=== PATIENT | male | born 1980 | race Caucasian/White ===

== ENCOUNTER 2018-01-11 07:58 | Outpatient (REF) | payer OTHER, SELFPAY ==
[2018-01-11 13:27] LABS: ALT 43 U/L (12-78); AST 23 U/L (15-37); Albumin 3.8 g/dL (3.4-5.0); Alkaline Phosphatase 94 U/L (46-116); Anion Gap 8.5 mmol/L (3-11); BUN 17 mg/dL (7-18); Bilirubin, Total 0.4 mg/dL (0.2-1.0); CO2 27.5 mmol/L (21.0-32.0); CREATININE 1.32 mg/dL (0.70-1.30); Calcium 8.8 mg/dL (8.5-10.1); Chloride 106 mmol/L (98-107); Cholesterol 217 mg/dL (50-200); Glucose 90 mg/dL (70-100); HDL Cholesterol 41 mg/dL (40-60); LDL CHOLESTEROL 165 mg/dL (<100); Potassium 4.3 mmol/L (3.5-5.1); Sodium 142 mmol/L (136-145); Total Protein 6.8 g/dL (6.4-8.2); Triglyceride 59 mg/dL (30-150)
== END 2018-01-11 08:18 ==
LOC: NCHCN 07:58
PROVIDERS: PCP Nurse Practitioner Family; Visit Provider Nurse Practitioner Family
DX: Z13.220 Encounter for screening for lipoid disorders (principal); Z13.6 Encounter for screening for cardiovascular disorders
CPT/HCPCS: 80053; 80061; 83721

== ENCOUNTER 2018-01-21 10:44 | Outpatient (REF) | payer OTHER, SELFPAY ==
[2018-01-24 14:16] LABS: 6-monoacetylmorphine Not Detected ng/mL (Cutoff: 25); Amphetamines Negative ng/mL (Cutoff: 500); Barbiturates Negative ng/mL (Cutoff: 200); Benzodiazepines Negative ng/mL (Cutoff: 100); Buprenorphine Not Detected ng/mL (Cutoff: 5); Cocaine Negative ng/mL (Cutoff: 150); Codeine Not Detected ng/mL (Cutoff: 25); Comment Normal; Dihydrocodeine Not Detected ng/mL (Cutoff: 25); EDDP Not Detected ng/mL (Cutoff: 25); Fentanyl Not Detected ng/mL (Cutoff: 2); Hydrocodone Not Detected ng/mL (Cutoff: 25); Hydromorphone Not Detected ng/mL (Cutoff: 25); Hydromorphone-3-beta-glucuroni Not Detected ng/mL (Cutoff: 100); Meperidine Not Detected ng/mL (Cutoff: 25); Methadone Not Detected ng/mL (Cutoff: 25); Morphine Not Detected ng/mL (Cutoff: 25); N-desmethyltapentadol Not Detected ng/mL (Cutoff: 50); Naloxone Not Detected ng/mL (Cutoff: 25); Norbuprenorphine Not Detected ng/mL (Cutoff: 5); Norfentanyl Not Detected ng/mL (Cutoff: 2); Norhydrocodone Not Detected ng/mL (Cutoff: 25); Normeperidine Not Detected ng/mL (Cutoff: 25); Noroxycodone Not Detected ng/mL (Cutoff: 25); Noroxymorphone Not Detected ng/mL (Cutoff: 25); O-desmethyltramadol Not Detected ng/mL (Cutoff: 25); Phencyclidine Negative ng/mL (Cutoff: 25); Propoxyphene Not Detected ng/mL (Cutoff: 25); Specific Gravity 1.017; Tapentadol Not Detected ng/mL (Cutoff: 25); Tetrahydrocannabinol Presumptive Positive ng/mL (Cutoff: 50); Tramadol Not Detected ng/mL (Cutoff: 25); pH 6.3
[2018-04-04 18:47] LABS: Carboxy-THC Interpretation Positive.; Delta-9 CarboxyThc by LC-MS/MS 376 ng/mL (Cutoff:<3)
== END 2018-01-21 11:04 ==
LOC: LBN 10:44
PROVIDERS: PCP Nurse Practitioner Family; Visit Provider Nurse Practitioner Family
DX: Z79.899 Other long term (current) drug therapy (principal)
CPT/HCPCS: 80307; 80349; 80364

== ENCOUNTER 2018-04-15 17:28 | Outpatient (REF) | payer OTHER, SELFPAY ==
[2018-04-15 19:06] LABS: CREATININE 1.32 mg/dL (0.70-1.30)
== END 2018-04-15 17:48 ==
LOC: NCHCN 17:28
PROVIDERS: PCP Nurse Practitioner Family; Visit Provider Nurse Practitioner Family
DX: F41.9 Anxiety disorder, unspecified (principal); R07.89 Other chest pain; R94.4 Abnormal results of kidney function studies
CPT/HCPCS: 82565

== ENCOUNTER 2018-07-18 11:57 | Inpatient (IN) | payer OTHER, SELFPAY ==
[2018-07-18 12:03] VITALS: PULSE 88; RESP 16; TEMP 36.6; O2SAT 98
--- NOTE | 2018-07-18 12:27 | DI.CT_ITS ---
SYMPTOMS/DIAGNOSIS: LOWER ABDOMINAL PAIN, RADIATION OF PAIN TO PENIS ABDOMINAL AND PELVIC CT: CT examination of the abdomen and pelvis was performed with a bolus infusion of 100 cc of Omnipaque 350. Images obtained through the lung bases are unremarkable. Liver, spleen and pancreas appear normal. Gallbladder and bile ducts are CT normal. Abdominal aorta is of normal diameter and no major vascular abnormality is seen. No significant abdominal wall hernia seen. No abdominal or pelvic adenopathy seen. The appendix is normal. No evidence of bowel obstruction. Note is made of wall thickening of sigmoid colon with marked associated fat edema. There appears to be a microperforation with a small quantity of gas in the pericolonic fat adjacent to the sigmoid. No generalized free air is seen. No abscess seen. Trace free fluid in the peritoneal cavity in the pelvis. CONCLUSION: Findings consistent with acute sigmoid diverticulitis with microperforation. No abscess seen.
--- NOTE | 2018-07-18 12:30 | W.ED.GENAD ---
Discharge Plan Disposition Patient Disposition: [facility] INPATIENT Condition: Stable Discharge Details Chief Complaint: Abd Prob Clinical Impression: Diverticulitis, Perforation bowel Primary Care Provider: Haley óLpez ED Provider: Tess Bob Home Meds and New Rx's Prescriptions: No Action bupropion HCl 150 mg tablet extended release 12 hr 150 mg PO BID RF: 0 propranolol 20 mg tablet 20 mg PO BID RF: 0 Medical Decision Making 37-year-old male with a history of anxiety and depression who presents with lower abdominal pain and vomiting x1 since last night. Vitals within normal limits. Patient appears nontoxic and comfortable. He has tenderness to palpation in his right lower quadrant, suprapubic region and left lower quadrant. exam normal. No CVA tenderness. Differential diagnosis includes appendicitis, diverticulitis, pyelonephritis, UTI, gastroenteritis. Will place an IV, bolus IV fluids, labs, urinalysis and CT abdomen and pelvis. He is declining any pain medication at this time peer 1330 -- labs and imaging reviewed. White blood cell count 12, remainder of labs unremarkable. Urinalysis negative. CT notes acute diverticulitis with edema around sigmoid colon. There is gas in the soft tissues adjacent to the colon consistent with microperforation. No free air, abscess or perforation. 1345 -- discussed with general surgery -accepts patient for admission. Requests Rocephin 2 g IV and Flagyl 500 mg IV. Patient informed of plan and agreeable with admission. He appears comfortable and again is declining any pain medication at this time. Patient is hemodynamically stable. Medical Records Medical records reviewed: Yes I reviewed the patient's medical records. Imaging Data Radiologic Study: Radiologist's impression: ABDOMINAL AND PELVIC CT: CT examination of the abdomen and pelvis was performed with a bolus infusion of 100 cc of Omnipaque 350. Images obtained through the lung bases are unremarkable. Liver, spleen and pancreas appear normal. Gallbladder and bile ducts are CT normal. Abdominal aorta is of normal diameter and no major vascular abnormality is seen. No significant abdominal wall hernia seen. No abdominal or pelvic adenopathy seen. The appendix is normal. No evidence of bowel obstruction. Note is made of wall thickening of sigmoid colon with marked associated fat edema. There appears to be a microperforation with a small quantity of gas in the pericolonic fat adjacent to the sigmoid. No generalized free air is seen. No abscess seen. Trace free fluid in the peritoneal cavity in the pelvis. CONCLUSION: Findings consistent with acute sigmoid diverticulitis with microperforation. No abscess seen. Lab Data Lab results reviewed: Yes I reviewed the patient's lab results. Laboratory Tests Range/Units 07/18/18 07/18/18 07/18/18 12:49 12:49 12:50 WBC (4.4-10.8) k/cumm 12.22 H RBC (4.50-6.00) m/cumm 4.88 Hgb (13.5-17.5) g/dL 14.8 Hct (40.0-50.0) % 43.2 MCV (80-95) fL 88.5 MCH (27.0-33.0) pg 30.3 MCHC (32.0-36.0) g/dL 34.3 RDW (11.8-14.1) % 12.7 Plt Count (130-400) x1000/uL 167 MPV (8.0-11.0) fL 11.8 H Immature Gran % 0.2 Neutrophils % 73.6 Lymphocytes % 10.7 Monocytes % 15.2 Eosinophils % 0.1 Basophils % 0.2 Absolute Neutrophils (1.2-6.7) k/cumm 8.99 H Absolute Lymphocytes (1.2-3.4) k/cumm 1.31 Absolute Monocytes (0.11-0.7) k/cumm 1.86 H Absolute Eosinophils (0.0-0.7) k/cumm 0.01 Absolute Basophils (0.0-0.2) k/cumm 0.02 Sodium (136-145) mmol/L 138 Potassium (3.5-5.1) mmol/L 3.8 Chloride (98-107) mmol/L 101 Carbon Dioxide (21.0-32.0) mmol/L 28.1 Anion Gap (3-11) mmol/L 8.9 BUN (7-18) mg/dL 14 Creatinine (0.70-1.30) mg/dL 1.25 Estimated GFR/1.73 m2 (mL/min/1.73m2) >= 60.00 Glucose (70-100) mg/dL 98 Calcium (8.5-10.1) mg/dL 8.9 Total Bilirubin (0.2-1.0) mg/dL 0.9 AST (15-37) U/L 21 ALT (12-78) U/L 40 Alkaline Phosphatase (46-116) U/L 104 Total Protein (6.4-8.2) g/dL 7.3 Albumin (3.4-5.0) g/dL 3.7 Lipase (73-393) U/L 155 Urine Color (Yellow) Yellow Urine Clarity Clear Urine pH (5-8) 7.0 Ur Specific [place] (1.005-1.025) 1.015 Urine Protein (Negative) mg/dL Negative Urine Ketones (Negative) mg/dL Negative Urine Blood (Negative) Negative Urine Nitrite (Negative) Negative Urine Bilirubin (Negative) Negative Urine Urobilinogen (Up TO 0.2) EU/dL 0.2 Ur Leukocyte Esterase (Negative) Negative Urine Glucose (Negative) mg/dL Negative HPI General Mode of arrival: ambulatory. Date/Time Provider Initiated Documentation: 07/18/18 11:59. Limitations to Documentation: no limitations. Information obtained by: patient. HPI Narrative: Patient is a 37-year-old male with a history of anxiety and depression who presents with lower abdominal pain since last night. Patient states the pain is intermittent, sharp and feels like gas pains. States the pain is currently 2/10. States it is worse with movement and better with nothing. He has not taken any medication for the pain. He states the pain is in his lower abdomen below his umbilicus and this morning now radiates into his penis. He states last night he had lower back pain but this resolved last night. He states at 3 AM this morning he attempted to urinate and have a bowel movement and felt cold sweats, nausea and dizzy and felt like he was almost going to pass out but did not. He states he then vomited one time and felt slightly better. He states the vomitus was thick and white but denies any bleeding. He states his last bowel movement was yesterday and within normal limits. He states he has been having alternating constipation and diarrhea. His temp this morning was 99. He denies recent travel, recent surgeries, dysuria, hematuria, urgency. He states he has a history of chronic urinary frequency due to what he thinks is a large prostate but states this is no worse than usual. He states he mainly came in today because his girlfriend encouraged him to get an evaluation otherwise he states he would not have come here. Related Data Home Medications Medication Instructions Recorded Confirmed bupropion HCl SR 150 mg tablet,12 150 mg PO BID 01/16/18 07/18/18 hr sustained-release propranolol 20 mg tablet 20 mg PO BID 01/16/18 07/18/18 Allergies Allergy/AdvReac Type Severity Reaction Status Date / Time No Known Allergies Allergy Unverified 07/18/18 12:06 General Stated Complaint: Abd Prob ELVA: 3 Review of Systems Review of Systems All systems reviewed & are unremarkable except as noted in HPI and below Constitutional Reports as per HPI, Denies chills and Denies fever(s) Eyes Denies blurry vision ENT Denies dizziness, Denies sore throat and Denies throat swelling Cardiovascular Denies chest pain and Denies dyspnea Respiratory Denies cough and Denies dyspnea Gastrointestinal Reports abdominal pain, Denies diarrhea and Reports vomiting Genitourinary Denies hematuria and Denies dysuria Musculoskeletal Denies back pain and Denies numbness Integumentary/Breasts Denies lesions and Denies rash Neurologic Denies dizziness, Denies focal weakness and Denies numbness Allergic/Immunologic Denies throat swelling PFSH Medical History MIGUEL (generalized anxiety disorder) (Acute) Elevated cholesterol with elevated triglycerides (Acute) Diverticulitis of both large and small intestine with perforation without abscess or bleeding (Acute) Atypical chest pain (Acute) Chronic fatigue (Acute) Colon polyp (Acute) Dizziness (Acute) MIGUEL (generalized anxiety disorder) (Acute) Hyperlipidemia (Acute) Mood disorder (Acute) Right knee pain (Acute) Sleep disturbances (Acute) Visual disturbance (Acute) Anxiety (Chronic) Depression (Chronic) Surgical History Tongue abnormality (Acute) Social History Smoking/Tobacco Use Status: Former Tobacco Use Alcohol Intake: current Alcohol Intake frequency: holidays/special occasions only Drug use: Daily Substance use type: marijuana Household members: children Housing: house Number of Children: 1 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 [employer] What type of physical activity do you participate in: none Do you feel safe at home: Yes Do you feel safe in your relationship?: Yes Exam Const General: cooperative, healthy appearing and no acute distress HENMT Head: normal to inspection Face and sinus: normal facial exam Eyes General: appearance normal, both eyes and all related structures EOM: EOM intact bilaterally Neck Neck: normal visual inspection and No submandibular swelling Lymphatic: no lymphadenopathy noted Chest Chest: normal inspection of the chest and no tenderness Resp Effort & Inspection: normal respiratory effort and able to speak in complete sentences Auscultation: clear to auscultation bilaterally Cardio Rate: regular rate Rhythm: regular rhythm GI Inspection: normal to inspection Palpation: soft, not firm, not rigid and nontender Auscultation: normal bowel sounds Male General Exam: Yes normal external exam Penis: normal penis, no ecchymosis, not edematous and not erythematous Scrotum: scrotum normal, not edematous and not erythematous Testes: normal, no testicular swelling and no testicular tenderness Back/Spine/Pelvis Back: no CVA tenderness Skin General skin exam: no rashes or lesions noted Neuro General: alert, awake and oriented x3 Cognition: normal cognition Speech: speech normal Motor: muscle tone normal throughout Sensory Exam: no sensory deficits noted Extrem General: normal to inspection, full ROM and no edema Psych Appearance: grossly normal Mental Status: mental status grossly normal Speech and Movement: speech and movement normal Affect: normal affect Course Vital Signs Temperature 97.9 F 07/18/18 12:03 Pulse 88 07/18/18 12:03 Respiratory Rate 16 07/18/18 12:03 Pulse Oximetry 98 07/18/18 12:03 Temperature 97.9 F 07/18/18 12:03 Temperature Source Temporal Artery Scan 07/18/18 12:03 Pulse 88 07/18/18 12:03 Respiratory Rate 16 07/18/18 12:03 Respiratory Effort Non-Labored 07/18/18 12:05 Blood Pressure Position Sitting 07/18/18 12:03 Pulse Oximetry 98 07/18/18 12:03 Oxygen Delivery Method Room Air 07/18/18 12:03 Oxygen Flow Rate 0 07/18/18 12:03 Pain Level 2 07/18/18 12:03
[2018-07-18] MEDS: Normal Saline 1,000 ML 1000 ML IV (12:49)
[2018-07-18 12:53] LABS: Abs Immature Grans 0.03 k/cumm (0.0-0.09); Absolute Eosinophil Count 0.01 k/cumm (0.0-0.7); Absolute Lymphocyte Count 1.31 k/cumm (1.2-3.4); Absolute Monocyte Count 1.86 k/cumm (0.11-0.7); Basophils % 0.2; Eosinophils % 0.1; HCT 43.2 % (40.0-50.0); HGB 14.8 g/dL (13.5-17.5); Immature Grans % 0.2; Lymphocytes % 10.7; Mean Corp. HGB Concentration 34.3 g/dL (32.0-36.0); Mean Corpuscular Hemoglobin 30.3 pg (27.0-33.0); Mean Corpuscular Volume 88.5 fL (80-95); Mean Platelet Volume 11.8 fL (8.0-11.0); Monocytes % 15.2; Neutrophils % 73.6; Platelet Count 167 x1000/uL (130-400); RBC 4.88 m/cumm (4.50-6.00); RBC Distribution Width 12.7 % (11.8-14.1); White Blood Cell Count 12.22 k/cumm (4.4-10.8)
[2018-07-18 12:54] LABS: Absolute Basophil Count 0.02 k/cumm (0.0-0.2); Absolute Neutrophil Count 8.99 k/cumm (1.2-6.7)
[2018-07-18 12:58] LABS: Bilirubin Negative (Negative); Blood Negative (Negative); Clarity Clear; Glucose Negative (Negative); Ketones Negative (Negative); Leukocyte Esterase Negative (Negative); Nitrite Negative (Negative); Specific Gravity 1.015 (1.005-1.025); Urobilinogen 0.2 EU/dL (Up TO 0.2)
[2018-07-18 13:11] LABS: ALT 40 U/L (12-78); AST 21 U/L (15-37); Albumin 3.7 g/dL (3.4-5.0); Alkaline Phosphatase 104 U/L (46-116); Anion Gap 8.9 mmol/L (3-11); BUN 14 mg/dL (7-18); Bilirubin, Total 0.9 mg/dL (0.2-1.0); CO2 28.1 mmol/L (21.0-32.0); CREATININE 1.25 mg/dL (0.70-1.30); Calcium 8.9 mg/dL (8.5-10.1); Chloride 101 mmol/L (98-107); Glucose 98 mg/dL (70-100); Lipase 155 U/L (73-393); Potassium 3.8 mmol/L (3.5-5.1); Sodium 138 mmol/L (136-145); Total Protein 7.3 g/dL (6.4-8.2)
[2018-07-18] MEDS: Omnipaque 350 MG/ML 100 ML BTL IJ (13:43)
[2018-07-18 14:00] VITALS: BP 116/77; PULSE 85; RESP 18; TEMP 37.5; O2SAT 97
[2018-07-18] MEDS: metroNIDAZOLE 500 MG/100 ML BAG 100 MG IVPB ×2 (14:10→19:58)
--- NOTE | 2018-07-18 14:25 | HPE_ITS ---
Date of service: 07/18/18 Time of Service: 14:22 Assessment and Plan (1) Diverticulitis of both large and small intestine with perforation without abscess or bleeding: Current visit: Yes Status: Acute admission IV abx bowel rest supportive care- DVT proph/pulm toilet/pain control CE in 4-6 wks No signs of diffuse peritonitis. No abscess on CT. WIll monitor for signs of abscess or worsening perforation (2) Elevated cholesterol with elevated triglycerides: Current visit: Yes Status: Acute tx as outpt (3) MIGUEL (generalized anxiety disorder): Current visit: Yes Status: Acute cont po meds History of Present Illness Chief Complaint: abdom pain Consults Consult date: 07/18/18 Requesting physician: Tess Bob Narrative: pt has a hx of constipation adn colon issues. He has had a CE in his 20's for RB- it did show a non cancerous polyp (hyperplactic?) his mom has olon issues Pt started having abdom pain left sided and suprapubic last pm. THought he as d ehydrated and was pushing fluids . + n/v and increasing pain throughout day and came to ED. He does have a hx of hemorrhoids and constipation. pt has had episode of LLQ abdom pain in the past- but none this severe. pt was not aware that he had divertic. CT was done- see repeat. I did personally view the images. On exam, pt abdom is pretty distended and there is diffuse tenderness, but co ncentrated in LLQ/suprapubic area. d/w pt findings on CT and significance and plan hydration/pain control/close obs/abx/supportive care will require CE in future to eval divertic. remain on high fiber diet lifelong consider elective sigmoid resection b/c of age. Review of Systems Review of Systems All systems reviewed & are unremarkable except as noted in HPI and below Constitutional Reports as per HPI, Reports system reviewed and no additional complaints, except as docu, Denies anorexia, Denies chills, Denies difficulty sleeping, Denies fatigue, Denies headache(s), Denies lethargy, Denies malaise, Denies poor appetite, Denies weakness, Denies weight gain and Denies weight loss Eyes Reports as per HPI, Reports system reviewed and no additional complaints, except as docu and Denies change in vision ENT Reports system reviewed and no additional complaints, except as docu, Reports as per HPI, Denies change in voice, Denies dental pain, Denies dysphagia, Denies dizziness, Denies facial pain, Denies headache(s) and Denies odynophagia Cardiovascular Reports as per HPI, Reports system reviewed and no additional complaints, except as docu, Denies chest pain, Denies chest pain with activity, Denies syncope, Denies leg edema and Denies dyspnea Respiratory Reports as per HPI, Reports system reviewed and no additional complaints, except as docu, Denies chest congestion, Denies cough, Denies pain with cough and Denies dyspnea Gastrointestinal Reports as per HPI, Reports system reviewed and no additional complaints, except as docu, Reports abdominal pain, Reports bloating, Reports change in bowel habits, Reports tenesmus, Denies change in stool character, Reports constipation, Denies cramping, Denies dysphagia, Denies early satiety, Denies heartburn, Denies diarrhea, Reports nausea, Denies odynophagia and Reports vomiting Comments: see HPI Genitourinary Reports system reviewed and no additional complaints, except as docu Musculoskeletal Reports system reviewed and no additional complaints, except as docu, Reports as per HPI, Denies abnormal gait, Denies arthralgias and Denies muscle weakness Integumentary/Breasts Reports system reviewed and no additional complaints, except as docu, Reports as per HPI, Denies changing lesions, Denies new lesions and Denies jaundice Neurologic Reports system reviewed and no additional complaints, except as docu, Reports as per HPI, Denies abnormal speech, Denies abnormal gait, Denies dizziness, Denies syncope, Denies headache(s), Denies memory loss and Denies weakness Psychiatric Reports system reviewed and no additional complaints, except as docu, Reports as per HPI, Denies change in appetite and Denies memory loss Endocrine Denies fatigue, Denies polydipsia and Denies polyuria Hematologic/Lymphatic Reports system reviewed and no additional complaints, except as docu, Denies easy bleeding and Denies easy bruising Allergic/Immunologic Denies system reviewed and no additional complaints, except as docu, Reports as per HPI and Denies urticaria PFSH Medical History MIGUEL (generalized anxiety disorder) (Acute) Elevated cholesterol with elevated triglycerides (Acute) Diverticulitis of both large and small intestine with perforation without abscess or bleeding (Acute) Atypical chest pain (Acute) Chronic fatigue (Acute) Colon polyp (Acute) Dizziness (Acute) MIGUEL (generalized anxiety disorder) (Acute) Hyperlipidemia (Acute) Mood disorder (Acute) Right knee pain (Acute) Sleep disturbances (Acute) Visual disturbance (Acute) Anxiety (Chronic) Depression (Chronic) Surgical History Tongue abnormality (Acute) Social History Smoking/Tobacco Use Status: Former Tobacco Use Alcohol Intake: current Alcohol Intake frequency: holidays/special occasions only Drug use: Daily Substance use type: marijuana Household members: children Housing: house Number of Children: 1 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 [employer] What type of physical activity do you participate in: none Do you feel safe at home: Yes Do you feel safe in your relationship?: Yes Meds Home Medications Medication Instructions Recorded Confirmed Type bupropion HCl SR 150 mg tablet,12 150 mg PO BID 01/16/18 07/18/18 History hr sustained-release propranolol 20 mg tablet 20 mg PO BID 01/16/18 07/18/18 History Allergies Allergy/AdvReac Type Severity Reaction Status Date / Time No Known Allergies Allergy Unverified 07/18/18 12:06 Exam Const General: cooperative, healthy appearing, comfortable, no acute distress, well developed and well groomed Nutritional Appearance: average body habitus and well nourished Orientation: alert, awake and oriented x3 HENMT Head: normal to inspection, normocephalic and atraumatic Ears: hearing grossly normal bilaterally and external ears normal General nose exam: external nose normal Face and sinus: normal facial exam and sinuses nontender Mouth: oral mucosae normal, lip normal, tongue normal and moist mucous membranes Teeth and gingiva: dentition normal Eyes General: appearance normal, both eyes and all related structures Conjunctivae: conjunctivae normal Sclera: sclerae normal Pupils: PERRL Neck Neck: normal visual inspection and full ROM Chest Chest: normal inspection of the chest Resp Effort & Inspection: normal respiratory effort, able to speak in complete sentences, no cough, no nasal flaring, not tachypneic and no use of accessory muscles Auscultation: clear to auscultation bilaterally, no rales, no rhonchi and no wheezes Cardio Jugular venous pressure: no JVD Rate: regular rate Rhythm: regular rhythm GI Inspection: normal to inspection, no edema and distended Palpation: no masses, nontender and No ascites Auscultation: absent bowel sounds Other: +mild distention. diffusley tender- but concentrated in LLQ/suprpubic area. rebound and guarding in LLQ. Skin General skin exam: no rashes or lesions noted Trauma: no lacerations or abrasions Neuro General: alert, oriented x3, oriented, gait normal, moves all extremities, no focal motor deficits and CN's II-XI intact bilaterally Cognition: normal cognition Speech: speech normal Gait: normal gait Motor: muscle tone normal throughout Extrem General: normal to inspection, full ROM and no clubbing, cyanosis or edema Psych Appearance: grossly normal and well kempt Mental Status: mental status grossly normal Speech and Movement: speech and movement normal Affect: normal affect Results Labs : 07/18/18 12:49 07/18/18 12:49 Laboratory Results - last 24 hr 07/18/18 07/18/18 07/18/18 12:49 12:49 12:50 WBC 12.22 H RBC 4.88 Hgb 14.8 Hct 43.2 MCV 88.5 MCH 30.3 MCHC 34.3 RDW 12.7 Plt Count 167 MPV 11.8 H Immature Gran % 0.2 Neutrophils % 73.6 Lymphocytes % 10.7 Monocytes % 15.2 Eosinophils % 0.1 Basophils % 0.2 Absolute Neutrophils 8.99 H Absolute Lymphocytes 1.31 Absolute Monocytes 1.86 H Absolute Eosinophils 0.01 Absolute Basophils 0.02 Sodium 138 Potassium 3.8 Chloride 101 Carbon Dioxide 28.1 Anion Gap 8.9 BUN 14 Creatinine 1.25 Estimated GFR/1.73 m2 >= 60.00 Glucose 98 Calcium 8.9 Total Bilirubin 0.9 AST 21 ALT 40 Alkaline Phosphatase 104 Total Protein 7.3 Albumin 3.7 Lipase 155 Urine Color Yellow Urine Clarity Clear Urine pH 7.0 Ur Specific [place] 1.015 Urine Protein Negative Urine Ketones Negative Urine Blood Negative Urine Nitrite Negative Urine Bilirubin Negative Urine Urobilinogen 0.2 Ur Leukocyte Esterase Negative Urine Glucose Negative Last Vital Signs Temp 36.6 C 07/18/18 12:03 Pulse 88 07/18/18 12:03 Resp 16 07/18/18 12:03 Pulse Ox 98 07/18/18 12:03
[2018-07-18] MEDS: cefTRIAXone 2 GM/50 ML BAG IVPB (15:30)
[2018-07-18 16:11] VITALS: BP 118/75; PULSE 86; RESP 16; TEMP 39.2; O2SAT 98
[2018-07-18] MEDS: Normal Saline Flush 10 ML SYR IVP ×2 (16:36→21:10)
[2018-07-18] MEDS: Lactated Ringers 1,000 ML 125 ML IV (16:38)
[2018-07-18] MEDS: ACETAMINOPHEN 1,000 MG/100 ML BTL 400 MG IVPB (16:38)
[2018-07-18] MEDS: Enoxaparin 40 MG/0.4 ML SYR SC (16:43)
[2018-07-18 19:56] VITALS: BP 116/77; PULSE 85; RESP 18; TEMP 37.5; O2SAT 97
[2018-07-18] MEDS: buPROPion-CR 150 MG TABCR PO (20:00)
[2018-07-18] MEDS: Propranolol 20 MG TAB PO (20:01)
[2018-07-18] MEDS: Ketorolac 30 MG/ML VIAL IV (21:10)
[2018-07-19] MEDS: ACETAMINOPHEN 1,000 MG/100 ML BTL 400 MG IVPB ×4 (00:25→23:55)
[2018-07-19 01:10] VITALS: BP 95/60; PULSE 80; RESP 16; TEMP 37.4; O2SAT 95
[2018-07-19] MEDS: Normal Saline Flush 10 ML SYR IVP ×7 (01:41→23:56)
[2018-07-19] MEDS: Lactated Ringers 1,000 ML 125 ML IV ×2 (01:41→09:35)
[2018-07-19] MEDS: metroNIDAZOLE 500 MG/100 ML BAG 100 MG IVPB ×4 (01:42→19:43)
[2018-07-19 03:10] VITALS: BP 105/68; PULSE 74; RESP 16; TEMP 36.8; O2SAT 97
[2018-07-19] MEDS: Ketorolac 30 MG/ML VIAL IV ×4 (03:41→22:00)
[2018-07-19 07:25] VITALS: BP 95/61; PULSE 80; RESP 19; TEMP 36.5; O2SAT 97
[2018-07-19 07:35] LABS: Abs Immature Grans 0.03 k/cumm (0.0-0.09); Absolute Basophil Count 0.02 k/cumm (0.0-0.2); Absolute Eosinophil Count 0.03 k/cumm (0.0-0.7); Absolute Lymphocyte Count 1.52 k/cumm (1.2-3.4); Absolute Monocyte Count 1.54 k/cumm (0.11-0.7); Absolute Neutrophil Count 6.98 k/cumm (1.2-6.7); Basophils % 0.2; Eosinophils % 0.3; HCT 39.6 % (40.0-50.0); HGB 13.2 g/dL (13.5-17.5); Immature Grans % 0.3; Mean Corp. HGB Concentration 33.3 g/dL (32.0-36.0); Mean Corpuscular Hemoglobin 29.9 pg (27.0-33.0); Mean Corpuscular Volume 89.8 fL (80-95); Mean Platelet Volume 12.3 fL (8.0-11.0); Monocytes % 15.2; Platelet Count 146 x1000/uL (130-400); RBC 4.41 m/cumm (4.50-6.00); RBC Distribution Width 12.8 % (11.8-14.1); White Blood Cell Count 10.12 k/cumm (4.4-10.8)
[2018-07-19 08:01] LABS: Diff Comment Manual Differential
[2018-07-19 08:02] LABS: RBC Morphology Normal
--- NOTE | 2018-07-19 08:11 | PDOC.CMIN ---
- If Service Date Differs Date of service: 07/19/18 Time of Service: 08:11 Care Management Initial Assess REASON FOR HOSPITALIZATION:: Diverticulitis (large and small intestine) with perforation PAST MEDICAL HISTORY/PAST SURGICAL HISTORY:: Medical History: MIGUEL (generalized anxiety disorder), Elevated cholesterol with elevated triglycerides, Diverticulitis of both large and small intestine with perforation without abscess or bleeding, Atypical chest pain, Chronic fatigue, Colon polyp, Dizziness, Hyperlipidemia, Mood disorder, Right knee pain, Sleep disturbances,Visual disturbance,Anxiety, Depression. 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 He lives in a single family home with Elsa, his terminal block assembler girlfriend, and 10 year old daughter. CURRENT FUNCTIONAL STATUS:: Santana was ambulating in his room during CM visit. He states he is feeling much better and that his abdominal pain is gone. His was visiting with his girlfriend Elsa. Has patient been provided with information about the portal?: Yes CODE STATUS:: Full Code INSURANCE COVERAGE / FINANCIAL ISSUES:: [facility] CURRENT HOME/COMMUNITY SERVICES/EQUIPMENT:: Santana is currently not receiving any services. PRIMARY CARE PHYSICIAN:: Haley López POTENTIAL DISCHARGE NEEDS:: Follow up appointments with PCP and surgeon. PATIENT/FAMILY EDUCATION NEEDS:: Discharge education, limitations, follow up plan of care and Ask Me Three. ANTICIPATED BARRIERS TO DISCHARGE:: None identified TRANSPORTATION:: Via private automobile with family at time of discharge. PLAN:: Santana is currently receiving IV antibiotics and is NPO. Anticipate Santana will be discharged home with no services when ready. CM to continue to provide support to patient, family, care team and ongoing discharge planning.
[2018-07-19 08:31] LABS: ALT 25 U/L (12-78); AST 14 U/L (15-37); Alkaline Phosphatase 84 U/L (46-116); Anion Gap 9.1 mmol/L (3-11); BUN 12 mg/dL (7-18); Bilirubin, Total 0.9 mg/dL (0.2-1.0); CO2 25.9 mmol/L (21.0-32.0); CREATININE 1.32 mg/dL (0.70-1.30); Calcium 8.7 mg/dL (8.5-10.1); Chloride 105 mmol/L (98-107); Glucose 102 mg/dL (70-100); Potassium 3.5 mmol/L (3.5-5.1); Sodium 140 mmol/L (136-145); Total Protein 6.4 g/dL (6.4-8.2)
[2018-07-19] MEDS: Propranolol 20 MG TAB PO ×2 (08:45→19:43)
[2018-07-19] MEDS: buPROPion-CR 150 MG TABCR PO ×2 (08:45→19:43)
--- NOTE | 2018-07-19 09:50 | INITIAL_ITS ---
- If Service Date Differs Date of service: 07/19/18 Time of Service: 08:11 Care Management Initial Assess REASON FOR HOSPITALIZATION:: Diverticulitis (large and small intestine) with perforation PAST MEDICAL HISTORY/PAST SURGICAL HISTORY:: Medical History: MIGUEL (generalized anxiety disorder), Elevated cholesterol with elevated triglycerides, Diverticulitis of both large and small intestine with perforation without abscess or bleeding, Atypical chest pain, Chronic fatigue, Colon polyp, Dizziness, Hyperlipidemia, Mood disorder, Right knee pain, Sleep disturbances,Visual disturbance,Anxiety, Depression. 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 He lives in a single family home with Elsa, his rn long term care girlfriend, and 10 year old daughter. CURRENT FUNCTIONAL STATUS:: Santana was ambulating in his room during CM visit. He states he is feeling much better and that his abdominal pain is gone. His was visiting with his girlfriend Elsa. Has patient been provided with information about the portal?: Yes CODE STATUS:: Full Code INSURANCE COVERAGE / FINANCIAL ISSUES:: [facility] CURRENT HOME/COMMUNITY SERVICES/EQUIPMENT:: Santana is currently not receiving any services. PRIMARY CARE PHYSICIAN:: Haley López POTENTIAL DISCHARGE NEEDS:: Follow up appointments with PCP and surgeon. PATIENT/FAMILY EDUCATION NEEDS:: Discharge education, limitations, follow up plan of care and Ask Me Three. ANTICIPATED BARRIERS TO DISCHARGE:: None identified TRANSPORTATION:: Via private automobile with family at time of discharge. PLAN:: Santana is currently receiving IV antibiotics and is NPO. Anticipate Santana will be discharged home with no services when ready. CM to continue to provide support to patient, family, care team and ongoing discharge planning.
--- NOTE | 2018-07-19 09:59 | W.PM.PROGNOT ---
Date of Service Date of service: 07/19/18 Time of Service: 09:59 Assessment and Plan (1) Diverticulitis of both large and small intestine with perforation without abscess or bleeding: Current visit: Yes Status: Acute doing better today cont IV abx and bowel rest up walking pulm toilet/dvt proph sips/chips/po meds supportive care not ordering labs for am Subjective Interval history since last seen: Pt is doing well. no headaches. No CP or SOB. no productive cough. no dysuria. no leg pain or swelling. pt has less pain. Still had temp overnight but none today. + flatus. no BM. no dysuria Exam Const General: cooperative, healthy appearing, comfortable, no acute distress, well developed and well groomed Nutritional Appearance: average body habitus and well nourished Orientation: alert, awake and oriented x3 HENMT Head: normal to inspection, normocephalic and atraumatic Ears: hearing grossly normal bilaterally and external ears normal General nose exam: external nose normal Face and sinus: normal facial exam and sinuses nontender Mouth: oral mucosae normal, lip normal, tongue normal and moist mucous membranes Teeth and gingiva: dentition normal Eyes General: appearance normal, both eyes and all related structures Conjunctivae: conjunctivae normal Sclera: sclerae normal Pupils: PERRL Neck Neck: normal visual inspection and full ROM Chest Chest: normal inspection of the chest Resp Effort & Inspection: normal respiratory effort, able to speak in complete sentences, no cough, no nasal flaring, not tachypneic and no use of accessory muscles Auscultation: clear to auscultation bilaterally, no rales, no rhonchi and no wheezes Cardio Jugular venous pressure: no JVD Rate: regular rate Rhythm: regular rhythm GI Inspection: normal to inspection, no edema and distended Palpation: soft, no masses, nontender and No ascites Auscultation: normal bowel sounds Other: pain only in LLQ/suprapubic. localized tenderness and guarding. not as severe as last pm. min BS Skin General skin exam: no rashes or lesions noted Trauma: no lacerations or abrasions Neuro General: alert, oriented x3, oriented, gait normal, moves all extremities, no focal motor deficits and CN's II-XI intact bilaterally Cognition: normal cognition Speech: speech normal Gait: normal gait Motor: muscle tone normal throughout Extrem General: normal to inspection, full ROM and no clubbing, cyanosis or edema Psych Appearance: grossly normal and well kempt Mental Status: mental status grossly normal Speech and Movement: speech and movement normal Affect: normal affect Objective Objective Clinical Data: Abnormal lab results 07/18/18 07/19/18 07/19/18 Range/Units 12:49 06:45 06:45 WBC 12.22 H (4.4-10.8) k/cumm RBC 4.41 L (4.50-6.00) m/cumm Hgb 13.2 L (13.5-17.5) g/dL Hct 39.6 L (40.0-50.0) % MPV 11.8 H 12.3 H (8.0-11.0) fL Absolute Neutrophils 8.99 H 6.98 H (1.2-6.7) k/cumm Absolute Monocytes 1.86 H 1.54 H (0.11-0.7) k/cumm Creatinine 1.32 H (0.70-1.30) mg/dL Glucose 102 H (70-100) mg/dL AST 14 L (15-37) U/L Albumin 3.0 L (3.4-5.0) g/dL Vital Signs Temperature 36.5 C 07/19/18 07:25 Temperature Source Tympanic 07/19/18 07:25 Pulse 80 07/19/18 07:25 Pulse Rhythm Regular 07/19/18 00:41 Respiratory Rate 19 07/19/18 07:25 Respiratory Effort Non-Labored 07/19/18 00:41 Respiratory Depth Normal 07/19/18 00:41 Respiratory Pattern Normal 07/19/18 00:41 Blood Pressure 95/61 L 07/19/18 07:25 Blood Pressure Position Sitting 07/18/18 12:03 Pulse Oximetry 97 07/19/18 07:25 Oxygen Delivery Method Room Air 07/19/18 07:25 Oxygen Flow Rate 0 07/19/18 07:25 Pain Level 0 07/19/18 03:10 Comment 07/19/18 03:10 Intake & Output 07/18/18 07/18/18 07/19/18 11:59 23:59 11:59 Intake Total 210 / 210 2197.5 / 2197.5 Balance 210 / 210 2197.5 / 2197.5 Weight 92.8 kg Intake: IV 210 / 210 2197.5 / 2197.5 Other: Urine Color Pale Yellow Urine Appearance Clear Urine Odor None Comment pt voided in the toilet and flushed Voiding Methods Toilet Laboratory Results WBC 10.12 k/cumm (4.4-10.8) 07/19/18 06:45 RBC 4.41 m/cumm (4.50-6.00) L 07/19/18 06:45 Hgb 13.2 g/dL (13.5-17.5) L 07/19/18 06:45 Hct 39.6 % (40.0-50.0) L 07/19/18 06:45 MCV 89.8 fL (80-95) 07/19/18 06:45 MCH 29.9 pg (27.0-33.0) 07/19/18 06:45 MCHC 33.3 g/dL (32.0-36.0) 07/19/18 06:45 RDW 12.8 % (11.8-14.1) 07/19/18 06:45 Plt Count 146 x1000/uL (130-400) 07/19/18 06:45 MPV 12.3 fL (8.0-11.0) H 07/19/18 06:45 Immature Gran % 0.3 07/19/18 06:45 Neutrophils % 69.0 07/19/18 06:45 Lymphocytes % 15.0 07/19/18 06:45 Monocytes % 15.2 07/19/18 06:45 Eosinophils % 0.3 07/19/18 06:45 Basophils % 0.2 07/19/18 06:45 Absolute Neutrophils 6.98 k/cumm (1.2-6.7) H 07/19/18 06:45 Absolute Lymphocytes 1.52 k/cumm (1.2-3.4) 07/19/18 06:45 Absolute Monocytes 1.54 k/cumm (0.11-0.7) H 07/19/18 06:45 Absolute Eosinophils 0.03 k/cumm (0.0-0.7) 07/19/18 06:45 Absolute Basophils 0.02 k/cumm (0.0-0.2) 07/19/18 06:45 Differential Comment Manual differential 07/19/18 06:45 RBC Morphology Normal 07/19/18 06:45 Sodium 140 mmol/L (136-145) 07/19/18 06:45 Potassium 3.5 mmol/L (3.5-5.1) 07/19/18 06:45 Chloride 105 mmol/L (98-107) 07/19/18 06:45 Carbon Dioxide 25.9 mmol/L (21.0-32.0) 07/19/18 06:45 Anion Gap 9.1 mmol/L (3-11) 07/19/18 06:45 BUN 12 mg/dL (7-18) 07/19/18 06:45 Creatinine 1.32 mg/dL (0.70-1.30) H 07/19/18 06:45 Estimated GFR/1.73 m2 >= 60.00 (mL/min/1.73m2) 07/19/18 06:45 Glucose 102 mg/dL (70-100) H 07/19/18 06:45 Calcium 8.7 mg/dL (8.5-10.1) 07/19/18 06:45 Total Bilirubin 0.9 mg/dL (0.2-1.0) 07/19/18 06:45 AST 14 U/L (15-37) L 07/19/18 06:45 ALT 25 U/L (12-78) 07/19/18 06:45 Alkaline Phosphatase 84 U/L (46-116) 07/19/18 06:45 Total Protein 6.4 g/dL (6.4-8.2) 07/19/18 06:45 Albumin 3.0 g/dL (3.4-5.0) L 07/19/18 06:45 Lipase 155 U/L (73-393) 07/18/18 12:49 Urine Color Yellow (Yellow) 07/18/18 12:50 Urine Clarity Clear 07/18/18 12:50 Urine pH 7.0 (5-8) 07/18/18 12:50 Ur Specific [place] 1.015 (1.005-1.025) 07/18/18 12:50 Urine Protein Negative mg/dL (Negative) 07/18/18 12:50 Urine Ketones Negative mg/dL (Negative) 07/18/18 12:50 Urine Blood Negative (Negative) 07/18/18 12:50 Urine Nitrite Negative (Negative) 07/18/18 12:50 Urine Bilirubin Negative (Negative) 07/18/18 12:50 Urine Urobilinogen 0.2 EU/dL (Up TO 0.2) 07/18/18 12:50 Ur Leukocyte Esterase Negative (Negative) 07/18/18 12:50 Urine Glucose Negative mg/dL (Negative) 07/18/18 12:50
--- NOTE | 2018-07-19 12:03 | PHARADMIT ---
Admission Pharmacy Clinical Review DIVERTICULITIS W/ MICRO PERF Code Status Full Code Current Weight Wgt- 92.8 kg Renally Cleared and Narrow Therapeutic Index Meds CrCl~ 85 mL/min Meds-OK QTc Value / Action Taken none BP Control, Fever BP- 95/61 Tmax- 37.5C Electrolytes reviewed Na- 140 K+3.5 DVT Prophylaxis Lovenox 40mg Opiate Usage / Scheduled Bowel Regimen Ordered No Yes Plt/SCr for Heparin / Enoxaparin Plts- 146 SCr-1.32 INR for Warfarin na H/H stable, WBC/Bands H&H- 13.2/39.6 WBC- 10.12 Antibiotic appropriateness Rocephin, Flagyl Cultures and Sensitivities none Surgical ABX d/c within 24 hr na DM control / Insulin Dosing BG- 102 Heart Failure (Check EF%) (NINI's, B-Block, Diuretics) Propranolol IV to PO Switch No Home Meds Reviewed Wellbutrin-SR, Propranolol Home Meds Not Ordered Ordered Comments
[2018-07-19] MEDS: cefTRIAXone 2 GM/50 ML BAG IVPB (14:19)
[2018-07-19] MEDS: Enoxaparin 40 MG/0.4 ML SYR SC (15:16)
[2018-07-19 15:55] VITALS: BP 107/76; PULSE 81; RESP 17; TEMP 37.1; O2SAT 95
[2018-07-19] MEDS: Ondansetron 4 MG/2 ML VIAL IVP ×2 (16:57→22:01)
[2018-07-19] MEDS: Normal Saline 1,000 ML 1000 ML IV (18:30)
--- NOTE | 2018-07-19 22:24 | NUR.NOTE ---
Pt complaining of headache state he usually drinks alot of fluid so he thinks he is dehydrated hence the headache. Passed urine in the cap same very dark in color. State the headache makes him get nauseated. Charge nurse was informed.
[2018-07-19 23:59] VITALS: BP 120/65; PULSE 98; RESP 17; TEMP 37.7; O2SAT 97
[2018-07-20] VITALS (7 sets, daily range): BP systolic 108–119; BP diastolic 65–73; PULSE 67–94; RESP 16–20; TEMP 36.6–38.2; O2SAT 97–99
[2018-07-20] MEDS: metroNIDAZOLE 500 MG/100 ML BAG 100 MG IVPB ×4 (01:38→19:24)
[2018-07-20] MEDS: Normal Saline Flush 10 ML SYR IVP ×5 (01:39→19:25)
[2018-07-20] MEDS: Ketorolac 30 MG/ML VIAL IV (03:53)
[2018-07-20] MEDS: ACETAMINOPHEN 1,000 MG/100 ML BTL 400 MG IVPB (07:41)
[2018-07-20] MEDS: Propranolol 20 MG TAB PO ×2 (07:46→19:24)
[2018-07-20] MEDS: buPROPion-CR 150 MG TABCR PO ×2 (07:46→19:24)
[2018-07-20] MEDS: Ondansetron 4 MG/2 ML VIAL IVP (08:52)
[2018-07-20 09:39] LABS: Anion Gap 14.7 mmol/L (3-11); BUN 13 mg/dL (7-18); CO2 20.3 mmol/L (21.0-32.0); CREATININE 1.17 mg/dL (0.70-1.30); Calcium 8.4 mg/dL (8.5-10.1); Chloride 103 mmol/L (98-107); Glucose 89 mg/dL (70-100); Potassium 3.8 mmol/L (3.5-5.1); Sodium 138 mmol/L (136-145)
--- NOTE | 2018-07-20 10:24 | PGE_ITS ---
Date of Service Date of service: 07/20/18 Time of Service: 10:08 Assessment and Plan (1) MIGUEL (generalized anxiety disorder): Current visit: Yes Status: Acute A\\ Doing well on his home medications P\\ Continue home medications (2) Diverticulitis of both large and small intestine with perforation without abscess or bleeding: Current visit: Yes Status: Acute A\\ Diverticulitis with microperforation Clinically improving. Leukocytosis resolved Abdominal pain resolved and having BM's P\\ Continue IV antibiotics until discharge and then discharge on po antibiotics. 14 day course of antibiotics Diet: Start clear liquids and advance as tolerated to soft, low fat and low fiber IV fluids: decrease to 100 cc/hr and SL once taking enough po Disposition: Hopefully Home tomorrow if he continues to improve clinically and is able to tolerate a diet and keep himself hydrated (3) Heart burn: Current visit: Yes Status: Acute A\\ Epigastric pain and heart burn this am resolved with GI cocktail has history of PPI use in the past P\\ Start PPI and order TUMS as needed for Heart Burn Will discuss with Dr. Baldwin regarding doing an EGD at time of his outpatient Colonoscopy (4) Acute kidney insufficiency: Current visit: Yes Status: Acute A\\ Elevated Cr and low urine output when admitted Given 1 L bolus last night and his UOP improved, CR this am normal P\\ Continue with IV hydration and watch UOP Subjective Interval history since last seen: Patient complained of heart burn and epigastric pain overnight and this am. I ordered a GI cocktail to be given. Once he took the GI Cocktail the pain subsided and he felt great. He denies chest pain or shoulder pain. He has no N/V. He has been up and walking. He has had 5 small liquid BM's over night. He is passing flatus. He is hungry and is asking for some coffee as well. He does tell me also that he had GERD in his 20's that was treated with prilosec. he eventually stopped it and has been taking TUMS prn. His significant other in the room states that he complains a lot of heart burn. He has never had an EGD. Also of note he had a colonoscopy >10 years ago for some rectal bleeding. At that time he was found to have a polyp which he states he was told was benign. He has no family history of colon cancer that he is aware of. Exam Const General: cooperative, healthy appearing, comfortable and no acute distress Orientation: alert and oriented x3 Resp Effort & Inspection: normal respiratory effort Auscultation: clear to auscultation bilaterally Cardio Rate: regular rate Rhythm: regular rhythm Heart Sounds: no gallops, no murmurs and no rubs GI Inspection: normal to inspection Palpation: soft and nontender Auscultation: normal bowel sounds Objective Objective Clinical Data: Abnormal lab results 07/20/18 Range/Units 09:16 Carbon Dioxide 20.3 L (21.0-32.0) mmol/L Anion Gap 14.7 H (3-11) mmol/L Calcium 8.4 L (8.5-10.1) mg/dL Vital Signs Temperature 98.8 F 07/20/18 07:15 Temperature Source Tympanic 07/20/18 07:15 Pulse 67 07/20/18 07:15 Pulse Rhythm Regular 07/20/18 08:12 Respiratory Rate 20 07/20/18 07:15 Respiratory Effort Non-Labored 07/20/18 08:12 Respiratory Depth Normal 07/20/18 08:12 Respiratory Pattern Normal 07/20/18 08:12 Blood Pressure 119/71 07/20/18 07:15 Blood Pressure Position Sitting 07/18/18 12:03 Pulse Oximetry 99 07/20/18 07:15 Oxygen Delivery Method Room Air 07/20/18 07:15 Oxygen Flow Rate 0 07/20/18 07:15 Pain Level 0 07/20/18 08:51 Comment 07/20/18 03:52 Intake & Output 07/19/18 07/19/18 07/20/18 11:59 23:59 11:59 Intake Total 2397.5 / 4722.5 2325 / 4722.5 250 / 250 Output Total 600 / 600 350 / 350 Balance 2397.5 / 4122.5 1725 / 4122.5 -100 / -100 Intake: IV 2397.5 / 4722.5 2325 / 4722.5 220 / 220 Oral 30 / 30 Output: Urine 600 / 600 350 / 350 Other: Urine Color Pale Dark Hilaria Dark Hilaria Yellow Urine Appearance Clear Clear Urine Odor None None Voiding Methods Toilet Laboratory Results WBC 10.12 k/cumm (4.4-10.8) 07/19/18 06:45 RBC 4.41 m/cumm (4.50-6.00) L 07/19/18 06:45 Hgb 13.2 g/dL (13.5-17.5) L 07/19/18 06:45 Hct 39.6 % (40.0-50.0) L 07/19/18 06:45 MCV 89.8 fL (80-95) 07/19/18 06:45 MCH 29.9 pg (27.0-33.0) 07/19/18 06:45 MCHC 33.3 g/dL (32.0-36.0) 07/19/18 06:45 RDW 12.8 % (11.8-14.1) 07/19/18 06:45 Plt Count 146 x1000/uL (130-400) 07/19/18 06:45 MPV 12.3 fL (8.0-11.0) H 07/19/18 06:45 Immature Gran % 0.3 07/19/18 06:45 Neutrophils % 69.0 07/19/18 06:45 Lymphocytes % 15.0 07/19/18 06:45 Monocytes % 15.2 07/19/18 06:45 Eosinophils % 0.3 07/19/18 06:45 Basophils % 0.2 07/19/18 06:45 Absolute Neutrophils 6.98 k/cumm (1.2-6.7) H 07/19/18 06:45 Absolute Lymphocytes 1.52 k/cumm (1.2-3.4) 07/19/18 06:45 Absolute Monocytes 1.54 k/cumm (0.11-0.7) H 07/19/18 06:45 Absolute Eosinophils 0.03 k/cumm (0.0-0.7) 07/19/18 06:45 Absolute Basophils 0.02 k/cumm (0.0-0.2) 07/19/18 06:45 Differential Comment Manual differential 07/19/18 06:45 RBC Morphology Normal 07/19/18 06:45 Sodium 138 mmol/L (136-145) 07/20/18 09:16 Potassium 3.8 mmol/L (3.5-5.1) 07/20/18 09:16 Chloride 103 mmol/L (98-107) 07/20/18 09:16 Carbon Dioxide 20.3 mmol/L (21.0-32.0) L 07/20/18 09:16 Anion Gap 14.7 mmol/L (3-11) H 07/20/18 09:16 BUN 13 mg/dL (7-18) 07/20/18 09:16 Creatinine 1.17 mg/dL (0.70-1.30) 07/20/18 09:16 Estimated GFR/1.73 m2 >= 60.00 (mL/min/1.73m2) 07/20/18 09:16 Glucose 89 mg/dL (70-100) 07/20/18 09:16 Calcium 8.4 mg/dL (8.5-10.1) L 07/20/18 09:16 Total Bilirubin 0.9 mg/dL (0.2-1.0) 07/19/18 06:45 AST 14 U/L (15-37) L 07/19/18 06:45 ALT 25 U/L (12-78) 07/19/18 06:45 Alkaline Phosphatase 84 U/L (46-116) 07/19/18 06:45 Total Protein 6.4 g/dL (6.4-8.2) 07/19/18 06:45 Albumin 3.0 g/dL (3.4-5.0) L 07/19/18 06:45 Lipase 155 U/L (73-393) 07/18/18 12:49 Urine Color Yellow (Yellow) 07/18/18 12:50 Urine Clarity Clear 07/18/18 12:50 Urine pH 7.0 (5-8) 07/18/18 12:50 Ur Specific [place] 1.015 (1.005-1.025) 07/18/18 12:50 Urine Protein Negative mg/dL (Negative) 07/18/18 12:50 Urine Ketones Negative mg/dL (Negative) 07/18/18 12:50 Urine Blood Negative (Negative) 07/18/18 12:50 Urine Nitrite Negative (Negative) 07/18/18 12:50 Urine Bilirubin Negative (Negative) 07/18/18 12:50 Urine Urobilinogen 0.2 EU/dL (Up TO 0.2) 07/18/18 12:50 Ur Leukocyte Esterase Negative (Negative) 07/18/18 12:50 Urine Glucose Negative mg/dL (Negative) 07/18/18 12:50
[2018-07-20] MEDS: Lactated Ringers 1,000 ML 100 ML IV ×2 (10:30→14:37)
[2018-07-20] MEDS: cefTRIAXone 2 GM/50 ML BAG IVPB (13:22)
[2018-07-20] MEDS: Normal Saline 500 ML IV (14:38)
--- NOTE | 2018-07-20 16:00 | W.PM.DSUDISC ---
Discharge Plan Disposition Patient Disposition: HOME Condition: Stable Discharge Details Chief Complaint: Abd Prob Clinical Impression: Diverticulitis, Perforation bowel Reason For Visit: DIVERTICULITIS WITH MICRO PERF Admit Date/Time: 07/18/18 14:09 Admit Provider: Mariley Baldwin Attending Provider: Mariely Baldwin Primary Care Provider: Haley López ED Provider: Tess Bob Hospital Course Hospital Course: Mr. Fajardo is a pleasant 37 year old male admitted with Diverticulitis with microperforation on CT scan. No abscess noted on CT scan. Patient was admitted for IV antibiotics and bowel rest. He did well over the next 2 days. He started passing flatus late on PAD #1. he was started on a clear liquid diet on PAD #2 and advanced to a low fiber diet by dinner. He did well with eating. He had no increase pain or N/V. He had several BM's on PAD #2/3. He did complain of burning chest pain on PAD #2. He was given a GI cocktail which alleviated the symptoms. He was started on a PPI and given some TUMS prn. ON 07/21 he was doing well. His only complaint was heart burn and some gas. He was still passing flatus. He was tolerating a diet and wanted to go home. Home Meds and New Rx's Prescriptions: New acetaminophen [Tylenol] 325 mg Tablet 650 mg PO Q6H PRN PRNQty: 30 RF: 0 pantoprazole 40 mg Tablet,Delayed Release (Dr/Ec) 40 mg PO DAILY@0730 Qty: 30 RF: 0 calcium carbonate 200 mg calcium (500 mg) Tablet,Chewable 500 mg PO QID PRN PRNQty: 30 RF: 0 ibuprofen [IBU] 600 mg Tablet 600 mg PO QID PRN PRNQty: 30 RF: 0 metronidazole [Flagyl] 500 mg tablet 500 mg PO TID Qty: 36 RF: 0 ciprofloxacin HCl 500 mg tablet 500 mg PO BID Qty: 24 RF: 0 polyethylene glycol 3350 [Miralax] 17 gram/dose powder 17 gm PO DAILY Qty: 255 RF: 0 Continued bupropion HCl 150 mg tablet extended release 12 hr 150 mg PO BID RF: 0 propranolol 20 mg tablet 20 mg PO BID RF: 0 Discharge Instructions Instructions: Low Fiber Diet (DC), Diverticulitis (DC), Gastroesophageal Reflux Disease (GEN) Additional Instructions: Activity at Home after surgery: 1. Make sure you walk outside at least 4 times per day 2. You should be able to climb a flight of stairs Diet, Nutrition, & wound healing: Follow a low fiber diet until you see Dr. Baldwin in the office Pain Medications: Take Tylenol 650 mg every 6 hours as needed for pain or fevers For Constipation: MiraLax daily. Other: 1. You may shower daily. Please call our office if you develop: 1. Fevers >101.5 2. Nausea or Vomiting 3. Worsening pain If after hours please call the Hospital at and ask to speak to the on-call surgeon Referrals: Mariely Baldwin DO [OSTEOPATHIC DOCTOR] - 07/31/18 1:00 pm Activity:: Activity as Tolerated Activity:: Activity as Tolerated Equipment/Supplies:: No Equipment Needed Diet:: low fiber diet Discharge Orders Discharge Orders: Discharge Order (Routine); Ordered 07/21/18 Ordered By: Roula Kaur DS: Diagnosis Discharge Diagnosis (1) MIGUEL (generalized anxiety disorder): Status: Acute (2) Diverticulitis of both large and small intestine with perforation without abscess or bleeding: Status: Acute (3) Heart burn: Status: Acute
--- NOTE | 2018-07-20 16:05 | PDOC.DSDIS_ITS ---
Discharge Plan Disposition Patient Disposition: HOME Condition: Stable Discharge Details Chief Complaint: Abd Prob Clinical Impression: Diverticulitis, Perforation bowel Reason For Visit: DIVERTICULITIS WITH MICRO PERF Admit Date/Time: 07/18/18 14:09 Admit Provider: Mariely Baldwin Attending Provider: Mariely Baldwin Primary Care Provider: Haley López ED Provider: Tess Bob Hospital Course Hospital Course: Mr. Fajardo is a pleasant 37 year old male admitted with Diverticulitis with microperforation on CT scan. No abscess noted on CT scan. Patient was admitted for IV antibiotics and bowel rest. He did well over the next 2 days. He sta rted passing flatus late on PAD #1. he was started on a clear liquid diet on PAD #2 and advanced to a low fiber diet by dinner. He did well with eating. He had no increase pain or N/V. He had several BM's on PAD #2/3. He did complain of burning chest pain on PAD #2. He was given a GI cocktail which alleviated the symptoms. He was started on a PPI and given some TUMS prn. ON 07/21 he was doing well. His only complaint was heart burn and some gas. He was still passing flatus. He was tolerating a diet and wanted to go home. Home Meds and New Rx's Prescriptions: New acetaminophen [Tylenol] 325 mg Tablet 650 mg PO Q6H PRN PRNQty: 30 RF: 0 pantoprazole 40 mg Tablet,Delayed Release (Dr/Ec) 40 mg PO DAILY@0730 Qty: 30 RF: 0 calcium carbonate 200 mg calcium (500 mg) Tablet,Chewable 500 mg PO QID PRN PRNQty: 30 RF: 0 ibuprofen [IBU] 600 mg Tablet 600 mg PO QID PRN PRNQty: 30 RF: 0 metronidazole [Flagyl] 500 mg tablet 500 mg PO TID Qty: 36 RF: 0 ciprofloxacin HCl 500 mg tablet 500 mg PO BID Qty: 24 RF: 0 polyethylene glycol 3350 [Miralax] 17 gram/dose powder 17 gm PO DAILY Qty: 255 RF: 0 Continued bupropion HCl 150 mg tablet extended release 12 hr 150 mg PO BID RF: 0 propranolol 20 mg tablet 20 mg PO BID RF: 0 Discharge Instructions Instructions: Low Fiber Diet (DC), Diverticulitis (DC), Gastroesophageal Reflux Disease (GEN) Additional Instructions: Activity at Home after surgery: 1. Make sure you walk outside at least 4 times per day 2. You should be able to climb a flight of stairs Diet, Nutrition, & wound healing: Follow a low fiber diet until you see Dr. Baldwin in the office Pain Medications: Take Tylenol 650 mg every 6 hours as needed for pain or fevers For Constipation: MiraLax daily. Other: 1. You may shower daily. Please call our office if you develop: 1. Fevers >101.5 2. Nausea or Vomiting 3. Worsening pain If after hours please call the Hospital at and ask to speak to the on-call surgeon Referrals: Mariely Baldwin DO [OSTEOPATHIC DOCTOR] - 07/31/18 1:00 pm Activity:: Activity as Tolerated Activity:: Activity as Tolerated Equipment/Supplies:: No Equipment Needed Diet:: low fiber diet Discharge Orders Discharge Orders: Discharge Order (Routine); Ordered 07/21/18 Ordered By: Roula Kaur DS: Diagnosis Discharge Diagnosis (1) MIGUEL (generalized anxiety disorder): Status: Acute (2) Diverticulitis of both large and small intestine with perforation without abscess or bleeding: Status: Acute (3) Heart burn: Status: Acute
--- NOTE | 2018-07-20 16:11 | W.PM.PROGNOT ---
Date of Service Date of service: 07/20/18 Time of Service: 16:11 Assessment and Plan (1) Diverticulitis of both large and small intestine with perforation without abscess or bleeding: Current visit: Yes Status: Acute A\\ Tolerating his diet P\\ D/C fluids Hopefully D/C home tomorrow Subjective Interval history since last seen: Mr. Fajardo is doing well. he ate a soft, low fiber diet and did well. He is not febrile and has minimal abdominal pain. Exam GI Inspection: normal to inspection Palpation: soft and nontender Objective Objective Clinical Data: Abnormal lab results 07/20/18 Range/Units 09:16 Carbon Dioxide 20.3 L (21.0-32.0) mmol/L Anion Gap 14.7 H (3-11) mmol/L Calcium 8.4 L (8.5-10.1) mg/dL Vital Signs Temperature 98.2 F 07/20/18 15:33 Temperature Source Tympanic 07/20/18 15:33 Pulse 82 07/20/18 15:33 Pulse Rhythm Regular 07/20/18 08:12 Respiratory Rate 17 07/20/18 15:33 Respiratory Effort Non-Labored 07/20/18 08:12 Respiratory Depth Normal 07/20/18 08:12 Respiratory Pattern Normal 07/20/18 08:12 Blood Pressure 109/65 07/20/18 15:33 Blood Pressure Position Sitting 07/18/18 12:03 Pulse Oximetry 99 07/20/18 15:33 Oxygen Delivery Method Room Air 07/20/18 15:33 Oxygen Flow Rate 0 07/20/18 15:33 Pain Level 0 07/20/18 08:51 Comment 07/20/18 03:52 Intake & Output 07/19/18 07/20/18 07/20/18 23:59 11:59 23:59 Intake Total 2325 / 4722.5 450 / 1950 1500 / 1950 Output Total 600 / 600 350 / 350 Balance 1725 / 4122.5 100 / 1600 1500 / 1600 Intake: IV 2325 / 4722.5 420 / 1320 900 / 1320 Oral 30 / 630 600 / 630 Output: Urine 600 / 600 350 / 350 Other: Urine Color Dark Hilaria Dark Hilaria Urine Appearance Clear Urine Odor None Comment pt voiding independently in the toilet Stool Size Small Voiding Methods Toilet Toilet Laboratory Results WBC 10.12 k/cumm (4.4-10.8) 07/19/18 06:45 RBC 4.41 m/cumm (4.50-6.00) L 07/19/18 06:45 Hgb 13.2 g/dL (13.5-17.5) L 07/19/18 06:45 Hct 39.6 % (40.0-50.0) L 07/19/18 06:45 MCV 89.8 fL (80-95) 07/19/18 06:45 MCH 29.9 pg (27.0-33.0) 07/19/18 06:45 MCHC 33.3 g/dL (32.0-36.0) 07/19/18 06:45 RDW 12.8 % (11.8-14.1) 07/19/18 06:45 Plt Count 146 x1000/uL (130-400) 07/19/18 06:45 MPV 12.3 fL (8.0-11.0) H 07/19/18 06:45 Immature Gran % 0.3 07/19/18 06:45 Neutrophils % 69.0 07/19/18 06:45 Lymphocytes % 15.0 07/19/18 06:45 Monocytes % 15.2 07/19/18 06:45 Eosinophils % 0.3 07/19/18 06:45 Basophils % 0.2 07/19/18 06:45 Absolute Neutrophils 6.98 k/cumm (1.2-6.7) H 07/19/18 06:45 Absolute Lymphocytes 1.52 k/cumm (1.2-3.4) 07/19/18 06:45 Absolute Monocytes 1.54 k/cumm (0.11-0.7) H 07/19/18 06:45 Absolute Eosinophils 0.03 k/cumm (0.0-0.7) 07/19/18 06:45 Absolute Basophils 0.02 k/cumm (0.0-0.2) 07/19/18 06:45 Differential Comment Manual differential 07/19/18 06:45 RBC Morphology Normal 07/19/18 06:45 Sodium 138 mmol/L (136-145) 07/20/18 09:16 Potassium 3.8 mmol/L (3.5-5.1) 07/20/18 09:16 Chloride 103 mmol/L (98-107) 07/20/18 09:16 Carbon Dioxide 20.3 mmol/L (21.0-32.0) L 07/20/18 09:16 Anion Gap 14.7 mmol/L (3-11) H 07/20/18 09:16 BUN 13 mg/dL (7-18) 07/20/18 09:16 Creatinine 1.17 mg/dL (0.70-1.30) 07/20/18 09:16 Estimated GFR/1.73 m2 >= 60.00 (mL/min/1.73m2) 07/20/18 09:16 Glucose 89 mg/dL (70-100) 07/20/18 09:16 Calcium 8.4 mg/dL (8.5-10.1) L 07/20/18 09:16 Total Bilirubin 0.9 mg/dL (0.2-1.0) 07/19/18 06:45 AST 14 U/L (15-37) L 07/19/18 06:45 ALT 25 U/L (12-78) 07/19/18 06:45 Alkaline Phosphatase 84 U/L (46-116) 07/19/18 06:45 Total Protein 6.4 g/dL (6.4-8.2) 07/19/18 06:45 Albumin 3.0 g/dL (3.4-5.0) L 07/19/18 06:45 Lipase 155 U/L (73-393) 07/18/18 12:49 Urine Color Yellow (Yellow) 07/18/18 12:50 Urine Clarity Clear 07/18/18 12:50 Urine pH 7.0 (5-8) 07/18/18 12:50 Ur Specific [place] 1.015 (1.005-1.025) 07/18/18 12:50 Urine Protein Negative mg/dL (Negative) 07/18/18 12:50 Urine Ketones Negative mg/dL (Negative) 07/18/18 12:50 Urine Blood Negative (Negative) 07/18/18 12:50 Urine Nitrite Negative (Negative) 07/18/18 12:50 Urine Bilirubin Negative (Negative) 07/18/18 12:50 Urine Urobilinogen 0.2 EU/dL (Up TO 0.2) 07/18/18 12:50 Ur Leukocyte Esterase Negative (Negative) 07/18/18 12:50 Urine Glucose Negative mg/dL (Negative) 07/18/18 12:50
[2018-07-20] MEDS: Enoxaparin 40 MG/0.4 ML SYR SC (16:28)
--- NOTE | 2018-07-20 18:36 | PDOC.CMPRO ---
Care Management Progress Note S/O: Sitting up visiting withElsa and he had just finished eating supper. States he is feeling good and hopes to go home tomorrow. A: 37 yo male admitted for diverticulitis and receiving IV antibiotics. P: Santana will return home with his family when medically cleared for discharge. Family will transport.
[2018-07-20] MEDS: Acetaminophen 325 MG TAB 650 MG PO (19:38)
[2018-07-21] MEDS: metroNIDAZOLE 500 MG/100 ML BAG 100 MG IVPB ×2 (01:27→07:46)
[2018-07-21] MEDS: Normal Saline Flush 10 ML SYR IVP ×2 (01:27→07:46)
[2018-07-21] MEDS: Calcium Carbonate *TUMS* 500 MG CHEW PO ×2 (01:34→09:47)
[2018-07-21 07:20] VITALS: BP 122/77; PULSE 87; RESP 20; TEMP 37.6; O2SAT 97
[2018-07-21] MEDS: Pantoprazole 40 MG TABCR PO (07:46)
[2018-07-21] MEDS: buPROPion-CR 150 MG TABCR PO (07:47)
[2018-07-21] MEDS: Propranolol 20 MG TAB PO (07:47)
[2018-07-21 09:47] VITALS: BP 142/93; PULSE 78; RESP 18; TEMP 36.1; O2SAT 99
--- NOTE | 2018-07-21 09:53 | W.PM.PROGNOT ---
Date of Service Date of service: 07/21/18 Time of Service: 09:53 Assessment and Plan (1) Diverticulitis of both large and small intestine with perforation without abscess or bleeding: Current visit: Yes Status: Acute A\\ Doing well P\\ D/C home on Cipro and Flagyl for a total of 14 days Take daily Miralax for constipation Tylenol for pain Appointment with Dr. Baldwin on at 13:00 (2) Heart burn: Current visit: Yes Status: Acute A\\ Hx of GERD in the past. No antacid therapy at home Started on protonix yesterday and TUMS P\\ D/C on prilosec daily and may take TUMS as needed Subjective Interval history since last seen: Doing well except for some heart burn again. Took some TUMS and that helped. No abdominal pain. Had small BM's yesterday. No BM yet today. No increased pain with eating. Low grade fever of 99.7 this morning now normal. No tylenol given. Exam Resp Effort & Inspection: normal respiratory effort Auscultation: clear to auscultation bilaterally Cardio Rate: regular rate Rhythm: regular rhythm Heart Sounds: no gallops, no murmurs and no rubs GI Inspection: normal to inspection Palpation: soft, no hepatosplenomegaly and nontender Auscultation: normal bowel sounds Objective Objective Clinical Data: Vital Signs Temperature 97.0 F L 07/21/18 09:47 Temperature Source Tympanic 07/21/18 09:47 Pulse 78 07/21/18 09:47 Pulse Rhythm Regular 07/20/18 23:20 Respiratory Rate 18 07/21/18 09:47 Respiratory Effort Non-Labored 07/20/18 23:20 Respiratory Depth Normal 07/20/18 23:20 Respiratory Pattern Normal 07/20/18 23:20 Blood Pressure 142/93 H 07/21/18 09:47 Blood Pressure Position Sitting 07/18/18 12:03 Pulse Oximetry 99 07/21/18 09:47 Oxygen Delivery Method Room Air 07/21/18 09:47 Oxygen Flow Rate 0 07/21/18 09:47 Pain Level 0 07/21/18 09:47 Comment 07/21/18 09:47 Intake & Output 07/20/18 07/20/18 07/21/18 11:59 23:59 11:59 Intake Total 450 / 2183.343 1733.343 / 2183.343 550 / 550 Output Total 350 / 350 Balance 100 / 1438.915 1938.343 / 1833.343 550 / 550 Intake: IV 420 / 2868.089 9089.343 / 1553.343 100 / 100 Oral 30 / 630 600 / 630 450 / 450 Output: Urine 350 / 350 Other: Urine Color Dark Hilaria Urine Appearance Clear Urine Odor None Normal Comment Patient independently voids in the toilet. Urine not seen at this time Stool Size Small Voiding Methods Toilet Toilet Laboratory Results WBC 10.12 k/cumm (4.4-10.8) 07/19/18 06:45 RBC 4.41 m/cumm (4.50-6.00) L 07/19/18 06:45 Hgb 13.2 g/dL (13.5-17.5) L 07/19/18 06:45 Hct 39.6 % (40.0-50.0) L 07/19/18 06:45 MCV 89.8 fL (80-95) 07/19/18 06:45 MCH 29.9 pg (27.0-33.0) 07/19/18 06:45 MCHC 33.3 g/dL (32.0-36.0) 07/19/18 06:45 RDW 12.8 % (11.8-14.1) 07/19/18 06:45 Plt Count 146 x1000/uL (130-400) 07/19/18 06:45 MPV 12.3 fL (8.0-11.0) H 07/19/18 06:45 Immature Gran % 0.3 07/19/18 06:45 Neutrophils % 69.0 07/19/18 06:45 Lymphocytes % 15.0 07/19/18 06:45 Monocytes % 15.2 07/19/18 06:45 Eosinophils % 0.3 07/19/18 06:45 Basophils % 0.2 07/19/18 06:45 Absolute Neutrophils 6.98 k/cumm (1.2-6.7) H 07/19/18 06:45 Absolute Lymphocytes 1.52 k/cumm (1.2-3.4) 07/19/18 06:45 Absolute Monocytes 1.54 k/cumm (0.11-0.7) H 07/19/18 06:45 Absolute Eosinophils 0.03 k/cumm (0.0-0.7) 07/19/18 06:45 Absolute Basophils 0.02 k/cumm (0.0-0.2) 07/19/18 06:45 Differential Comment Manual differential 07/19/18 06:45 RBC Morphology Normal 07/19/18 06:45 Sodium 138 mmol/L (136-145) 07/20/18 09:16 Potassium 3.8 mmol/L (3.5-5.1) 07/20/18 09:16 Chloride 103 mmol/L (98-107) 07/20/18 09:16 Carbon Dioxide 20.3 mmol/L (21.0-32.0) L 07/20/18 09:16 Anion Gap 14.7 mmol/L (3-11) H 07/20/18 09:16 BUN 13 mg/dL (7-18) 07/20/18 09:16 Creatinine 1.17 mg/dL (0.70-1.30) 07/20/18 09:16 Estimated GFR/1.73 m2 >= 60.00 (mL/min/1.73m2) 07/20/18 09:16 Glucose 89 mg/dL (70-100) 07/20/18 09:16 Calcium 8.4 mg/dL (8.5-10.1) L 07/20/18 09:16 Total Bilirubin 0.9 mg/dL (0.2-1.0) 07/19/18 06:45 AST 14 U/L (15-37) L 07/19/18 06:45 ALT 25 U/L (12-78) 07/19/18 06:45 Alkaline Phosphatase 84 U/L (46-116) 07/19/18 06:45 Total Protein 6.4 g/dL (6.4-8.2) 07/19/18 06:45 Albumin 3.0 g/dL (3.4-5.0) L 07/19/18 06:45 Lipase 155 U/L (73-393) 07/18/18 12:49 Urine Color Yellow (Yellow) 07/18/18 12:50 Urine Clarity Clear 07/18/18 12:50 Urine pH 7.0 (5-8) 07/18/18 12:50 Ur Specific [place] 1.015 (1.005-1.025) 07/18/18 12:50 Urine Protein Negative mg/dL (Negative) 07/18/18 12:50 Urine Ketones Negative mg/dL (Negative) 07/18/18 12:50 Urine Blood Negative (Negative) 07/18/18 12:50 Urine Nitrite Negative (Negative) 07/18/18 12:50 Urine Bilirubin Negative (Negative) 07/18/18 12:50 Urine Urobilinogen 0.2 EU/dL (Up TO 0.2) 07/18/18 12:50 Ur Leukocyte Esterase Negative (Negative) 07/18/18 12:50 Urine Glucose Negative mg/dL (Negative) 07/18/18 12:50
--- NOTE | 2018-07-21 15:37 | PDOC.CMDIS ---
LACE Index Scoring Tool - Questions: Length of Stay (in days): 3 Acuity (Admit via E.D.?): Yes E.D. Visits: 1 - Answers: Total Score: 7 Risk of Readmission: Low Risk Care Management Discharge Reason for Hospitalization: Diverticulitis (large and small intestine) with perforation Discharge Plan: Home and no servces will be needed. Family will transport by privae car.
== END 2018-07-21 11:54 | disposition home or self-care (01) | DRG 392 ==
LOC: ER 14:59 → MS 16:08
PROVIDERS: Surgery; Admitting Provider Surgery; Emergency Provider Physician Assistant; PCP Nurse Practitioner Family; Visit Provider Surgery
DX: K57.40 Diverticulitis of both small and large intestine with perforation and abscess without bleeding (principal); R12 Heartburn; E78.2 Mixed hyperlipidemia; F41.1 Generalized anxiety disorder
CPT/HCPCS: 36415; 80048; 80053; 83690; 96374; 99222; 99232; 99233; 99285; J1650; NC; 74177; 81003; 85025; 99284; J0131; J1885; J2405; J3490

== ENCOUNTER 2018-08-14 11:03 | Inpatient (IN) | payer OTHER, SELFPAY ==
[2018-08-14] VITALS (11 sets, daily range): BP systolic 106–117; BP diastolic 64–93; PULSE 79–95; RESP 14–19; TEMP 37.1–38; O2SAT 96–99
--- NOTE | 2018-08-14 11:20 | DI.CT_ITS ---
SYMPTOMS/DIAGNOSIS: BILATERAL LOWER ABDOMINAL PAIN, RECENT DIVERTICULITIS WITH PERFORATION, LEFT LOWER QUADRANT PAIN/DIARRHEA X [address] SCAN OF THE ABDOMEN AND PELVIS: CT scan of the abdomen and pelvis was performed following the uneventful administration of intravenous contrast material. Comparison is 07/18/18. There is bowel wall thickening seen in the proximal sigmoid colon with pericolonic inflammatory change. Diverticular disease is present in the colon. The findings are consistent with acute diverticulitis. There is some free air seen in the soft tissues adjacent to the inflamed bowel consistent with perforation. In the splenic flexure of the colon, there also appears to be mild pericolonic inflammatory change and bowel wall thickening. The extent of the diverticular disease appears to have increased compared to 07/18/18 with current involvement seen in the splenic flexure. The remainder of the bowel is unremarkable. No findings to suggest an acute appendicitis are present. No acute abnormality is seen of the liver, spleen, pancreas, gallbladder, bile ducts, kidneys, ureters or urinary bladder. No free pelvic fluid or abscess is appreciated. No significant abdominal or pelvic adenopathy is present. The lung bases show mild atelectatic change. IMPRESSION: 1. Findings of acute diverticulitis involving the sigmoid colon and the region of the splenic flexure. The degree of involvement appears to have increased compared to 07/18/18. 2. Pneumoperitoneum. No abscess. The findings were discussed with Dr. Antoine of the Emergency Department on the date of the examination.
--- NOTE | 2018-08-14 11:22 | W.ED.GENAD ---
Discharge Plan Disposition Patient Disposition: [facility] INPATIENT Condition: Stable Discharge Details Chief Complaint: Abd Prob Clinical Impression: Diverticulitis of intestine with perforation Primary Care Provider: Joni Colin ED Provider: Butch Antoine Home Meds and New Rx's Prescriptions: No Action bupropion HCl 150 mg tablet extended release 12 hr 150 mg PO BID RF: 0 propranolol 20 mg tablet 20 mg PO BID RF: 0 pantoprazole 40 mg Tablet,Delayed Release (Dr/Ec) 40 mg PO DAILY@0730 Qty: 30 RF: 0 polyethylene glycol 3350 [Miralax] 17 gram/dose powder 17 gm PO DAILY Qty: 255 RF: 0 Medical Decision Making This is a very pleasant 37-year-old male with a past medical history of a recent episode of diverticulitis a month ago with microperforation treated medically here in the hospital under Dr. Thompson. He presents today for evaluation of pain that he describes as near identical to when he had his last episode of diverticulitis and microperforation. He has no vomiting or diarrhea, pain is in the left and right lower abdominal quadrants with associated mild flank pain bilaterally and mild dysuria which he states is the same as his symptoms last time. Exam demonstrates no evidence of clinical testicular torsion, no significant testicle pain. No vomiting, no diarrhea, no blood in his urine or stool. We will treat the patient's pain, rehydrate, evaluate with CT scan for repeat diverticulitis or perforation, and reassess. 1:50 PM The patient's labs have returned white count is elevated at 13.6, he does have a mild left shift, urinalysis, electrolytes and lactate are all benign and within normal limits. There is evidence of some mild dehydration on urinalysis. CT scan results have returned and demonstrate evidence of again diverticulitis with microperforations and a small amount of free air. There was difficulty paging the on-call surgeon secondary to this being her first day, and the paging system has not been appropriately set up yet for her. We were able to get in contact with Dr. Peñaloza, I discussed the case with her. She agrees with the assessment and plan. Cipro and Flagyl have been started. She will accept the patient for admission, I will place bridging orders at her request. I have extensively reviewed the treatment plan with the patient. I have addressed all patient concerns at this time. I have also discussed the plan with the admitting physician and they agree with the current assessment and plan and have agreed to assume responsibility for the patient. All parties demonstrate verbal understanding and agreement with our assessment and plan at this time. Exam(s) a CT:CT abdomen & pelvis w SYMPTOMS/DIAGNOSIS: BILATERAL LOWER ABDOMINAL PAIN, RECENT DIVERTICULITIS WITH PERFORATION, LEFT LOWER QUADRANT PAIN/DIARRHEA X [address] SCAN OF THE ABDOMEN AND PELVIS: CT scan of the abdomen and pelvis was performed following the uneventful administration of intravenous contrast material. Comparison is 07/18/18. There is bowel wall thickening seen in the proximal sigmoid colon with pericolonic inflammatory change. Diverticular disease is present in the colon. The findings are consistent with acute diverticulitis. There is some free air seen in the soft tissues adjacent to the inflamed bowel consistent with perforation. In the splenic flexure of the colon, there also appears to be mild pericolonic inflammatory change and bowel wall thickening. The extent of the diverticular disease appears to have increased compared to 07/18/18 with current involvement seen in the splenic flexure. The remainder of the bowel is unremarkable. No findings to suggest an acute appendicitis are present. No acute abnormality is seen of the liver, spleen, pancreas, gallbladder, bile ducts, kidneys, ureters or urinary bladder. No free pelvic fluid or abscess is appreciated. No significant abdominal or pelvic adenopathy is present. The lung bases show mild atelectatic change. IMPRESSION: 1. Findings of acute diverticulitis involving the sigmoid colon and the region of the splenic flexure. The degree of involvement appears to have increased compared to 07/18/18. 2. Pneumoperitoneum. No abscess. The findings were discussed with Dr. Antoine of the Emergency Department on the date of the examination. [id number]: Total DLP = 0.00 mGy-cm Ordered By: Butch Antoine DO CC: HPI General Date/Time Provider Initiated Documentation: 08/14/18 11:10. HPI Narrative: This is a 37-year-old male with no past medical history except for recent diverticulitis with microperforation that occurred on 07/18. He follows up with Dr. Thompson. He is scheduled for a colonoscopy in a week. Patient presents today for evaluation of abdominal pain. The patient states that he has had chronic abdominal pain since his initial diagnosis in July, however over the last 2 to 3 days he has had notable worsening with conjunction of flank pain that radiates to his groin bilaterally, left and right lower abdominal pain, minimal dysuria, and minimal chills. He states that the symptoms are identical to when he had his last microperforated he denies any history of kidney stones or urinary symptoms otherwise. He denies any vomiting but does admit to nausea. His symptoms are slightly may better with a bowel movement, but then returned moments later. He describes the pain as achy in nature. He did take some NSAIDs last night which slightly improved his symptoms but did not resolve them. He denies any significant change in his diet but is taking a high-fiber diet. He denies any other modifying factors. He denies any other complaints at this time. He denies hematuria, hematochezia, melena, acholic stool. Related Data Home Medications Medication Instructions Recorded Confirmed bupropion HCl SR 150 mg tablet,12 150 mg PO BID 01/16/18 08/14/18 hr sustained-release propranolol 20 mg tablet 20 mg PO BID 01/16/18 08/14/18 pantoprazole 40 mg PO DAILY@0730 #30 tab 07/20/18 08/14/18 polyethylene glycol 3350 [Miralax] 17 gm PO DAILY #255 gm 07/21/18 08/14/18 Previous Rx's Medication Instructions Recorded pantoprazole 40 mg PO DAILY@0730 #30 tab 07/20/18 polyethylene glycol 3350 [Miralax] 17 gm PO DAILY #255 gm 07/21/18 Allergies Allergy/AdvReac Type Severity Reaction Status Date / Time No Known Allergies Allergy Verified 07/31/18 13:50 General Stated Complaint: Abd Prob ELVA: 3 Review of Systems Review of Systems All systems reviewed & are unremarkable except as noted in HPI and below PFSH Surgical History Tongue abnormality (Acute) Social History Smoking/Tobacco Use Status: Former Tobacco Use Alcohol Intake: current Alcohol Intake frequency: holidays/special occasions only Drug use: Daily Substance use type: marijuana Household members: children Housing: house Number of Children: 1 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 3.ENT: Atraumatic external nose and ears. Moist MM. Neck: Symmetric, trachea midline, No thyromegaly. 4.CVS: +S1/S2, No murmurs or gallops. Peripheral pulses 2+ and equal in all extremities. Brisk capillary refill in all extremities. 5.RESP: Unlabored respiratory effort. Clear to auscultation bilaterally. No wheezes rales or rhonchi 6.GI: Soft, nondistended, no hepatosplenomegaly, no guarding or rebound. Mild tenderness in his left and right lower abdominal quadrants bilaterally. No significant flank or CVA tenderness. No midline back pain. Genital exam demonstrates normal male genitalia, bilaterally descended testicles, normal cremasteric reflex. No significant or severe testicular tenderness on palpation. No evidence of inguinal hernia. 7.MSK: Normocephalic/Atraumatic, Extremities w/o deformity or ttp No cyanosis or clubbing, Normal movement of all extremities 8.Skin: Warm, Dry. No rashes or lesions. 9.Neuro: expanded function dental assistant II-XII grossly intact. Sensation grossly intact, no focal neurologic deficits. 10.Psych: (AAO) x3. Appropriate mood and affect Course Vital Signs Temperature 37.7 C H 08/14/18 11:06 Pulse 88 08/14/18 11:06 Respiratory Rate 16 08/14/18 11:06 Blood Pressure 106/93 H 08/14/18 11:06 Pulse Oximetry 96 08/14/18 11:06 Temperature 37.7 C H 08/14/18 11:06 Temperature Source Skin 08/14/18 11:06 Pulse 88 08/14/18 11:06 Respiratory Rate 16 08/14/18 11:06 Respiratory Effort 08/14/18 11:14 Blood Pressure 106/93 H 08/14/18 11:06 Blood Pressure Position Sitting 08/14/18 11:06 Pulse Oximetry 96 08/14/18 11:06 Oxygen Delivery Method Room Air 08/14/18 11:06 Oxygen Flow Rate 0 08/14/18 11:06 Pain Level 3 08/14/18 11:06 Comment 08/14/18 11:06
--- NOTE | 2018-08-14 11:27 | ED.GENADUL_ITS ---
Discharge Plan Disposition Patient Disposition: [facility] INPATIENT Condition: Stable Discharge Details Chief Complaint: Abd Prob Clinical Impression: Diverticulitis of intestine with perforation Primary Care Provider: Joni Colin ED Provider: Butch Antoine Home Meds and New Rx's Prescriptions: No Action bupropion HCl 150 mg tablet extended release 12 hr 150 mg PO BID RF: 0 propranolol 20 mg tablet 20 mg PO BID RF: 0 pantoprazole 40 mg Tablet,Delayed Release (Dr/Ec) 40 mg PO DAILY@0730 Qty: 30 RF: 0 polyethylene glycol 3350 [Miralax] 17 gram/dose powder 17 gm PO DAILY Qty: 255 RF: 0 Medical Decision Making This is a very pleasant 37-year-old male with a past medical history of a recent episode of diverticulitis a month ago with microperforation treated medically here in the hospital under Dr. Thompson. He presents today for ev aluation of pain that he describes as near identical to when he had his last episode of diverticulitis and microperforation. He has no vomiting or diarrhea, pain is in the left and right lower abdominal quadrants with associated mild flank pain bilaterally and mild dysuria which he states is the same as his symptoms last time. Exam demonstrates no evidence of clinical testicular torsion, no significant testicle pain. No vomiting, no diarrhea, no blood in his urine or stool. We will treat the patient's pain, rehydrate, evaluate with CT scan for repeat diverticulitis or perforation, and reassess. 1:50 PM The patient's labs have returned white count is elevated at 13.6, he does have a mild left shift, urinalysis, electrolytes and lactate are all benign and within normal limits. There is evidence of some mild dehydration on urinalysis. CT scan results have returned and demonstrate evidence of again diverticulitis with microperforations and a small amount of free air. There was difficulty paging the on-call surgeon secondary to this being her first day, and the paging system has not been appropriately set up yet for her. We were able to get in contact with Dr. Peñaloza, I discussed the case with her. She agrees with the assessment and plan. Cipro and Flagyl have been started. She will accept the patient for admission, I will place bridging orders at her request. I have extensively reviewed the treatment plan with the patient. I have addressed all patient concerns at this time. I have also discussed the plan with the admitting physician and they agree with the current assessment and plan and have agreed to assume responsibility for the patient. All parties demonstrate verbal understanding and agreement with our assessment and plan at this time. Exam(s) a CT:CT abdomen & pelvis w SYMPTOMS/DIAGNOSIS: BILATERAL LOWER ABDOMINAL PAIN, RECENT DIVERTICULITIS WITH PERFORATION, LEFT LOWER QUADRANT PAIN/DIARRHEA X [address] SCAN OF THE ABDOMEN AND PELVIS: CT scan of the abdomen and pelvis was performed following the uneventful administration of intravenous contrast material. Comparison is 07/18/18. There is bowel wall thickening seen in the proximal sigmoid colon with pericolonic inflammatory change. Diverticular disease is present in the colon. The findings are consistent with acute diverticulitis. There is some free air seen in the soft tissues adjacent to the inflamed bowel consistent with perforation. In the splenic flexure of the colon, there also appears to be mild pericolonic inflammatory change and bowel wall thickening. The extent of the diverticular disease appears to have increased compared to 07/18/18 with current involvement seen in the splenic flexure. The remainder of the bowel is unremarkable. No findings to suggest an acute appendicitis are present. No acute abnormality is seen of the liver, spleen, pancreas, gallbladder, bile ducts, kidneys, ureters or urinary bladder. No free pelvic fluid or abscess is appreciated. No significant abdominal or pelvic adenopathy is present. The lung bases show mild atelectatic change. IMPRESSION: 1. Findings of acute diverticulitis involving the sigmoid colon and the region of the splenic flexure. The degree of involvement appears to have increased compared to 07/18/18. 2. Pneumoperitoneum. No abscess. The findings were discussed with Dr. Antoine of the Emergency Department on the date of the examination. [id number]: Total DLP = 0.00 mGy-cm Ordered By: Butch Antoine DO CC: HPI General Date/Time Provider Initiated Documentation: 08/14/18 11:10 . HPI Narrative: This is a 37-year-old male with no past medical history except for recent diverticulitis with microperforation that occurred on 07/18. He follows up with Dr. Thompson. He is scheduled for a colonoscopy in a week. Patient presents today for evaluation of abdominal pain. The patient states that he has had chronic abdominal pain since his initial diagnosis in July, however over the last 2 to 3 days he has had notable worsening with conjunction of flank pain that radiates to his groin bilaterally, left and right lower abdominal pain, minimal dysuria, and minimal chills. He states that the symptoms are identical to when he had his last microperforated he denies any history of kidney stones or urinary symptoms otherwise. He denies any vomiting but does admit to nausea. His symptoms are slightly may better with a bowel movement, but then returned moments later. He describes the pain as achy in nature. He did take some NSAIDs last night which slightly improved his symptoms but did not resolve them. He denies any significant change in his diet but is taking a high-fiber diet. He denies any other modifying factors. He denies any other complaints at this time. He denies hematuria, hematochezia, melena, acholic stool. Related Data Home Medications Medication Instructions Recorded Confirmed bupropion HCl SR 150 mg tablet,12 150 mg PO BID 01/16/18 08/14/18 hr sustained-release propranolol 20 mg tablet 20 mg PO BID 01/16/18 08/14/18 pantoprazole 40 mg PO DAILY@0730 #30 tab 07/20/18 08/14/18 polyethylene glycol 3350 [Miralax] 17 gm PO DAILY #255 gm 07/21/18 08/14/18 Previous Rx's Medication Instructions Recorded pantoprazole 40 mg PO DAILY@0730 #30 tab 07/20/18 polyethylene glycol 3350 [Miralax] 17 gm PO DAILY #255 gm 07/21/18 Allergies Allergy/AdvReac Type Severity Reaction Status Date / Time No Known Allergies Allergy Verified 07/31/18 13:50 General Stated Complaint: Abd Prob LEVA: 3 Review of Systems Review of Systems All systems reviewed & are unremarkable except as noted in HPI and below PFSH Surgical History Tongue abnormality (Acute) Social History Smoking/Tobacco Use Status: Former Tobacco Use Alcohol Intake: current Alcohol Intake frequency: holidays/special occasions only Drug use: Daily Substance use type: marijuana Household members: children Housing: house Number of Children: 1 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 3.ENT: Atraumatic external nose and ears. Moist MM. Neck: Symmetric, trachea midline, No thyromegaly. 4.CVS: +S1/S2, No murmurs or gallops. Peripheral pulses 2+ and equal in all extremities. Brisk capillary refill in all extremities. 5.RESP: Unlabored respiratory effort. Clear to auscultation bilaterally. No wheezes rales or rhonchi 6.GI: Soft, nondistended, no hepatosplenomegaly, no guarding or rebound. Mild tenderness in his left and right lower abdominal quadrants bilaterally. No significant flank or CVA tenderness. No midline back pain. Genital exam demonstrates normal male genitalia, bilaterally descended testicles, normal cremasteric reflex. No significant or severe testicular tenderness on palpation. No evidence of inguinal hernia. 7.MSK: Normocephalic/Atraumatic, Extremities w/o deformity or ttp No cyanosis or clubbing, Normal movement of all extremities 8.Skin: Warm, Dry. No rashes or lesions. 9.Neuro: java designer II-XII grossly intact. Sensation grossly intact, no focal neurologic deficits. 10.Psych: (AAO) x3. Appropriate mood and affect Course Vital Signs Temperature 37.7 C H 08/14/18 11:06 Pulse 88 08/14/18 11:06 Respiratory Rate 16 08/14/18 11:06 Blood Pressure 106/93 H 08/14/18 11:06 Pulse Oximetry 96 08/14/18 11:06 Temperature 37.7 C H 08/14/18 11:06 Temperature Source Skin 08/14/18 11:06 Pulse 88 08/14/18 11:06 Respiratory Rate 16 08/14/18 11:06 Respiratory Effort 08/14/18 11:14 Blood Pressure 106/93 H 08/14/18 11:06 Blood Pressure Position Sitting 08/14/18 11:06 Pulse Oximetry 96 08/14/18 11:06 Oxygen Delivery Method Room Air 08/14/18 11:06 Oxygen Flow Rate 0 08/14/18 11:06 Pain Level 3 08/14/18 11:06 Comment 08/14/18 11:06
[2018-08-14] MEDS: Normal Saline 1,000 ML 1000 ML IV (11:32)
[2018-08-14] MEDS: Ketorolac 30 MG/ML VIAL IVP (11:34)
[2018-08-14] MEDS: ACETAMINOPHEN 1,000 MG/100 ML BTL 400 MG IVPB ×2 (11:35→20:42)
[2018-08-14 11:48] LABS: Lactate-non-spesis 0.9 mmol/l (0.6-1.4)
[2018-08-14 11:52] LABS: Bilirubin Small (Negative); Blood Trace-intact (Negative); Clarity Clear; Glucose Negative (Negative); Ketones 15 mg/dL (Negative); Leukocyte Esterase Negative (Negative); Nitrite Negative (Negative); Specific Gravity 1.025 (1.005-1.025); Urobilinogen 0.2 EU/dL (Up TO 0.2)
[2018-08-14 11:52] LABS: Abs Immature Grans 0.03 k/cumm (0.0-0.09); Basophils % 0.1; Eosinophils % 0.4; HCT 45.5 % (40.0-50.0); HGB 15.3 g/dL (13.5-17.5); Immature Grans % 0.2; Lymphocytes % 8.8; Mean Corp. HGB Concentration 33.6 g/dL (32.0-36.0); Mean Corpuscular Hemoglobin 30.2 pg (27.0-33.0); Mean Corpuscular Volume 89.7 fL (80-95); Mean Platelet Volume 12.3 fL (8.0-11.0); Monocytes % 12.5; Platelet Count 226 x1000/uL (130-400); RBC 5.07 m/cumm (4.50-6.00); RBC Distribution Width 13.2 % (11.8-14.1); White Blood Cell Count 13.62 k/cumm (4.4-10.8)
[2018-08-14 11:55] LABS: Absolute Basophil Count 0.01 k/cumm (0.0-0.2); Absolute Eosinophil Count 0.05 k/cumm (0.0-0.7); Absolute Neutrophil Count 10.62 k/cumm (1.2-6.7)
[2018-08-14 12:03] LABS: Bacteria Moderate HPF (Negative); C & S Indicated? No; Casts Negative LPF (Negative); Crystals Negative HPF (Negative); Epithelial Cells Rare HPF (Negative); Mucus Moderate (Negative); Other Cells Rare Renal (Negative); RBC 0-2 (0-2); WBC 0-2 HPF (0-5)
[2018-08-14 12:06] LABS: ALT 105 U/L (12-78); AST 43 U/L (15-37); Albumin 3.4 g/dL (3.4-5.0); Alkaline Phosphatase 99 U/L (46-116); Anion Gap 10.7 mmol/L (3-11); BUN 8 mg/dL (7-18); Bilirubin, Total 0.9 mg/dL (0.2-1.0); CO2 27.3 mmol/L (21.0-32.0); CREATININE 1.23 mg/dL (0.70-1.30); Chloride 99 mmol/L (98-107); Glucose 94 mg/dL (70-100); Lipase 132 U/L (73-393); Potassium 3.6 mmol/L (3.5-5.1); Sodium 137 mmol/L (136-145); Total Protein 7.7 g/dL (6.4-8.2)
[2018-08-14 12:09] LABS: RBC Morphology Normal
[2018-08-14 12:15] LABS: Calcium 9.1 mg/dL (8.5-10.1)
[2018-08-14] MEDS: Omnipaque 350 MG/ML 100 ML BTL IJ (12:57)
[2018-08-14] MEDS: CIPROFLOXACIN 400 MG/200 ML BAG 200 MG IVPB (14:00)
[2018-08-14] MEDS: Normal Saline Flush 10 ML SYR IVP ×2 (14:03→18:10)
--- NOTE | 2018-08-14 14:12 | W.PM.HP.N ---
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[employer] What type of physical activity do you participate in: none Do you feel safe at home: Yes Do you feel safe in your relationship?: Yes Meds Home Medications Medication Instructions Recorded Confirmed Type bupropion HCl SR 150 mg tablet,12 150 mg PO BID 01/16/18 08/14/18 History hr sustained-release propranolol 20 mg tablet 20 mg PO BID 01/16/18 08/14/18 History pantoprazole 40 mg PO DAILY@0730 #30 tab 07/20/18 08/14/18 Rx polyethylene glycol 3350 [Miralax] 17 gm PO DAILY #255 gm 07/21/18 08/14/18 Rx Allergies Allergy/AdvReac Type Severity Reaction Status Date / Time No Known Allergies Allergy Verified 07/31/18 13:50 Results Labs : 08/14/18 11:30 08/14/18 11:30 Laboratory Results - last 24 hr 08/14/18 08/14/18 08/14/18 11:25 11:30 11:30 WBC RBC Hgb Hct MCV MCH MCHC RDW Plt Count MPV Immature Gran % Neutrophils % Lymphocytes % Monocytes % Eosinophils % Basophils % Absolute Neutrophils Absolute Lymphocytes Absolute Monocytes Absolute Eosinophils Absolute Basophils Differential Comment RBC Morphology Sodium 137 Potassium 3.6 Chloride 99 Carbon Dioxide 27.3 Anion Gap 10.7 BUN 8 Creatinine 1.23 Estimated GFR/1.73 m2 >= 60.00 Glucose 94 Lactate 0.9 Calcium 9.1 Total Bilirubin 0.9 AST 43 H ALT 105 H Alkaline Phosphatase 99 Total Protein 7.7 Albumin 3.4 Lipase 132 Urine Color Hilaria Urine Clarity Clear Urine pH 6.0 Ur Specific [place] 1.025 Urine Protein 30 H Urine Ketones 15 H Urine Blood Trace-intact H Urine Nitrite Negative Urine Bilirubin Small H Urine Urobilinogen 0.2 Ur Leukocyte Esterase Negative Urine RBC 0-2 Urine WBC 0-2 Ur Epithelial Cells Rare Urine Crystals Negative Urine Bacteria Moderate Urine Casts Negative Urine Mucus Moderate Urine Other Rare renal Ur Culture Indicated? No Urine Glucose Negative 08/14/18 11:30 WBC 13.62 H RBC 5.07 Hgb 15.3 Hct 45.5 MCV 89.7 MCH 30.2 MCHC 33.6 RDW 13.2 Plt Count 226 MPV 12.3 H Immature Gran % 0.2 Neutrophils % 78.0 Lymphocytes % 8.8 Monocytes % 12.5 Eosinophils % 0.4 Basophils % 0.1 Absolute Neutrophils 10.62 H Absolute Lymphocytes 1.20 Absolute Monocytes 1.70 H Absolute Eosinophils 0.05 Absolute Basophils 0.01 Differential Comment Comment RBC Morphology Normal Sodium Potassium Chloride Carbon Dioxide Anion Gap BUN Creatinine Estimated GFR/1.73 m2 Glucose Lactate Calcium Total Bilirubin AST ALT Alkaline Phosphatase Total Protein Albumin Lipase Urine Color Urine Clarity Urine pH Ur Specific [place] Urine Protein Urine Ketones Urine Blood Urine Nitrite Urine Bilirubin Urine Urobilinogen Ur Leukocyte Esterase Urine RBC Urine WBC Ur Epithelial Cells Urine Crystals Urine Bacteria Urine Casts Urine Mucus Urine Other Ur Culture Indicated? Urine Glucose Last Vital Signs Temp 99.0 F 08/14/18 14:03 Pulse 87 08/14/18 14:03 Resp 14 08/14/18 14:03 BP 114/68 08/14/18 14:03 Pulse Ox 99 08/14/18 14:03
[2018-08-14] MEDS: metroNIDAZOLE 500 MG/100 ML BAG 100 MG IVPB ×2 (15:19→22:04)
[2018-08-14] MEDS: Lactated Ringers 1,000 ML 125 ML IV ×2 (16:44→20:35)
--- NOTE | 2018-08-14 17:26 | W.PM.HP.N ---
History of Present Illness 37yo male presents with 2-3 days of worsening/persistent lower abdominal and back pain. He was recently admitted from 07/18-07/21 for acute diverticulitis with microperforation and no abscess. He states that he completed his two full weeks of cipro/flagyl, and he had a period when he felt completely well. However he was aggressive in ramping up the fiber in his diet to 30gm a day, and has developed increasing gas, and discomfort over the last week. Today he presents with low-grade fevers/chills, over 20 episodes of non-bloody diarrhea, abdominal pain, and min nausea, no vomitting. He states that his symptoms feel similar to his last hospitalization. He was scheduled to see Dr. Baldwin next week for EGD and colonoscopy. Review of Systems Constitutional Reports chills, Reports fever(s) and Denies poor appetite Eyes Denies blurry vision and Denies eye discharge ENT Denies dysphagia, Reports dizziness, Denies post nasal drip and Denies sore throat Cardiovascular Reports chest pain and Denies edema Comments: atypical chest pain with stress Respiratory Denies cough, Denies hemoptysis and Denies pain on inspiration Gastrointestinal Reports abdominal pain, Reports change in stool character, Denies dysphagia, Reports excessive flatus, Reports heartburn, Denies fecal incontinence, Reports nausea, Denies vomiting and Denies hematemesis Genitourinary Reports difficulty urinating, Reports dysuria, Reports flank pain and Reports testicular pain Musculoskeletal Reports arthralgias Comments: torn right meniscus Neurologic Reports dizziness Psychiatric Reports anxiety and Reports panic attacks PFSH Medical History Heart burn (Acute) MIGUEL (generalized anxiety disorder) (Acute) Elevated cholesterol with elevated triglycerides (Acute) Diverticulitis of both large and small intestine with perforation without abscess or bleeding (Acute) Atypical chest pain (Acute) Chronic fatigue (Acute) Colon polyp (Acute) Dizziness (Acute) MIGUEL (generalized anxiety disorder) (Acute) Hyperlipidemia (Acute) Mood disorder (Acute) Right knee pain (Acute) Sleep disturbances (Acute) Visual disturbance (Acute) Anxiety (Chronic) Depression (Chronic) Surgical History Tongue abnormality (Acute) Social History Smoking/Tobacco Use Status: Former Tobacco Use Alcohol Intake: current Alcohol Intake frequency: holidays/special occasions only Drug use: Daily Substance use type: marijuana Household members: children Housing: house Number of Children: 1 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 [employer] What type of physical activity do you participate in: none Do you feel safe at home: Yes Do you feel safe in your relationship?: Yes Meds Home Medications Medication Instructions Recorded Confirmed Type bupropion HCl SR 150 mg tablet,12 150 mg PO BID 01/16/18 08/14/18 History hr sustained-release propranolol 20 mg tablet 20 mg PO BID 01/16/18 08/14/18 History pantoprazole 40 mg PO DAILY@0730 #30 tab 07/20/18 08/14/18 Rx polyethylene glycol 3350 [Miralax] 17 gm PO DAILY #255 gm 07/21/18 08/14/18 Rx Allergies Allergy/AdvReac Type Severity Reaction Status Date / Time No Known Allergies Allergy Verified 07/31/18 13:50 Exam Narrative Exam Narrative: well-appearing male in NAD Const General: cooperative, healthy appearing, comfortable, no acute distress, well developed and not ill appearing Nutritional Appearance: well nourished Orientation: alert, awake and oriented x3 HENMT Head: normocephalic and atraumatic Eyes Alignment and Position: alignment normal Neck Neck: normal visual inspection and supple Chest Chest: no crepitus and no tenderness Resp Effort & Inspection: normal respiratory effort and able to speak in complete sentences Auscultation: clear to auscultation bilaterally Cardio Rhythm: regular rhythm Heart Sounds: S1 normal and S2 normal GI Palpation: soft, no guarding and tender in the LLQ, in the LUQ and suprapubicly; with no rebound tenderness Percussion: normal to percussion Auscultation: hypoactive bowel sounds Back/Spine/Pelvis Back: no CVA tenderness Neuro General: alert, awake, oriented x3 and no focal motor deficits Speech: speech normal Extrem Right lower extremity: no edema Left lower extremity: no edema Psych Appearance: well kempt Affect: normal affect Attitude: cooperative Thought Process: normal Insight: insight good Judgment: judgment good Other: expressed h/o ana maría/cyclothymic mood Results Imaging Abdomen CT scan report/results: image reviewed Labs : 08/14/18 11:30 08/14/18 11:30 Laboratory Results - last 24 hr 08/14/18 08/14/1808/14/19 11:25 11:30 11:30 WBC RBC Hgb Hct MCV MCH MCHC RDW Plt Count MPV Immature Gran % Neutrophils % Lymphocytes % Monocytes % Eosinophils % Basophils % Absolute Neutrophils Absolute Lymphocytes Absolute Monocytes Absolute Eosinophils Absolute Basophils Differential Comment RBC Morphology Sodium 137 Potassium 3.6 Chloride 99 Carbon Dioxide 27.3 Anion Gap 10.7 BUN 8 Creatinine 1.23 Estimated GFR/1.73 m2 >= 60.00 Glucose 94 Lactate 0.9 Calcium 9.1 Total Bilirubin 0.9 AST 43 H ALT 105 H Alkaline Phosphatase 99 Total Protein 7.7 Albumin 3.4 Lipase 132 Urine Color Hilaria Urine Clarity Clear Urine pH 6.0 Ur Specific [place] 1.025 Urine Protein 30 H Urine Ketones 15 H Urine Blood Trace-intact H Urine Nitrite Negative Urine Bilirubin Small H Urine Urobilinogen 0.2 Ur Leukocyte Esterase Negative Urine RBC 0-2 Urine WBC 0-2 Ur Epithelial Cells Rare Urine Crystals Negative Urine Bacteria Moderate Urine Casts Negative Urine Mucus Moderate Urine Other Rare renal Ur Culture Indicated? No Urine Glucose Negative 08/14/18 11:30 WBC 13.62 H RBC 5.07 Hgb 15.3 Hct 45.5 MCV 89.7 MCH 30.2 MCHC 33.6 RDW 13.2 Plt Count 226 MPV 12.3 H Immature Gran % 0.2 Neutrophils % 78.0 Lymphocytes % 8.8 Monocytes % 12.5 Eosinophils % 0.4 Basophils % 0.1 Absolute Neutrophils 10.62 H Absolute Lymphocytes 1.20 Absolute Monocytes 1.70 H Absolute Eosinophils 0.05 Absolute Basophils 0.01 Differential Comment Comment RBC Morphology Normal Sodium Potassium Chloride Carbon Dioxide Anion Gap BUN Creatinine Estimated GFR/1.73 m2 Glucose Lactate Calcium Total Bilirubin AST ALT Alkaline Phosphatase Total Protein Albumin Lipase Urine Color Urine Clarity Urine pH Ur Specific [place] Urine Protein Urine Ketones Urine Blood Urine Nitrite Urine Bilirubin Urine Urobilinogen Ur Leukocyte Esterase Urine RBC Urine WBC Ur Epithelial Cells Urine Crystals Urine Bacteria Urine Casts Urine Mucus Urine Other Ur Culture Indicated? Urine Glucose Last Vital Signs Temp 100.4 F H 08/14/18 15:53 Pulse 95 H 08/14/18 15:53 Resp 18 08/14/18 15:53 BP 117/75 08/14/18 15:53 Pulse Ox 98 08/14/18 15:53
[2018-08-14] MEDS: Ketorolac 15 MG/ML VIAL IVP (18:09)
[2018-08-14] MEDS: Pantoprazole 40 MG VIAL IVP (18:10)
[2018-08-14] MEDS: Lactated Ringers 1,000 ML 1000 ML IV (18:13)
[2018-08-14] MEDS: buPROPion-CR 150 MG TABCR PO (20:34)
[2018-08-14] MEDS: Propranolol 20 MG TAB PO (20:34)
[2018-08-15 00:17] VITALS: BP 125/77; PULSE 82; RESP 19; TEMP 36.3; O2SAT 97
[2018-08-15] MEDS: CIPROFLOXACIN 400 MG/200 ML BAG 200 MG IVPB ×2 (01:53→14:54)
[2018-08-15 03:36] VITALS: TEMP 36.8
[2018-08-15] MEDS: Lactated Ringers 1,000 ML 125 ML IV (04:27)
[2018-08-15] MEDS: Normal Saline Flush 10 ML SYR IVP ×2 (06:00→18:34)
[2018-08-15] MEDS: metroNIDAZOLE 500 MG/100 ML BAG 100 MG IVPB ×3 (06:20→22:45)
[2018-08-15] MEDS: Ketorolac 15 MG/ML VIAL IVP (06:47)
[2018-08-15 07:01] LABS: Abs Immature Grans 0.01 k/cumm (0.0-0.09); Absolute Basophil Count 0.02 k/cumm (0.0-0.2); Absolute Eosinophil Count 0.06 k/cumm (0.0-0.7); Absolute Lymphocyte Count 1.05 k/cumm (1.2-3.4); Absolute Monocyte Count 1.18 k/cumm (0.11-0.7); Absolute Neutrophil Count 6.04 k/cumm (1.2-6.7); Basophils % 0.2; Eosinophils % 0.7; HCT 39.7 % (40.0-50.0); HGB 13.2 g/dL (13.5-17.5); Immature Grans % 0.1; Lymphocytes % 12.6; Mean Corp. HGB Concentration 33.2 g/dL (32.0-36.0); Mean Corpuscular Hemoglobin 29.8 pg (27.0-33.0); Mean Corpuscular Volume 89.6 fL (80-95); Mean Platelet Volume 12.1 fL (8.0-11.0); Monocytes % 14.1; Neutrophils % 72.3; Platelet Count 150 x1000/uL (130-400); RBC 4.43 m/cumm (4.50-6.00); RBC Distribution Width 12.9 % (11.8-14.1); White Blood Cell Count 8.36 k/cumm (4.4-10.8)
[2018-08-15 07:10] VITALS: BP 113/73; PULSE 90; RESP 18; TEMP 37.8; O2SAT 97
[2018-08-15 07:18] LABS: ALT 77 U/L (12-78); AST 28 U/L (15-37); Albumin 2.8 g/dL (3.4-5.0); Alkaline Phosphatase 78 U/L (46-116); Anion Gap 9.4 mmol/L (3-11); BUN 6 mg/dL (7-18); Bilirubin, Total 0.7 mg/dL (0.2-1.0); CO2 25.6 mmol/L (21.0-32.0); Calcium 8.3 mg/dL (8.5-10.1); Chloride 103 mmol/L (98-107); Glucose 96 mg/dL (70-100); Potassium 3.1 mmol/L (3.5-5.1); Sodium 138 mmol/L (136-145); Total Protein 6.1 g/dL (6.4-8.2)
[2018-08-15 07:19] LABS: CREATININE 1.36 mg/dL (0.70-1.30); Estimated GFR 58.65 (mL/min/1.73m2)
[2018-08-15] MEDS: Propranolol 20 MG TAB PO ×2 (07:38→20:10)
[2018-08-15] MEDS: buPROPion-CR 150 MG TABCR PO ×2 (07:38→20:10)
--- NOTE | 2018-08-15 12:26 | PDOC.CMIN ---
- If Service Date Differs Date of service: 08/15/18 Time of Service: 12:26 Care Management Initial Assess REASON FOR HOSPITALIZATION:: Diverticulitis with perf PAST MEDICAL HISTORY/PAST SURGICAL HISTORY:: Medical History: MIGUEL (generalized anxiety disorder), Elevated cholesterol with elevated triglycerides, Diverticulitis of both large and small intestine with perforation without abscess or bleeding, Atypical chest pain, Chronic fatigue, Colon polyp, Dizziness, Hyperlipidemia, Mood disorder, Right knee pain, Sleep disturbances,Visual disturbance,Anxiety, Depression. 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 He lives in a single family home with Elsa, his long chain beamer girlfriend, and 10 year old daughter. CURRENT FUNCTIONAL STATUS:: Santana makes good eye contact and he engages in assessment. He states when he went home last admission he was able obtain his antibiotics and he was ready for discharge. He states he had follow up scheduled with . He states he did increase his fiber intake at home. He felt the increase in fiber would help with the diverticulitis. He states he then developed increase pain and gas he then presented to the ED. ADVANCE DIRECTIVES:: None on file, does not want to complete today. Has patient been provided with information about the portal?: Yes Did the patient sign up for the portal?: No CODE STATUS:: Full Code INSURANCE COVERAGE / FINANCIAL ISSUES:: [employer] CURRENT HOME/COMMUNITY SERVICES/EQUIPMENT:: No current services. PRIMARY CARE PHYSICIAN:: Joni Colin NP POTENTIAL DISCHARGE NEEDS:: Follow up with surgical services and primary care scheduled prior to discharge. PATIENT/FAMILY EDUCATION NEEDS:: Discharge education, limitations and follow up plan of care including ask me three and self management. He will need clear instructions for diet modification and any other restrictions he may have r/t diverticulitis. ANTICIPATED BARRIERS TO DISCHARGE:: None identified. TRANSPORTATION:: Via private car with family at time of discharge. PLAN:: Santana is receving IV antibiotics, pain control and IV fluids. His diet will be increased today per provider and anticipate if he does well maybe home in in the next 48 hours. Santana was readmitted for diverticulitis he states he felt ready for discharge last admission and did not perceive any barriers in the community the led to readmission. CM will continue to provide support to the patient ongoing discharge planning.
--- NOTE | 2018-08-15 12:33 | PHARADMIT ---
Addendum entered by Jose Barnard III 08/16/18 16:01: Pharmacy Note Subjective Patient has Diverticulitis of both large & smalll intestine without bleeding or abscess. Patient is improving, diet advanced Objective VS-OK K+3.6 SCr-0.99 WBC-5.06 H&H,Plts-OK Assessment IV Cipro & Flagyl continue Plan MD anticipates discharge tomorrow. Original Note: Admission Pharmacy Clinical Review DIVERTICULITIS W/Perforation Code Status Full Code Current Weight Wgt-89.7 kg Renally Cleared and Narrow Therapeutic Index Meds CrCl~ 83 mL/min Meds-OK QTc Value / Action Taken QTc-409 na BP Control, Fever BP- 113/73 Tmax- 3.8c Electrolytes reviewed Na- 138 K+3.1 DVT Prophylaxis No (sURGERY) Opiate Usage / Scheduled Bowel Regimen Ordered No No Plt/SCr for Heparin / Enoxaparin Plts-150 SCr-1.36 INR for Warfarin na H/H stable, WBC/Bands H&H- 13.2/39.7 WBC- 8.36 Antibiotic appropriateness Cipro, Flgayl IV Cultures and Sensitivities none Surgical ABX d/c within 24 hr na DM control / Insulin Dosing BG- 96 Heart Failure (Check EF%) (NINI's, B-Block, Diuretics) Propranolol IV to PO Switch No Home Meds Reviewed yES Home Meds Not Ordered MiralAX Comments
[2018-08-15] MEDS: POTASSIUM CHLORIDE/D5-0.45NACL 1,000 ML 125 MEQ IV ×2 (12:50→23:13)
--- NOTE | 2018-08-15 12:52 | INITIAL_ITS ---
- If Service Date Differs Date of service: 08/15/18 Time of Service: 12:26 Care Management Initial Assess REASON FOR HOSPITALIZATION:: Diverticulitis with perf PAST MEDICAL HISTORY/PAST SURGICAL HISTORY:: Medical History: MIGUEL (generalized anxiety disorder), Elevated cholesterol with elevated triglycerides, Diverticulitis of both large and small intestine with perforation without abscess or bleeding, Atypical chest pain, Chronic fatigue, Colon polyp, Diz ziness, Hyperlipidemia, Mood disorder, Right knee pain, Sleep disturbances,Visual disturbance,Anxiety, Depression. 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 He lives in a single family home with Elsa, his terminal block assembler girlfriend, and 10 year old daughter. CURRENT FUNCTIONAL STATUS:: Santana makes good eye contact and he engages in assessment. He states when he went home last admission he was able obtain his antibiotics and he was ready for discharge. He states he had follow up scheduled with . He states he did increase his fiber intake at home. He felt the increase in fiber would help with the diverticulitis. He states he then developed increase pain and gas he then presented to the ED. ADVANCE DIRECTIVES:: None on file, does not want to complete today. Has patient been provided with information about the portal?: Yes Did the patient sign up for the portal?: No CODE STATUS:: Full Code INSURANCE COVERAGE / FINANCIAL ISSUES:: [employer] CURRENT HOME/COMMUNITY SERVICES/EQUIPMENT:: No current services. PRIMARY CARE PHYSICIAN:: Joni Colin NP POTENTIAL DISCHARGE NEEDS:: Follow up with surgical services and primary care scheduled prior to discharge. PATIENT/FAMILY EDUCATION NEEDS:: Discharge education, limitations and follow up plan of care including ask me three and self management. He will need clear instructions for diet modification and any other restrictions he may have r/t diverticulitis. ANTICIPATED BARRIERS TO DISCHARGE:: None identified. TRANSPORTATION:: Via private car with family at time of discharge. PLAN:: Santana is receving IV antibiotics, pain control and IV fluids. His diet will be increased today per provider and anticipate if he does well maybe home in in the next 48 hours. Santana was readmitted for diverticulitis he states he felt ready for discharge last admission and did not perceive any barriers in the community the led to readmission. CM will continue to provide support to the patient ongoing discharge planning.
[2018-08-15] MEDS: Potassium Chloride Liquid 20 MEQ PKT PO (13:16)
--- NOTE | 2018-08-15 14:37 | W.PM.PROGNOT ---
Date of Service Date of service: 08/15/18 Time of Service: 11:38 Assessment and Plan (1) Diverticulitis of both large and small intestine with perforation without abscess or bleeding: Current visit: Yes Status: Acute Decreased tenderness today, and leukocystosis resolved will advance to clear liquids continue IV antibiotics IV fluids serial exams (2) Acute kidney insufficiency: Current visit: No Status: Chronic Pt states that creatinine was elevated on routine blood work in 2018, does ot seem to reflect current clinical condition. will d/c toradol change IV fluids continue to monitor (3) Heart burn: Current visit: Yes Status: Acute continue pantoprazole Subjective Patient reports: feels better, pain is less, voiding w/o difficulty, flatus and diarrhea; denies nausea and vomiting Exam Narrative Exam Narrative: well-appearing male in NAD Const General: cooperative, healthy appearing, comfortable, no acute distress, well developed and not ill appearing Nutritional Appearance: well nourished Orientation: alert, awake and oriented x3 HENMT Head: normocephalic and atraumatic Eyes Alignment and Position: alignment normal Neck Neck: normal visual inspection and supple Chest Chest: no crepitus and no tenderness Resp Effort & Inspection: normal respiratory effort and able to speak in complete sentences Auscultation: clear to auscultation bilaterally Cardio Rhythm: regular rhythm Heart Sounds: S1 normal and S2 normal GI Palpation: soft, no guarding and tender (decreased in LUQ, LLQ, and suprapubic region, no rebound) Percussion: normal to percussion Auscultation: hyperactive bowel sounds Back/Spine/Pelvis Back: no CVA tenderness Neuro General: alert, awake, oriented x3 and no focal motor deficits Speech: speech normal Extrem Right lower extremity: no edema Left lower extremity: no edema Psych Appearance: well kempt Affect: normal affect Attitude: cooperative Thought Process: normal Insight: insight good Judgment: judgment good Objective Objective Clinical Data: Abnormal lab results 08/15/18 08/15/18 Range/Units 06:40 06:40 RBC 4.43 L (4.50-6.00) m/cumm Hgb 13.2 L D (13.5-17.5) g/dL Hct 39.7 L (40.0-50.0) % MPV 12.1 H (8.0-11.0) fL Absolute Lymphocytes 1.05 L (1.2-3.4) k/cumm Absolute Monocytes 1.18 H (0.11-0.7) k/cumm Potassium 3.1 L (3.5-5.1) mmol/L BUN 6 L (7-18) mg/dL Creatinine 1.36 H (0.70-1.30) mg/dL Calcium 8.3 L (8.5-10.1) mg/dL Total Protein 6.1 L (6.4-8.2) g/dL Albumin 2.8 L (3.4-5.0) g/dL Vital Signs Temperature 100.0 F H 08/15/18 07:10 Temperature Source Tympanic 08/15/18 07:10 Pulse 90 08/15/18 07:10 Pulse Rhythm Regular 08/15/18 07:30 Respiratory Rate 18 08/15/18 07:10 Respiratory Effort 08/15/18 07:30 Respiratory Depth Normal 08/15/18 07:30 Respiratory Pattern Normal 08/14/18 14:51 Blood Pressure 113/73 08/15/18 07:10 Blood Pressure Mean 75 08/14/18 13:06 Blood Pressure Position Sitting 08/14/18 11:06 Pulse Oximetry 97 08/15/18 07:10 Oxygen Delivery Method Room Air 08/15/18 07:10 Oxygen Flow Rate 0 08/15/18 07:10 Pain Level 7 08/15/18 06:47 Comment 08/15/18 03:36 Intake & Output 08/14/18 08/15/18 08/15/18 23:59 11:59 23:59 Intake Total 2981. / 308.250 / 2397.500 381.25 / 2397.500 Balance 2981. / 3080.250 / 2397.500 381.25 / 2397.500 Weight 196 lb 10.437 oz 197 lb 12.074 oz Intake: IV 2981. / 3080. 195.250 / 2337.500 381.25 / 2337.500 Oral 60 / 60 Other: Urine Appearance Clear Clear Voiding Methods Toilet Laboratory Results WBC 8.36 k/cumm (4.4-10.8) D 08/15/18 06:40 RBC 4.43 m/cumm (4.50-6.00) L 08/15/18 06:40 Hgb 13.2 g/dL (13.5-17.5) L D 08/15/18 06:40 Hct 39.7 % (40.0-50.0) L 08/15/18 06:40 MCV 89.6 fL (80-95) 08/15/18 06:40 MCH 29.8 pg (27.0-33.0) 08/15/18 06:40 MCHC 33.2 g/dL (32.0-36.0) 08/15/18 06:40 RDW 12.9 % (11.8-14.1) 08/15/18 06:40 Plt Count 150 x1000/uL (130-400) 08/15/18 06:40 MPV 12.1 fL (8.0-11.0) H 08/15/18 06:40 Immature Gran % 0.1 08/15/18 06:40 Neutrophils % 72.3 08/15/18 06:40 Lymphocytes % 12.6 08/15/18 06:40 Monocytes % 14.1 08/15/18 06:40 Eosinophils % 0.7 08/15/18 06:40 Basophils % 0.2 08/15/18 06:40 Absolute Neutrophils 6.04 k/cumm (1.2-6.7) 08/15/18 06:40 Absolute Lymphocytes 1.05 k/cumm (1.2-3.4) L 08/15/18 06:40 Absolute Monocytes 1.18 k/cumm (0.11-0.7) H 08/15/18 06:40 Absolute Eosinophils 0.06 k/cumm (0.0-0.7) 08/15/18 06:40 Absolute Basophils 0.02 k/cumm (0.0-0.2) 08/15/18 06:40 Differential Comment Comment 08/14/18 11:30 RBC Morphology Normal 08/14/18 11:30 Sodium 138 mmol/L (136-145) 08/15/18 06:40 Potassium 3.1 mmol/L (3.5-5.1) L 08/15/18 06:40 Chloride 103 mmol/L (98-107) 08/15/18 06:40 Carbon Dioxide 25.6 mmol/L (21.0-32.0) 08/15/18 06:40 Anion Gap 9.4 mmol/L (3-11) 08/15/18 06:40 BUN 6 mg/dL (7-18) L 08/15/18 06:40 Creatinine 1.36 mg/dL (0.70-1.30) H 08/15/18 06:40 Estimated GFR/1.73 m2 58.65 (mL/min/1.73m2) 08/15/18 06:40 Glucose 96 mg/dL (70-100) 08/15/18 06:40 Lactate 0.9 mmol/l (0.6-1.4) 08/14/18 11:30 Calcium 8.3 mg/dL (8.5-10.1) L 08/15/18 06:40 Total Bilirubin 0.7 mg/dL (0.2-1.0) 08/15/18 06:40 AST 28 U/L (15-37) 08/15/18 06:40 ALT 77 U/L (12-78) 08/15/18 06:40 Alkaline Phosphatase 78 U/L (46-116) 08/15/18 06:40 Total Protein 6.1 g/dL (6.4-8.2) L 08/15/18 06:40 Albumin 2.8 g/dL (3.4-5.0) L 08/15/18 06:40 Lipase 132 U/L (73-393) 08/14/18 11:30 Urine Color Hilaria (Yellow) 08/14/18 11:25 Urine Clarity Clear 08/14/18 11:25 Urine pH 6.0 (5-8) 08/14/18 11:25 Ur Specific [place] 1.025 (1.005-1.025) 08/14/18 11:25 Urine Protein 30 mg/dL (Negative) H 08/14/18 11:25 Urine Ketones 15 mg/dL (Negative) H 08/14/18 11:25 Urine Blood Trace-intact (Negative) H 08/14/18 11:25 Urine Nitrite Negative (Negative) 08/14/18 11:25 Urine Bilirubin Small (Negative) H 08/14/18 11:25 Urine Urobilinogen 0.2 EU/dL (Up TO 0.2) 08/14/18 11:25 Ur Leukocyte Esterase Negative (Negative) 08/14/18 11:25 Urine RBC 0-2 (0-2) 08/14/18 11:25 Urine WBC 0-2 HPF (0-5) 08/14/18 11:25 Ur Epithelial Cells Rare HPF (Negative) 08/14/18 11:25 Urine Crystals Negative HPF (Negative) 08/14/18 11:25 Urine Bacteria Moderate HPF (Negative) 08/14/18 11:25 Urine Casts Negative LPF (Negative) 08/14/18 11:25 Urine Mucus Moderate (Negative) 08/14/18 11:25 Urine Other Rare renal (Negative) 08/14/18 11:25 Ur Culture Indicated? No 08/14/18 11:25 Urine Glucose Negative mg/dL (Negative) 08/14/18 11:25
[2018-08-15 15:05] VITALS: BP 116/69; PULSE 85; RESP 18; TEMP 37.7; O2SAT 96
[2018-08-15 15:47] VITALS: BP 133/81; PULSE 84; RESP 17; TEMP 37.5; O2SAT 98
--- NOTE | 2018-08-15 16:31 | CHAPLAIN ---
Santana was in bed when I visited. He was pleasant and engaged in a brief conversation, but not interested in longer conversation.
[2018-08-15] MEDS: Pantoprazole 40 MG VIAL IVP (18:34)
[2018-08-15 23:32] VITALS: BP 121/76; PULSE 84; RESP 18; TEMP 36.5; O2SAT 96
[2018-08-16] MEDS: CIPROFLOXACIN 400 MG/200 ML BAG 200 MG IVPB ×2 (01:54→14:58)
[2018-08-16] MEDS: metroNIDAZOLE 500 MG/100 ML BAG 100 MG IVPB ×3 (05:55→22:06)
[2018-08-16 07:28] LABS: Abs Immature Grans 0.01 k/cumm (0.0-0.09); Absolute Basophil Count 0.03 k/cumm (0.0-0.2); Absolute Eosinophil Count 0.16 k/cumm (0.0-0.7); Absolute Lymphocyte Count 1.18 k/cumm (1.2-3.4); Absolute Neutrophil Count 2.68 k/cumm (1.2-6.7); Basophils % 0.6; Eosinophils % 3.2; HGB 12.8 g/dL (13.5-17.5); Immature Grans % 0.2; Lymphocytes % 23.3; Mean Corp. HGB Concentration 32.8 g/dL (32.0-36.0); Mean Corpuscular Volume 88.2 fL (80-95); Mean Platelet Volume 12.2 fL (8.0-11.0); Monocytes % 19.8; Neutrophils % 52.9; Platelet Count 147 x1000/uL (130-400); RBC 4.42 m/cumm (4.50-6.00); RBC Distribution Width 12.6 % (11.8-14.1); White Blood Cell Count 5.06 k/cumm (4.4-10.8)
[2018-08-16 07:45] VITALS: BP 120/71; PULSE 65; RESP 16; TEMP 36.1; O2SAT 98
[2018-08-16 07:47] LABS: ALT 67 U/L (12-78); AST 24 U/L (15-37); Albumin 2.5 g/dL (3.4-5.0); Alkaline Phosphatase 66 U/L (46-116); Anion Gap 8.9 mmol/L (3-11); BUN 3 mg/dL (7-18); Bilirubin, Total 0.4 mg/dL (0.2-1.0); CO2 25.1 mmol/L (21.0-32.0); CREATININE 0.99 mg/dL (0.70-1.30); Calcium 8.3 mg/dL (8.5-10.1); Chloride 108 mmol/L (98-107); Glucose 107 mg/dL (70-100); Potassium 3.6 mmol/L (3.5-5.1); Sodium 142 mmol/L (136-145); Total Protein 5.8 g/dL (6.4-8.2)
[2018-08-16] MEDS: buPROPion-CR 150 MG TABCR PO ×2 (07:54→19:59)
[2018-08-16] MEDS: Propranolol 20 MG TAB PO ×2 (07:54→19:59)
[2018-08-16] MEDS: POTASSIUM CHLORIDE/D5-0.45NACL 1,000 ML 125 MEQ IV (09:23)
--- NOTE | 2018-08-16 13:35 | PDOC.CMPRO ---
- If Service Date Differs Date of service: 08/16/18 Time of Service: 13:36 Care Management Progress Note S/O: Santana remains inpatient anticipate he may be discharged today. He continues to receive IV antibiotics. He will not need additional supports at time of discharge and his family will transport him home. A:Santana is a 37 year old male admitted with diverticulitis with perforation. P:Santana is receiving IV antibiotics, pain control and IV fluids. His diet will be increased today per provider and anticipate he will be discharged today or over the weekend. Santana was readmitted for diverticulitis he states he felt ready for discharge last admission and did not perceive any barriers in the community the led to readmission. CM will continue to provide support to the patient ongoing discharge planning.
--- NOTE | 2018-08-16 13:37 | W.PM.PROGNOT ---
Date of Service Date of service: 08/16/18 Time of Service: 12:38 Assessment and Plan (1) Diverticulitis of both large and small intestine with perforation without abscess or bleeding: Current visit: Yes Status: Acute Pt with decreasing pain and tenderness. Still with some loose stools. Tolerating clear liquids. Will IV lock fluids Advance diet to low-fiber/low-residue Nutrition consult for home low-fiber and higher fiber recommendations Serial exams Anticipate d/c home tomorrow if tolerating diet without increased symptoms (2) Acute kidney insufficiency: Current visit: No Status: Chronic Resolved with IV hydration Cr 0.99 today Hypokalemia resolved (3) Heart burn: Current visit: Yes Status: Acute No complaints today Subjective Patient reports: no new complaints, feels better, tolerating liquids well, voiding w/o difficulty and bowel movement; denies nausea and vomiting Interval history since last seen: Still with minimal LLQ pain Exam Narrative Exam Narrative: well-appearing male in NAD Const General: cooperative, healthy appearing, comfortable, no acute distress, well developed and not ill appearing Nutritional Appearance: well nourished Orientation: alert, awake and oriented x3 HENMT Head: normocephalic and atraumatic Eyes Alignment and Position: alignment normal Neck Neck: normal visual inspection and supple Resp Effort & Inspection: normal respiratory effort and able to speak in complete sentences Auscultation: clear to auscultation bilaterally Cardio Rhythm: regular rhythm Heart Sounds: S1 normal and S2 normal GI Inspection: normal to inspection Palpation: soft, not firm, no guarding, not rigid and tender (tender to deep palpation in the LLQ, improved) General: bladder normal to palpation Skin General skin exam: no rashes or lesions noted Neuro General: alert, awake, oriented x3 and no focal motor deficits Speech: speech normal Extrem Right lower extremity: no edema Left lower extremity: no edema Psych Appearance: grossly normal Mental Status: mental status grossly normal Speech and Movement: speech and movement normal Mood: congruent mood Affect: normal affect Attitude: cooperative Thought Process: normal Objective Objective Clinical Data: Abnormal lab results 08/16/18 08/16/18 Range/Units 06:55 06:55 RBC 4.42 L (4.50-6.00) m/cumm Hgb 12.8 L (13.5-17.5) g/dL Hct 39.0 L (40.0-50.0) % MPV 12.2 H (8.0-11.0) fL Absolute Lymphocytes 1.18 L (1.2-3.4) k/cumm Absolute Monocytes 1.00 H (0.11-0.7) k/cumm Chloride 108 H (98-107) mmol/L BUN 3 L (7-18) mg/dL Glucose 107 H (70-100) mg/dL Calcium 8.3 L (8.5-10.1) mg/dL Total Protein 5.8 L (6.4-8.2) g/dL Albumin 2.5 L (3.4-5.0) g/dL Vital Signs Temperature 97.0 F L 08/16/18 07:45 Temperature Source Tympanic 08/16/18 07:45 Pulse 65 08/16/18 07:45 Pulse Rhythm Regular 08/16/18 07:45 Respiratory Rate 16 08/16/18 07:45 Respiratory Effort 08/16/18 07:45 Respiratory Depth Normal 08/16/18 07:45 Respiratory Pattern Normal 08/16/18 07:45 Blood Pressure 120/71 08/16/18 07:45 Blood Pressure Mean 75 08/14/18 13:06 Blood Pressure Position Sitting 08/14/18 11:06 Pulse Oximetry 98 08/16/18 07:45 Oxygen Delivery Method Room Air 08/16/18 07:45 Oxygen Flow Rate 0 08/16/18 07:45 Pain Level 0 08/16/18 07:45 Comment 08/15/18 15:05 Intake & Output 08/15/18 08/16/18 08/16/18 23:59 11:59 23:59 Intake Total 1815.000 / 3831.250 1390.000 / 2333.750 943.75 / 2333.750 Balance 1815.000 / 3831.250 1390.000 / 2333.750 943.75 / 2333.750 Weight 197 lb 1.492 oz Intake: IV 1575.000 / 3531.250 1300.000 / 1793.750 493.75 / 1793.750 Oral 240 / 300 90 / 540 450 / 540 Other: Urine Appearance Clear Comment states has been voiding directly into toilet. voiding in toilet and flushing. Denies issues Stool Size Small Stool Characteristics Soft Green Voiding Methods Toilet Toilet Laboratory Results WBC 5.06 k/cumm (4.4-10.8) D 08/16/18 06:55 RBC 4.42 m/cumm (4.50-6.00) L 08/16/18 06:55 Hgb 12.8 g/dL (13.5-17.5) L 08/16/18 06:55 Hct 39.0 % (40.0-50.0) L 08/16/18 06:55 MCV 88.2 fL (80-95) 08/16/18 06:55 MCH 29.0 pg (27.0-33.0) 08/16/18 06:55 MCHC 32.8 g/dL (32.0-36.0) 08/16/18 06:55 RDW 12.6 % (11.8-14.1) 08/16/18 06:55 Plt Count 147 x1000/uL (130-400) 08/16/18 06:55 MPV 12.2 fL (8.0-11.0) H 08/16/18 06:55 Immature Gran % 0.2 08/16/18 06:55 Neutrophils % 52.9 08/16/18 06:55 Lymphocytes % 23.3 08/16/18 06:55 Monocytes % 19.8 08/16/18 06:55 Eosinophils % 3.2 08/16/18 06:55 Basophils % 0.6 08/16/18 06:55 Absolute Neutrophils 2.68 k/cumm (1.2-6.7) 08/16/18 06:55 Absolute Lymphocytes 1.18 k/cumm (1.2-3.4) L 08/16/18 06:55 Absolute Monocytes 1.00 k/cumm (0.11-0.7) H 08/16/18 06:55 Absolute Eosinophils 0.16 k/cumm (0.0-0.7) 08/16/18 06:55 Absolute Basophils 0.03 k/cumm (0.0-0.2) 08/16/18 06:55 Differential Comment Comment 08/14/18 11:30 RBC Morphology Normal 08/14/18 11:30 Sodium 142 mmol/L (136-145) 08/16/18 06:55 Potassium 3.6 mmol/L (3.5-5.1) 08/16/18 06:55 Chloride 108 mmol/L (98-107) H 08/16/18 06:55 Carbon Dioxide 25.1 mmol/L (21.0-32.0) 08/16/18 06:55 Anion Gap 8.9 mmol/L (3-11) 08/16/18 06:55 BUN 3 mg/dL (7-18) L 08/16/18 06:55 Creatinine 0.99 mg/dL (0.70-1.30) 08/16/18 06:55 Estimated GFR/1.73 m2 >= 60.00 (mL/min/1.73m2) 08/16/18 06:55 Glucose 107 mg/dL (70-100) H 08/16/18 06:55 Lactate 0.9 mmol/l (0.6-1.4) 08/14/18 11:30 Calcium 8.3 mg/dL (8.5-10.1) L 08/16/18 06:55 Total Bilirubin 0.4 mg/dL (0.2-1.0) 08/16/18 06:55 AST 24 U/L (15-37) 08/16/18 06:55 ALT 67 U/L (12-78) 08/16/18 06:55 Alkaline Phosphatase 66 U/L (46-116) 08/16/18 06:55 Total Protein 5.8 g/dL (6.4-8.2) L 08/16/18 06:55 Albumin 2.5 g/dL (3.4-5.0) L 08/16/18 06:55 Lipase 132 U/L (73-393) 08/14/18 11:30 Urine Color [place]ilar[place] (Yellow) 08/14/18 11:25 Urine Clarity Clear 08/14/18 11:25 Urine pH 6.0 (5-8) 08/14/18 11:25 Ur Specific [place] 1.025 (1.005-1.025) 08/14/18 11:25 Urine Protein 30 mg/dL (Negative) H 08/14/18 11:25 Urine Ketones 15 mg/dL (Negative) H 08/14/18 11:25 Urine Blood Trace-intact (Negative) H 08/14/18 11:25 Urine Nitrite Negative (Negative) 08/14/18 11:25 Urine Bilirubin Small (Negative) H 08/14/18 11:25 Urine Urobilinogen 0.2 EU/dL (Up TO 0.2) 08/14/18 11:25 Ur Leukocyte Esterase Negative (Negative) 08/14/18 11:25 Urine RBC 0-2 (0-2) 08/14/18 11:25 Urine WBC 0-2 HPF (0-5) 08/14/18 11:25 Ur Epithelial Cells Rare HPF (Negative) 08/14/18 11:25 Urine Crystals Negative HPF (Negative) 08/14/18 11:25 Urine Bacteria Moderate HPF (Negative) 08/14/18 11:25 Urine Casts Negative LPF (Negative) 08/14/18 11:25 Urine Mucus Moderate (Negative) 08/14/18 11:25 Urine Other Rare renal (Negative) 08/14/18 11:25 Ur Culture Indicated? No 08/14/18 11:25 Urine Glucose Negative mg/dL (Negative) 08/14/18 11:25 Progress Note: Quality VTE Deep Vein Thrombosis/Pulmonary Embolism Present on Admission: No
[2018-08-16 15:58] VITALS: BP 122/81; PULSE 64; RESP 17; TEMP 36.2; O2SAT 98
[2018-08-16] MEDS: Pantoprazole 40 MG VIAL IVP (18:16)
[2018-08-16] MEDS: Normal Saline Flush 10 ML SYR IVP ×2 (20:03→22:05)
[2018-08-16 20:17] VITALS: BP 129/84; PULSE 68; RESP 17; TEMP 36.4; O2SAT 96
[2018-08-16 23:00] VITALS: BP 116/75; PULSE 87; RESP 16; TEMP 36.4; O2SAT 95
[2018-08-17] MEDS: Normal Saline Flush 10 ML SYR IVP ×3 (02:30→08:08)
[2018-08-17] MEDS: CIPROFLOXACIN 400 MG/200 ML BAG 200 MG IVPB (02:30)
[2018-08-17] MEDS: metroNIDAZOLE 500 MG/100 ML BAG 100 MG IVPB (06:58)
[2018-08-17 07:10] VITALS: BP 126/81; PULSE 56; RESP 18; TEMP 36.1; O2SAT 100
[2018-08-17 07:26] LABS: Abs Immature Grans 0.01 k/cumm (0.0-0.09); HCT 40.3 % (40.0-50.0); HGB 13.5 g/dL (13.5-17.5); Mean Corp. HGB Concentration 33.5 g/dL (32.0-36.0); Mean Corpuscular Hemoglobin 29.6 pg (27.0-33.0); Mean Corpuscular Volume 88.4 fL (80-95); Mean Platelet Volume 12.7 fL (8.0-11.0); Platelet Count 155 x1000/uL (130-400); RBC 4.56 m/cumm (4.50-6.00); RBC Distribution Width 12.7 % (11.8-14.1); White Blood Cell Count 4.73 k/cumm (4.4-10.8)
[2018-08-17 07:36] LABS: ALT 60 U/L (12-78); AST 22 U/L (15-37); Albumin 2.7 g/dL (3.4-5.0); Alkaline Phosphatase 66 U/L (46-116); BUN 3 mg/dL (7-18); Bilirubin, Total 0.5 mg/dL (0.2-1.0); CREATININE 1.09 mg/dL (0.70-1.30); Calcium 8.2 mg/dL (8.5-10.1); Chloride 107 mmol/L (98-107); Glucose 92 mg/dL (70-100); Potassium 3.3 mmol/L (3.5-5.1); Sodium 143 mmol/L (136-145); Total Protein 6.1 g/dL (6.4-8.2)
[2018-08-17 08:00] LABS: Absolute Eosinophil Count 0.28 k/cumm (0.0-0.7); Absolute Lymphocyte Count 1.37 k/cumm (1.2-3.4); Absolute Monocyte Count 0.71 k/cumm (0.11-0.7); Absolute Neutrophil Count 2.37 k/cumm (1.2-6.7); Atypical Lymphocytes % 4
[2018-08-17 08:01] LABS: Diff Comment Manual Differential; RBC Morphology Normal
[2018-08-17] MEDS: buPROPion-CR 150 MG TABCR PO (08:09)
[2018-08-17] MEDS: Propranolol 20 MG TAB PO (08:09)
--- NOTE | 2018-08-17 12:18 | W.PM.DS.N ---
Date of service: 08/17/18 Time of Service: 12:19 DS: Diagnosis Discharge Diagnosis (1) Diverticulitis of both large and small intestine with perforation without abscess or bleeding: Status: Acute Asessment and Plan: Pt admitted with leukocystosis and significant pain. Clinically is feeling much better, and WBC is normal. (2) Acute kidney insufficiency: Status: Chronic Asessment and Plan: Admitted with slightly elevated creatinine that resolved with IV hydration. (3) Heart burn: Status: Acute Asessment and Plan: Treated with daily pantoprazole Discharge Plan Disposition Patient Disposition: HOME Condition: Good Discharge Details Chief Complaint: Abd Prob Reason For Visit: DIVERTICULITIS WITH PERF Admit Date/Time: 08/14/18 13:48 Admit Provider: Chris Peñaloza Attending Provider: Chris Peñaloza Primary Care Provider: Joni Colin ED Provider: Butch Antoine Hospital Course Hospital Course: Pt was admitted on 08/15/18 for recurrent/persistent diverticulitis with microperforation and no abscess. He was treated with IV fluid resucitation, IV ciprofloxacin and metronidazole antibiotics, and bowel rest. On hospital day #2, he was started on clear liquids after a decrease in abdominal pain and tenderness, and his leukocystosis resolved. On 08/16/18, HD #3, he was advanced to low-fiber diet, and he underwent a nutritional consult to help guide his post-hospitalization diet. IV fluids were also stopped. On HD#4, he is pain free, is voiding without difficulty, and having loose bowel movements. Home Meds and New Rx's Prescriptions: New ciprofloxacin HCl 500 mg tablet 500 mg PO Q12H Qty: 28 RF: 1 metronidazole 500 mg tablet 500 mg PO TID Qty: 42 RF: 1 Continued bupropion HCl 150 mg tablet extended release 12 hr 150 mg PO BID RF: 0 propranolol 20 mg tablet 20 mg PO BID RF: 0 pantoprazole 40 mg Tablet,Delayed Release (Dr/Ec) 40 mg PO DAILY@0730 Qty: 30 RF: 0 Changed polyethylene glycol 3350 [Miralax] 17 gram/dose powder 17 gm PO PRN PRNQty: 255 RF: 0 Discharge Instructions Instructions: Diverticulitis (DC), Diverticulitis Diet (DC) Stand Alone Forms: Nursing Discharge Form Referrals: Mariely Baldwin DO [OSTEOPATHIC DOCTOR] - 08/26/18 11:00 am (F/u for diverticulitis. Reschedule EGD/colonoscopy) Activity:: Activity as Tolerated Equipment/Supplies:: No Equipment Needed Diet:: Low fiber/soft diet Discharge Orders Discharge Orders: Discharge Order (Routine); Ordered 08/17/18 Ordered By: Chris Peñaloza Discharge Data Discharge Date/Time-TO BE ENTERED AT DEPARTURE: 08/17/18 Discharge Comment: Call the hospital or office with any questions, or concerns. Return to ED if you start having vomiting, excessive pain, or high fevers. DS: Summary Quality: VTE Deep Vein Thrombosis/Pulmonary Embolism Present on Admission: No Exam Narrative Exam Narrative: well-appearing male in NAD Const General: cooperative, healthy appearing, comfortable, no acute distress, well developed and not ill appearing Nutritional Appearance: well nourished Orientation: alert, awake and oriented x3 HENMT Head: normocephalic and atraumatic Eyes Alignment and Position: alignment normal Neck Neck: normal visual inspection and supple Chest Chest: no crepitus and no tenderness Resp Effort & Inspection: normal respiratory effort and able to speak in complete sentences Auscultation: clear to auscultation bilaterally Cardio Rhythm: regular rhythm Heart Sounds: S1 normal and S2 normal GI Palpation: soft, no guarding and tender (no tenderness to deep palpation) with no rebound tenderness Percussion: normal to percussion Auscultation: hypoactive bowel sounds Back/Spine/Pelvis Back: no CVA tenderness Neuro General: alert, awake, oriented x3 and no focal motor deficits Speech: speech normal Extrem Right lower extremity: no edema Left lower extremity: no edema Psych Appearance: well kempt Affect: normal affect Attitude: cooperative Thought Process: normal Insight: insight good Judgment: judgment good DS: Data Vitals/I&O Vitals and I&O: Vital Signs Temperature 97.0 F L 08/17/18 07:10 Temperature Source Tympanic 08/17/18 07:10 Pulse 56 L 08/17/18 07:10 Pulse Rhythm Regular 08/17/18 07:25 Respiratory Rate 18 08/17/18 07:10 Respiratory Effort Non-Labored 08/17/18 07:25 Respiratory Depth Normal 08/17/18 07:25 Respiratory Pattern Normal 08/17/18 07:25 Blood Pressure 126/81 08/17/18 07:10 Blood Pressure Mean 75 08/14/18 13:06 Blood Pressure Position Sitting 08/14/18 11:06 Pulse Oximetry 100 08/17/18 07:10 Oxygen Delivery Method Room Air 08/17/18 07:10 Oxygen Flow Rate 0 08/17/18 07:10 Pain Level 0 08/17/18 07:10 Comment 08/15/18 15:05 Intake & Output 08/16/18 08/17/18 08/17/18 23:59 11:59 23:59 Intake Total 1623.75 / 3013.750 530 / 530 Balance 1623.75 / 3013.750 530 / 530 Intake: IV 893.75 / 2193.750 290 / 290 Oral 730 / 820 240 / 240 Other: Comment VOIDING INDEPENDENTLY. DENIES ANY ISSUES. no measuring hat Stool Size Moderate Moderate Stool Characteristics Soft Brown Liquid Green Voiding Methods Toilet Toilet Labs on day of discharge: Labs from last 24 hours 08/17/18 08/17/18 06:15 06:15 WBC 4.73 RBC 4.56 Hgb 13.5 Hct 40.3 MCV 88.4 MCH 29.6 MCHC 33.5 RDW 12.7 Plt Count 155 MPV 12.7 H Immature Gran % See Differential Neutrophils % 50.0 Lymphocytes % 25.0 Atypical Lymphs % 4 Monocytes % 15.0 Eosinophils % 6.0 Basophils % 0.0 Absolute Neutrophils 2.37 Absolute Lymphocytes 1.37 Absolute Monocytes 0.71 H Absolute Eosinophils 0.28 Absolute Basophils 0.00 Differential Comment Manual differential RBC Morphology Normal Sodium 143 Potassium 3.3 L Chloride 107 Carbon Dioxide 27.0 Anion Gap 9.0 BUN 3 L Creatinine 1.09 Estimated GFR/1.73 m2 >= 60.00 Glucose 92 Calcium 8.2 L Total Bilirubin 0.5 AST 22 ALT 60 Alkaline Phosphatase 66 Total Protein 6.1 L Albumin 2.7 L PFSH Medical History Heart burn (Acute) MIGUEL (generalized anxiety disorder) (Acute) Elevated cholesterol with elevated triglycerides (Acute) Diverticulitis of both large and small intestine with perforation without abscess or bleeding (Acute) Atypical chest pain (Acute) Chronic fatigue (Acute) Colon polyp (Acute) Dizziness (Acute) MIGUEL (generalized anxiety disorder) (Acute) Hyperlipidemia (Acute) Mood disorder (Acute) Right knee pain (Acute) Sleep disturbances (Acute) Visual disturbance (Acute) Anxiety (Chronic) Depression (Chronic) Surgical History Tongue abnormality (Acute) Social History Smoking/Tobacco Use Status: Former Tobacco Use Alcohol Intake: current Alcohol Intake frequency: holidays/special occasions only Drug use: Daily Substance use type: marijuana Household members: children Housing: house Number of Children: 1 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
--- NOTE | 2018-08-17 17:46 | PDOC.CMDIS ---
LACE Index Scoring Tool - Questions: Length of Stay (in days): 3 Acuity (Admit via E.D.?): Yes E.D. Visits: 1 - Answers: Total Score: 7 Risk of Readmission: Low Risk Care Management Discharge Reason for Hospitalization: Diverticulitis with perf Discharge Plan: Santana will return home and no services are needed. Family will transport him home.
== END 2018-08-17 14:02 | disposition home or self-care (01) | DRG 392 ==
LOC: ER 14:01 → MS 14:42
PROVIDERS: Admitting Provider Surgery; Emergency Provider Student in an Organized Health Care Education/Training Program; PCP Nurse Practitioner Family; Visit Provider Surgery
DX: K57.32 Diverticulitis of large intestine without perforation or abscess without bleeding (principal); R12 Heartburn; E87.6 Hypokalemia
CPT/HCPCS: 36415; 80053; 83690; 96361; 96365; 96367; 96375; 99222; 99231; 99232; 99239; 99285; 74177; 81003; 81015; 83605; 85025; 93005; 93010; 99284; J0131; J0744; J1885; J3490

== ENCOUNTER 2018-08-26 11:50 | Outpatient (CLI) | payer OTHER, SELFPAY ==
[2018-08-26 12:36] LABS: Abs Immature Grans 0.04 k/cumm (0.0-0.09); Absolute Basophil Count 0.04 k/cumm (0.0-0.2); Absolute Eosinophil Count 0.13 k/cumm (0.0-0.7); Absolute Lymphocyte Count 1.84 k/cumm (1.2-3.4); Absolute Monocyte Count 0.53 k/cumm (0.11-0.7); Absolute Neutrophil Count 4.58 k/cumm (1.2-6.7); Basophils % 0.6; Eosinophils % 1.8; HGB 14.1 g/dL (13.5-17.5); Immature Grans % 0.6; Lymphocytes % 25.7; Mean Corp. HGB Concentration 32.8 g/dL (32.0-36.0); Mean Corpuscular Hemoglobin 29.4 pg (27.0-33.0); Mean Corpuscular Volume 89.8 fL (80-95); Mean Platelet Volume 11.9 fL (8.0-11.0); Monocytes % 7.4; Neutrophils % 63.9; Platelet Count 193 x1000/uL (130-400); RBC 4.79 m/cumm (4.50-6.00); RBC Distribution Width 13.9 % (11.8-14.1); White Blood Cell Count 7.16 k/cumm (4.4-10.8)
[2018-08-26 13:55] LABS: C-Reactive Protein 0.43 mg/dL (0.0-0.3)
[2018-08-26 13:59] LABS: ESR 19 MM/HR (0-15)
== END 2018-08-26 12:10 ==
PROVIDERS: PCP Nurse Practitioner Family; Visit Provider Surgery
DX: K57.32 Diverticulitis of large intestine without perforation or abscess without bleeding (principal); K57.40 Diverticulitis of both small and large intestine with perforation and abscess without bleeding
CPT/HCPCS: 36415; 85652; 85025; 86140

== ENCOUNTER 2018-09-13 15:23 | Outpatient (CLI) | payer OTHER, SELFPAY ==
[2018-09-13 15:34] LABS: HCT 43.3 % (40.0-50.0); HGB 14.5 g/dL (13.5-17.5); Mean Corp. HGB Concentration 33.5 g/dL (32.0-36.0); Mean Corpuscular Hemoglobin 29.5 pg (27.0-33.0); Mean Corpuscular Volume 88.2 fL (80-95); Mean Platelet Volume 11.5 fL (8.0-11.0); Platelet Count 229 x1000/uL (130-400); RBC 4.91 m/cumm (4.50-6.00); RBC Distribution Width 12.8 % (11.8-14.1); White Blood Cell Count 8.05 k/cumm (4.4-10.8)
[2018-09-13 15:56] LABS: Absolute Eosinophil Count 0.08 k/cumm (0.0-0.7); Absolute Lymphocyte Count 1.85 k/cumm (1.2-3.4); Absolute Monocyte Count 0.89 k/cumm (0.11-0.7); Absolute Neutrophil Count 5.23 k/cumm (1.2-6.7); Atypical Lymphocytes % 5; Diff Comment Manual Differential; RBC Morphology Normal
[2018-09-13 16:35] LABS: C-Reactive Protein 3.77 mg/dL (0.0-0.3)
--- NOTE | 2018-09-14 12:22 | W.PM.PROGNOT ---
Date of Service Date of service: 09/14/18 Time of Service: 12:22 Subjective Interval history since last seen: Phone contact note: Returned patient's call to [facility] re: labwork from 09/13/18 Patient notes a h/o recurrent diverticulitis with microperforation in July and August 2018. He started to feel unwell a couple days ago with back and lower abdominal pain below the umbilicus. He denies any definite fever. He is voiding and having bowel movements without problems. He is tolerating a po diet. He notes that he contacted Dr. Baldwin yesterday and was sent for bloodwork. He has a follow-up appointment scheduled for 09/16/18. Reviewed labs with patient. WBC WNL at 8 but CRP elevated at 3.77. He notes that he does have refills ordered for Cipro and Flagyl from his last admission. Advised him to go ahead and get the refills for Cipro and Flagyl filled and start taking them today. Advised him to follow-up with Dr. Baldwin on 09/16/18. Advised him to come to the ED if he started to feel worse over the weekend. All questions answered. Patient agreeable with discussion as outlined above. Objective Objective Clinical Data: Abnormal lab results 09/13/18 09/13/18 Range/Units 15:27 15:27 MPV 11.5 H (8.0-11.0) fL Absolute Monocytes 0.89 H (0.11-0.7) k/cumm C-Reactive Protein 3.77 H (0.0-0.3) mg/dL Laboratory Results WBC 8.05 k/cumm (4.4-10.8) 09/13/18 15:27 RBC 4.91 m/cumm (4.50-6.00) 09/13/18 15:27 Hgb 14.5 g/dL (13.5-17.5) 09/13/18 15:27 Hct 43.3 % (40.0-50.0) 09/13/18 15:27 MCV 88.2 fL (80-95) 09/13/18 15:27 MCH 29.5 pg (27.0-33.0) 09/13/18 15:27 MCHC 33.5 g/dL (32.0-36.0) 09/13/18 15:27 RDW 12.8 % (11.8-14.1) 09/13/18 15:27 Plt Count 229 x1000/uL (130-400) 09/13/18 15:27 MPV 11.5 fL (8.0-11.0) H 09/13/18 15:27 Immature Gran % 0.0 09/13/18 15:27 Neutrophils % 65.0 09/13/18 15:27 Lymphocytes % 18.0 09/13/18 15:27 Atypical Lymphs % 5 09/13/18 15:27 Monocytes % 11.0 09/13/18 15:27 Eosinophils % 1.0 09/13/18 15:27 Basophils % 0.0 09/13/18 15:27 Absolute Neutrophils 5.23 k/cumm (1.2-6.7) 09/13/18 15:27 Absolute Lymphocytes 1.85 k/cumm (1.2-3.4) 09/13/18 15:27 Absolute Monocytes 0.89 k/cumm (0.11-0.7) H 09/13/18 15:27 Absolute Eosinophils 0.08 k/cumm (0.0-0.7) 09/13/18 15:27 Absolute Basophils 0.00 k/cumm (0.0-0.2) 09/13/18 15:27 Differential Comment Manual differential 09/13/18 15:27 RBC Morphology Normal 09/13/18 15:27 C-Reactive Protein 3.77 mg/dL (0.0-0.3) H 09/13/18 15:27
== END 2018-09-13 15:43 ==
PROVIDERS: PCP Nurse Practitioner Family; Visit Provider Surgery
DX: K57.40 Diverticulitis of both small and large intestine with perforation and abscess without bleeding (principal)
CPT/HCPCS: 36415; NC; 85025; 86140

== ENCOUNTER 2018-09-14 18:56 | Inpatient (IN) | payer OTHER, SELFPAY ==
[2018-09-14 19:00] VITALS: BP 120/65; PULSE 94; RESP 18; TEMP 37.2; O2SAT 97
[2018-09-14] MEDS: Normal Saline 500 ML IV (19:46)
[2018-09-14 19:47] LABS: Abs Immature Grans 0.07 k/cumm (0.0-0.09); HGB 14.8 g/dL (13.5-17.5); Mean Corp. HGB Concentration 33.6 g/dL (32.0-36.0); Mean Corpuscular Hemoglobin 29.6 pg (27.0-33.0); Mean Platelet Volume 11.7 fL (8.0-11.0); Platelet Count 244 x1000/uL (130-400); RBC Distribution Width 12.7 % (11.8-14.1); White Blood Cell Count 11.83 k/cumm (4.4-10.8)
[2018-09-14 20:00] LABS: ALT 112 U/L (12-78); AST 41 U/L (15-37); Albumin 3.3 g/dL (3.4-5.0); Alkaline Phosphatase 121 U/L (46-116); Anion Gap 6.8 mmol/L (3-11); BUN 12 mg/dL (7-18); Bilirubin, Total 0.4 mg/dL (0.2-1.0); CO2 28.2 mmol/L (21.0-32.0); Calcium 9.2 mg/dL (8.5-10.1); Chloride 99 mmol/L (98-107); Glucose 93 mg/dL (70-100); Potassium 3.9 mmol/L (3.5-5.1); Sodium 134 mmol/L (136-145); Total Protein 7.8 g/dL (6.4-8.2)
--- NOTE | 2018-09-14 20:03 | DI.COMBO_ITS ---
SYMPTOM/DIAGNOSIS: HX DIVERTIC PERF, MIDLINE T6 PAIN, SUPRAPUBIC PAIN. LOWER MIDLINE PAIN CT SCAN ABDOMEN AND PELVIS, AND CT RECONSTRUCTIONS OF THE LUMBAR SPINE: Comparison is 08/14/18 The liver is normal in size. No suspicious hepatic mass seen. The portal, superior mesenteric and splenic veins are patent. The gallbladder is negative. No biliary ductal dilatation is present. The pancreas, spleen, adrenal glands, kidneys, ureters and bladder are unremarkable. Reproductive organs are unremarkable as visualized. The abdominal aorta is of normal caliber. No evidence of aneurysm or dissection. No significant abdominal or pelvic adenopathy is present. There is again seen bowel wall thickening in the mid sigmoid colon with pericolonic inflammatory change. There are diverticula present. The findings are consistent with acute diverticulitis. There is a small amount of free intraperitoneal air superior to the affected sigmoid colon. There does appear to be mild improvement in the extent of the bowel wall thickening but mild progression of the pericolonic inflammatory change since 08/15/17. No focal fluid collection is seen to suggest an abscess. There is a trace amount of free fluid in the pelvis. The remainder of the bowel is unremarkable and normal appendix is present. Evaluation of the lumbar spine shows no acute fractures or subluxations. IMPRESSION: Findings consistent with acute sigmoid diverticulitis with a small amount of free intraperitoneal air. No focal fluid collection is seen to suggest an abscess. 2. No acute fracture or subluxation in the lumbar spine. CT SCAN CHEST AND CT RECONSTRUCTIONS OF THE THORACIC SPINE: The thoracic aorta is intact and of normal caliber. Heart size is within normal limits. No significant pericardial effusion is seen. No significant thoracic adenopathy, pleural effusion or pneumothorax is identified. The lungs are clear. The tracheobronchial tree is unremarkable. CT reconstructions of the thoracic spine show no acute fracture or subluxation. IMPRESSION: No acute pulmonary process.
[2018-09-14 20:12] LABS: Absolute Lymphocyte Count 2.48 k/cumm (1.2-3.4); Absolute Monocyte Count 1.89 k/cumm (0.11-0.7); Absolute Neutrophil Count 7.45 k/cumm (1.2-6.7); Atypical Lymphocytes % 6; Diff Comment Manual Differential
[2018-09-14 20:20] LABS: Lipase 209 U/L (73-393)
[2018-09-14] MEDS: Ketorolac 15 MG/ML VIAL IM (20:21)
[2018-09-14 20:28] LABS: Bilirubin Negative (Negative); Blood Negative (Negative); Clarity Clear; Glucose Negative (Negative); Ketones Trace mg/dL (Negative); Leukocyte Esterase Negative (Negative); Nitrite Negative (Negative); Specific Gravity >= 1.030 (1.005-1.025); Urobilinogen 0.2 EU/dL (Up TO 0.2)
[2018-09-14] MEDS: Normal Saline Flush 10 ML SYR IVP (20:29)
[2018-09-14] MEDS: Breeza Beverage 473 ML BTL PO ×2 (20:32→20:34)
[2018-09-14 20:33] LABS: Bacteria Rare HPF (Negative); C & S Indicated? No; Casts Negative LPF (Negative); Crystals Negative HPF (Negative); Epithelial Cells Negative HPF (Negative); Mucus Negative (Negative); Other Cells Negative (Negative); RBC Negative (0-2); WBC 0-2 HPF (0-5)
[2018-09-14] MEDS: Omnipaque 350 MG/ML 50 ML BTL PO (20:34)
[2018-09-14] MEDS: Omnipaque 350 MG/ML 100 ML BTL IJ (21:30)
--- NOTE | 2018-09-14 22:26 | W.ED.GENAD ---
Discharge Plan Disposition Patient Disposition: [facility] INPATIENT Condition: Improving Discharge Details Chief Complaint: Abd Prob Clinical Impression: Diverticulitis of both large and small intestine with perforation without abscess or bleeding Primary Care Provider: Joni Colin ED Provider: Butch Keys Home Meds and New Rx's Prescriptions: No Action bupropion HCl 150 mg tablet extended release 12 hr 150 mg PO BID RF: 0 propranolol 20 mg tablet 20 mg PO BID RF: 0 L.acidoph,saliva-B.bif-S.therm [Acidophilus Probiotic Blend] 175 mg capsule 1 cap PO DAILY RF: 0 multivitamin tablet 1 tab PO DAILY RF: 0 pantoprazole [Protonix] 40 mg tablet,delayed release (DR/EC) 40 mg PO DAILY Qty: 30 RF: 12 pantoprazole 40 mg Tablet,Delayed Release (Dr/Ec) 40 mg PO DAILY@0730 Qty: 30 RF: 0 ciprofloxacin HCl 500 mg tablet 500 mg PO Q12H Qty: 28 RF: 1 metronidazole 500 mg tablet 500 mg PO TID Qty: 42 RF: 1 polyethylene glycol 3350 [Miralax] 17 gram/dose powder 17 gm PO PRN PRNQty: 255 RF: 0 Medical Decision Making This is a pleasant 37-year-old male who presents with a constellation of atypical symptoms. He has a history of operation with diverticulitis, the most recent episode being 30 days ago. He has had 1 to 2 weeks of back pain which she describes as generalized achiness with reproducible midline tenderness over T6. In addition to that over the last 24 hours he has had mild abdominal pain in the lower abdominal regions, in conjunction with a suprapubic pain that he feels radiates towards his umbilicus that occurred after ejaculation with his significant other. Physical exam demonstrates mild generalized lower abdominal tenderness. Normal genital exam with no significant testicular tenderness, and no cremasteric reflex abnormalities. Signs and symptoms are concerning for potential intra-abdominal pathology especially in conjunction with his concerning history. We will get a CT scan for further evaluation, urinalysis, give Toradol for pain, and reassess. 10:[address] scan shows evidence interval improvement in the more diffuse colitis however there is notable focal inflammation of the mid sigmoid colon with extraluminal gas contained within the sigmoid mesocolon fairly similar to previous studies with slight progression of inflammatory changes. There is concerned that that a potential fistula tract may be developing. There is also a few foci of intraperitoneal air that is present. No pathology is noted per the virtual radiologist and the thoracic spine even upon my personal discussion with him about this, no urinary tract abnormalities either. I suspect the T6 pain is most likely referred secondary to the mild intra-abdominal/intraperitoneal air. Urinalysis is benign, laboratory work-up demonstrates mildly increased white count, no other significant abnormalities. Renal function stable. Of note the patient's transaminases are also slightly elevated. I did send a hepatitis send out panel. This will be followed up on the inpatient basis. I discussed the case with Dr. Sanabria, she agrees with the need for admission. We will give a dose of IV antibiotics of Cipro and Flagyl here. I have extensively reviewed the treatment plan with the patient. I have addressed all patient concerns at this time. I have also discussed the plan with the admitting physician and they agree with the current assessment and plan and have agreed to assume responsibility for the patient. All parties demonstrate verbal understanding and agreement with our assessment and plan at this time. Addendum created by Vipin Dominguez MD on 09/14/2018 10:36:59 PM EDT THIS REPORT CONTAINS FINDINGS THAT MAY BE CRITICAL TO PATIENT CARE. The findings were verbally communicated via telephone conference with BUTCH KEYS at 10:36 PM EDT on 09/14/2018. The findings were acknowledged and understood. Initial report created on 09/14/2018 10:32:21 PM EDT EXAM: CT Chest With Contrast EXAM DATE/TIME: 09/14/2018 8:07 PM CLINICAL HISTORY: 37 years old, male; Abdominal pain; Patient HX: HX divertic perf, midline t6 pain, suprapubic pain TECHNIQUE: Imaging protocol: Axial computed tomography images of the chest with intravenous contrast. Coronal and sagittal reformatted images were created and reviewed. COMPARISON: CT ABDOMEN PELVIS W 08/14/2018 12:49 PM FINDINGS: Lungs: Unremarkable. No consolidation. No masses. Pleural space: Unremarkable. No pneumothorax. No pleural effusion. Heart: unremarkable. No pericardial effusion. Aorta: unremarkablel. No significant aortic dilitation. Lymph nodes: Unremarkable. No enlarged lymph nodes. Bones/joints: Unremarkable. No acute fracture. Soft tissues: Unremarkable. IMPRESSION: No acute findings. EXAM: CT Abdomen and Pelvis With Contrast EXAM DATE/TIME: 09/14/2018 8:07 PM CLINICAL HISTORY: 37 years old, male; Abdominal pain; Patient HX: HX divertic perf, midline t6 pain, suprapubic pain TECHNIQUE: Imaging protocol: Axial computed tomography images of the abdomen and pelvis with intravenous contrast. Coronal and sagittal reformatted images were created and reviewed. COMPARISON: CT ABDOMEN PELVIS W 08/14/2018 12:49 PM FINDINGS: ABDOMEN: Liver: No suspicious lesions. Gallbladder and bile ducts: No acute or concerning findings. Pancreas: Unremarkable. No ductal dilation. Spleen: No suspicious lesions. Adrenals: Unremarkalbe. No suspicious mass. Kidneys and ureters: Unremarkable. No hydro. No suspicious lesions. Stomach and bowel: Scattered few colonic diverticuli. Mild wall thickening throughout the left hemicolon. More focal inflammatory change mid sigmoid colon is similar to comparison study with some foci of extraluminal gas contained within the sigmoid mesocolon. Appendix: No evidence of appendicitis. PELVIS: Bladder: Unremarkable as visualized. Reproductive: Unremarkable as visualized. ABDOMEN and PELVIS: Intraperitoneal space: There are a few foci of free intraperitoneal air. Bones/joints: No acute fracture. No dislocation. Soft tissues: Unremarkable. Vasculature: Unremarkable. No acute findings Lymph nodes: Unremarkable. IMPRESSION: There are a few foci of free intraperitoneal air. There has been a interval improvement in the more diffuse colitis, now mild. The focal inflammation mid sigmoid colon with extraluminal gas contained within the sigmoid mesocolon is fairly similar to the comparison study but has progressed slightly with more inflammatory change around the extraluminal gas in the sigmoid mesocolon. This could be a fistulous tract developing. Does the patient have a history of Crohn's disease? Dictated and Authenticated by: Vipin Dominguez MD. Ordering:CARLOS EDUARDO Rae MD HPI General Date/Time Provider Initiated Documentation: 09/14/18 19:36. HPI Narrative: This is a 37-year-old male with a past medical history of multiple episodes of diverticulitis without perforation, who presents today for evaluation of a constellation of symptoms. Patient states that his last episode of perforation was 30 days ago. For last 1 to 2 weeks he has had mild midline back pain, she describes as an achy-like sensation, made worse with movement. No saddle anesthesia, or bowel or bladder incontinence, yesterday he developed a mild amount of generalized abdominal tenderness, as well as a tight-like sensation in his suprapubic region that occurred immediately after ejaculation during sexual intercourse. He denies any hematospermia, hematuria, dysuria, or history of STDs. He denies any other complaints at this time. No other modifying factors. He does state that his back and abdominal pain do feel similar to his previous episodes of diverticulitis. Of note he did contact the surgeon manager business information yesterday, after describing the symptoms he was recommended that he start his home Cipro Flagyl regiment. He has taken 1 dose. He denies any fever, chills, vomiting, diarrhea, chest pain, shortness of breath, numbness tingling or weakness peer Related Data Home Medications Medication Instructions Recorded Confirmed bupropion HCl SR 150 mg tablet,12 150 mg PO BID 01/16/18 09/14/18 hr sustained-release propranolol 20 mg tablet 20 mg PO BID 01/16/18 09/14/18 pantoprazole 40 mg PO DAILY@0730 #30 tab 07/20/18 09/14/18 ciprofloxacin HCl 500 mg PO Q12H #28 tab 08/17/18 09/14/18 metronidazole 500 mg PO TID #42 tab 08/17/18 09/14/18 polyethylene glycol 3350 [Miralax] 17 gm PO PRN PRN #255 gm 08/17/18 09/14/18 L.acidophil,salivari-Bifido 1 cap PO DAILY 08/26/18 09/14/18 bifidum-Strep thermoph 175 mg capsule multivitamin tablet 1 tab PO DAILY 08/26/18 09/14/18 pantoprazole 40 mg tablet,delayed 40 mg PO DAILY #30 tab 08/26/18 09/14/18 release Previous Rx's Medication Instructions Recorded pantoprazole 40 mg PO DAILY@0730 #30 tab 07/20/18 ciprofloxacin HCl 500 mg PO Q12H #28 tab 08/17/18 metronidazole 500 mg PO TID #42 tab 08/17/18 polyethylene glycol 3350 [Miralax] 17 gm PO PRN PRN #255 gm 08/17/18 pantoprazole 40 mg tablet,delayed 40 mg PO DAILY #30 tab 08/26/18 release Allergies Allergy/AdvReac Type Severity Reaction Status Date / Time No Known Allergies Allergy Verified 09/14/18 19:00 General Stated Complaint: Abd Prob ELVA: 3 Review of Systems Review of Systems All systems reviewed & are unremarkable except as noted in HPI and below PFSH Medical History Heart burn (Acute) MIGUEL (generalized anxiety disorder) (Acute) Elevated cholesterol with elevated triglycerides (Acute) Diverticulitis of both large and small intestine with perforation without abscess or bleeding (Acute) Atypical chest pain (Acute) Chronic fatigue (Acute) Colon polyp (Acute) Dizziness (Acute) MIGUEL (generalized anxiety disorder) (Acute) Hyperlipidemia (Acute) Mood disorder (Acute) Right knee pain (Acute) Sleep disturbances (Acute) Visual disturbance (Acute) Anxiety (Chronic) Depression (Chronic) Surgical History Tongue abnormality (Acute) Social History Smoking/Tobacco Use Status: Former Tobacco Use Alcohol Intake: current Alcohol Intake frequency: holidays/special occasions only Drug use: Daily Substance use type: marijuana Household members: children Housing: house Number of Children: 1 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 3.ENT: Atraumatic external nose and ears. Moist MM. Neck: Symmetric, trachea midline, No thyromegaly. 4.CVS: +S1/S2, No murmurs or gallops. Peripheral pulses 2+ and equal in all extremities. Brisk capillary refill in all extremities. 5.RESP: Unlabored respiratory effort. Clear to auscultation bilaterally. No wheezes rales or rhonchi 6.GI: Soft, nondistended, No hepatosplenomegaly. No guarding or rebound. Generalized pain in the lower and periumbilical regions. Negative May sign. No CVA tenderness. Genital exam was performed and demonstrated bilaterally descended testicles, normal cremasteric reflex. No significant testicular or penile shaft tenderness. No urethral discharge. No hernia. 7.MSK: Normocephalic/Atraumatic, Extremities w/o deformity or ttp No cyanosis or clubbing, Normal movement of all extremities. No midline tenderness to palpation over the CLS spine. Mild midline tenderness over T6. Normal ROM in flexion, extension, side bend, and rotation. Patient has +5 out of 5 strength in the lower extremities in dorsiflexion and plantarflexion, knee flexion and extension, hip flexion and extension. There is +2 over 2 dorsalis pedis pulses bilaterally. There is normal sensation to the skin with light touch at the foot, knee, and hip. Normal saddle sensation. Good sensation over the deep sural nerve area bilaterally. Rectal exam demonstrates good perirectal sensation, and normal rectal tone peer. Reflexes are +2 over 4 in the patellar reflex bilaterally. +5 out of 5 strength in the medial, ulnar, radial nerve distribution bilaterally in the hands as well as intact light touch sensation to these dermatomes on the hands 8.Skin: Warm, Dry. No rashes or lesions. 9.Neuro: associate justice II-XII grossly intact. Sensation grossly intact, no focal neurologic deficits. 10.Psych: (AAO) x3. Appropriate mood and affect Course Vital Signs Temperature 37.2 C 09/14/18 19:00 Pulse 94 H 09/14/18 19:00 Respiratory Rate 18 09/14/18 19:00 Blood Pressure 120/65 09/14/18 19:00 Pulse Oximetry 97 09/14/18 19:00 Temperature 37.2 C 09/14/18 19:00 Temperature Source Temporal Artery Scan 09/14/18 19:00 Pulse 94 H 09/14/18 19:00 Respiratory Rate 18 09/14/18 19:00 Respiratory Effort 09/14/18 19:00 Blood Pressure 120/65 09/14/18 19:00 Blood Pressure Position Sitting 09/14/18 19:00 Pulse Oximetry 97 09/14/18 19:00 Oxygen Delivery Method Room Air 09/14/18 19:00 Oxygen Flow Rate 0 09/14/18 19:00 Pain Level 8 09/14/18 19:00 Lab/Test Results Lab/Test Results: Laboratory Tests Range/Units 09/14/18 09/14/18 09/14/18 19:35 19:35 19:35 WBC (4.4-10.8) k/cumm 11.83 H RBC (4.50-6.00) m/cumm 5.00 Hgb (13.5-17.5) g/dL 14.8 Hct (40.0-50.0) % 44.0 MCV (80-95) fL 88.0 MCH (27.0-33.0) pg 29.6 MCHC (32.0-36.0) g/dL 33.6 RDW (11.8-14.1) % 12.7 Plt Count (130-400) x1000/uL 244 MPV (8.0-11.0) fL 11.7 H Immature Gran % 0.0 Neutrophils % 63.0 Band Neutrophils % % 0.0 Lymphocytes % 15.0 Atypical Lymphs % 6 Monocytes % 16.0 Eosinophils % 0.0 Basophils % 0.0 Absolute Neutrophils (1.2-6.7) k/cumm 7.45 H Absolute Lymphocytes (1.2-3.4) k/cumm 2.48 Absolute Monocytes (0.11-0.7) k/cumm 1.89 H Absolute Eosinophils (0.0-0.7) k/cumm 0.00 Absolute Basophils (0.0-0.2) k/cumm 0.00 Differential Comment Manual differential Sodium (136-145) mmol/L 134 L Potassium (3.5-5.1) mmol/L 3.9 Chloride (98-107) mmol/L 99 Carbon Dioxide (21.0-32.0) mmol/L 28.2 Anion Gap (3-11) mmol/L 6.8 BUN (7-18) mg/dL 12 Creatinine (0.70-1.30) mg/dL 1.30 Estimated GFR/1.73 m2 (mL/min/1.73m2) >= 60.00 Glucose (70-100) mg/dL 93 Calcium (8.5-10.1) mg/dL 9.2 Total Bilirubin (0.2-1.0) mg/dL 0.4 AST (15-37) U/L 41 H ALT (12-78) U/L 112 H Alkaline Phosphatase (46-116) U/L 121 H Total Protein (6.4-8.2) g/dL 7.8 Albumin (3.4-5.0) g/dL 3.3 L Lipase (73-393) U/L 209 Urine Color (Yellow) Urine Clarity Urine pH (5-8) Ur Specific [place] (1.005-1.025) Urine Protein (Negative) mg/dL Urine Ketones (Negative) mg/dL Urine Blood (Negative) Urine Nitrite (Negative) Urine Bilirubin (Negative) Urine Urobilinogen (Up TO 0.2) EU/dL Ur Leukocyte Esterase (Negative) Urine RBC (0-2) Urine WBC (0-5) HPF Ur Epithelial Cells (Negative) HPF Urine Crystals (Negative) HPF Urine Bacteria (Negative) HPF Urine Casts (Negative) LPF Urine Mucus (Negative) Urine Other (Negative) Ur Culture Indicated? Urine Glucose (Negative) mg/dL Range/Units 09/14/18 20:15 WBC (4.4-10.8) k/cumm RBC (4.50-6.00) m/cumm Hgb (13.5-17.5) g/dL Hct (40.0-50.0) % MCV (80-95) fL MCH (27.0-33.0) pg MCHC (32.0-36.0) g/dL RDW (11.8-14.1) % Plt Count (130-400) x1000/uL MPV (8.0-11.0) fL Immature Gran % Neutrophils % Band Neutrophils % % Lymphocytes % Atypical Lymphs % Monocytes % Eosinophils % Basophils % Absolute Neutrophils (1.2-6.7) k/cumm Absolute Lymphocytes (1.2-3.4) k/cumm Absolute Monocytes (0.11-0.7) k/cumm Absolute Eosinophils (0.0-0.7) k/cumm Absolute Basophils (0.0-0.2) k/cumm Differential Comment Sodium (136-145) mmol/L Potassium (3.5-5.1) mmol/L Chloride (98-107) mmol/L Carbon Dioxide (21.0-32.0) mmol/L Anion Gap (3-11) mmol/L BUN (7-18) mg/dL Creatinine (0.70-1.30) mg/dL Estimated GFR/1.73 m2 (mL/min/1.73m2) Glucose (70-100) mg/dL Calcium (8.5-10.1) mg/dL Total Bilirubin (0.2-1.0) mg/dL AST (15-37) U/L ALT (12-78) U/L Alkaline Phosphatase (46-116) U/L Total Protein (6.4-8.2) g/dL Albumin (3.4-5.0) g/dL Lipase (73-393) U/L Urine Color (Yellow) Yellow Urine Clarity Clear Urine pH (5-8) 6.0 Ur Specific [place] (1.005-1.025) >= 1.030 H Urine Protein (Negative) mg/dL Trace H Urine Ketones (Negative) mg/dL Trace H Urine Blood (Negative) Negative Urine Nitrite (Negative) Negative Urine Bilirubin (Negative) Negative Urine Urobilinogen (Up TO 0.2) EU/dL 0.2 Ur Leukocyte Esterase (Negative) Negative Urine RBC (0-2) Negative Urine WBC (0-5) HPF 0-2 Ur Epithelial Cells (Negative) HPF Negative Urine Crystals (Negative) HPF Negative Urine Bacteria (Negative) HPF Rare Urine Casts (Negative) LPF Negative Urine Mucus (Negative) Negative Urine Other (Negative) Negative Ur Culture Indicated? No Urine Glucose (Negative) mg/dL Negative
--- NOTE | 2018-09-14 22:32 | DI.VRAD_ITS ---
Addendum created by Vipin Dominguez MD on 09/14/2018 10:36:59 PM EDT THIS REPORT CONTAINS FINDINGS THAT MAY BE CRITICAL TO PATIENT CARE. The findings were verbally communicated via telephone conference with BIN KEYS at 10:36 PM EDT on 09/14/2018. The findings were acknowledged and understood. Initial report created on 09/14/2018 10:32:21 PM EDT EXAM: CT Chest With Contrast EXAM DATE/TIME: 09/14/2018 8:07 PM CLINICAL HISTORY: 37 years old, male; Abdominal pain; Patient HX: HX divertic perf, midline t6 pain, suprapubic pain TECHNIQUE: Imaging protocol: Axial computed tomography images of the chest with intravenous contrast. Coronal and sagittal reformatted images were created and reviewed. COMPARISON: CT ABDOMEN PELVIS W 08/14/2018 12:49 PM FINDINGS: Lungs: Unremarkable. No consolidation. No masses. Pleural space: Unremarkable. No pneumothorax. No pleural effusion. Heart: unremarkable. No pericardial effusion. Aorta: unremarkablel. No significant aortic dilitation. Lymph nodes: Unremarkable. No enlarged lymph nodes. Bones/joints: Unremarkable. No acute fracture. Soft tissues: Unremarkable. IMPRESSION: No acute findings. EXAM: CT Abdomen and Pelvis With Contrast EXAM DATE/TIME: 09/14/2018 8:07 PM CLINICAL HISTORY: 37 years old, male; Abdominal pain; Patient HX: HX divertic perf, midline t6 pain, suprapubic pain TECHNIQUE: Imaging protocol: Axial computed tomography images of the abdomen and pelvis with intravenous contrast. Coronal and sagittal reformatted images were created and reviewed. COMPARISON: CT ABDOMEN PELVIS W 08/14/2018 12:49 PM FINDINGS: ABDOMEN: Liver: No suspicious lesions. Gallbladder and bile ducts: No acute or concerning findings. Pancreas: Unremarkable. No ductal dilation. Spleen: No suspicious lesions. Adrenals: Unremarkalbe. No suspicious mass. Kidneys and ureters: Unremarkable. No hydro. No suspicious lesions. Stomach and bowel: Scattered few colonic diverticuli. Mild wall thickening throughout the left hemicolon. More focal inflammatory change mid sigmoid colon is similar to comparison study with some foci of extraluminal gas contained within the sigmoid mesocolon. Appendix: No evidence of appendicitis. PELVIS: Bladder: Unremarkable as visualized. Reproductive: Unremarkable as visualized. ABDOMEN and PELVIS: Intraperitoneal space: There are a few foci of free intraperitoneal air. Bones/joints: No acute fracture. No dislocation. Soft tissues: Unremarkable. Vasculature: Unremarkable. No acute findings Lymph nodes: Unremarkable. IMPRESSION: There are a few foci of free intraperitoneal air. There has been a interval improvement in the more diffuse colitis, now mild. The focal inflammation mid sigmoid colon with extraluminal gas contained within the sigmoid mesocolon is fairly similar to the comparison study but has progressed slightly with more inflammatory change around the extraluminal gas in the sigmoid mesocolon. This could be a fistulous tract developing. Does the patient have a history of Crohn's disease? Dictated and Authenticated by: Vipin Dominguez MD. Ordering:CARLOS EDUARDO Rae MD
[2018-09-14] MEDS: CIPROFLOXACIN 400 MG/200 ML BAG 200 MG IVPB (22:53)
[2018-09-14 23:00] VITALS: BP 101/57; PULSE 74; RESP 16; TEMP 37.2; O2SAT 100
[2018-09-14 23:41] VITALS: BP 98/65; PULSE 79; RESP 18; TEMP 36.2; O2SAT 95
[2018-09-15] MEDS: metroNIDAZOLE 500 MG/100 ML BAG 100 MG IVPB ×4 (00:04→21:54)
[2018-09-15] MEDS: Normal Saline 1,000 ML 100 ML IV ×2 (01:05→07:38)
[2018-09-15 05:45] VITALS: BP 105/67; PULSE 73; RESP 18; TEMP 36.7; O2SAT 98
[2018-09-15 07:10] VITALS: BP 115/74; PULSE 77; RESP 18; TEMP 36.5; O2SAT 98
--- NOTE | 2018-09-15 09:40 | PDOC.CMIN ---
Care Management Initial Assess REASON FOR HOSPITALIZATION:: Diverticulitis PAST MEDICAL HISTORY/PAST SURGICAL HISTORY:: Medical History: MIGUEL (generalized anxiety disorder), Elevated cholesterol with elevated triglycerides, Diverticulitis of both large and small intestine with perforation without abscess or bleeding, Atypical chest pain, Chronic fatigue, Colon polyp, Dizziness, Hyperlipidemia, Mood disorder, Right knee pain, Sleep disturbances,Visual disturbance,Anxiety, Depression. 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 He lives in a single family home with Elsa, his alf girlfriend, and 10 year old daughter. CURRENT FUNCTIONAL STATUS:: Santana reports that the pain is decreasing but still present on the left side of his abdomen. He has been on a very low fiber diet since his last admission and recently working with Dr. Baldwin to add a little fiber in his diet. Just started to eat small amounts of sweet potato. Has been working half days and spending time in his recliner at home to rest. He had been doing well but suddenly developed an increase of pain and then presented to the ED. ADVANCE DIRECTIVES:: None on file and is not interested in completing them today. Has patient been provided with information about the portal?: Yes Did the patient sign up for the portal?: No CODE STATUS:: Full Code INSURANCE COVERAGE / FINANCIAL ISSUES:: [employer] CURRENT HOME/COMMUNITY SERVICES/EQUIPMENT:: None at this time PRIMARY CARE PHYSICIAN:: Joni Colin NP POTENTIAL DISCHARGE NEEDS:: Follow up appointments PATIENT/FAMILY EDUCATION NEEDS:: Discharge instructions ANTICIPATED BARRIERS TO DISCHARGE:: None identified TRANSPORTATION:: Family PLAN:: Santana is receving IV antibiotics, pain control and IV fluids. His diet will be increased today per provider and anticipate if he does well maybe home in in the next 24-48 hours. Santana was again readmitted for diverticulitis he states he felt ready for discharge last admission and did not perceive any barriers in the community the led to readmission. CM will continue to provide support to the patient ongoing discharge planning. Readmission - Within the Past 30 Days Yes or No: Y - Date of First Admission Date of 1st Admission: 08/14/17 - Date of this Admission Date of Admission: 09/14/18 This admission was: Through ED - Office Visit Since 1st Admission Have you seen your PCP in the office since discharge?: No Had an appointment Been Scheduled?: Yes Date of Scheduled Appointment: 08/26/18 - Mariely Baldwin MD - Speicalist Appointments Have you seen any other specialist since your 1st Admission?: No - I. Interview patient and/or Family Difficulty reaching your doctor or getting an office appt?: No Have you had trouble purchasing/ or taking medication?: No Have you had trouble with getting meals at home?: No Did you feel ready for discharge when you left the last time: Yes Did you call your physician beore you came to the ED?: No Did your physician tell you to come in?: No How do you think you became sick enough to come back?: Unexpected and sudden pain so I came to the ER. - Assessment for Readmission Summary of readmission circumstances, based upon interviews: Sudden onset of pain related to diverticulitis. Concerned it might be a perforation and not just the microperforations he previously experienced that self close leaving only air bubbles that need to be absorbed and are painful as well. He has kept all of his follow up appointments and has been following instructions. Does not feel he could have done anything to prevent readmission.
[2018-09-15 11:05] VITALS: BP 111/74; PULSE 76; RESP 18; TEMP 36.7; O2SAT 98
[2018-09-15] MEDS: buPROPion-CR 150 MG TABCR PO ×2 (11:11→20:14)
--- NOTE | 2018-09-15 11:17 | HPE_ITS ---
Date of service: 09/15/18 Time of Service: 11:17 Assessment and Plan (1) Diverticulitis of large intestine with perforation: Current visit: Yes Status: Acute 37 y/o male with recurrent/persistent acute diverticulitis involving the sigmoid and left colon since July 2018. Overall, he is improving on imaging but there is some persistent air and inflammation in the sigmoid mesentery. Symptoms resolved with resuming antibiotic coverage on 09/14/18. Continue Cipro/ Flagyl. Start on clears. If continues to improve, consider advancing diet and d/c on po antibiotics 09/16/18. Follow-up labs in am. Will need outpatient colonoscopy in near future after acute inflammation resolves. Patient agreeable with plans. Qualifiers: Diverticulitis bleeding: without bleeding Qualified Code(s): K57.20 - Diverticulitis of large intestine with perforation and abscess without bleeding History of Present Illness Chief Complaint: Abdominal and back pain Narrative: Spoke to patient by phone on 09/14/18. Per my note - Returned patient's call to [facility] re: labwork from 09/13/18 Patient notes a h/o recurrent diverticulitis with microperforation in July and August 2018. He started to feel unwell a couple days ago with back and lower abdominal pain below the umbilicus. He denies any definite fever. He is voiding and having bowel movements without problems. He is tolerating a po diet. He notes that he contacted Dr. Baldwin yesterday and was sent for bloodwork. He has a follow-up appointment scheduled for 09/16/18. Reviewed labs with patient. WBC WNL at 8 but CRP elevated at 3.77. He notes that he does have refills ordered for Cipro and Flagyl from his last admission. Advised him to go ahead and get the refills for Cipro and Flagyl filled and start taking them today. Advised him to follow-up with Dr. Baldwin on 09/16/18. Advised him to come to the ED if he started to feel worse over the weekend. All questions answered. Patient agreeable with discussion as outlined above. Patient apparently came to the ED last night for his symptoms and was admitted. WBC was slightly elevated from 8 to 11.8. Creatinine slightly elevated from 1.[address] chest/abd/pelvis reviewed. VRADS report noted. He has diverticular disease and left sided colitis which is overall improving. No abscess seen. Mesenteric inflammation and bubbles of air in the mesentery persist. Question of fistula raised per VRADS. Patient denies any FMH of IBD or colon cancer. He notes that he had a colonoscopy performed about 15 years ago for rectal bleeding and had a benign polyp removed at that time. This morning, he notes that his abdominal and back pain have resolved. He denies na usea or vomiting. He notes a slight headache which he attributes to not taking his home meds of propanolol and Wellbutrin this am. He denies fevers. His last BM was 1-2 days ago. He cannot recall when he last passed flatus. Review of Systems Review of Systems All systems reviewed & are unremarkable except as noted in HPI and below Constitutional Denies chills and Denies fever(s) Cardiovascular Denies chest pain, Denies rapid heart rate and Denies dyspnea Respiratory Denies cough and Denies dyspnea Gastrointestinal Reports abdominal pain, Denies constipation, Denies diarrhea and Denies vomiting Genitourinary Denies hematuria and Denies dysuria [facility] Medical History Heart burn (Acute) MIGUEL (generalized anxiety disorder) (Acute) Elevated cholesterol with elevated triglycerides (Acute) Diverticulitis of both large and small intestine with perforation without abscess or bleeding (Acute) Atypical chest pain (Acute) Chronic fatigue (Acute) Colon polyp (Acute) Dizziness (Acute) MIGUEL (generalized anxiety disorder) (Acute) Hyperlipidemia (Acute) Mood disorder (Acute) Right knee pain (Acute) Sleep disturbances (Acute) Visual disturbance (Acute) Anxiety (Chronic) Depression (Chronic) Surgical History Tongue abnormality (Acute) Social History Smoking/Tobacco Use Status: Former Tobacco Use Alcohol Intake: current Alcohol Intake frequency: holidays/special occasions only Drug use: Daily Substance use type: marijuana Household members: children Housing: house Number of Children: 1 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 [employer] What type of physical activity do you participate in: none Do you feel safe at home: Yes Do you feel safe in your relationship?: Yes Meds Home Medications Medication Instructions Recorded Confirmed Type bupropion HCl SR 150 mg tablet,12 150 mg PO BID 01/16/18 09/14/18 History hr sustained-release propranolol 20 mg tablet 20 mg PO BID 01/16/18 09/14/18 History pantoprazole 40 mg PO DAILY@0730 #30 tab 07/20/18 09/14/18 Rx ciprofloxacin HCl 500 mg PO Q12H #28 tab 08/17/18 09/14/18 Rx metronidazole 500 mg PO TID #42 tab 08/17/18 09/14/18 Rx polyethylene glycol 3350 [Miralax] 17 gm PO PRN PRN #255 gm 08/17/18 09/14/18 Rx L.acidophil,salivari-Bifido 1 cap PO DAILY 08/26/18 09/14/18 History bifidum-Strep thermoph 175 mg capsule multivitamin tablet 1 tab PO DAILY 08/26/18 09/14/18 History pantoprazole 40 mg tablet,delayed 40 mg PO DAILY #30 tab 08/26/18 09/14/18 Rx release Allergies Allergy/AdvReac Type Severity Reaction Status Date / Time No Known Allergies Allergy Verified 09/14/18 19:00 Exam Const General: cooperative, comfortable and no acute distress Nutritional Appearance: average body habitus Orientation: alert and oriented x3 HENMT Head: normocephalic and atraumatic Eyes Sclera: sclerae normal Resp Effort & Inspection: normal respiratory effort and able to speak in complete sentences Auscultation: clear to auscultation bilaterally Cardio Jugular venous pressure: no JVD Rate: regular rate Rhythm: regular rhythm GI Inspection: non-distended Palpation: soft, not firm, no guarding and not rigid Auscultation: normal bowel sounds Skin General skin exam: no rashes or lesions noted and no jaundice Neuro General: alert and oriented x3 Speech: speech normal Results Imaging Abdomen CT scan report/results: report reviewed and image reviewed CT scan - chest: report reviewed and image reviewed CT scan - pelvis: report reviewed and image reviewed Imaging Studies: Patient Name: TONIO WISE #: [id number]: ER Ordering Provider: : REG ER Primary Care Provider: Joni Colin NPDate of Exam: 09/14/18Sex: M : 1980Age: 37 Exam(s) Addendum created by Vipin Dominguez MD on 09/14/2018 10:36:59 PM EDT THIS REPORT CONTAINS FINDINGS THAT MAY BE CRITICAL TO PATIENT CARE. The findings were verbally communicated via telephone conference with BIN KEYS at 10:36 PM EDT on 09/14/2018. The findings were acknowledged and understood. Initial report created on 09/14/2018 10:32:21 PM EDT EXAM: CT Chest With Contrast EXAM DATE/TIME: 09/14/2018 8:07 PM CLINICAL HISTORY: 37 years old, male; Abdominal pain; Patient HX: HX divertic perf, midline t6 pain, suprapubic pain TECHNIQUE: Imaging protocol: Axial computed tomography images of the chest with intravenous contrast. Coronal and sagittal reformatted images were created and reviewed. COMPARISON: CT ABDOMEN PELVIS W 08/14/2018 12:49 PM FINDINGS: Lungs: Unremarkable. No consolidation. No masses. Pleural space: Unremarkable. No pneumothorax. No pleural effusion. Heart: unremarkable. No pericardial effusion. Aorta: unremarkablel. No significant aortic dilitation. Lymph nodes: Unremarkable. No enlarged lymph nodes. Bones/joints: Unremarkable. No acute fracture. Soft tissues: Unremarkable. IMPRESSION: No acute findings. EXAM: CT Abdomen and Pelvis With Contrast EXAM DATE/TIME: 09/14/2018 8:07 PM CLINICAL HISTORY: 37 years old, male; Abdominal pain; Patient HX: HX divertic perf, midline t6 pain, suprapubic pain TECHNIQUE: Imaging protocol: Axial computed tomography images of the abdomen and pelvis with intravenous contrast. Coronal and sagittal reformatted images were created and reviewed. COMPARISON: CT ABDOMEN PELVIS W 08/14/2018 12:49 PM FINDINGS: ABDOMEN: Liver: No suspicious lesions. Gallbladder and bile ducts: No acute or concerning findings. Pancreas: Unremarkable. No ductal dilation. Spleen: No suspicious lesions. Adrenals: Unremarkalbe. No suspicious mass. Kidneys and ureters: Unremarkable. No hydro. No suspicious lesions. Stomach and bowel: Scattered few colonic diverticuli. Mild wall thickening throughout the left hemicolon. More focal inflammatory change mid sigmoid colon is similar to comparison study with some foci of extraluminal gas contained within the sigmoid mesocolon. Appendix: No evidence of appendicitis. PELVIS: Bladder: Unremarkable as visualized. Reproductive: Unremarkable as visualized. ABDOMEN and PELVIS: Intraperitoneal space: There are a few foci of free intraperitoneal air. Bones/joints: No acute fracture. No dislocation. Soft tissues: Unremarkable. Vasculature: Unremarkable. No acute findings Lymph nodes: Unremarkable. IMPRESSION: There are a few foci of free intraperitoneal air. There has been a interval improvement in the more diffuse colitis, now mild. The focal inflammation mid sigmoid colon with extraluminal gas contained within the sigmoid mesocolon is fairly similar to the comparison study but has progressed slightly with more inflammatory change around the extraluminal gas in the sigmoid mesocolon. This could be a fistulous tract developing. Does the patient have a history of Crohn's disease? Dictated and Authenticated by: Vipin Dominguez MD. Ordering:CARLOS EDUARDO Rae MD Ordered By: CC: Dictated By: Reports vrad 09/14/18200609/14/18 [id number] Transcribed By: Kimberlee Muñoz This is privileged, confidential information intended only for the provider named. Any use or distribution by any person other than this provider is strictly prohibited. If you receive this report in error, please notify us immediately at [phone] and return the original report to us at the address above. Thank-you. Labs : 09/14/18 19:35 09/14/18 19:35 Laboratory Results - last 24 hr 09/14/18 09/14/18 09/14/18 19:35 19:35 19:35 WBC 11.83 H RBC 5.00 Hgb 14.8 Hct 44.0 MCV 88.0 MCH 29.6 MCHC 33.6 RDW 12.7 Plt Count 244 MPV 11.7 H Immature Gran % 0.0 Neutrophils % 63.0 Band Neutrophils % 0.0 Lymphocytes % 15.0 Atypical Lymphs % 6 Monocytes % 16.0 Eosinophils % 0.0 Basophils % 0.0 Absolute Neutrophils 7.45 H Absolute Lymphocytes 2.48 Absolute Monocytes 1.89 H Absolute Eosinophils 0.00 Absolute Basophils 0.00 Differential Comment Manual differential Sodium 134 L Potassium 3.9 Chloride 99 Carbon Dioxide 28.2 Anion Gap 6.8 BUN 12 Creatinine 1.30 Estimated GFR/1.73 m2 >= 60.00 Glucose 93 Calcium 9.2 Total Bilirubin 0.4 AST 41 H ALT 112 H Alkaline Phosphatase 121 H Total Protein 7.8 Albumin 3.3 L Lipase 209 Urine Color Urine Clarity Urine pH Ur Specific [place] Urine Protein Urine Ketones Urine Blood Urine Nitrite Urine Bilirubin Urine Urobilinogen Ur Leukocyte Esterase Urine RBC Urine WBC Ur Epithelial Cells Urine Crystals Urine Bacteria Urine Casts Urine Mucus Urine Other Ur Culture Indicated? Urine Glucose 09/14/18 20:15 WBC RBC Hgb Hct MCV MCH MCHC RDW Plt Count MPV Immature Gran % Neutrophils % Band Neutrophils % Lymphocytes % Atypical Lymphs % Monocytes % Eosinophils % Basophils % Absolute Neutrophils Absolute Lymphocytes Absolute Monocytes Absolute Eosinophils Absolute Basophils Differential Comment Sodium Potassium Chloride Carbon Dioxide Anion Gap BUN Creatinine Estimated GFR/1.73 m2 Glucose Calcium Total Bilirubin AST ALT Alkaline Phosphatase Total Protein Albumin Lipase Urine Color Yellow Urine Clarity Clear Urine pH 6.0 Ur Specific [place] >= 1.030 H Urine Protein Trace H Urine Ketones Trace H Urine Blood Negative Urine Nitrite Negative Urine Bilirubin Negative Urine Urobilinogen 0.2 Ur Leukocyte Esterase Negative Urine RBC Negative Urine WBC 0-2 Ur Epithelial Cells Negative Urine Crystals Negative Urine Bacteria Rare Urine Casts Negative Urine Mucus Negative Urine Other Negative Ur Culture Indicated? No Urine Glucose Negative Last Vital Signs Temp 36.5 C 09/15/18 07:10 Pulse 77 09/15/18 07:10 Resp 18 09/15/18 07:10 BP 115/74 09/15/18 07:10 Pulse Ox 98 09/15/18 07:10
[2018-09-15] MEDS: Propranolol 20 MG TAB PO ×2 (11:23→20:14)
[2018-09-15] MEDS: CIPROFLOXACIN 400 MG/200 ML BAG 200 MG IVPB ×2 (12:31→23:27)
[2018-09-15] MEDS: Ketorolac 15 MG/ML VIAL IVP (12:36)
[2018-09-15 15:18] VITALS: BP 105/69; PULSE 74; RESP 17; TEMP 36.4; O2SAT 97
[2018-09-15] MEDS: Normal Saline Flush 10 ML SYR IVP (15:40)
[2018-09-15] MEDS: Normal Saline 1,000 ML 125 ML IV (15:44)
[2018-09-15] MEDS: Mylanta Suspension 30 ML CUP PO (20:15)
[2018-09-15 20:21] VITALS: BP 129/79; PULSE 77; RESP 16; TEMP 36.4; O2SAT 99
[2018-09-15 23:32] VITALS: BP 111/72; PULSE 77; RESP 16; TEMP 36.9; O2SAT 97
[2018-09-16] MEDS: Ondansetron 4 MG/2 ML VIAL IVP ×3 (00:18→21:15)
[2018-09-16] MEDS: Normal Saline Flush 10 ML SYR IVP ×3 (00:19→15:52)
[2018-09-16] MEDS: Normal Saline 1,000 ML 125 ML IV ×3 (01:12→23:07)
[2018-09-16 04:00] VITALS: BP 101/66; PULSE 69; RESP 16; TEMP 36.2; O2SAT 98
[2018-09-16] MEDS: metroNIDAZOLE 500 MG/100 ML BAG 100 MG IVPB ×4 (04:07→23:08)
[2018-09-16 07:09] VITALS: BP 104/67; PULSE 71; RESP 18; TEMP 36.8; O2SAT 98
[2018-09-16 07:11] LABS: Abs Immature Grans 0.04 k/cumm (0.0-0.09); Absolute Basophil Count 0.04 k/cumm (0.0-0.2); Absolute Eosinophil Count 0.11 k/cumm (0.0-0.7); Absolute Lymphocyte Count 1.25 k/cumm (1.2-3.4); Absolute Monocyte Count 0.84 k/cumm (0.11-0.7); Absolute Neutrophil Count 4.46 k/cumm (1.2-6.7); Basophils % 0.6; Eosinophils % 1.6; HCT 37.3 % (40.0-50.0); HGB 12.4 g/dL (13.5-17.5); Immature Grans % 0.6; Lymphocytes % 18.5; Mean Corp. HGB Concentration 33.2 g/dL (32.0-36.0); Mean Corpuscular Hemoglobin 29.7 pg (27.0-33.0); Mean Corpuscular Volume 89.2 fL (80-95); Mean Platelet Volume 11.4 fL (8.0-11.0); Monocytes % 12.5; Neutrophils % 66.2; Platelet Count 189 x1000/uL (130-400); RBC 4.18 m/cumm (4.50-6.00); RBC Distribution Width 12.3 % (11.8-14.1); White Blood Cell Count 6.74 k/cumm (4.4-10.8)
[2018-09-16 07:16] LABS: Anion Gap 9.6 mmol/L (3-11); BUN 6 mg/dL (7-18); C-Reactive Protein 7.65 mg/dL (0.0-0.3); CO2 23.4 mmol/L (21.0-32.0); CREATININE 1.06 mg/dL (0.70-1.30); Calcium 8.4 mg/dL (8.5-10.1); Chloride 107 mmol/L (98-107); Glucose 87 mg/dL (70-100); Potassium 3.9 mmol/L (3.5-5.1); Sodium 140 mmol/L (136-145)
--- NOTE | 2018-09-16 08:08 | PGE_ITS ---
Documented by User: CHARLES Blanco 09/16/18 08:08 Date of Service Date of service: 09/16/18 Time of Service: 08:02 Assessment and Plan (1) Diverticulitis of large intestine with perforation: Current visit: Yes Status: Acute Tolerating clear liquids will progress to soft, low fiber diet. Currently on IV cipro/flagyl will transition to PO meds for d/c. He reports he already has this prescription filled at home for these. Activity as tolerated. Encouraged sitting up out of bed and ambulating. Qualifiers: Diverticulitis bleeding: without bleeding Qualified Code(s): K57.20 - Diverticulitis of large intestine with perforation and abscess without bleeding Subjective Interval history since last seen: Reports feeling better today, feels like I have a lot of gas. Denies passing any flatus. Has taken in some clear liquids without any abdominal pain, N/V. 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 Concern regarding his expenses is starting to weigh on him. Exam Const General: cooperative and comfortable Orientation: alert and oriented x3 Resp Effort & Inspection: normal respiratory effort, no audible wheezes and no cough Auscultation: clear to auscultation bilaterally Cardio Rate: regular rate Rhythm: regular rhythm Heart Sounds: S1 normal, S2 normal and no murmurs GI Inspection: normal to inspection and non-distended Palpation: soft, no guarding and nontender Objective Objective Clinical Data: Abnormal lab results 09/16/18 09/16/18 Range/Units 06:58 06:58 RBC 4.18 L (4.50-6.00) m/cumm Hgb 12.4 L D (13.5-17.5) g/dL Hct 37.3 L (40.0-50.0) % MPV 11.4 H (8.0-11.0) fL Absolute Monocytes 0.84 H (0.11-0.7) k/cumm BUN 6 L (7-18) mg/dL Calcium 8.4 L (8.5-10.1) mg/dL C-Reactive Protein 7.65 H (0.0-0.3) mg/dL Vital Signs Temperature 36.2 C L 09/16/18 04:00 Temperature Source Tympanic 09/16/18 04:00 Pulse 69 06/10/19 04:00 Pulse Rhythm Regular 09/15/18 20:23 Respiratory Rate 16 09/16/18 04:00 Respiratory Effort Non-Labored 09/15/18 20:23 Respiratory Depth Normal 09/15/18 20:23 Respiratory Pattern Normal 09/15/18 20:23 Blood Pressure 101/66 09/16/18 04:00 Blood Pressure Position Sitting 09/14/18 19:00 Pulse Oximetry 98 09/16/18 04:00 Oxygen Delivery Method Room Air 09/16/18 04:00 Oxygen Flow Rate 0 09/16/18 04:00 Pain Level 2 09/15/18 12:36 Comment 09/15/18 20:21 Intake & Output 09/15/18 09/16/18 09/16/18 18:59 06:59 18:59 Intake Total 1986.666 / 3972.916 1985.250 / 3972.916 Output Total 400 / 400 Balance 1586.666 / 3572.916 1985.250 / 3572.916 Weight 88 kg Intake: IV 1985.666 / 3662.916 1676.250 / 3662.916 Oral 310 / 310 Output: Urine 400 / 400 Other: Urine Color Yellow Urine Appearance Clear Comment pt reports getting up to use the toilet, hat removed by pt. Stool Size Moderate Voiding Methods Toilet Laboratory Results WBC 6.74 k/cumm (4.4-10.8) 09/16/18 06:58 RBC 4.18 m/cumm (4.50-6.00) L 09/16/18 06:58 Hgb 12.4 g/dL (13.5-17.5) L D 09/16/18 06:58 Hct 37.3 % (40.0-50.0) L 09/16/18 06:58 MCV 89.2 fL (80-95) 09/16/18 06:58 MCH 29.7 pg (27.0-33.0) 09/16/18 06:58 MCHC 33.2 g/dL (32.0-36.0) 09/16/18 06:58 RDW 12.3 % (11.8-14.1) 09/16/18 06:58 Plt Count 189 x1000/uL (130-400) 09/16/18 06:58 MPV 11.4 fL (8.0-11.0) H 09/16/18 06:58 Immature Gran % 0.6 09/16/18 06:58 Neutrophils % 66.2 09/16/18 06:58 Band Neutrophils % 0.0 % 09/14/18 19:35 Lymphocytes % 18.5 09/16/18 06:58 Atypical Lymphs % 6 09/14/18 19:35 Monocytes % 12.5 09/16/18 06:58 Eosinophils % 1.6 09/16/18 06:58 Basophils % 0.6 09/16/18 06:58 Absolute Neutrophils 4.46 k/cumm (1.2-6.7) 09/16/18 06:58 Absolute Lymphocytes 1.25 k/cumm (1.2-3.4) 09/16/18 06:58 Absolute Monocytes 0.84 k/cumm (0.11-0.7) H 09/16/18 06:58 Absolute Eosinophils 0.11 k/cumm (0.0-0.7) 09/16/18 06:58 Absolute Basophils 0.04 k/cumm (0.0-0.2) 09/16/18 06:58 Differential Comment Manual differential 09/14/18 19:35 Sodium 140 mmol/L (136-145) 09/16/18 06:58 Potassium 3.9 mmol/L (3.5-5.1) 09/16/18 06:58 Chloride 107 mmol/L (98-107) 09/16/18 06:58 Carbon Dioxide 23.4 mmol/L (21.0-32.0) 09/16/18 06:58 Anion Gap 9.6 mmol/L (3-11) 09/16/18 06:58 BUN 6 mg/dL (7-18) L 09/16/18 06:58 Creatinine 1.06 mg/dL (0.70-1.30) 09/16/18 06:58 Estimated GFR/1.73 m2 >= 60.00 (mL/min/1.73m2) 09/16/18 06:58 Glucose 87 mg/dL (70-100) 09/16/18 06:58 Calcium 8.4 mg/dL (8.5-10.1) L 09/16/18 06:58 Total Bilirubin 0.4 mg/dL (0.2-1.0) 09/14/18 19:35 AST 41 U/L (15-37) H 09/14/18 19:35 ALT 112 U/L (12-78) H 09/14/18 19:35 Alkaline Phosphatase 121 U/L (46-116) H 09/14/18 19:35 C-Reactive Protein 7.65 mg/dL (0.0-0.3) H 09/16/18 06:58 Total Protein 7.8 g/dL (6.4-8.2) 09/14/18 19:35 Albumin 3.3 g/dL (3.4-5.0) L 09/14/18 19:35 Lipase 209 U/L (73-393) 09/14/18 19:35 Urine Color Yellow (Yellow) 09/14/18 20:15 Urine Clarity Clear 09/14/18 20:15 Urine pH 6.0 (5-8) 09/14/18 20:15 Ur Specific [place] >= 1.030 (1.005-1.025) H 09/14/18 20:15 Urine Protein Trace mg/dL (Negative) H 09/14/18 20:15 Urine Ketones Trace mg/dL (Negative) H 09/14/18 20:15 Urine Blood Negative (Negative) 09/14/18 20:15 Urine Nitrite Negative (Negative) 09/14/18 20:15 Urine Bilirubin Negative (Negative) 09/14/18 20:15 Urine Urobilinogen 0.2 EU/dL (Up TO 0.2) 09/14/18 20:15 Ur Leukocyte Esterase Negative (Negative) 09/14/18 20:15 Urine RBC Negative (0-2) 09/14/18 20:15 Urine WBC 0-2 HPF (0-5) 09/14/18 20:15 Ur Epithelial Cells Negative HPF (Negative) 09/14/18 20:15 Urine Crystals Negative HPF (Negative) 09/14/18 20:15 Urine Bacteria Rare HPF (Negative) 09/14/18 20:15 Urine Casts Negative LPF (Negative) 09/14/18 20:15 Urine Mucus Negative (Negative) 09/14/18 20:15 Urine Other Negative (Negative) 09/14/18 20:15 Ur Culture Indicated? No 09/14/18 20:15 Urine Glucose Negative mg/dL (Negative) 09/14/18 20:15 Documented by User: Mariely Conde Nicolasa, DO 09/16/18 20:15 Assessment and Plan (1) Diverticulitis large intestine: Current visit: Yes Status: Acute I did review his CT scan's w/ Dr. Martinez. He does have recurrent Dx. Overall his CT is improved since August. There are a few bubbles of air in the mesentery. these are different in position than in August. no fever chills. no n/v today. decrease in length of DX and swelling. He seems to bounce back over 30 days he was having back pain. CBC was OK. CRP was high. back pain is better today. I did review his CT for the thoracic spine- there is no osteo or tumors there. plan to do ce (or at least flex sig) in am adn egd. May need to go to surgery for resection w/ rebound Dx. and diverting ostomy. electrolytes adjusted (2) GERD (gastroesophageal reflux disease): Current visit: Yes Status: Chronic cont on PPI plan egd in am risk: bleeding/infection/perforation and surgery/aspiration
[2018-09-16] MEDS: Lactobacillus Acidophilus CAP 1 CAP PO (08:12)
[2018-09-16] MEDS: Pantoprazole 40 MG TABCR PO (08:12)
[2018-09-16] MEDS: buPROPion-CR 150 MG TABCR PO ×2 (08:13→19:58)
[2018-09-16] MEDS: Propranolol 20 MG TAB PO ×2 (08:13→19:58)
--- NOTE | 2018-09-16 09:15 | PDOC.CMPRO ---
- If Service Date Differs Date of service: 09/16/18 Time of Service: 09:15 Care Management Progress Note S/O:Santana was sitting up in the chair during CM visit. He stated that he is feeling better but is discouraged that he needed to come back to the hospital so soon. He is receiving a GI prep in order to have a colonoscopy tomorrow. Santana has been ambulating in the halls and planned to take a shower today. A: Santana is a 37 year old man admitted to [facility] on 09/14/18 with a diagnosis of diverticulitis P:Santana is receving IV antibiotics, pain control and IV fluids. He remains on a liquid diet as part of his bowel prep for endoscopy tomorrow. Anticipate he will be discharged home with no services if colonoscopy is benign. will continue to provide support to the patient and ongoing discharge planning.
--- NOTE | 2018-09-16 09:18 | CMPROGNOTE_ITS ---
- If Service Date Differs Date of service: 09/16/18 Time of Service: 09:15 Care Management Progress Note S/O:Santana was sitting up in the chair during CM visit. He stated that he is feeling better but is discouraged that he needed to come back to the hospital so soon. He is receiving a GI prep in order to have a colonoscopy tomorrow. Santana has been ambulating in the halls and planned to take a shower today. A: Santana is a 37 year old man admitted to [facility] on 09/14/18 with a diagnosis of diverticulitis P:Santana is receving IV antibiotics, pain control and IV fluids. He remains on a liquid diet as part of his bowel prep for endoscopy tomorrow. Anticipate he will be discharged home with no services if colonoscopy is benign. will continue to provide support to the patient and ongoing discharge planning.
[2018-09-16 11:27] VITALS: BP 135/92; PULSE 67; RESP 18; TEMP 36.1; O2SAT 99
[2018-09-16 11:55] LABS: Hepatitis A Antibody IgM Negative (NEGAT); Hepatitis B Core Antibody Negative (NEGAT); Hepatitis B surface Ag Negative (NEGAT); Hepatitis C Ab w Rflx HCV PCR Negative (NEGAT)
--- NOTE | 2018-09-16 12:29 | NUR.NOTE ---
Patient lost IV access around 11:00 this morning. Missed flagyl and cipro doses, to be re-timed by pharmacy. Nursing currently attempting to place midline access. Nursing Note:
[2018-09-16 13:54] LABS: Chlamydia Result Negative; GC Result Negative
--- NOTE | 2018-09-16 14:13 | NUR.NOTE ---
Patient did experience anxiety today, predominantly associated with the loss of IV access. He was able to use positive coping mechanisms and clear his head by walking in the hallways to reduce stress. At this time the patient is resting in his room and appears calm. Nursing Note:
[2018-09-16] MEDS: CIPROFLOXACIN 400 MG/200 ML BAG 200 MG IVPB (14:23)
[2018-09-16 15:31] VITALS: BP 125/80; PULSE 64; RESP 18; TEMP 37; O2SAT 98
[2018-09-16] MEDS: Polyethylene Glycol 3350 238 GM BTL PO (19:40)
[2018-09-16] MEDS: Bisacodyl 5 MG TABEC 20 MG PO (19:58)
[2018-09-16 20:00] VITALS: BP 129/71; PULSE 75; RESP 16; TEMP 36.6; O2SAT 96
[2018-09-16 23:32] VITALS: BP 108/68; PULSE 67; RESP 15; TEMP 36.2; O2SAT 98
[2018-09-17] VITALS (7 sets, daily range): BP systolic 102–138; BP diastolic 66–89; PULSE 54–65; RESP 16–17; TEMP 36.1–36.5; O2SAT 95–100
[2018-09-17] MEDS: CIPROFLOXACIN 400 MG/200 ML BAG 200 MG IVPB ×2 (01:52→15:03)
[2018-09-17] MEDS: Ondansetron 4 MG/2 ML VIAL IVP ×2 (02:46→16:25)
[2018-09-17] MEDS: metroNIDAZOLE 500 MG/100 ML BAG 100 MG IVPB ×3 (05:55→18:41)
[2018-09-17 07:24] LABS: Anion Gap 12.1 mmol/L (3-11); BUN 5 mg/dL (7-18); C-Reactive Protein 5.22 mg/dL (0.0-0.3); CO2 20.9 mmol/L (21.0-32.0); CREATININE 0.98 mg/dL (0.70-1.30); Calcium 8.3 mg/dL (8.5-10.1); Chloride 108 mmol/L (98-107); Glucose 89 mg/dL (70-100); Magnesium 1.6 mg/dL (1.8-2.4); Potassium 3.5 mmol/L (3.5-5.1); Sodium 141 mmol/L (136-145)
[2018-09-17] MEDS: buPROPion-CR 150 MG TABCR PO ×2 (07:53→19:40)
[2018-09-17] MEDS: Pantoprazole 40 MG TABCR PO (07:53)
[2018-09-17] MEDS: Lactobacillus Acidophilus CAP 1 CAP PO (07:53)
[2018-09-17] MEDS: Propranolol 20 MG TAB PO ×2 (07:53→19:40)
[2018-09-17] MEDS: Normal Saline 1,000 ML 125 ML IV ×2 (09:52→19:39)
--- NOTE | 2018-09-17 11:48 | STOM_PTH ---
PATIENT: Santana Fajardo LOC: U#:[id number] AGE/SX: 37/M ROOM: [id number] RE09/14/[address]: Mariely Baldwin : 1980 BED: A DIS: 09/19/2018 SPEC #: [id number] RECD: 09/17/18 12:54 STATUS: FRANCESCA REQ #: [id number] TYRA: 09/17/18 11:[address]: Taimko Sanabria DEPT: Surgical Specimen RECD BY: Courtney Bueno ENTERED: 09/17/18 12:55 SP TYPE: STOMACH OTHR DR: Joni Colin Tissues: 1 - BIOPSY BOWEL 2 - STOMACH BIOPSY 3 - STOMACH BIOPSY 4 - ESOPHAGUS BIOPSY 5 - ESOPHAGUS BIOPSY 6 - BIOPSY BOWEL Procedures: GROSS AND MICRO LEVEL 4 Comments: [id number]
--- NOTE | 2018-09-17 12:33 | W.PM.ENDDOP ---
Date of service: 09/17/18 Time of Service: 12:33 Endoscopy Report DATE OF PROCEDURE: 09/17/18 PRE-OP DIAGNOSIS: epigastric pain /recurrent diverticulits POST-OP DIAGNOSIS: other (mod-severe duodenitis. mild diverticulitis/stricturing ) PROCEDURE: EGD w/ bx flex w/ bx SURGEON: Mariely Baldwin ANESTHESIA: GETA ESTIMATED BLOOD LOSS: 1 PATHOLOGY: other COMPLICATIONS: None DISPOSITION: floor PREP: Miralax PROCEDURE DESCRIPTION: After informed consent was obtained the patient was take to the procedure room and placed in a supine position. Monitors were applied and a time out was done. The patients name, date of , procedure type, allergies to medications and metal in their body was reviewed. A bite block was placed and the patient was sedated. Once sedated and comfortable the gastroscope was advanced through the oropharynx which was grossly normal into the esophagus. The proximal and mid-esophagus were nl. In the distal esophagus there was nl noted. The scope was advanced into the stomach and through the pylorus into the 3rd portion of the duodenum. The duodenum was noted to be mod-severe duodentisi is red striped fahsion. Biopsies were done . all specin retreived and no bleeding noted. The scope was retracted back into the stomach and biopsies were done to rule out H. pylori. There were no ulcers or active or old blood. The scope was retroflexed. The cardia and fundus were noted to be normal. There no hiatal hernia noted. The scope was retracted back into the esophagus and biopsies were done of the GE junction to rule out Mcpherson's. The Z line was regular. The GE junction was at 39 cm. The scope was removed and the patient was woken up and taken back to [facility] in stable condition. Follow up: After informed consent was obtained the patient was taken to the procedure room and placed in a left decubitous position. Monitors were applied and a time out was done. The patients name, date of , procedure, allergies to medications and metal in their body was reviewed. The patient was then sedated. Once sedated and comfortable a rectal exam was done. External exam was normal. Internal exam revealed a normal sphincter tone and no palpable masses. The scope was then introduced and retrofelexed. The prep was good. The anal rectal region is nl. as we go through the sigmoid favian- there is signif edema to the tissues. there is mild redness. bx were taken. I cannot go past splenic flexure/40cm. Whether this is due just tissue inflammation or stricturing due to scar tissue, I am not able to discern at this juncture. There is some mild redness in streaked fashion. no purulence. there are diverticula- the are small but numerous. The scope was removed and the patient was woken up and taken back to Same day surgery in stable condition. The patient tolerated the procedure well and there were no immediate complications.
--- NOTE | 2018-09-17 12:36 | ENDO_ITS ---
Date of service: 09/17/18 Time of Service: 12:33 Endoscopy Report DATE OF PROCEDURE: 09/17/18 PRE-OP DIAGNOSIS: epigastric pain /recurrent diverticulits POST-OP DIAGNOSIS: other (mod-severe duodenitis. mild diverticulitis/stricturing ) PROCEDURE: EGD w/ bx flex w/ bx SURGEON: Mariely Baldwin ANESTHESIA: GETA ESTIMATED BLOOD LOSS: 1 PATHOLOGY: other COMPLICATIONS: None DISPOSITION: floor PREP: Miralax PROCEDURE DESCRIPTION: After informed consent was obtained the patient was take to the procedure room and placed in a supine position. Monitors were applied and a time out was done. The patients name, date of , procedure type, allergies to medications and metal in their body was reviewed. A bite block was placed and the patient was sedated. Once sedated and comfortable the gastroscop e was advanced through the oropharynx which was grossly normal into the esophagus. The proximal and mid-esophagus were nl. In the distal esophagus there was nl noted. The scope was advanced into the stomach and through the pylorus into the 3rd portion of the duodenum. The duodenum was noted to be mod- severe duodentisi is red striped fahsion. Biopsies were done . all specin retreived and no bleeding noted. The scope was retracted back into the stomach and biopsies were done to rule out H. pylori. There were no ulcers or active or old blood. The scope was retroflexed. The cardia and fundus were noted to be normal. There no hiatal hernia noted. The scope was retracted back into the esophagus and biopsies were done of the GE junction to rule out Mcpherson's. The Z line was regular. The GE junction was at 39 cm. The scope was removed and the patient was woken up and taken back to [facility] in stable condition. Follow up: After informed consent was obtained the patient was taken to the procedure room and placed in a left decubitous position. Monitors were applied and a time out was done. The patients name, date of , procedure, allergies to medications and metal in their body was reviewed. The patient was then sedated. Once sedated and comfortable a rectal exam was done. External exam was normal. Internal exam revealed a normal sphincter tone and no palpable masses. The scope was then introduced and retrofelexed. The prep was good. The anal rectal region is nl. as we go through the sigmoid favian- there is signif edema to the tissues. there is mild redness. bx were taken. I cannot go past splenic flexure/40cm. Whether this is due just tissue inflammation or stricturing due to scar tissue, I am not able to discern at this juncture. There is some mild redness in streaked fashion. no purulence. there are diverticula- the are small but numerous. The scope was removed and the patient was woken up and taken back to Same day surgery in stable condition. The patient tolerated the procedure well and there were no immediate complications.
--- NOTE | 2018-09-17 12:44 | NUR.NOTE ---
Patient returned from PACU, vital signs stable. PACU states the procedure went well and that several biopsies were taken. Patient is complaining of minor abdominal soreness, and is belching gas. Denies needs at this time, will continue to monitor. Patient states he would like to try to take a nap. Nursing Note:
[2018-09-17] MEDS: Ketorolac 15 MG/ML VIAL IVP (15:44)
--- NOTE | 2018-09-17 15:57 | PDOC.CMPRO ---
- If Service Date Differs Date of service: 09/17/18 Time of Service: 15:57 Care Management Progress Note S/O: Santana was standing in his room talking with his girlfriend when CM came to visit. He had returned form his endoscopy procedures and was waiting for Dr. Baldwin to explain what was found. He stated that he hopes to be able to go home soon but is still not feeling too good. A: Santana is a 37 year old man admitted to [facility] on 09/14/18 with a diagnosis of diverticulitis P:Santana is receiving IV antibiotics, pain control and IV fluids. Anticipate he will be discharged home with no services if endoscopy is benign. CM will continue to provide support to the patient and ongoing discharge planning. cc:
--- NOTE | 2018-09-17 16:04 | CMPROGNOTE_ITS ---
- If Service Date Differs Date of service: 09/17/18 Time of Service: 15:57 Care Management Progress Note S/O: Santana was standing in his room talking with his girlfriend when CM came to visit. He had returned form his endoscopy procedures and was waiting for Dr. Baldwin to explain what was found. He stated that he hopes to be able to go home soon but is still not feeling too good. A: Santana is a 37 year old man admitted to [facility] on 09/14/18 with a diagnosis of diverticulitis P:Santana is receiving IV antibiotics, pain control and IV fluids. Anticipate he will be discharged home with no services if endoscopy is benign. CM will continue to provide support to the patient and ongoing discharge planning. cc:
[2018-09-17] MEDS: Sucralfate 1 GM TAB PO ×2 (16:25→19:40)
[2018-09-17] MEDS: Normal Saline Flush 10 ML SYR IVP (16:26)
[2018-09-17] MEDS: PIPERACILLIN/TAZO 3.375 GM in Normal Saline 50 ML IVPB (19:40)
--- NOTE | 2018-09-17 22:29 | W.PM.PROGNOT ---
Date of Service Date of service: 09/17/18 Time of Service: 17:29 Assessment and Plan (1) GERD (gastroesophageal reflux disease): Current visit: Yes Status: Chronic (2) Diverticulitis large intestine: Current visit: Yes Status: Acute (3) Duodenitis without bleeding: Current visit: Yes Status: Acute we reviewed the result of the EGD and CE. egd: moderate duodenitis CE- signif swelling of sigmoid. can not pass scope thru the mid sigmoid or flexure due to narrowing. unclear if this is stricture from acute swelling or scar tissue from repeated infections. pt cannot be off abx- every time he comes off, he winds up back in the hosp w/ recurrent Dx. He has not been eating at all. albumin was 3.3 on 09/14 on admission. I had long talk w/ pt and regarding options. It appears that Dx is incompletely treated adn reoccurs off abx. He was very conscientious about eating low fiber diet, resting, staking meds, etc He is very frustrated and money issues have b/c a problems for him. I think at this point we do not to operate. I would like to keep him on IV abx for a few more days and see if we can get him eating to build him up nutritionally. We would keep him on abx before surgery. This would hopefully, allow for some of the inflammation adn infection to go down and allow for successful anastomosis and avoid ostomy. He would prefer having laprascopic surgery. As it stands today- we would need to do an open procedure and most likely some type of ostomy. The bowel is so swollen we would nt be able to get across the tissues w/ a stalper and would hinder safe dissection. He has a signif anxiety attack when discussing an ostomy and stoma care. If has long standing problems w/ anxiety. He does not want to use barbituates and normally takes CBD. If oral intake does not improve in the next 24hrs- will place PICC and start TPN adn consider surgery on sunday. cont supportive reviewed w/ RN abx adjusted 60 mins spent w/ pt and tonight >50% of the time spent with the patient today was spent in counseling regarding; medications, lifestyle modifications, wound care and/or coordinating care. Subjective Patient reports: tolerating liquids well and afebrile Interval history since last seen: pain is better. Still has some nausea no cp or cough. no leg pain or swelling. no dysuria. Pt does not have muvh appetite. He says he just cannot dring cl liq any further- just not appetizing. Exam Const General: cooperative, healthy appearing, comfortable, no acute distress, well developed and well groomed Nutritional Appearance: average body habitus and well nourished Orientation: alert, awake and oriented x3 [facility] Head: normal to inspection, normocephalic and atraumatic Ears: hearing grossly normal bilaterally and external ears normal General nose exam: external nose normal Face and sinus: normal facial exam and sinuses nontender Mouth: oral mucosae normal, lip normal, tongue normal and moist mucous membranes Teeth and gingiva: dentition normal Eyes General: appearance normal, both eyes and all related structures Conjunctivae: conjunctivae normal Sclera: sclerae normal Pupils: PERRL Neck Neck: normal visual inspection and full ROM Chest Chest: normal inspection of the chest Resp Effort & Inspection: normal respiratory effort, able to speak in complete sentences, no cough, no nasal flaring, not tachypneic and no use of accessory muscles Auscultation: clear to auscultation bilaterally, no rales, no rhonchi and no wheezes Cardio Jugular venous pressure: no JVD Rate: regular rate Rhythm: regular rhythm GI Inspection: normal to inspection, no edema and non-distended Palpation: soft, no masses, nontender and No ascites Auscultation: normal bowel sounds Other: no back pain. min abdom pain nausea+ . no appetite. Skin General skin exam: no rashes or lesions noted Trauma: no lacerations or abrasions Neuro General: alert, oriented x3, oriented, gait normal, moves all extremities, no focal motor deficits and CN's II-XI intact bilaterally Cognition: normal cognition Speech: speech normal Gait: normal gait Motor: muscle tone normal throughout Extrem General: normal to inspection, full ROM and no clubbing, cyanosis or edema Psych Appearance: grossly normal and well kempt Mental Status: mental status grossly normal Speech and Movement: speech and movement normal Affect: normal affect Objective Objective Clinical Data: Abnormal lab results 09/17/18 Range/Units 06:11 Chloride 108 H (98-107) mmol/L Carbon Dioxide 20.9 L (21.0-32.0) mmol/L Anion Gap 12.1 H (3-11) mmol/L BUN 5 L (7-18) mg/dL Calcium 8.3 L (8.5-10.1) mg/dL Magnesium 1.6 L (1.8-2.4) mg/dL C-Reactive Protein 5.22 H (0.0-0.3) mg/dL Vital Signs Temperature 36.1 C L 09/17/18 19:11 Temperature Source Tympanic 09/17/18 19:11 Pulse 58 L 09/17/18 19:11 Pulse Rhythm Regular 09/17/18 20:16 Respiratory Rate 17 09/17/18 19:11 Respiratory Effort Non-Labored 09/17/18 20:16 Respiratory Depth Normal 09/17/18 20:16 Respiratory Pattern Normal 09/17/18 20:16 Blood Pressure 114/70 09/17/18 19:11 Blood Pressure Position Sitting 09/14/18 19:00 Pulse Oximetry 99 09/17/18 19:11 Oxygen Delivery Method Room Air 09/17/18 19:11 Oxygen Flow Rate 0 09/17/18 19:11 Pain Level 2 09/17/18 15:44 Comment 09/15/18 20:21 Intake & Output 09/16/18 09/17/18 09/17/18 23:59 11:59 23:59 Intake Total 1091.250 / 3061.249 977.083 / 2085.416 1108.333 / 2085.416 Output Total Balance 1091.250 / 3061.249 976.083 / 2084.416 1108.333 / 2084.416 Weight 89.1 kg Intake: IV 791.250 / 2261.249 977.083 / 1785.416 808.333 / 1785.416 Oral 300 / 800 300 / 300 Output: Stool Other: Comment pt gets up AD DIXON. Stool Size Moderate Stool Characteristics Liquid Voiding Methods Toilet Toilet Laboratory Results WBC 6.74 k/cumm (4.4-10.8) 09/16/18 06:58 RBC 4.18 m/cumm (4.50-6.00) L 09/16/18 06:58 Hgb 12.4 g/dL (13.5-17.5) L D 09/16/18 06:58 Hct 37.3 % (40.0-50.0) L 09/16/18 06:58 MCV 89.2 fL (80-95) 09/16/18 06:58 MCH 29.7 pg (27.0-33.0) 09/16/18 06:58 MCHC 33.2 g/dL (32.0-36.0) 09/16/18 06:58 RDW 12.3 % (11.8-14.1) 09/16/18 06:58 Plt Count 189 x1000/uL (130-400) 09/16/18 06:58 MPV 11.4 fL (8.0-11.0) H 09/16/18 06:58 Immature Gran % 0.6 09/16/18 06:58 Neutrophils % 66.2 09/16/18 06:58 Band Neutrophils % 0.0 % 09/14/18 19:35 Lymphocytes % 18.5 09/16/18 06:58 Atypical Lymphs % 6 09/14/18 19:35 Monocytes % 12.5 09/16/18 06:58 Eosinophils % 1.6 09/16/18 06:58 Basophils % 0.6 09/16/18 06:58 Absolute Neutrophils 4.46 k/cumm (1.2-6.7) 09/16/18 06:58 Absolute Lymphocytes 1.25 k/cumm (1.2-3.4) 09/16/18 06:58 Absolute Monocytes 0.84 k/cumm (0.11-0.7) H 09/16/18 06:58 Absolute Eosinophils 0.11 k/cumm (0.0-0.7) 09/16/18 06:58 Absolute Basophils 0.04 k/cumm (0.0-0.2) 09/16/18 06:58 Differential Comment Manual differential 09/14/18 19:35 Sodium 141 mmol/L (136-145) 09/17/18 06:11 Potassium 3.5 mmol/L (3.5-5.1) 09/17/18 06:11 Chloride 108 mmol/L (98-107) H 09/17/18 06:11 Carbon Dioxide 20.9 mmol/L (21.0-32.0) L 09/17/18 06:11 Anion Gap 12.1 mmol/L (3-11) H 09/17/18 06:11 BUN 5 mg/dL (7-18) L 09/17/18 06:11 Creatinine 0.98 mg/dL (0.70-1.30) 09/17/18 06:11 Estimated GFR/1.73 m2 >= 60.00 (mL/min/1.73m2) 09/17/18 06:11 Glucose 89 mg/dL (70-100) 09/17/18 06:11 Calcium 8.3 mg/dL (8.5-10.1) L 09/17/18 06:11 Magnesium 1.6 mg/dL (1.8-2.4) L 09/17/18 06:11 Total Bilirubin 0.4 mg/dL (0.2-1.0) 09/14/18 19:35 AST 41 U/L (15-37) H 09/14/18 19:35 ALT 112 U/L (12-78) H 09/14/18 19:35 Alkaline Phosphatase 121 U/L (46-116) H 09/14/18 19:35 C-Reactive Protein 5.22 mg/dL (0.0-0.3) H 09/17/18 06:11 Total Protein 7.8 g/dL (6.4-8.2) 09/14/18 19:35 Albumin 3.3 g/dL (3.4-5.0) L 09/14/18 19:35 Lipase 209 U/L (73-393) 09/14/18 19:35 Urine Color Yellow (Yellow) 09/14/18 20:15 Urine Clarity Clear 09/14/18 20:15 Urine pH 6.0 (5-8) 09/14/18 20:15 Ur Specific [place] >= 1.030 (1.005-1.025) H 09/14/18 20:15 Urine Protein Trace mg/dL (Negative) H 09/14/18 20:15 Urine Ketones Trace mg/dL (Negative) H 09/14/18 20:15 Urine Blood Negative (Negative) 09/14/18 20:15 Urine Nitrite Negative (Negative) 09/14/18 20:15 Urine Bilirubin Negative (Negative) 09/14/18 20:15 Urine Urobilinogen 0.2 EU/dL (Up TO 0.2) 09/14/18 20:15 Ur Leukocyte Esterase Negative (Negative) 09/14/18 20:15 Urine RBC Negative (0-2) 09/14/18 20:15 Urine WBC 0-2 HPF (0-5) 09/14/18 20:15 Ur Epithelial Cells Negative HPF (Negative) 09/14/18 20:15 Urine Crystals Negative HPF (Negative) 09/14/18 20:15 Urine Bacteria Rare HPF (Negative) 09/14/18 20:15 Urine Casts Negative LPF (Negative) 09/14/18 20:15 Urine Mucus Negative (Negative) 09/14/18 20:15 Urine Other Negative (Negative) 09/14/18 20:15 Ur Culture Indicated? No 09/14/18 20:15 Urine Glucose Negative mg/dL (Negative) 09/14/18 20:15 Ur Chlamydia DNA Probe Negative 09/14/18 20:15 Chlamydia/GC DNA Source urine 09/14/18 20:15 Urine GC DNA Probe Negative 09/14/18 20:15 Hepatitis A IgM Ab Negative (NEGAT) 09/14/18 21:10 Hep Bs Antigen Negative (NEGAT) 09/14/18 21:10 Hep B Core Total Ab Negative (NEGAT) 09/14/18 21:10 Hepatitis C Antibody Negative (NEGAT) 09/14/18 21:10
[2018-09-18] VITALS (8 sets, daily range): BP systolic 100–127; BP diastolic 67–78; PULSE 62–75; RESP 17–18; TEMP 36–37; O2SAT 97–100
[2018-09-18] MEDS: PIPERACILLIN/TAZO 3.375 GM in Normal Saline 50 ML IVPB ×4 (01:48→19:59)
[2018-09-18] MEDS: Normal Saline 1,000 ML 125 ML IV ×3 (03:47→23:19)
[2018-09-18 07:19] LABS: Anion Gap 14.5 mmol/L (3-11); BUN 5 mg/dL (7-18); C-Reactive Protein 3.03 mg/dL (0.0-0.3); CO2 19.5 mmol/L (21.0-32.0); CREATININE 1.07 mg/dL (0.70-1.30); Calcium 8.3 mg/dL (8.5-10.1); Chloride 106 mmol/L (98-107); Glucose 67 mg/dL (70-100); Magnesium 1.7 mg/dL (1.8-2.4); Potassium 3.6 mmol/L (3.5-5.1); Sodium 140 mmol/L (136-145)
[2018-09-18] MEDS: Sucralfate 1 GM TAB PO ×4 (07:23→22:15)
[2018-09-18] MEDS: Pantoprazole 40 MG TABCR PO (07:42)
[2018-09-18] MEDS: Propranolol 20 MG TAB PO ×2 (07:43→19:59)
[2018-09-18] MEDS: buPROPion-CR 150 MG TABCR PO ×2 (07:43→19:59)
[2018-09-18] MEDS: Lactobacillus Acidophilus CAP 1 CAP PO (07:43)
--- NOTE | 2018-09-18 08:00 | CMPROGNOTE_ITS ---
- If Service Date Differs Date of service: 09/18/18 Time of Service: 08:00 Care Management Progress Note S/O: Santana requested to speak with CM related to concerns about financial challenges he is facing. He related that he and his recently closed on a home they have been building for the past 6 years and also bought a new automobile. 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 He has just been told that he will need surgery and he states he is worried about losing his home. His short term disability will run out in early November. CM provided Santana with a Patient Financial Assistance packet after contacting Financial Services at [facility]. In addition, a referral was made by CM to [facility] A: Santana is a 37 year old man admitted to [facility] on 09/14/18 with a diagnosis of diverticulitis P:Santana is receiving IV antibiotics, pain control and IV fluids. He will be discharged home on antibiotics, likely tomorrow, and will return next week for surgery. No home services are needed at this time. CM will continue to provide support to the patient and ongoing discharge planning.
--- NOTE | 2018-09-18 09:07 | W.PM.PROGNOT ---
Date of Service Date of service: 09/18/18 Time of Service: 09:07 Assessment and Plan (1) Duodenitis without bleeding: Current visit: Yes Status: Acute (2) GERD (gastroesophageal reflux disease): Current visit: Yes Status: Chronic (3) Diverticulitis large intestine: Current visit: Yes Status: Acute Continue IV antibiotics. Encouraged activity out of the bed as tolerated. DIET- Normal, low fiber, soft diet. Encouraged him to try and eat at meals to improve his nutritional status. If this does not improve today. Will order PICC line placement. Subjective Interval history since last seen: reports that he is feeling well today. Expresses concern regarding the possibility of surgery and reports that he is interested in having a second opinion at [facility]. Currently he has multiple financial stressors which is also weighing on him. Exam Const General: cooperative and comfortable Orientation: alert and oriented x3 Resp Effort & Inspection: normal respiratory effort, no audible wheezes and no cough GI Inspection: normal to inspection and non-distended Objective Objective Clinical Data: Abnormal lab results 09/18/18 Range/Units 06:30 Carbon Dioxide 19.5 L (21.0-32.0) mmol/L Anion Gap 14.5 H (3-11) mmol/L BUN 5 L (7-18) mg/dL Glucose 67 L (70-100) mg/dL Calcium 8.3 L (8.5-10.1) mg/dL Magnesium 1.7 L (1.8-2.4) mg/dL C-Reactive Protein 3.03 H (0.0-0.3) mg/dL Vital Signs Temperature 36.0 C L 09/18/18 07:34 Temperature Source Tympanic 09/18/18 07:34 Pulse 62 09/18/18 07:34 Pulse Rhythm Regular 09/18/18 07:20 Respiratory Rate 17 09/18/18 07:34 Respiratory Effort Non-Labored 09/18/18 07:20 Respiratory Depth Normal 09/18/18 07:20 Respiratory Pattern Normal 09/18/18 07:20 Blood Pressure 127/76 09/18/18 07:34 Blood Pressure Position Sitting 09/14/18 19:00 Pulse Oximetry 98 09/18/18 07:34 Oxygen Delivery Method Room Air 09/18/18 07:34 Oxygen Flow Rate 0 09/18/18 07:34 Pain Level 2 09/17/18 15:44 Comment 09/15/18 20:21 Intake & Output 09/17/18 09/18/18 09/18/18 18:59 06:59 18:59 Intake Total 556.25 / 2409.166 1852.916 / 2409.166 50 / 50 Output Total Balance 555.25 / 2408.166 1852.916 / 2408.166 50 / 50 Weight 89.1 kg Intake: IV 556.25 / 4331.728 7521.916 / 1859.166 50 / 50 Oral 550 / 550 Output: Stool Other: Comment pt gets up AD DIXON. pt voiding independently in the bathroom Stool Size Moderate Stool Characteristics Liquid Voiding Methods Toilet Laboratory Results WBC 6.74 k/cumm (4.4-10.8) 09/16/18 06:58 RBC 4.18 m/cumm (4.50-6.00) L 09/16/18 06:58 Hgb 12.4 g/dL (13.5-17.5) L D 09/16/18 06:58 Hct 37.3 % (40.0-50.0) L 09/16/18 06:58 MCV 89.2 fL (80-95) 09/16/18 06:58 MCH 29.7 pg (27.0-33.0) 09/16/18 06:58 MCHC 33.2 g/dL (32.0-36.0) 09/16/18 06:58 RDW 12.3 % (11.8-14.1) 09/16/18 06:58 Plt Count 189 x1000/uL (130-400) 09/16/18 06:58 MPV 11.4 fL (8.0-11.0) H 09/16/18 06:58 Immature Gran % 0.6 09/16/18 06:58 Neutrophils % 66.2 09/16/18 06:58 Band Neutrophils % 0.0 % 09/14/18 19:35 Lymphocytes % 18.5 09/16/18 06:58 Atypical Lymphs % 6 09/14/18 19:35 Monocytes % 12.5 09/16/18 06:58 Eosinophils % 1.6 09/16/18 06:58 Basophils % 0.6 09/16/18 06:58 Absolute Neutrophils 4.46 k/cumm (1.2-6.7) 09/16/18 06:58 Absolute Lymphocytes 1.25 k/cumm (1.2-3.4) 09/16/18 06:58 Absolute Monocytes 0.84 k/cumm (0.11-0.7) H 09/16/18 06:58 Absolute Eosinophils 0.11 k/cumm (0.0-0.7) 09/16/18 06:58 Absolute Basophils 0.04 k/cumm (0.0-0.2) 09/16/18 06:58 Differential Comment Manual differential 09/14/18 19:35 Sodium 140 mmol/L (136-145) 09/18/18 06:30 Potassium 3.6 mmol/L (3.5-5.1) 09/18/18 06:30 Chloride 106 mmol/L (98-107) 09/18/18 06:30 Carbon Dioxide 19.5 mmol/L (21.0-32.0) L 09/18/18 06:30 Anion Gap 14.5 mmol/L (3-11) H 09/18/18 06:30 BUN 5 mg/dL (7-18) L 09/18/18 06:30 Creatinine 1.07 mg/dL (0.70-1.30) 09/18/18 06:30 Estimated GFR/1.73 m2 >= 60.00 (mL/min/1.73m2) 09/18/18 06:30 Glucose 67 mg/dL (70-100) L 09/18/18 06:30 Calcium 8.3 mg/dL (8.5-10.1) L 09/18/18 06:30 Magnesium 1.7 mg/dL (1.8-2.4) L 09/18/18 06:30 Total Bilirubin 0.4 mg/dL (0.2-1.0) 09/14/18 19:35 AST 41 U/L (15-37) H 09/14/18 19:35 ALT 112 U/L (12-78) H 09/14/18 19:35 Alkaline Phosphatase 121 U/L (46-116) H 09/14/18 19:35 C-Reactive Protein 3.03 mg/dL (0.0-0.3) H 09/18/18 06:30 Total Protein 7.8 g/dL (6.4-8.2) 09/14/18 19:35 Albumin 3.3 g/dL (3.4-5.0) L 09/14/18 19:35 Lipase 209 U/L (73-393) 09/14/18 19:35 Urine Color Yellow (Yellow) 09/14/18 20:15 Urine Clarity Clear 09/14/18 20:15 Urine pH 6.0 (5-8) 09/14/18 20:15 Ur Specific [place] >= 1.030 (1.005-1.025) H 09/14/18 20:15 Urine Protein Trace mg/dL (Negative) H 09/14/18 20:15 Urine Ketones Trace mg/dL (Negative) H 09/14/18 20:15 Urine Blood Negative (Negative) 09/14/18 20:15 Urine Nitrite Negative (Negative) 09/14/18 20:15 Urine Bilirubin Negative (Negative) 09/14/18 20:15 Urine Urobilinogen 0.2 EU/dL (Up TO 0.2) 09/14/18 20:15 Ur Leukocyte Esterase Negative (Negative) 09/14/18 20:15 Urine RBC Negative (0-2) 09/14/18 20:15 Urine WBC 0-2 HPF (0-5) 09/14/18 20:15 Ur Epithelial Cells Negative HPF (Negative) 09/14/18 20:15 Urine Crystals Negative HPF (Negative) 09/14/18 20:15 Urine Bacteria Rare HPF (Negative) 09/14/18 20:15 Urine Casts Negative LPF (Negative) 09/14/18 20:15 Urine Mucus Negative (Negative) 09/14/18 20:15 Urine Other Negative (Negative) 09/14/18 20:15 Ur Culture Indicated? No 09/14/18 20:15 Urine Glucose Negative mg/dL (Negative) 09/14/18 20:15 Ur Chlamydia DNA Probe Negative 09/14/18 20:15 Chlamydia/GC DNA Source urine 09/14/18 20:15 Urine GC DNA Probe Negative 09/14/18 20:15 Hepatitis A IgM Ab Negative (NEGAT) 09/14/18 21:10 Hep Bs Antigen Negative (NEGAT) 09/14/18 21:10 Hep B Core Total Ab Negative (NEGAT) 09/14/18 21:10 Hepatitis C Antibody Negative (NEGAT) 09/14/18 21:10
[2018-09-18] MEDS: MAGNESIUM SULFATE 2 GM/50 ML BAG IVPB (13:16)
--- NOTE | 2018-09-18 13:48 | PHARADMIT ---
Admission Pharmacy Clinical Review Diverticulitis Code Status Full Code Current Weight 89.1 kg Renally Cleared and Narrow Therapeutic Index Meds Crcl ~96.00 mL/min current meds okay QTc Value / Action Taken n/a BP Control, Fever BP 119/76 afebrile Electrolytes reviewed mag 1.7 replacement ordered DVT Prophylaxis none Opiate Usage / Scheduled Bowel Regimen Ordered no/no Plt/SCr for Heparin / Enoxaparin plt 189 SCr 1.07 INR for Warfarin n/a H/H stable, WBC/Bands h/h 12.4/37.3 wbc 6.74 Antibiotic appropriateness zosyn (day 2 starts this evening); was on cipro and metronidazole prior to switch Cultures and Sensitivities none Surgical ABX d/c within 24 hr n/a DM control / Insulin Dosing BG 67 none Heart Failure (Check EF%) (NINI's, B-Block, Diuretics) propranolol IV to PO Switch n/a Home Meds Reviewed separate admin of cipro from multivitamin bupropion may decrease the metabolism of propranolol Home Meds Not Ordered cipro and metronidazole (has other abx ordered), multivitamin and miralax Comments progress note from yesterday notes pt cannont be off abx due to reoccurence after abx stop trying to get pt to eat/improve nutritional status; may need additional surger
[2018-09-18] MEDS: Normal Saline Flush 10 ML SYR IVP (14:56)
[2018-09-18] MEDS: Ketorolac 15 MG/ML VIAL IVP (14:56)
--- NOTE | 2018-09-18 16:45 | NUR.NOTE ---
Nursing Note: Patient states that he has been having dizzy spells at home. Patient states that he feels dizzy at this time, to the point that if I shook my head 3 or 4 times and tried to walk, I would probably fall down. Blood pressure and pulse taken, see vital sign intervention
--- NOTE | 2018-09-19 01:34 | NUR.NOTE ---
Nursing Note: Patient has requested his vital signs not to be taken when he falls asleep. PAtient verbalized how sleep is important for him for healing. This RN evaluates current VS and trend as stable. This RN will perform frequent safety checks and rounding.
[2018-09-19] MEDS: PIPERACILLIN/TAZO 3.375 GM in Normal Saline 50 ML IVPB ×2 (02:10→07:53)
[2018-09-19] MEDS: Normal Saline 1,000 ML 125 ML IV (06:18)
[2018-09-19] MEDS: Lactobacillus Acidophilus CAP 1 CAP PO (07:54)
[2018-09-19] MEDS: Pantoprazole 40 MG TABCR PO (07:54)
[2018-09-19] MEDS: buPROPion-CR 150 MG TABCR PO (07:54)
[2018-09-19] MEDS: Propranolol 20 MG TAB PO (07:54)
[2018-09-19] MEDS: Sucralfate 1 GM TAB PO (07:55)
[2018-09-19 08:31] VITALS: BP 142/92; PULSE 67; RESP 16; TEMP 36.3; O2SAT 100
--- NOTE | 2018-09-19 09:38 | PGE_ITS ---
Date of Service Date of service: 09/19/18 Time of Service: 09:30 Assessment and Plan (1) Duodenitis without bleeding: Current visit: Yes Status: Acute (2) GERD (gastroesophageal reflux disease): Current visit: Yes Status: Chronic (3) Diverticulitis large intestine: Current visit: Yes Status: Acute DIET- Soft, Low fiber diet. Tolerating well. ATB- Continue IV Zosyn ACTIVITY- Ambulating in the hallway indepdently. Encouraged sitting up in the chair with all meals RESP- Continue use incentive spriometer DVT- GI pr Patient requesting Second opinion documentation and referral was sent to [facility] yesterday (09/18/18); Patient will receive a call to have this scheduled as an outpatient. Subjective Patient reports: feels better; denies vomiting, afebrile and fever Interval history since last seen: Patient reports improvement in his abdominal pain. Continues to have low back pain following BM this morning. Denies any fevers, chills, nausea. Tolerating soft, low fiber diet. Exam Const General: cooperative and comfortable Orientation: alert and oriented x3 Resp Effort & Inspection: normal respiratory effort, no audible wheezes and no cough Auscultation: clear to auscultation bilaterally GI Inspection: normal to inspection and non-distended Palpation: soft, no guarding and nontender Objective Objective Clinical Data: Vital Signs Temperature 36.3 C L 09/19/18 08:31 Temperature Source Tympanic 09/19/18 08:31 Pulse 67 09/19/18 08:31 Pulse Rhythm Regular 09/19/18 08:27 Respiratory Rate 16 09/19/18 08:31 Respiratory Effort Non-Labored 09/19/18 08:27 Respiratory Depth Normal 09/19/18 08:27 Respiratory Pattern Normal 09/19/18 08:27 Blood Pressure 142/92 H 09/19/18 08:31 Blood Pressure Position Sitting 09/14/18 19:00 Pulse Oximetry 100 09/19/18 08:31 Oxygen Delivery Method Room Air 09/19/18 08:31 Oxygen Flow Rate 0 09/19/18 08:31 Pain Level 1 09/19/18 08:32 Comment 09/15/18 20:21 Intake & Output 09/18/18 09/19/18 09/19/18 18:59 06:59 18:59 Intake Total 1822.916 / 3683.333 1860.417 / 3683.333 300 / 300 Balance 1822.916 / 3683.333 1860.417 / 3683.333 300 / 300 Intake: IV 922.916 / 2783.333 1860.417 / 2783.333 50 / 50 Oral 900 / 900 250 / 250 Other: Comment pt voiding independently in the bathroom Patient voiding independently in the bathroom Voiding Methods Toilet Laboratory Results WBC 6.74 k/cumm (4.4-10.8) 09/16/18 06:58 RBC 4.18 m/cumm (4.50-6.00) L 09/16/18 06:58 Hgb 12.4 g/dL (13.5-17.5) L D 09/16/18 06:58 Hct 37.3 % (40.0-50.0) L 09/16/18 06:58 MCV 89.2 fL (80-95) 09/16/18 06:58 MCH 29.7 pg (27.0-33.0) 09/16/18 06:58 MCHC 33.2 g/dL (32.0-36.0) 09/16/18 06:58 RDW 12.3 % (11.8-14.1) 09/16/18 06:58 Plt Count 189 x1000/uL (130-400) 09/16/18 06:58 MPV 11.4 fL (8.0-11.0) H 09/16/18 06:58 Immature Gran % 0.6 09/16/18 06:58 Neutrophils % 66.2 09/16/18 06:58 Band Neutrophils % 0.0 % 09/14/18 19:35 Lymphocytes % 18.5 09/16/18 06:58 Atypical Lymphs % 6 09/14/18 19:35 Monocytes % 12.5 09/16/18 06:58 Eosinophils % 1.6 09/16/18 06:58 Basophils % 0.6 09/16/18 06:58 Absolute Neutrophils 4.46 k/cumm (1.2-6.7) 09/16/18 06:58 Absolute Lymphocytes 1.25 k/cumm (1.2-3.4) 09/16/18 06:58 Absolute Monocytes 0.84 k/cumm (0.11-0.7) H 09/16/18 06:58 Absolute Eosinophils 0.11 k/cumm (0.0-0.7) 09/16/18 06:58 Absolute Basophils 0.04 k/cumm (0.0-0.2) 09/16/18 06:58 Differential Comment Manual differential 09/14/18 19:35 Sodium 140 mmol/L (136-145) 09/18/18 06:30 Potassium 3.6 mmol/L (3.5-5.1) 09/18/18 06:30 Chloride 106 mmol/L (98-107) 09/18/18 06:30 Carbon Dioxide 19.5 mmol/L (21.0-32.0) L 09/18/18 06:30 Anion Gap 14.5 mmol/L (3-11) H 09/18/18 06:30 BUN 5 mg/dL (7-18) L 09/18/18 06:30 Creatinine 1.07 mg/dL (0.70-1.30) 09/18/18 06:30 Estimated GFR/1.73 m2 >= 60.00 (mL/min/1.73m2) 09/18/18 06:30 Glucose 67 mg/dL (70-100) L 09/18/18 06:30 Calcium 8.3 mg/dL (8.5-10.1) L 09/18/18 06:30 Magnesium 1.7 mg/dL (1.8-2.4) L 09/18/18 06:30 Total Bilirubin 0.4 mg/dL (0.2-1.0) 09/14/18 19:35 AST 41 U/L (15-37) H 09/14/18 19:35 ALT 112 U/L (12-78) H 09/14/18 19:35 Alkaline Phosphatase 121 U/L (46-116) H 09/14/18 19:35 C-Reactive Protein 3.03 mg/dL (0.0-0.3) H 09/18/18 06:30 Total Protein 7.8 g/dL (6.4-8.2) 09/14/18 19:35 Albumin 3.3 g/dL (3.4-5.0) L 09/14/18 19:35 Lipase 209 U/L (73-393) 09/14/18 19:35 Urine Color Yellow (Yellow) 09/14/18 20:15 Urine Clarity Clear 09/14/18 20:15 Urine pH 6.0 (5-8) 09/14/18 20:15 Ur Specific [place] >= 1.030 (1.005-1.025) H 09/14/18 20:15 Urine Protein Trace mg/dL (Negative) H 09/14/18 20:15 Urine Ketones Trace mg/dL (Negative) H 09/14/18 20:15 Urine Blood Negative (Negative) 09/14/18 20:15 Urine Nitrite Negative (Negative) 09/14/18 20:15 Urine Bilirubin Negative (Negative) 09/14/18 20:15 Urine Urobilinogen 0.2 EU/dL (Up TO 0.2) 09/14/18 20:15 Ur Leukocyte Esterase Negative (Negative) 09/14/18 20:15 Urine RBC Negative (0-2) 09/14/18 20:15 Urine WBC 0-2 HPF (0-5) 09/14/18 20:15 Ur Epithelial Cells Negative HPF (Negative) 09/14/18 20:15 Urine Crystals Negative HPF (Negative) 09/14/18 20:15 Urine Bacteria Rare HPF (Negative) 09/14/18 20:15 Urine Casts Negative LPF (Negative) 09/14/18 20:15 Urine Mucus Negative (Negative) 09/14/18 20:15 Urine Other Negative (Negative) 09/14/18 20:15 Ur Culture Indicated? No 09/14/18 20:15 Urine Glucose Negative mg/dL (Negative) 09/14/18 20:15 Ur Chlamydia DNA Probe Negative 09/14/18 20:15 Chlamydia/GC DNA Source urine 09/14/18 20:15 Urine GC DNA Probe Negative 09/14/18 20:15 Hepatitis A IgM Ab Negative (NEGAT) 09/14/18 21:10 Hep Bs Antigen Negative (NEGAT) 09/14/18 21:10 Hep B Core Total Ab Negative (NEGAT) 09/14/18 21:10 Hepatitis C Antibody Negative (NEGAT) 09/14/18 21:10
--- NOTE | 2018-09-19 09:40 | DSE_ITS ---
Date of service: 09/19/18 Time of Service: 09:39 DS: Diagnosis Discharge Diagnosis (1) Duodenitis without bleeding: Status: Acute (2) GERD (gastroesophageal reflux disease): Status: Chronic (3) Diverticulitis large intestine: Status: Acute Discharge Plan Disposition Patient Disposition: HOME Condition: Improving Discharge Details Reason For Visit: DIVERTICULITIS Admit Date/Time: 09/14/18 22:45 Admit Provider: Tamiko Sanabria Attending Provider: Tamiko Sanabria Primary Care Provider: Joni Colin Home Meds and New Rx's Prescriptions: New sucralfate [Carafate] 1 gram tablet 1 gm PO QACHS Qty: 120 RF: 12 amoxicillin-pot clavulanate [Augmentin] 875-125 mg tablet 1 tab PO BID Qty: 20 RF: 0 Continued bupropion HCl 150 mg tablet extended release 12 hr 150 mg PO BID RF: 0 propranolol 20 mg tablet 20 mg PO BID RF: 0 L.acidoph,saliva-B.bif-S.therm [Acidophilus Probiotic Blend] 175 mg capsule 1 cap PO DAILY RF: 0 pantoprazole 40 mg Tablet,Delayed Release (Dr/Ec) 40 mg PO DAILY@0730 Qty: 30 RF: 0 metronidazole 500 mg tablet 500 mg PO TID Qty: 42 RF: 1 polyethylene glycol 3350 [Miralax] 17 gram/dose powder 17 gm PO PRN PRNQty: 255 RF: 0 Discontinued multivitamin tablet 1 tab PO DAILY RF: 0 pantoprazole [Protonix] 40 mg tablet,delayed release (DR/EC) 40 mg PO DAILY Qty: 30 RF: 12 ciprofloxacin HCl 500 mg tablet 500 mg PO Q12H Qty: 28 RF: 1 Discharge Instructions Instructions: Low Fiber Diet (DC), Low Fiber Diet (GEN), Diet for Stomach Ulcers and Gastritis (GEN), Stress (GEN) Additional Instructions: -low fiber/high protein diet -ensure/boost/protein drinks BID -yogurt/pro-biotics daily -8 hrs sleep a day -8-12 non caffeinated beverages a day -cont po Abx -Arginaid daily -multiVit without Iron -F/u w/ Dr. Baldwin on Sunday -will need to redo paperwork for medical leave. fax or bring to office appt -referral sent to [facility] [place] [place]. Should be calling w/ appt time -if fever/chils/vomiting/back pain- go to ED. Stand Alone Forms: Nursing Discharge Form Referrals: Mariely Baldwin DO [OSTEOPATHIC DOCTOR] - 09/23/18 3:00 pm Activity:: no lifting over 20#'s Equipment/Supplies:: No Equipment Needed Diet:: low fiber Discharge Orders Discharge Orders: Discharge Order (Routine); Ordered 09/19/18 Ordered By: Mariely Baldwin Discharge Data Discharge Date/Time-TO BE ENTERED AT DEPARTURE: 09/19/18 12:07 Exam Narrative Exam Narrative: Pt is doing well. no headaches. No CP or SOB. no productive cough. no dysuria. no leg pain or swelling. tolerating low fibre diet. + BM. line site c/d/d. reviewed d/c orders and warning signs Const General: cooperative, healthy appearing, comfortable, no acute distress, well developed and well groomed Nutritional Appearance: average body habitus and well nourished Orientation: alert, awake and oriented x3 HENMT Head: normal to inspection, normocephalic and atraumatic Ears: hearing grossly normal bilaterally and external ears normal General nose exam: external nose normal Face and sinus: normal facial exam and sinuses nontender Mouth: oral mucosae normal, lip normal, tongue normal and moist mucous membranes Teeth and gingiva: dentition normal Eyes General: appearance normal, both eyes and all related structures Conjunctivae: conjunctivae normal Sclera: sclerae normal Pupils: PERRL Neck Neck: normal visual inspection and full ROM Chest Chest: normal inspection of the chest Resp Effort & Inspection: normal respiratory effort, able to speak in complete sentences, no cough, no nasal flaring, not tachypneic and no use of accessory muscles Auscultation: clear to auscultation bilaterally, no rales, no rhonchi and no wheezes Cardio Jugular venous pressure: no JVD Rate: regular rate Rhythm: regular rhythm GI Inspection: normal to inspection, no edema and non-distended Palpation: soft, no masses, nontender and No ascites Auscultation: normal bowel sounds Other: +bm. no bleeding formed. mild back pain- but he thinks this is from bed. mild crampy pain w/ BM. Skin General skin exam: no rashes or lesions noted Trauma: no lacerations or abrasions Neuro General: alert, oriented x3, oriented, gait normal, moves all extremities, no focal motor deficits and CN's II-XI intact bilaterally Cognition: normal cognition Speech: speech normal Gait: normal gait Motor: muscle tone normal throughout Extrem General: normal to inspection, full ROM and no clubbing, cyanosis or edema Psych Appearance: grossly normal and well kempt Mental Status: mental status grossly normal Speech and Movement: speech and movement normal Affect: normal affect DS: Data Vitals/I&O Vitals and I&O: Vital Signs Temperature 36.3 C L 09/19/18 08:31 Temperature Source Tympanic 09/19/18 08:31 Pulse 67 09/19/18 08:31 Pulse Rhythm Regular 09/19/18 08:27 Respiratory Rate 16 09/19/18 08:31 Respiratory Effort Non-Labored 09/19/18 08:27 Respiratory Depth Normal 09/19/18 08:27 Respiratory Pattern Normal 09/19/18 08:27 Blood Pressure 142/92 H 09/19/18 08:31 Blood Pressure Position Sitting 09/14/18 19:00 Pulse Oximetry 100 09/19/18 08:31 Oxygen Delivery Method Room Air 09/19/18 08:31 Oxygen Flow Rate 0 09/19/18 08:31 Pain Level 1 09/19/18 08:32 Comment 09/15/18 20:21 Intake & Output 09/18/18 09/18/18 09/19/18 11:59 23:59 11:59 Intake Total 1870.833 / 3961.249 2090.416 / 3961.249 1222.917 / 1222.917 Balance 1870.833 / 3961.249 2090.416 / 3961.249 1222.917 / 1222.917 Intake: IV 1500.833 / 2811.249 1310.416 / 2811.249 972.917 / 972.917 Oral 370 / 1150 780 / 1150 250 / 250 Other: Comment pt voiding independently in the bathroom Patient voiding independently in the bathroom Voiding Methods Toilet PFSH Medical History Duodenitis without bleeding (Acute) GERD (gastroesophageal reflux disease) (Chronic) Diverticulitis large intestine (Acute) Diverticulitis of large intestine with perforation (Acute) MIGUEL (generalized anxiety disorder) (Acute) Elevated cholesterol with elevated triglycerides (Acute) Diverticulitis of both large and small intestine with perforation without abscess or bleeding (Acute) Atypical chest pain (Acute) Chronic fatigue (Acute) Colon polyp (Acute) Dizziness (Acute) MIGUEL (generalized anxiety disorder) (Acute) Hyperlipidemia (Acute) Mood disorder (Acute) Right knee pain (Acute) Sleep disturbances (Acute) Visual disturbance (Acute) Anxiety (Chronic) Depression (Chronic) Surgical History Tongue abnormality (Acute) Social History Smoking/Tobacco Use Status: Former Tobacco Use Alcohol Intake: current Alcohol Intake frequency: holidays/special occasions only Drug use: Daily Substance use type: marijuana Household members: children Housing: house Number of Children: 1 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
[2018-09-19] MEDS: Ketorolac 15 MG/ML VIAL IVP (09:59)
--- NOTE | 2018-09-19 10:58 | PDOC.CMDIS ---
LACE Index Scoring Tool - Questions: Length of Stay (in days): 4 - 6 Acuity (Admit via E.D.?): Yes E.D. Visits: 3 - Answers: Total Score: 10 Risk of Readmission: High Risk Care Management Discharge Reason for Hospitalization: Diverticulitis Discharge Plan: He is being discharged home today with plan for return next week for surgery. Family will transport. Patient/Family Education Needs: RN to review d/c instructions re meds and activity levels. Patient able to verbalize reason for hospitalization and plans for further RX.
--- NOTE | 2018-09-19 14:13 | W.NUTCONSULT ---
Date of service: 09/19/18 Time of Service: 14:13 Nutritional Consult ASSESSMENT: Appreciate nutrition consult for Mr. Fajardo here with diverticulitis and duodenitis with GERD. He was unable to eat
== END 2018-09-19 12:07 | disposition home or self-care (01) | DRG 392 ==
LOC: ER 23:01 → MS 23:20
PROVIDERS: Physician Assistant; Admitting Provider Surgery; Emergency Provider Student in an Organized Health Care Education/Training Program; PCP Nurse Practitioner Family; Visit Provider Surgery
PROC: 0DB98ZX Excision of Duodenum, Via Natural or Artificial Opening Endoscopic, Diagnostic (ICD-10-PCS; CPT 43239; principal; 2018-09-17 11:30)
DX: K57.20 Diverticulitis of large intestine with perforation and abscess without bleeding (principal); K29.80 Duodenitis without bleeding; K31.89 Other diseases of stomach and duodenum; K63.89 Other specified diseases of intestine; K21.0 Gastro-esophageal reflux disease with esophagitis; Z59.8 Other problems related to housing and economic circumstances; F41.1 Generalized anxiety disorder
CPT/HCPCS: 43239; 45380; 36415; 36569; 74177; 80048; 80053; 83690; 86704; 86709; 86803; 87340; 87491; 87591; 88305; 96365; 96367; 96375; 99222; 99232; 99233; 99239; 99285; 71260; 81003; 81015; 83735; 85025; 86140; 99284; J0744; J1885; J2405; J2543; J3490; Q9967

== ENCOUNTER 2018-09-23 17:01 | Outpatient (CLI) | payer OTHER, SELFPAY ==
[2018-09-23 18:30] LABS: C-Reactive Protein 3.05 mg/dL (0.0-0.3)
== END 2018-09-23 17:21 ==
PROVIDERS: PCP Nurse Practitioner Family; Visit Provider Surgery
DX: K57.32 Diverticulitis of large intestine without perforation or abscess without bleeding (principal)
CPT/HCPCS: 36415; 86140

== ENCOUNTER 2018-09-25 13:56 | Inpatient (IN) | payer OTHER, SELFPAY ==
[2018-09-25] VITALS (26 sets, daily range): BP systolic 98–139; BP diastolic 61–87; PULSE 55–87; RESP 9–20; TEMP 36.1–36.7; O2SAT 95–100
[2018-09-25 09:07] LABS: C-Reactive Protein 2.98 mg/dL (0.0-0.3)
[2018-09-25] MEDS: Lactated Ringers 1,000 ML 100 ML IV ×3 (09:27→23:56)
[2018-09-25] MEDS: FentaNYL/ROPIvacaine 2 mcg/ml and 0.1% 200 ML CADD Cassette EP (11:00)
[2018-09-25] MEDS: Bupivacaine 0.25% Pres-Free 30 ML VIAL (11:10)
[2018-09-25] MEDS: FAMOTIDINE 20 MG/50 ML BAG 100 MG (11:10)
--- NOTE | 2018-09-25 12:15 | BOWEL_PTH ---
PATIENT: Santana Fajardo LOC: U#:[id number] AGE/SX: 37/M ROOM: [id number] RE09/25/[address]: Mariely Baldwin : 1980 BED: A DIS: 09/29/2018 SPEC #: [id number] RECD: 09/25/18 17:40 STATUS: FRANCESCA REQ #: [id number] TYRA: 09/25/18 12:[address]: Mariely Baldwin DEPT: Surgical Specimen RECD BY: Courtney Bueno ENTERED: 09/25/18 17:41 SP TYPE: Bowel OTHR DR: Joni Colin Tissues: 1 - BOWEL RESECTION(OTHER) Procedures: GROSS AND MICRO LEVEL 5 Comments: [id number]
[2018-09-25] MEDS: Scopolamine 1 MG/3 DAYS PATCH 1.5 MG TD (13:30)
[2018-09-25] MEDS: Lactated Ringers 250 ML 500 ML IV (13:30)
--- NOTE | 2018-09-25 13:52 | W.PM.OP ---
Date of service: 09/25/18 Time of Service: 13:53 Operative Note DATE OF PROCEDURE: 09/25/18 PRE-OP DIAGNOSIS: diverticulitis- chronic POST-OP DIAGNOSIS: same PROCEDURE: attempted laparascpic open sigmoid colectomy w/ primary anastomosis SURGEON: Mariely Baldwin ASSISTING SURGEON: Farhana Pro ANESTHESIA: GETA and epidural ESTIMATED BLOOD LOSS: 100 PATHOLOGY: other COMPLICATIONS: None Patient was transported to: PACU Patient's condition: stable Procedure Description: dicated
[2018-09-25] MEDS: Lactated Ringers 1,000 ML 30 ML IV (15:21)
--- NOTE | 2018-09-25 15:23 | W.PM.PROGNOT ---
Date of Service Date of service: 09/25/18 Time of Service: 15:24 Assessment and Plan (1) GERD (gastroesophageal reflux disease): Current visit: No Status: Chronic (2) Diverticulitis large intestine: Current visit: No Status: Acute s/p open sigmoid. Pt had such severe Dx that laparascopic resection was not feasible. We were able to find healthy colon prox and distally and able to do primary anastomsis. Pt needs to remain on abx b/c of incompletely treated dx cont supportive care Subjective Interval history since last seen: Post Op Note Santana is seen after there recent open laparotomy/sigmoid resection adn primary anstomosis. The case is reviewed with the patient; findings and the procedure/surgery were reviewed with the patient and family. The Patient's condition has been reviewed with the RN. Vitals have all been stable. Pain is controlled. The patient has a pagan in place and concentrated urine. Vital signs:see RN notes Antibiotics: invanvz DVT prophylaxis: lovenox and scd GI prophylaxis: protonix Constipation prophylaxis:n/a PHYSICAL EXAM GENERAL APPEARANCE: Alert, healthy appearance, oriented, in no acute distress SKIN: No rashes. HYDRATION: Well hydrated HEAD, EYES, EARS, NECK, AND THROAT: Head is normocephalic, pupils equal, round, reactive to light and accommodation, ocular movement intact, sclera clear and no jaundice or redness. Dentition intact. No eye pain. No thrush NECK: no sore throat. LUNGS: normal respiration, clear to auscultation Normal chest wall movement. No chest wall pain. HEART: Regular rate and rhythm. NSR and no ST or T waves changes. EXTREMITY: No edema or cyanosis ABDOMEN: dressings are clean dry and intact. appropriate pain at surgical site. He has a neg. pressure dressing system in place. NEURO: pt has epidural in place. able to move both LE b/l adn equally. The patient current medical condition and all orders reviewed with nursing. Patient is stable and doing well postOp and continue routine medical care. See orders. WHITLEY BROOKS D.O. Objective Objective Clinical Data: Abnormal lab results 09/25/18 Range/Units 08:50 C-Reactive Protein 2.98 H (0.0-0.3) mg/dL Vital Signs Temperature 36.6 C 09/25/18 15:15 Pulse 60 09/25/18 15:15 Pulse Rhythm Regular 09/25/18 08:54 Respiratory Rate 10 L 09/25/18 15:15 Respiratory Effort Non-Labored 09/25/18 08:54 Respiratory Depth Normal 09/25/18 08:54 Respiratory Pattern Normal 09/25/18 08:54 Blood Pressure 132/84 09/25/18 15:15 Pulse Oximetry 100 09/25/18 15:15 Respiratory End-tidal CO2 39 09/25/18 14:30 Oxygen Delivery Method Room Air 09/25/18 15:15 Oxygen Flow Rate 0 09/25/18 15:15 Pain Level 0 09/25/18 08:54 Intake & Output 09/24/18 09/25/18 09/25/18 23:59 11:59 23:59 Intake Total 2099 Output Total 175 / 175 Balance 1924 Weight 83.1 kg Intake: IV 2099 Output: Urine 75 / 75 Estimated Blood Loss 100 / 100 Other: Urine Color Dark Hilaria Dark Hilaria Urine Appearance Cloudy Cloudy Emesis Description None Laboratory Results C-Reactive Protein 2.98 mg/dL (0.0-0.3) H 09/25/18 08:50 Patient ABO/Rh B Positive 09/25/18 08:50 Antibody Screen Negative 09/25/18 08:50
[2018-09-25] MEDS: LORazepam 2 MG/ML VIAL 1 MG IVP (17:21)
[2018-09-25] MEDS: Normal Saline Flush 10 ML SYR IV (17:55)
[2018-09-25] MEDS: Pantoprazole 40 MG VIAL IVP (17:55)
--- NOTE | 2018-09-25 19:38 | NUR.NOTE ---
Nursing Note: Patient admitted to [facility] from pacu @ 1600. Epidural tubing noted to be compromised and fentanyl liquid leaking onto bed. Epidural pump stopped at 1605. JANETTE Mathews notified. Rhea friedmand.
[2018-09-25] MEDS: Ketorolac 30 MG/ML VIAL IVP (20:38)
[2018-09-25] MEDS: buPROPion-CR 150 MG TABCR PO (20:39)
[2018-09-25] MEDS: Propranolol 20 MG TAB PO (20:39)
[2018-09-25] MEDS: ACETAMINOPHEN 1,000 MG/100 ML BTL 400 MG IVPB (22:26)
[2018-09-26] VITALS (15 sets, daily range): BP systolic 94–109; BP diastolic 52–72; PULSE 60–77; RESP 13–20; TEMP 36.3–36.9; O2SAT 96–100
[2018-09-26] MEDS: Ketorolac 30 MG/ML VIAL IVP ×4 (02:20→22:24)
[2018-09-26] MEDS: ACETAMINOPHEN 1,000 MG/100 ML BTL 400 MG IVPB ×3 (06:11→22:24)
[2018-09-26 07:11] LABS: Abs Immature Grans 0.03 k/cumm (0.0-0.09); Absolute Basophil Count 0.02 k/cumm (0.0-0.2); Absolute Eosinophil Count 0.02 k/cumm (0.0-0.7); Absolute Lymphocyte Count 1.62 k/cumm (1.2-3.4); Absolute Monocyte Count 1.38 k/cumm (0.11-0.7); Basophils % 0.2; Eosinophils % 0.2; HGB 12.4 g/dL (13.5-17.5); Immature Grans % 0.3; Lymphocytes % 13.7; Mean Corp. HGB Concentration 32.6 g/dL (32.0-36.0); Mean Corpuscular Hemoglobin 29.4 pg (27.0-33.0); Monocytes % 11.7; Neutrophils % 73.9; Platelet Count 238 x1000/uL (130-400); RBC 4.22 m/cumm (4.50-6.00)
[2018-09-26 07:17] LABS: Absolute Neutrophil Count 8.72 k/cumm (1.2-6.7)
[2018-09-26 07:25] LABS: Anion Gap 9.1 mmol/L (3-11); BUN 13 mg/dL (7-18); CO2 25.9 mmol/L (21.0-32.0); CREATININE 1.76 mg/dL (0.70-1.30); Calcium 8.9 mg/dL (8.5-10.1); Chloride 104 mmol/L (98-107); Estimated GFR 43.55 (mL/min/1.73m2); Glucose 94 mg/dL (70-100); Magnesium 1.7 mg/dL (1.8-2.4); Potassium 4.3 mmol/L (3.5-5.1); Sodium 139 mmol/L (136-145)
--- NOTE | 2018-09-26 08:30 | PDOC.CMIN ---
- If Service Date Differs Date of service: 09/26/18 Time of Service: 08:30 Care Management Initial Assess REASON FOR HOSPITALIZATION:: sigmoid colectomy PAST MEDICAL HISTORY/PAST SURGICAL HISTORY:: Medical History . Heart burn (Acute). MIGUEL (generalized anxiety disorder) (Acute). Elevated cholesterol with elevated triglycerides (Acute). Diverticulitis of both large and small intestine with perforation without abscess or bleeding (Acute). Atypical chest pain (Acute). Chronic fatigue (Acute). Colon polyp (Acute). Dizziness (Acute). MIGUEL (generalized anxiety disorder) (Acute). Hyperlipidemia (Acute). Mood disorder (Acute). Right knee pain (Acute). Sleep disturbances (Acute). Visual disturbance (Acute). Anxiety (Chronic). Depression (Chronic). Surgical History . 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 He lives in a single family home in [place] with his jacqueline Hunter and 10 year old daughter. He and Elsa built the house themselves over the past 6 years. CURRENT FUNCTIONAL STATUS:: Santana was sitting up in bed watching TV when CM came to visit. He was smiling and stated that he is overjoyed that he did not have to have a colostomy. He is hopeful that he will finally get better and begin to live a normal life again. He will have short term disability benefits until early November and he hopes to be back to work before they end. He has also been concerned about his hospital bill and CM facilitated the creation of an automatic monthly payment plan with [employer] for him. ADVANCE DIRECTIVES:: None on file Has patient been provided with information about the portal?: No Did the patient sign up for the portal?: No CODE STATUS:: Full Code INSURANCE COVERAGE / FINANCIAL ISSUES:: [employer] CURRENT HOME/COMMUNITY SERVICES/EQUIPMENT:: none currently PRIMARY CARE PHYSICIAN:: Joni Colin NP POTENTIAL DISCHARGE NEEDS:: Follow up with surgeon , PCP and discharge plan of care. PATIENT/FAMILY EDUCATION NEEDS:: Discharge plan, limitations, follow up plan of care, Ask Me Three ANTICIPATED BARRIERS TO DISCHARGE:: none TRANSPORTATION:: via private vehicle with jacqueline when ready PLAN:: Santana is recovering from surgery and is receiving IV medications and fluids. It is anticipated that he will go home with no additional services or possibly home health nursing. CM will continue to provide support to patient, family and discharge planning process. Readmission - Within the Past 30 Days Yes or No: Y - Date of First Admission Date of 1st Admission: 09/14/18 - Date of this Admission Date of Admission: 09/25/18 - Office Visit Since 1st Admission Have you seen your PCP in the office since discharge?: No Had an appointment Been Scheduled?: No - Speicalist Appointments Have you seen any other specialist since your 1st Admission?: Yes Date you saw the Specialist: 09/23/18 - I. Interview patient and/or Family Have you had trouble purchasing/ or taking medication?: No Have you had trouble with getting meals at home?: No Did you feel ready for discharge when you left the last time: Yes Were services received that you thought were set up on disch: Yes Why weren't services received?: none needed How do you think you became sick enough to come back?: Discharged with a plan to return for surgery following week - ED visits How many ED visits in the past 12 months: 3 - Assessment for Readmission Summary of readmission circumstances, based upon interviews: Santana has had 3 admissions in the past 2 months for diverticulitis. On his last admission, the decision was made to so surgery. He was discharged with a p[linda to return for surgery in one week, which he did.
[2018-09-26] MEDS: Normal Saline 1,000 ML 1000 ML IV ×2 (08:45→13:51)
[2018-09-26] MEDS: FentaNYL/ROPIvacaine 2 mcg/ml and 0.1% 200 ML CADD Cassette EP (08:59)
[2018-09-26] MEDS: Lactated Ringers 1,000 ML 100 ML IV ×2 (09:49→15:08)
[2018-09-26] MEDS: buPROPion-CR 150 MG TABCR PO ×2 (09:59→20:26)
[2018-09-26] MEDS: Enoxaparin 40 MG/0.4 ML SYR SC (10:00)
--- NOTE | 2018-09-26 11:44 | ROE_ITS ---
REPORT OF OPERATIVE PROCEDURE DATE OF PROCEDURE September 25, 2018 PREOPERATIVE DIAGNOSES Chronic diverticulitis with mild chronic continued infection and partially obstructed colon secondary to chronic diverticulitis. POSTOPERATIVE DIAGNOSES Chronic diverticulitis with mild chronic continued infection and partially obstructed colon secondary to chronic diverticulitis. PROCEDURE SURGEON Mariely Baldwin M.D. WOOD BUFFER Farhana Pro M.D. ANESTHESIA Epidural, general and local. ESTIMATED BLOOD LOSS 100 cc SPECIMEN Sigmoid colon. DRAINS No drains were placed. COMPLICATIONS The patient tolerated the procedure well without complications. INDICATIONS Mr. Fajardo is a 37-year-old male who is well known to me. He has been hospitalized three times in as many months for attacks to diverticulitis. It seems to recur when he comes off the antibiotics. He has done life style modifications and multiple rounds of antibiotics. He still continues to be symptomatic. We did try to do a colonoscopy, which showed significant swelling and edema of the bowel wall and I was not able to pass the colonoscope. Biopsies did come back as chronic inflammation and congestion, and chronic diverticulitis. The patient is here today for surgical intervention. I have had multiple long conversations with both him and his regarding their surgical options. We discussed what he could expect at surgery, recovery time and risks. We will try to the procedure laparoscopically. There is a 50/50 chance that we can do the procedure laparoscopically versus having to convert to an open procedure and I will not be able to tell that until we are in there surgically. There is a high probability that he will require a colostomy due to continued infection and that the bowel will not be safe for primary anastomosis. The patient is aware of the other risks and benefits of the procedure including, but not limited to bleeding, infection, pneumonia and blood clots, damage to bowel, bladder, blood vessels, recurrent small bowel obstruction, recurrence secondary to adhesions, chronic pain, chronic numbness, complications from anesthesia and other unforetold complications. The patient did complete a mechanical and antibiotic prep. Epidural anesthesia is administered per the Department of Anesthesia. DESCRIPTION OF PROCEDURE The patient was brought to the operative Suite and placed in the supine position. Anesthesia was administered per the Department of Anesthesia. A Nunez catheter was placed. An OG tube was used for the case, it will not be left in place after the procedure. He had adequate IV access. He is placed into low lithotomy stirrups. Rectal prep was performed. He was then prepped and draped in the sterile usual sterile fashion using a ChloraPrep scrub solution. A time-out is performed. We initially set up and prepared for a laparoscopic procedure. 0.25% Marcaine was used to create a local field block in the umbilicus and in the left upper quadrant and right upper quadrant. Veress needle was inserted in the abdomen. Drop test was performed. Insufflation was begun. When 15 mm of pressure noted on the monitor, The Veress needle was removed and the 5mm port was placed. The camera is inserted through the port inserted through the port. There was no damage to the underlying structures. The abdomen was then surveyed. Two 5-mm ports were placed, one in the right upper quadrant and one in the left upper quadrant following creation of local field blocks and under direct visualization. The sigmoid colon is intimately adhered up to the anterior abdominal wall, as well as over to the left lateral sidewall. There was a significant inflammatory reaction. There was a little bit of chronic purulent material, but no signs of gross contamination or large abscess pockets. There was omentum wound around the sigmoid colon in circumferential fashion, I did attempt to peel the colon from the anterior abdominal wall and this was not possible. Proximally and distally, the colon appears pink and healthy with no signs of active infection or inflammation. The bowel was not swollen or edematous, and there is no size mismatch. At that point, it was discussed and reviewed that this was not technically feasible laparoscopically. At that point, the scopes are removed and the pneumoperitoneum is evacuated. All laparoscopic instruments were passed off the field and counted out. We prepared to convert to an open laparotomy. A #10-blade was used to make a vertical midline incision from two fingerbreadths above the umbilicus to the pubes. Electrocautery was used to provide hemostasis and dissect down to and through the fascia. The muscle was encountered and it was split midline. The peritoneum is elevated and the abdomen was entered sharply. The incision was carried superior inferiorly. The abdomen was explored. The liver and stomach are normal. The small bowel was run and is normal. The rectosigmoid area again appeared soft, pink and healthy. The retractors were then replaced. Kochers were used to elevate the anterior abdominal wall and the colon is taken off the anterior abdominal wall using finger fraction. There were no large abscess pockets. The colon was extremely thickened, woody, edematous with an intense inflammatory reaction, but again, proximally and distally, the colon was pink and healthy without any signs of acute infection/inflammation. The Omni retractor system was then placed. The small bowel was packed away with the hand retractor and two sidewall retractor systems were placed, as well as a bladder blade. The colon was adhered up to the left lateral sidewall and the anterior abdominal wall on the left side of the incision. This was taken down with finger fraction as well sharp and blunt dissection. Again, there were no abscess pockets. The white line of Toldt was opened up, and taken up to the left flexure. The ureter was identified and we were nowhere near the ureter. There was no bleeding. The distal site was chosen for dividing the colon. A rent is made in the mesentery, epiploici are cleaned off the colon. BALBINA was used to divide. The remainder mesentery was taken down using a LigaSure. Then the proximal side of the colon is chosen and excised with the BALBINA stapler. The vein, arterial complex was taken down with a LigaSure and the last load should be done now see if the fluid is oversewn with #3-0 Vicryl. The specimen was passed off the field. Some time was spent ensuring that we had fat free ends of the bowel and that we had plenty of length. The proximal and distal limbs are pink and healthy, and showed no signs of any arterial compromise. There was no gross spillage of any material. A standard yric-xs-iisi anastomosis was created with a BALBINA 80 and TA 60, and with the ends of the stapler line being oversewn with #4-0 Prolene and the crotch of the BALBINA anastomosed with #4-0 Prolene. A good lumen was palpated. Again, it was pink and healthy. All instruments involved in the creation of the anastomosis were passed off the field. Gloves are exchanged. The mesentery defect was oversewn with #3-0 Vicryl. The wound was then irrigated. There was no bleeding from the mesentery sites or the dissection sites. Again, there was a good lumen palpable and there was no bleeding, and the ends were pink and healthy. Sponge and needle counts were correct. The abdomen was irrigated with a liter of saline. All saline was removed. Structures were returned to their normal anatomical positions. There was not a significant enough infection that it warrants drain placement. Two pieces of Interceed were placed under the incision site, but not near the anastomosis. The fascia was closed with #0-PDS in a running fashion. The fat pad was copiously irrigated. Deep tissue was approximated with #0 Vicryl. The skin was approximated with nabor and a negative pressure wound dressing was placed over top. The patient tolerated the procedure well without complications, and transferred to the Recovery Room in stable condition with no immediate complications. His was called and notified of his progress. CC: Joni Colin NP
[2018-09-26] MEDS: MAGNESIUM SULFATE 2 GM/50 ML BAG IVPB (12:22)
--- NOTE | 2018-09-26 13:18 | W.PM.PROGNOT ---
Date of Service Date of service: 09/26/18 Time of Service: 08:06 Assessment and Plan (1) GERD (gastroesophageal reflux disease): Current visit: No Status: Chronic (2) Duodenitis without bleeding: Current visit: No Status: Acute (3) Sigmoid stricture: Current visit: Yes Status: Acute POD#1 s/p open sigmoid resection for chronic diverticulitis and stricture. doing well min pain epidural for pain cl liq sparingly. dvt/GI proph fluid bolus and monitor urine output closely. holding B blockers b/c BP has been soft due to epidural pt anxiety is under good control- I think he is very relieved that surgery is over adn he does not have an ostomy Subjective Interval history since last seen: Pt is doing well. no headaches. No CP or SOB. no productive cough. no dysuria. no leg pain or swelling. he has been sipping on ice water and tolerating this. His urine output has been low. Cr is high and urine is dark. pt is doing well w/ epidural controlling his pain. He has minimal s/s. BP has been borderline so Bblockers are being held. We had long d/w about finds at the time of surgery: he had signif chronic infection and stricture. It was not amenable to laprascopic surgery. But was healthy enough to avoid ostomy. We d/w short term diet and fci dietary needs. We reviewed immediate hosp cares adn cares when he goes home. Exam Const General: cooperative, healthy appearing, comfortable, no acute distress, well developed and well groomed Nutritional Appearance: average body habitus and well nourished Orientation: alert, awake and oriented x3 [facility] Head: normal to inspection, normocephalic and atraumatic Ears: hearing grossly normal bilaterally and external ears normal General nose exam: external nose normal Face and sinus: normal facial exam and sinuses nontender Mouth: oral mucosae normal, lip normal, tongue normal and moist mucous membranes Teeth and gingiva: dentition normal Eyes General: appearance normal, both eyes and all related structures Conjunctivae: conjunctivae normal Sclera: sclerae normal Pupils: PERRL Neck Neck: normal visual inspection and full ROM Chest Chest: normal inspection of the chest Resp Effort & Inspection: normal respiratory effort, able to speak in complete sentences, no cough, no nasal flaring, not tachypneic and no use of accessory muscles Auscultation: clear to auscultation bilaterally, no rales, no rhonchi and no wheezes Cardio Jugular venous pressure: no JVD Rate: regular rate Rhythm: regular rhythm GI Inspection: normal to inspection, no edema and incision (c/d/i. no R/D/S. ) Palpation: soft, no masses, tender and No ascites Auscultation: normal bowel sounds Other: pt has excellent pain control. He does have few BS Skin General skin exam: no rashes or lesions noted Trauma: no lacerations or abrasions Neuro General: alert, oriented x3, oriented, gait normal, moves all extremities, no focal motor deficits and CN's II-XI intact bilaterally Cognition: normal cognition Speech: speech normal Gait: normal gait Motor: muscle tone normal throughout Extrem General: normal to inspection and no clubbing, cyanosis or edema Other: legs feel heavy but he is able to move them adn get up and walk. Psych Appearance: grossly normal and well kempt Mental Status: mental status grossly normal Speech and Movement: speech and movement normal Affect: normal affect Objective Objective Clinical Data: Abnormal lab results 09/26/18 09/26/18 Range/Units 06:43 06:43 WBC 11.80 H (4.4-10.8) k/cumm RBC 4.22 L (4.50-6.00) m/cumm Hgb 12.4 L (13.5-17.5) g/dL Hct 38.0 L (40.0-50.0) % MPV 12.0 H (8.0-11.0) fL Absolute Neutrophils 8.72 H (1.2-6.7) k/cumm Absolute Monocytes 1.38 H (0.11-0.7) k/cumm Creatinine 1.76 H (0.70-1.30) mg/dL Magnesium 1.7 L (1.8-2.4) mg/dL Vital Signs Temperature 36.3 C L 09/26/18 12:30 Temperature Source Tympanic 09/26/18 12:30 Pulse 61 09/26/18 12:30 Pulse Rhythm Regular 09/26/18 09:00 Respiratory Rate 18 09/26/18 12:30 Respiratory Effort Non-Labored 09/26/18 09:00 Respiratory Depth Normal 09/26/18 09:00 Respiratory Pattern Normal 09/26/18 09:00 Blood Pressure 109/72 09/26/18 12:30 Pulse Oximetry 98 09/26/18 12:30 Respiratory End-tidal CO2 39 09/25/18 14:30 Oxygen Delivery Method Room Air 09/26/18 12:30 Oxygen Flow Rate 0 09/26/18 12:30 Pain Level 2 09/26/18 12:30 Comment 09/25/18 18:32 Intake & Output 09/25/18 09/26/18 09/26/18 23:59 11:59 23:59 Intake Total 2130 / 2230 2188.333 / 2388.333 200 / 2388.333 Output Total 375 / 375 300 / 450 150 / 450 Balance 1755 / 1855 1888.333 / 1938.333 50 / 1938.333 Intake: IV 0 / 0 1987.333 / 2188.333 200 / 2188.333 Oral 200 / 200 Output: Urine 275 / 275 300 / 450 150 / 450 Estimated Blood Loss 100 / 100 Other: Urine Color Dark Hilaria Light Hilaria Dark Hilaria Urine Appearance Clear Clear Clear Comment NOT EMPTIED IN PACU.LEWSS THAN 100 CC.SURGEON AWARE post bolus output Emesis Description None Laboratory Results WBC 11.80 k/cumm (4.4-10.8) H 09/26/18 06:43 RBC 4.22 m/cumm (4.50-6.00) L 09/26/18 06:43 Hgb 12.4 g/dL (13.5-17.5) L 09/26/18 06:43 Hct 38.0 % (40.0-50.0) L 09/26/18 06:43 MCV 90.0 fL (80-95) 09/26/18 06:43 MCH 29.4 pg (27.0-33.0) 09/26/18 06:43 MCHC 32.6 g/dL (32.0-36.0) 09/26/18 06:43 RDW 13.0 % (11.8-14.1) 09/26/18 06:43 Plt Count 238 x1000/uL (130-400) 09/26/18 06:43 MPV 12.0 fL (8.0-11.0) H 09/26/18 06:43 Immature Gran % 0.3 09/26/18 06:43 Neutrophils % 73.9 09/26/18 06:43 Lymphocytes % 13.7 09/26/18 06:43 Monocytes % 11.7 09/26/18 06:43 Eosinophils % 0.2 09/26/18 06:43 Basophils % 0.2 09/26/18 06:43 Absolute Neutrophils 8.72 k/cumm (1.2-6.7) H 09/26/18 06:43 Absolute Lymphocytes 1.62 k/cumm (1.2-3.4) 09/26/18 06:43 Absolute Monocytes 1.38 k/cumm (0.11-0.7) H 09/26/18 06:43 Absolute Eosinophils 0.02 k/cumm (0.0-0.7) 09/26/18 06:43 Absolute Basophils 0.02 k/cumm (0.0-0.2) 09/26/18 06:43 Sodium 139 mmol/L (136-145) 09/26/18 06:43 Potassium 4.3 mmol/L (3.5-5.1) 09/26/18 06:43 Chloride 104 mmol/L (98-107) 09/26/18 06:43 Carbon Dioxide 25.9 mmol/L (21.0-32.0) 09/26/18 06:43 Anion Gap 9.1 mmol/L (3-11) 09/26/18 06:43 BUN 13 mg/dL (7-18) 09/26/18 06:43 Creatinine 1.76 mg/dL (0.70-1.30) H 09/26/18 06:43 Estimated GFR/1.73 m2 43.55 (mL/min/1.73m2) 09/26/18 06:43 Glucose 94 mg/dL (70-100) 09/26/18 06:43 Calcium 8.9 mg/dL (8.5-10.1) 09/26/18 06:43 Magnesium 1.7 mg/dL (1.8-2.4) L 09/26/18 06:43 C-Reactive Protein 2.98 mg/dL (0.0-0.3) H 09/25/18 08:50 Patient ABO/Rh B Positive 09/25/18 08:50 Antibody Screen Negative 09/25/18 08:50
[2018-09-26] MEDS: Pantoprazole 40 MG VIAL IVP (15:50)
[2018-09-26] MEDS: Normal Saline Flush 10 ML SYR IV ×2 (15:51→22:25)
--- NOTE | 2018-09-26 16:08 | PDOC.ANES ---
Date of service: 09/26/18 Time of Service: 16:08 Anesthesia Note Report Anesthesia Note: epidural check. Pt up and walking with walker. pain currently 2/10, pump remains at 12 mL/hr. Site is clean, dry and intact without signs or symptoms of infection. Good bilateral sensory effect. Maintain rate at 12 mL/hr.
--- NOTE | 2018-09-26 16:10 | PDOC.ANES ---
Date of service: 09/26/18 Time of Service: 16:10 Anesthesia Note Report Anesthesia Note: Epidural Daily Note: Santana is POD1 and is doing well. He reports no abdominal discomfort. His epidural is running at 12ml/hr with 3ml bolus PCEA. Catheter/dressing intact, remains at placed depth. He has good motor ability in extremities. Plan is to be out of bed and continue epidural at current rate. Will reassess tomorrow.
[2018-09-26] MEDS: Propranolol 20 MG TAB PO (20:26)
[2018-09-27] VITALS (7 sets, daily range): BP systolic 120–138; BP diastolic 76–84; PULSE 58–74; RESP 14–18; TEMP 36.4–36.7; O2SAT 96–100
[2018-09-27] MEDS: FentaNYL/ROPIvacaine 2 mcg/ml and 0.1% 200 ML CADD Cassette EP ×2 (01:00→19:35)
[2018-09-27] MEDS: Lactated Ringers 1,000 ML 100 ML IV ×2 (01:20→11:03)
[2018-09-27] MEDS: Ketorolac 30 MG/ML VIAL IVP ×4 (04:11→21:18)
[2018-09-27] MEDS: ACETAMINOPHEN 1,000 MG/100 ML BTL 400 MG IVPB ×3 (06:11→21:17)
[2018-09-27 07:19] LABS: BUN 11 mg/dL (7-18); CREATININE 1.83 mg/dL (0.70-1.30); Calcium 8.3 mg/dL (8.5-10.1); Chloride 107 mmol/L (98-107); Estimated GFR 41.64 (mL/min/1.73m2); Glucose 83 mg/dL (70-100); Magnesium 1.8 mg/dL (1.8-2.4); Potassium 3.9 mmol/L (3.5-5.1); Sodium 143 mmol/L (136-145)
--- NOTE | 2018-09-27 07:37 | PDOC.CMPRO ---
- If Service Date Differs Date of service: 09/27/18 Time of Service: 07:37 Care Management Progress Note S/O:Santana was sitting up in the chair when CM came to visit. He appeared to be in good spirits and was smiling and engaged with CM readily. Santana was rubbing his abdomen and stated that he was having some pain because he requested that his epidural be decreased. He states that he wants to see how much it really hurts, so I know what I'm dealing with. Santana is also experiencing hiccoughs which are painful. He states his doctor explained that she needed to manipulate his diaphragm during surgery and that that is what is likely causing the hiccoughs. Santana expressed that he is looking forward to discharging home but understands that it may not happen for a few days. A: Santana is a 37 year old man admitted to [facility] on 09/25/18 for a sigmoid resection P: Santana is recovering from surgery and is receiving IV medications and fluids. It is anticipated that he will go home with no additional services or possibly home health nursing. CM will continue to provide support to patient, family and discharge planning process.
[2018-09-27] MEDS: Enoxaparin 40 MG/0.4 ML SYR SC (10:36)
[2018-09-27] MEDS: buPROPion-CR 150 MG TABCR PO ×2 (10:36→19:36)
[2018-09-27] MEDS: Propranolol 20 MG TAB PO ×2 (10:36→19:36)
--- NOTE | 2018-09-27 11:23 | PDOC.ANES ---
Anesthesia Note Anesthesia Epidural Daily Management Note: Pt is sitting up in bed brushing his teeth. Flexes his abdomen with minimal visible discomfort. Pt. states his discomfort level is a 1-2/10 when at rest and a 4/10 when up and walking. Pt. steates he looking forward to getting out of here. Denies any weakness or parathesia in his legs. Pt has been up walking in [place] twice a day. Vital signs are stable. Dressing is clean, dry, and intact. . Epidural working well and allowing increased activity for pt. Weaning epidural today from a rate of 12 to 9cc/hr. No changes to PCEA dose. Will reassess progress this afternoon.
--- NOTE | 2018-09-27 11:29 | PGE_ITS ---
Date of Service Date of service: 09/27/18 Time of Service: 11:21 Assessment and Plan (1) History of open sigmoidectomy: Current visit: Yes Status: Acute POD # 2 s/p open sigmoid colectomy. Elevated creatinine. UO 700/24 hours documented yesterday. 1000 cc output so far today. Increase IVF to 150cc/hr. Monitor I/Os. Await return GI function. May have sips and chips. Encouraged ambulation. Wean epidural per anesthesia. Follow-up labs in am. Subjective Interval history since last seen: Chart reviewed. Patient denies pain with epidural. Passed a small amount of flatus yesterday but none today. Tolerated glass of khurram ez. Motivated to ambulate. I/Os/ labs reviewed. Exam Const General: cooperative, comfortable and no acute distress Orientation: alert and oriented x3 [facility] Head: normocephalic and atraumatic Eyes Sclera: sclerae normal Resp Effort & Inspection: normal respiratory effort and able to speak in complete sentences Cardio Jugular venous pressure: no JVD Rate: regular rate Rhythm: regular rhythm GI Inspection: non-distended and other (midline wound vac in place) Palpation: soft, not firm, no guarding, not rigid and nontender Auscultation: hypoactive bowel sounds Skin General skin exam: no rashes or lesions noted and no jaundice Neuro General: alert and oriented x3 Speech: speech normal Objective Objective Clinical Data: Abnormal lab results 09/27/18 Range/Units 06:25 Creatinine 1.83 H (0.70-1.30) mg/dL Calcium 8.3 L (8.5-10.1) mg/dL Vital Signs Temperature 36.4 C L 09/27/18 07:05 Temperature Source Tympanic 09/27/18 07:05 Pulse 68 09/27/18 07:05 Pulse Rhythm Regular 09/27/18 10:44 Respiratory Rate 16 09/27/18 07:05 Respiratory Effort Non-Labored 09/27/18 10:44 Respiratory Depth Normal 09/27/18 10:44 Respiratory Pattern Normal 09/27/18 10:44 Blood Pressure 121/77 09/27/18 07:05 Pulse Oximetry 97 09/27/18 07:05 Respiratory End-tidal CO2 39 09/25/18 14:30 Oxygen Delivery Method Room Air 09/27/18 07:05 Oxygen Flow Rate 0 09/27/18 07:05 Pain Level 2 09/27/18 11:01 Comment 09/25/18 18:32 Intake & Output 09/26/18 09/26/18 09/27/18 11:59 23:59 11:59 Intake Total 2188.333 / 3142.000 953.667 / 3142.000 3981.667 / 3981.667 Output Total 300 / 700 400 / 700 1000 / 1000 Balance 1888.333 / 2442.000 553.667 / 2442.000 2981.667 / 2981.667 Intake: IV 1988.333 / 2942.000 953.667 / 2942.000 3981.667 / 3981.667 Oral 200 / 200 Output: Urine 300 / 700 400 / 700 1000 / 1000 Other: Urine Color Light Hilaria Light Hilaria Yellow Urine Appearance Clear Clear Clear Comment post bolus output Laboratory Results WBC 11.80 k/cumm (4.4-10.8) H 09/26/18 06:43 RBC 4.22 m/cumm (4.50-6.00) L 09/26/18 06:43 Hgb 12.4 g/dL (13.5-17.5) L 09/26/18 06:43 Hct 38.0 % (40.0-50.0) L 09/26/18 06:43 MCV 90.0 fL (80-95) 09/26/18 06:43 MCH 29.4 pg (27.0-33.0) 09/26/18 06:43 MCHC 32.6 g/dL (32.0-36.0) 09/26/18 06:43 RDW 13.0 % (11.8-14.1) 09/26/18 06:43 Plt Count 238 x1000/uL (130-400) 09/26/18 06:43 MPV 12.0 fL (8.0-11.0) H 09/26/18 06:43 Immature Gran % 0.3 09/26/18 06:43 Neutrophils % 73.9 09/26/18 06:43 Lymphocytes % 13.7 09/26/18 06:43 Monocytes % 11.7 09/26/18 06:43 Eosinophils % 0.2 09/26/18 06:43 Basophils % 0.2 09/26/18 06:43 Absolute Neutrophils 8.72 k/cumm (1.2-6.7) H 09/26/18 06:43 Absolute Lymphocytes 1.62 k/cumm (1.2-3.4) 09/26/18 06:43 Absolute Monocytes 1.38 k/cumm (0.11-0.7) H 09/26/18 06:43 Absolute Eosinophils 0.02 k/cumm (0.0-0.7) 09/26/18 06:43 Absolute Basophils 0.02 k/cumm (0.0-0.2) 09/26/18 06:43 Sodium 143 mmol/L (136-145) 09/27/18 06:25 Potassium 3.9 mmol/L (3.5-5.1) 09/27/18 06:25 Chloride 107 mmol/L (98-107) 09/27/18 06:25 Carbon Dioxide 26.0 mmol/L (21.0-32.0) 09/27/18 06:25 Anion Gap 10.0 mmol/L (3-11) 09/27/18 06:25 BUN 11 mg/dL (7-18) 09/27/18 06:25 Creatinine 1.83 mg/dL (0.70-1.30) H 09/27/18 06:25 Estimated GFR/1.73 m2 41.64 (mL/min/1.73m2) 09/27/18 06:25 Glucose 83 mg/dL (70-100) 09/27/18 06:25 Calcium 8.3 mg/dL (8.5-10.1) L 09/27/18 06:25 Magnesium 1.8 mg/dL (1.8-2.4) 09/27/18 06:25 C-Reactive Protein 2.98 mg/dL (0.0-0.3) H 09/25/18 08:50 Patient ABO/Rh B Positive 09/25/18 08:50 Antibody Screen Negative 09/25/18 08:50
--- NOTE | 2018-09-27 14:16 | PHARADMIT ---
Addendum entered by Jose Barnard III 09/28/18 12:18: notes patient improving ,may be discharge home tomorrow. VS-OK Labs-WNL SCr-1.71 No BM yet Epidural discontinued Original Note: Admission Pharmacy Clinical Review CHRONIC DIVERTICULITIS S/P SIGMOID RESECTION Code Status Full Code Current Weight Wgt-83.1 kg Renally Cleared and Narrow Therapeutic Index Meds CrCl~ 56 mL/min Meds-OK QTc Value / Action Taken QTc-409 (August 2018) BP Control, Fever BP- 138/81 Tmax- 36.9C Electrolytes reviewed Na- 143 K+3.9 Mag- 1.8 DVT Prophylaxis Lovenox 40mg Opiate Usage / Scheduled Bowel Regimen Ordered Yes (Epidural) No Plt/SCr for Heparin / Enoxaparin Plts-238 SCr- 1.83 INR for Warfarin NA H/H stable, WBC/Bands H&H- 12.4/38.0 WBC- 11.80 Antibiotic appropriateness Ertepenum Cultures and Sensitivities none Surgical ABX d/c within 24 hr NA DM control / Insulin Dosing BG- 83 Heart Failure (Check EF%) (NINI's, B-Block, Diuretics) Propranolol, IV to PO Switch No Home Meds Reviewed Yes Home Meds Not Ordered Augmentin, Carafate, Neomycin, Flagyl, Acidophilus Comments RCRP-2.98
[2018-09-27] MEDS: Pantoprazole 40 MG VIAL IVP (15:29)
[2018-09-27] MEDS: Normal Saline Flush 10 ML SYR IV (15:29)
[2018-09-27] MEDS: Ondansetron 4 MG/2 ML VIAL IVP (15:40)
[2018-09-27] MEDS: Lactated Ringers 1,000 ML 150 ML IV (18:05)
--- NOTE | 2018-09-27 21:33 | W.PM.DS.N ---
DS: Diagnosis Discharge Diagnosis (1) History of open sigmoidectomy: Status: Acute (2) Acute kidney insufficiency: Status: Chronic (3) GERD (gastroesophageal reflux disease): Status: Chronic (4) MIGUEL (generalized anxiety disorder): Status: Acute Discharge Plan Discharge Details Reason For Visit: CHRONIC DIVERTICULITIS S/P SIGMOID RESECTION Admit Date/Time: 09/25/18 13:56 Admit Provider: Mariely Baldwin Attending Provider: Mariely Baldwin Primary Care Provider: Joni Colin Home Meds and New Rx's Prescriptions: Continued bupropion HCl 150 mg tablet extended release 12 hr 150 mg PO BID RF: 0 propranolol 20 mg tablet 20 mg PO BID RF: 0 L.acidoph,saliva-B.bif-S.therm [Acidophilus Probiotic Blend] 175 mg capsule 1 cap PO DAILY RF: 0 sucralfate [Carafate] 1 gram tablet 1 gm PO QACHS Qty: 120 RF: 12 Discontinued bisacodyl [Dulcolax (bisacodyl)] 5 mg tablet,delayed release (DR/EC) 5 mg PO ONCE Qty: 4 RF: 0 polyethylene glycol 3350 [Miralax] 17 gram/dose powder 238 gm PO ONCE Qty: 238 RF: 0 neomycin 500 mg tablet 500 mg PO ONCE Qty: 8 RF: 0 metronidazole [Flagyl] 500 mg tablet 500 mg PO ONCE Qty: 4 RF: 0 metronidazole 500 mg tablet 500 mg PO TID Qty: 42 RF: 1 amoxicillin-pot clavulanate [Augmentin] 875-125 mg tablet 1 tab PO BID Qty: 20 RF: 0 Discharge Instructions Instructions: Low Fiber Diet (GEN), Diverticulitis Diet (GEN) Additional Instructions: Keep an ice bag on the incision. 20 minutes on and 20 minutes off. Ice keeps the swelling down and swelling causes pain. Make sure you wrap the ice pack in a towel and don't apply directly to the skin. -No driving x1 week or of you are taking pain medications. -If you have nabor or sutures in place, they will be removed at your clinic appointment in 7-10 days. - -Follow-up with Dr. Kaur or Morteza on 10/04 -soft diet: No beef/pork /raw vegetables / crackers & bread x2 -weeks. Cooked vegetables are fine. SLOWLY transition to high fiber diet after 2 wks. -no straining to move bowels -pain meds are very constipating: if you do not move your bowels daily take a dose of OTC milk of magnesia or Miralax -It is ok to shower. No bathe, soaking, swimming or hot tubs -Keep wound clean and dry. Wash incision with soap and water daily. Pat dry, don't rub. -Protein supplements 1-2 daily. You may find that your appetite is smaller. Eat 3-6 small meals throughout the day. It is important to drink lots of water after surgery, 6-10 glasses a day. -If you were given an incentive spirometry (breathing assessment services manager), continue to do this 10x/hour while awake. -We do want you up walking, at least 5-6 times per day. This is very important to prevent pneumonia and blood clots. You can climb stairs, take them slowly. -No lifting over 5 pounds. This is very important to avoid developing a hernia in your incision. -You may find that you are very tired after surgery- this is normal. Activity:: low fiber diet x2 wks Shower/Bathe:: 24 hours Activity:: no driving x 1 wk. No lifting over 5#'s x 2 wks. Equipment/Supplies:: No Equipment Needed Diet:: low fiber x 2 wks DS: Data Vitals/I&O Vitals and I&O: Vital Signs Temperature 36.7 C 09/27/18 19:40 Temperature Source Tympanic 09/27/18 15:30 Pulse 68 09/27/18 19:40 Pulse Rhythm Regular 09/27/18 16:32 Respiratory Rate 14 09/27/18 19:40 Respiratory Effort Non-Labored 09/27/18 16:32 Respiratory Depth Normal 09/27/18 16:32 Respiratory Pattern Normal 09/27/18 16:32 Blood Pressure 127/83 09/27/18 19:40 Pulse Oximetry 98 09/27/18 19:40 Respiratory End-tidal CO2 39 09/25/18 14:30 Oxygen Delivery Method Room Air 09/27/18 19:40 Oxygen Flow Rate 0 09/27/18 19:40 Pain Level 2 09/27/18 19:40 Comment 09/25/18 18:32 Intake & Output 06/09/27/18 09/27/18 23:59 11:59 23:59 Intake Total 953.667 / 3142.000 4181.667 / 5635.000 1453.333 / 5635.000 Output Total 400 / 700 1000 / 2650 1650 / 2650 Balance 553.667 / 2442.000 3181.667 / 2985.000 -196.667 / 2985.000 Intake: IV 953.667 / 2942.000 4181.667 / 5015.000 833.333 / 5015.000 Oral 620 / 620 Output: Urine 400 / 700 1000 / 2650 1650 / 2650 Other: Urine Color Light Hilaria Yellow Yellow Urine Appearance Clear Clear Clear Comment post bolus output Labs on day of discharge: Labs from last 24 hours 09/27/18 06:25 Sodium 143 Potassium 3.9 Chloride 107 Carbon Dioxide 26.0 Anion Gap 10.0 BUN 11 Creatinine 1.83 H Estimated GFR/1.73 m2 41.64 Glucose 83 Calcium 8.3 L Magnesium 1.8 PFSH Medical History Sigmoid stricture (Acute) Duodenitis without bleeding (Acute) GERD (gastroesophageal reflux disease) (Chronic) Diverticulitis large intestine (Acute) Diverticulitis of large intestine with perforation (Acute) MIGUEL (generalized anxiety disorder) (Acute) Elevated cholesterol with elevated triglycerides (Acute) Diverticulitis of both large and small intestine with perforation without abscess or bleeding (Acute) Atypical chest pain (Acute) Chronic fatigue (Acute) Colon polyp (Acute) Dizziness (Acute) MIGUEL (generalized anxiety disorder) (Acute) Hyperlipidemia (Acute) Mood disorder (Acute) Right knee pain (Acute) Sleep disturbances (Acute) Visual disturbance (Acute) Anxiety (Chronic) Depression (Chronic) Surgical History Tongue abnormality (Acute) History of colonoscopy (Chronic) Social History Smoking/Tobacco Use Status: Former Tobacco Use Alcohol Intake: current Alcohol Intake frequency: holidays/special occasions only Drug use: Daily Substance use type: marijuana Household members: children Housing: house Number of Children: 1 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 What type of physical activity do you participate in: none Do you feel safe at home: Yes Do you feel safe in your relationship?: Yes
[2018-09-28] MEDS: Lactated Ringers 1,000 ML 150 ML IV ×4 (00:33→22:54)
[2018-09-28 03:10] VITALS: BP 128/70; PULSE 74; RESP 16; TEMP 36.4; O2SAT 96
[2018-09-28 03:40] VITALS: BP 128/70; PULSE 74; RESP 16; TEMP 36.4; O2SAT 96
[2018-09-28] MEDS: Ketorolac 30 MG/ML VIAL IVP ×4 (03:46→21:18)
[2018-09-28] MEDS: ACETAMINOPHEN 1,000 MG/100 ML BTL 400 MG IVPB ×3 (05:16→21:18)
[2018-09-28 07:35] VITALS: BP 125/81; PULSE 55; RESP 16; TEMP 36.8; O2SAT 95
[2018-09-28] MEDS: buPROPion-CR 150 MG TABCR PO ×2 (07:37→19:34)
[2018-09-28] MEDS: Propranolol 20 MG TAB PO ×2 (07:37→19:34)
[2018-09-28 09:06] LABS: Abs Immature Grans 0.01 k/cumm (0.0-0.09); Absolute Basophil Count 0.03 k/cumm (0.0-0.2); Absolute Eosinophil Count 0.25 k/cumm (0.0-0.7); Absolute Lymphocyte Count 1.03 k/cumm (1.2-3.4); Absolute Monocyte Count 0.64 k/cumm (0.11-0.7); Absolute Neutrophil Count 4.12 k/cumm (1.2-6.7); Basophils % 0.5; Eosinophils % 4.1; HCT 36.4 % (40.0-50.0); HGB 11.6 g/dL (13.5-17.5); Immature Grans % 0.2; Lymphocytes % 16.9; Mean Corp. HGB Concentration 31.9 g/dL (32.0-36.0); Mean Corpuscular Hemoglobin 28.4 pg (27.0-33.0); Mean Corpuscular Volume 89.2 fL (80-95); Mean Platelet Volume 11.5 fL (8.0-11.0); Monocytes % 10.5; Neutrophils % 67.8; Platelet Count 230 x1000/uL (130-400); RBC 4.08 m/cumm (4.50-6.00); RBC Distribution Width 12.7 % (11.8-14.1); White Blood Cell Count 6.08 k/cumm (4.4-10.8)
[2018-09-28 09:15] LABS: Anion Gap 11.2 mmol/L (3-11); BUN 8 mg/dL (7-18); C-Reactive Protein 7.87 mg/dL (0.0-0.3); CO2 23.8 mmol/L (21.0-32.0); CREATININE 1.71 mg/dL (0.70-1.30); Calcium 8.6 mg/dL (8.5-10.1); Chloride 106 mmol/L (98-107); Estimated GFR 45.03 (mL/min/1.73m2); Glucose 69 mg/dL (70-100); Magnesium 1.6 mg/dL (1.8-2.4); Potassium 4.2 mmol/L (3.5-5.1); Sodium 141 mmol/L (136-145)
--- NOTE | 2018-09-28 10:20 | PGE_ITS ---
Date of Service Date of service: 09/28/18 Time of Service: :19 Assessment and Plan (1) History of open sigmoidectomy: Current visit: Yes Status: Acute POD # 3 s/p open sigmoid colectomy. Elevated creatinine but improving with IVF hydration. Continue IVF. Keep pagan today for I/Os. Will d/c in am. Advance diet to regular consistency for dinner if tolerating full liquids for vicki nch. Epidural d/c'd per anesthesia. PO/IV pain meds ordered prn. MG - 1.6. PO replacement ordered. Anticipate possible d/c home tomorrow if continues to improve. Subjective Interval history since last seen: Patient tolerated full liquids this am. Does not care for full liquids but tolerating. Denies nausea or vomiting. (+) flatus. No BM yet. Patient seen up in chair. Notes mild discomfort when getting up but pain well controlled. Discussed with anesthesia. Epidural to be d/c'd this am. Hold Lovenox for 4 hours after. Urine output 2.6L yesterday. Creatinine improving from 1.83 to 1.71. Mg -1.6. CBC stable. Exam Const General: cooperative, comfortable and no acute distress Nutritional Appearance: average body habitus Orientation: alert and oriented x3 HENMT Head: normocephalic and atraumatic Eyes Sclera: sclerae normal Resp Effort & Inspection: normal respiratory effort and able to speak in complete sentences Cardio Jugular venous pressure: no JVD GI Inspection: non-distended and other (wound vac in place) Palpation: soft, not firm, no guarding, not rigid and nontender Auscultation: normoactive bowel sounds Skin General skin exam: no rashes or lesions noted and no jaundice Neuro General: alert and oriented x3 Speech: speech normal Objective Objective Clinical Data: Abnormal lab results 09/28/18 09/28/18 Range/Units 08:55 08:55 RBC 4.08 L (4.50-6.00) m/cumm Hgb 11.6 L (13.5-17.5) g/dL Hct 36.4 L (40.0-50.0) % MCHC 31.9 L (32.0-36.0) g/dL MPV 11.5 H (8.0-11.0) fL Absolute Lymphocytes 1.03 L (1.2-3.4) k/cumm Anion Gap 11.2 H (3-11) mmol/L Creatinine 1.71 H (0.70-1.30) mg/dL Glucose 69 L (70-100) mg/dL Magnesium 1.6 L (1.8-2.4) mg/dL C-Reactive Protein 7.87 H (0.0-0.3) mg/dL Vital Signs Temperature 36.8 C 09/28/18 07:35 Temperature Source Tympanic 09/28/18 07:35 Pulse 55 L 09/28/18 07:35 Pulse Rhythm Regular 09/28/18 07:28 Respiratory Rate 16 09/28/18 07:35 Respiratory Effort Non-Labored 09/28/18 07:28 Respiratory Depth Normal 09/28/18 07:28 Respiratory Pattern Normal 09/28/18 07:28 Blood Pressure 125/81 09/28/18 07:35 Pulse Oximetry 95 09/28/18 07:35 Respiratory End-tidal CO2 39 09/25/18 14:30 Oxygen Delivery Method Room Air 09/28/18 07:35 Oxygen Flow Rate 0 09/28/18 07:35 Pain Level 2 09/28/18 07:55 Comment 09/25/18 18:32 Intake & Output 09/27/18 09/27/18 09/28/18 11:59 23:59 11:59 Intake Total 4181.667 / 5735.000 1553.333 / 5735.000 2432.5 / 2432.5 Output Total 999 / 2650 1650 / 2650 1000 / 1000 Balance 3181.667 / 3085.000 -96.667 / 3085.000 1432.5 / 1432.5 Intake: IV 4181.667 / 5115.000 933.333 / 5115.000 1952.5 / 1952.5 Oral 620 / 620 480 / 480 Output: Urine 1000 / 2650 1650 / 2650 1000 / 1000 Other: Urine Color Yellow Yellow Light Hilaria Urine Appearance Clear Clear Clear Laboratory Results WBC 6.08 k/cumm (4.4-10.8) 09/28/18 08:55 RBC 4.08 m/cumm (4.50-6.00) L 09/28/18 08:55 Hgb 11.6 g/dL (13.5-17.5) L 09/28/18 08:55 Hct 36.4 % (40.0-50.0) L 09/28/18 08:55 MCV 89.2 fL (80-95) 09/28/18 08:55 MCH 28.4 pg (27.0-33.0) 09/28/18 08:55 MCHC 31.9 g/dL (32.0-36.0) L 09/28/18 08:55 RDW 12.7 % (11.8-14.1) 09/28/18 08:55 Plt Count 230 x1000/uL (130-400) 09/28/18 08:55 MPV 11.5 fL (8.0-11.0) H 09/28/18 08:55 Immature Gran % 0.2 09/28/18 08:55 Neutrophils % 67.8 09/28/18 08:55 Lymphocytes % 16.9 09/28/18 08:55 Monocytes % 10.5 09/28/18 08:55 Eosinophils % 4.1 09/28/18 08:55 Basophils % 0.5 09/28/18 08:55 Absolute Neutrophils 4.12 k/cumm (1.2-6.7) 09/28/18 08:55 Absolute Lymphocytes 1.03 k/cumm (1.2-3.4) L 09/28/18 08:55 Absolute Monocytes 0.64 k/cumm (0.11-0.7) 09/28/18 08:55 Absolute Eosinophils 0.25 k/cumm (0.0-0.7) 09/28/18 08:55 Absolute Basophils 0.03 k/cumm (0.0-0.2) 09/28/18 08:55 Sodium 141 mmol/L (136-145) 09/28/18 08:55 Potassium 4.2 mmol/L (3.5-5.1) 09/28/18 08:55 Chloride 106 mmol/L (98-107) 09/28/18 08:55 Carbon Dioxide 23.8 mmol/L (21.0-32.0) 09/28/18 08:55 Anion Gap 11.2 mmol/L (3-11) H 09/28/18 08:55 BUN 8 mg/dL (7-18) 09/28/18 08:55 Creatinine 1.71 mg/dL (0.70-1.30) H 09/28/18 08:55 Estimated GFR/1.73 m2 45.03 (mL/min/1.73m2) 09/28/18 08:55 Glucose 69 mg/dL (70-100) L 09/28/18 08:55 Calcium 8.6 mg/dL (8.5-10.1) 09/28/18 08:55 Magnesium 1.6 mg/dL (1.8-2.4) L 09/28/18 08:55 C-Reactive Protein 7.87 mg/dL (0.0-0.3) H 09/28/18 08:55 Patient ABO/Rh B Positive 09/25/18 08:50 Antibody Screen Negative 09/25/18 08:50
[2018-09-28] MEDS: Magnesium Oxide 400 MG TAB PO (10:30)
[2018-09-28] MEDS: Normal Saline Flush 10 ML SYR IV ×6 (10:31→19:35)
--- NOTE | 2018-09-28 10:58 | PDOC.ANES ---
Anesthesia Note Daily epidural management note: Held am lovenox dose to assess for removal of epidural catheter today. am vs 125/81 pulse 55 resp 16 temp 36.8 Sat 95. Epidural dosing was lowered on 05/30. Pt is up in chair and in agreement on removal as is Dr. Sanabria. Hopes to be able to ambulate more with better motor and sensation return. Currently has decreased sensation and motor strength more on right leg. Using walker. catheter easily removed with tip intact. Dr. Sanabria will resume Lovenox for 4:00 and plans to leave catheter in until tomorrow due to elevated creatinine levels. Patient is motivated to progress to discharge.
[2018-09-28] MEDS: Ondansetron 4 MG/2 ML VIAL IVP (12:18)
[2018-09-28] MEDS: traMADol 50 MG TAB PO (13:12)
[2018-09-28] MEDS: Patch Removal TD (13:14)
[2018-09-28 14:00] VITALS: BP 134/65; PULSE 49; RESP 18; TEMP 36.5; O2SAT 100
[2018-09-28] MEDS: HYDROmorphone 2 MG/ML VIAL 1 MG IVP ×2 (14:12→19:35)
[2018-09-28 15:33] VITALS: BP 126/72; PULSE 75; RESP 17; TEMP 37.1; O2SAT 98
[2018-09-28] MEDS: Pantoprazole 40 MG VIAL IVP (15:36)
[2018-09-28] MEDS: oxyCODONE 5 MG TAB PO (15:36)
[2018-09-28] MEDS: Enoxaparin 40 MG/0.4 ML SYR SC (15:37)
--- NOTE | 2018-09-28 17:35 | PDOC.CMPRO ---
Care Management Progress Note S/O: Santana had an increase in pain and was unable to engage with this policy writer typist. CM grabbed some warm blankets and provided them to the MUSKRAT TRAPPER. CM continues to follow. A: Santana is a 37 year old man admitted to [facility] on 09/25/18 for a sigmoid resection P: Santana is recovering from surgery and is receiving IV medications and fluids. It is anticipated that he will go home with no additional services or possibly home health nursing. CM will continue to provide support to patient, family and discharge planning process.
--- NOTE | 2018-09-28 17:38 | CMPROGNOTE_ITS ---
Care Management Progress Note S/O: Santana had an increase in pain and was unable to engage with this typewriter operator automatic. CM grabbed some warm blankets and provided them to the PRODUCT DEVELOPMENT WORKER. CM continues to follow. A: Santana is a 37 year old man admitted to [facility] on 09/25/18 for a sigmoid resection P: Santana is recovering from surgery and is receiving IV medications and fluids. It is anticipated that he will go home with no additional services or possibly home health nursing. CM will continue to provide support to patient, family and discharge planning process.
[2018-09-28 23:01] VITALS: BP 122/76; PULSE 70; RESP 16; TEMP 37; O2SAT 98
[2018-09-29] MEDS: Ketorolac 30 MG/ML VIAL IVP ×2 (03:16→09:34)
[2018-09-29] MEDS: Lactated Ringers 1,000 ML 150 ML IV (05:13)
[2018-09-29] MEDS: ACETAMINOPHEN 1,000 MG/100 ML BTL 400 MG IVPB (05:13)
[2018-09-29] MEDS: Propranolol 20 MG TAB PO (07:28)
[2018-09-29] MEDS: buPROPion-CR 150 MG TABCR PO (07:29)
[2018-09-29 08:41] LABS: Abs Immature Grans 0.03 k/cumm (0.0-0.09); Absolute Basophil Count 0.05 k/cumm (0.0-0.2); Absolute Eosinophil Count 0.33 k/cumm (0.0-0.7); Absolute Lymphocyte Count 1.07 k/cumm (1.2-3.4); Absolute Monocyte Count 0.67 k/cumm (0.11-0.7); Absolute Neutrophil Count 4.63 k/cumm (1.2-6.7); Basophils % 0.7; Eosinophils % 4.9; HCT 37.9 % (40.0-50.0); HGB 12.4 g/dL (13.5-17.5); Immature Grans % 0.4; Lymphocytes % 15.8; Mean Corp. HGB Concentration 32.7 g/dL (32.0-36.0); Mean Corpuscular Hemoglobin 28.9 pg (27.0-33.0); Mean Corpuscular Volume 88.3 fL (80-95); Mean Platelet Volume 11.6 fL (8.0-11.0); Monocytes % 9.9; Neutrophils % 68.3; Platelet Count 278 x1000/uL (130-400); RBC 4.29 m/cumm (4.50-6.00); RBC Distribution Width 12.5 % (11.8-14.1); White Blood Cell Count 6.78 k/cumm (4.4-10.8)
[2018-09-29 08:52] LABS: Anion Gap 12.5 mmol/L (3-11); BUN 8 mg/dL (7-18); CO2 24.5 mmol/L (21.0-32.0); CREATININE 1.59 mg/dL (0.70-1.30); Calcium 8.9 mg/dL (8.5-10.1); Chloride 104 mmol/L (98-107); Estimated GFR 48.97 (mL/min/1.73m2); Glucose 98 mg/dL (70-100); Magnesium 1.7 mg/dL (1.8-2.4); Potassium 4.4 mmol/L (3.5-5.1); Sodium 141 mmol/L (136-145)
[2018-09-29 09:27] VITALS: BP 134/83; PULSE 61; RESP 18; TEMP 37.2; O2SAT 98
[2018-09-29] MEDS: Normal Saline Flush 10 ML SYR IV (09:34)
--- NOTE | 2018-09-29 10:01 | DSE_ITS ---
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 Postoperatively, he had an epidural for pain management which was d/c'd on 09/28/18. Patient received Invanz for perioperative antibiotic coverage. His diet was resumed as his GI function returned. He was advanced to full liquids but had some nausea and pain after his epidural was d/c'd. His diet was decreased to clears which he tolerated but did not care for. He is having small bowel movements and passing flatus. He has not required narcotics for pain since 09/28/18. Labs followed. Creatinine was elevated up to 1.83 postop but normalizing with IVF hydration. He is diuresing as expected on POD # 4. Nunez d/c'd 09/29/18. Patient hungry for food. Exam is benign with active bowel sounds. Will advance to regular diet and change to po pain meds only. Plan for d/c home later today if tolerating diet, pain controlled on po meds, and voiding. Home Meds and New Rx's Prescriptions: New tramadol 50 mg tablet 50 mg PO Q6H PRN (Reason: pain) Qty: 20 RF: 0 acetaminophen [Tylenol] 325 mg Tablet 650 mg PO Q6H PRN PRNQty: 0 RF: 0 Continued bupropion HCl 150 mg tablet extended release 12 hr 150 mg PO BID RF: 0 propranolol 20 mg tablet 20 mg PO BID RF: 0 L.acidoph,saliva-B.bif-S.therm [Acidophilus Probiotic Blend] 175 mg capsule 1 cap PO DAILY RF: 0 sucralfate [Carafate] 1 gram tablet 1 gm PO QACHS Qty: 120 RF: 12 Discontinued bisacodyl [Dulcolax (bisacodyl)] 5 mg tablet,delayed release (DR/EC) 5 mg PO ONCE Qty: 4 RF: 0 polyethylene glycol 3350 [Miralax] 17 gram/dose powder 238 gm PO ONCE Qty: 238 RF: 0 neomycin 500 mg tablet 500 mg PO ONCE Qty: 8 RF: 0 metronidazole [Flagyl] 500 mg tablet 500 mg PO ONCE Qty: 4 RF: 0 metronidazole 500 mg tablet 500 mg PO TID Qty: 42 RF: 1 amoxicillin-pot clavulanate [Augmentin] 875-125 mg tablet 1 tab PO BID Qty: 20 RF: 0 Discharge Instructions Instructions: Low Fiber Diet (GEN), Diverticulitis Diet (GEN) Additional Instructions: Keep an ice bag on the incision. 20 minutes on and 20 minutes off. Ice keeps the swelling down and swelling causes pain. Make sure you wrap the ice pack in a towel and don't apply directly to the skin. -No driving x1 week or if you are taking pain medications. -If you have nabor or sutures in place, they will be removed at your clinic appointment in 7-10 days. - -Follow-up with Dr. Kaur or Morteza on 10/04 -soft diet: No beef/pork /raw vegetables / crackers & bread x2 -weeks. Cooked vegetables are fine. SLOWLY transition to high fiber diet after 2 wks. -no straining to move bowels -pain meds are very constipating: if you do not move your bowels daily take a dose of OTC milk of magnesia or Miralax -It is ok to shower. No bathe, soaking, swimming or hot tubs -Keep wound clean and dry. Wash incision with soap and water daily. Pat dry, don't rub. -Protein supplements 1-2 daily. You may find that your appetite is smaller. Eat 3-6 small meals throughout the day. It is important to drink lots of water after surgery, 6-10 glasses a day. -If you were given an incentive spirometry (breathing unit aide tech), continue to do this 10x/hour while awake. -We do want you up walking, at least 5-6 times per day. This is very important to prevent pneumonia and blood clots. You can climb stairs, take them slowly. -No lifting over 5 pounds. This is very important to avoid developing a hernia in your incision. -You may find that you are very tired after surgery- this is normal. Stand Alone Forms: Nursing Discharge Form Referrals: Roula Kaur MD [ [facility] STAFF PHYSICIAN] - (Please call the office on Sunday morning) Activity:: no driving x 1 wk. No lifting over 5#'s x 2 wks. Equipment/Supplies:: No Equipment Needed Diet:: low fiber x 2 wks Discharge Orders Discharge Orders: Discharge Order (Routine); Ordered 09/29/18 Ordered By: Tamiko Sanabria Exam Const General: comfortable, no acute distress and well developed Nutritional Appearance: average body habitus Orientation: alert and oriented x3 HENMT Head: normocephalic and atraumatic Eyes Sclera: sclerae normal Resp Effort & Inspection: normal respiratory effort and able to speak in complete sentences Cardio Jugular venous pressure: no JVD GI Inspection: non-distended and other (wound vac in place) Palpation: soft, not firm, no guarding, not rigid and nontender Auscultation: normal bowel sounds Skin General skin exam: no rashes or lesions noted and no jaundice DS: Data Vitals/I&O Vitals and I&O: Vital Signs Temperature 37 C 09/28/18 23:01 Temperature Source Temporal Artery Scan 09/28/18 23:01 Pulse 70 09/28/18 23:01 Pulse Rhythm Regular 09/29/18 07:29 Respiratory Rate 16 09/28/18 23:01 Respiratory Effort Non-Labored 09/29/18 07:29 Respiratory Depth Normal 09/29/18 07:29 Respiratory Pattern Normal 09/29/18 07:29 Blood Pressure 122/76 09/28/18 23:01 Pulse Oximetry 98 09/28/18 23:01 Respiratory End-tidal CO2 39 09/25/18 14:30 Oxygen Delivery Method Room Air 09/28/18 23:01 Oxygen Flow Rate 0 09/28/18 23:01 Pain Level 2 09/29/18 09:34 Comment 09/25/18 18:32 Intake & Output 09/28/18 09/28/18 09/29/18 11:59 23:59 11:59 Intake Total 2672.5 / 5152.5 2480 / 5152.5 947.5 / 947.5 Output Total 1600 / 3350 1750 / 3350 850 / 850 Balance 1072.5 / 1802.5 730 / 1802.5 97.5 / 97.5 Intake: IV 2192.5 / 4432.5 2240 / 4432.5 947.5 / 947.5 Oral 480 / 720 240 / 720 Output: Urine 1600 / 3350 1750 / 3350 850 / 850 Other: Urine Color Yellow Light Hilaria Light Hilaria Urine Appearance Clear Clear Clear Stool Size Small Stool Characteristics Hard Emesis Description None Labs on day of discharge: Labs from last 24 hours 09/29/18 09/29/18 08:30 08:30 WBC 6.78 RBC 4.29 L Hgb 12.4 L Hct 37.9 L MCV 88.3 MCH 28.9 MCHC 32.7 RDW 12.5 Plt Count 278 MPV 11.6 H Immature Gran % 0.4 Neutrophils % 68.3 Lymphocytes % 15.8 Monocytes % 9.9 Eosinophils % 4.9 Basophils % 0.7 Absolute Neutrophils 4.63 Absolute Lymphocytes 1.07 L Absolute Monocytes 0.67 Absolute Eosinophils 0.33 Absolute Basophils 0.05 Sodium 141 Potassium 4.4 Chloride 104 Carbon Dioxide 24.5 Anion Gap 12.5 H BUN 8 Creatinine 1.59 H Estimated GFR/1.73 m2 48.97 Glucose 98 Calcium 8.9 Magnesium 1.7 L PFSH Medical History Sigmoid stricture (Acute) Duodenitis without bleeding (Acute) GERD (gastroesophageal reflux disease) (Chronic) Diverticulitis large intestine (Acute) Diverticulitis of large intestine with perforation (Acute) MIGUEL (generalized anxiety disorder) (Acute) Elevated cholesterol with elevated triglycerides (Acute) Diverticulitis of both large and small intestine with perforation without abscess or bleeding (Acute) Atypical chest pain (Acute) Chronic fatigue (Acute) Colon polyp (Acute) Dizziness (Acute) MIGUEL (generalized anxiety disorder) (Acute) Hyperlipidemia (Acute) Mood disorder (Acute) Right knee pain (Acute) Sleep disturbances (Acute) Visual disturbance (Acute) Anxiety (Chronic) Depression (Chronic) Surgical History Tongue abnormality (Acute) History of colonoscopy (Chronic) Social History Smoking/Tobacco Use Status: Former Tobacco Use Alcohol Intake: current Alcohol Intake frequency: holidays/special occasions only Drug use: Daily Substance use type: marijuana Household members: children Housing: house Number of Children: 1 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 What type of physical activity do you participate in: none Do you feel safe at home: Yes Do you feel safe in your relationship?: Yes
--- NOTE | 2018-09-29 10:26 | PDOC.CMDIS ---
LACE Index Scoring Tool - Questions: Length of Stay (in days): 4 - 6 Acuity (Admit via E.D.?): Yes E.D. Visits: 3 - Answers: Total Score: 10 Risk of Readmission: High Risk Care Management Discharge Reason for Hospitalization: chronic recurrent course of sigmoid diverticulitis since July 2018 admitted for a sigmoid colectomy on 09/25/18 Discharge Plan: Santana will return home when ready per MD. He will follow up with surgical services and his PCP as well as his plan of care as directed. He will transport via private vehicle with his significant other. Patient/Family Education Needs: Review discharge instructions, discuss Ask Me Three.
[2018-09-29] MEDS: Magnesium Oxide 400 MG TAB PO (10:31)
[2018-09-29] MEDS: Promethazine 25 MG TAB PO (11:34)
[2018-09-29] MEDS: traMADol 50 MG TAB PO (12:19)
== END 2018-09-29 14:13 | disposition home or self-care (01) | DRG 330 ==
LOC: MS 15:56 → PDS 15:56
PROVIDERS: Surgery; Admitting Provider Surgery; PCP Nurse Practitioner Family; Visit Provider Surgery
PROC: 0DTE4ZZ Resection of Large Intestine, Percutaneous Endoscopic Approach (ICD-10-PCS; CPT 44210; principal; 2018-09-25 10:00)
DX: K57.20 Diverticulitis of large intestine with perforation and abscess without bleeding (principal); K56.609 Unspecified intestinal obstruction, unspecified as to partial versus complete obstruction; Z90.49 Acquired absence of other specified parts of digestive tract; G89.18 Other acute postprocedural pain; K66.0 Peritoneal adhesions (postprocedural) (postinfection); K21.9 Gastro-esophageal reflux disease without esophagitis; K29.80 Duodenitis without bleeding; F41.9 Anxiety disorder, unspecified; N18.9 Chronic kidney disease, unspecified
CPT/HCPCS: 44140; 97607; 36415; 80048; 86850; 86900; 86901; J1650; NC; 83735; 85025; 86140; 88307; 88309; J0131; J1100; J1200; J1335; J1885; J2001; J2060; J2250; J2405; J3010; J3490

== ENCOUNTER 2018-10-04 14:13 | Outpatient (CLI) | payer OTHER, SELFPAY ==
[2018-10-04 14:52] LABS: Abs Immature Grans 0.04 k/cumm (0.0-0.09); Absolute Basophil Count 0.06 k/cumm (0.0-0.2); Absolute Eosinophil Count 0.26 k/cumm (0.0-0.7); Absolute Lymphocyte Count 1.48 k/cumm (1.2-3.4); Absolute Monocyte Count 0.93 k/cumm (0.11-0.7); Absolute Neutrophil Count 5.53 k/cumm (1.2-6.7); Basophils % 0.7; Eosinophils % 3.1; HCT 41.1 % (40.0-50.0); HGB 13.7 g/dL (13.5-17.5); Immature Grans % 0.5; Lymphocytes % 17.8; Mean Corp. HGB Concentration 33.3 g/dL (32.0-36.0); Mean Corpuscular Hemoglobin 29.4 pg (27.0-33.0); Mean Corpuscular Volume 88.2 fL (80-95); Mean Platelet Volume 10.9 fL (8.0-11.0); Monocytes % 11.2; Neutrophils % 66.7; Platelet Count 297 x1000/uL (130-400); RBC 4.66 m/cumm (4.50-6.00); RBC Distribution Width 13.5 % (11.8-14.1)
== END 2018-10-04 14:33 ==
PROVIDERS: PCP Nurse Practitioner Family; Visit Provider Surgery
DX: R50.9 Fever, unspecified (principal); Z90.49 Acquired absence of other specified parts of digestive tract; Z98.890 Other specified postprocedural states
CPT/HCPCS: 36415; 85025

== ENCOUNTER 2018-10-11 17:00 | Outpatient (REF) | payer OTHER, SELFPAY ==
[2018-10-11 18:19] LABS: C-Reactive Protein 6.58 mg/dL (0.0-0.3); CREATININE 1.74 mg/dL (0.70-1.30); Estimated GFR 44.13 (mL/min/1.73m2)
== END 2018-10-11 17:20 ==
LOC: NCHCN 17:00
PROVIDERS: PCP Nurse Practitioner Family; Visit Provider Family Medicine
DX: K65.1 Peritoneal abscess (principal); R94.4 Abnormal results of kidney function studies
CPT/HCPCS: 82565; 86140

== ENCOUNTER 2018-11-06 11:02 | Emergency (ER) | payer OTHER, SELFPAY ==
[2018-11-06 11:14] VITALS: BP 133/80; PULSE 68; RESP 16; TEMP 36.5; O2SAT 99
--- NOTE | 2018-11-06 11:51 | ED.GENADUL_ITS ---
Discharge Plan Disposition Patient Disposition: HOME Condition: Fair Discharge Details Chief Complaint: Nk/Back Pain Clinical Impression: Back pain, Dehydration Primary Care Provider: Manuel James ED Provider: Mone Jama Home Meds and New Rx's Prescriptions: Continued bupropion HCl 150 mg tablet extended release 12 hr 150 mg PO BID RF: 0 propranolol 20 mg tablet 20 mg PO BID RF: 0 L.acidoph,saliva-B.bif-S.therm [Acidophilus Probiotic Blend] 175 mg capsule 1 cap PO DAILY RF: 0 tramadol 100 mg capsule,ER biphase 24 hr 25-75 100 mg PO DAILY RF: 0 tramadol 50 mg tablet 50 mg PO Q6H PRN (Reason: pain) Qty: 20 RF: 0 acetaminophen [Tylenol] 325 mg Tablet 650 mg PO Q6H PRN PRNQty: 0 RF: 0 sucralfate [Carafate] 1 gram tablet 1 gm PO QACHS Qty: 120 RF: 12 Discharge Instructions Instructions: Dehydration (ED), Back Pain (ED) Additional Instructions: Continue to encourage hydration. Your laboratory evaluation is reassuring here and stable has been recently. Please keep your appointment next week with your primary care provider. If you develop fever/chills, increased pain, nausea/vomiting or the new/worsening symptoms please seek care urgently once again. Please continue with massage and stretching. Stop the patches that you have been using previously as these appear to be causing some contact dermatitis. You may Salonpas or Lidoderm patches. Continue with Tramadol as previously prescribed. I will call you with results of your urinalysis Stand Alone Forms: Work Release Referrals: Manuel James [Primary Care Provider] - Medical Decision Making Patient is a 37-year-old male presenting today with chief complaint of left lower back pain. He reports he has had this back pain for the past several months. Patient was diagnosed with diverticulitis and underwent open sigmoidectomy. At that time, it had been thought that his back pain is associated with his diverticulitis. However, despite his surgical intervention, his pain is persistent. He reports that it waxes and wanes. He is concerned at this time that it may be associated with his kidneys. He reports that at the time of his last admission, he was noted to have an elevated creatinine is concerned that this may be the driving source of his pain. Pain does seem to be inferior, he does not have CVA tenderness. He was referred to physical therapy by his primary care provider. He reports that he does find massage helpful and often can feel palpable areas of muscle spasm. Has been using a topical patches. Had one such patch on just prior to arrival. On exam, he does have palpable spasm in this area. He does have the area exactly the size and shape of the patch that had been on it appears to be irritated consistent with contact dermatitis. I advised that he stop using this. Reports that he was using icy hot patch. We discussed other patches that may not be quite as irritating for him. However, I did advise that should this irritation persist he should stop using the patches completely. He reports that he took Percocet yesterday that was prescribed to him by his primary care physician. States that shortly after that he began vomiting. Vomited multiple times over the night into the morning. Is not nauseated at this time. States the Percocet has done this to him historically. He was prescribed tramadol as well after his surgery but reports that typically this was not successful in alleviating his discomfort. Primary concern today is his current kidney function as well as had to control pain. On exam, he appears nontoxic. He has the skin findings as noted above. Abdomen is soft and benign. He denies any change in his urinary habits, no dysuria, increased frequency or urgency. Denies any fevers or chills. No midline tenderness of the back. No recent trauma. Denies any testicular pain. No history of kidney stones. Patient I discussed treatment options. At this point, he prefers laboratory evaluation but with declines any imaging given the recent medical bills he has had. We will hydrate the patient as he does appear dry on exam, he does report diminished fluid intake recently Labs remain stable for the patient. No mucus ecchymosis. Is not anemic. He does have an elevated creatinine of 1.72 but the patient's labs since September of this year. Patient does report that since that time, he has had diminished fluid intake. I advised that this may be associated with dehydration. He is hydrating and eating well here. His AST and ALT are both historically. Patient reports that his pain has completely subsided at this time. He received 551,000 cc bolus that was ordered. He is doing well but around. He is eating and dri nking. I encouraged hydration. Advised Tylenol and ibuprofen as needed for discomfort. He has not had issues with tramadol historically, I am advised that he may continue with this this does not cause any side effects for the patient. He was given strict return precautions. All questina dn concerns were addressed, eh is in agreement with this plan.\ Patient had requested discharge prior to UA being completed, however, the results were back prior to him exiting the department. No evidence of infection. NEgative for blood. Hx is not consistent with stone, with no RBC in UA this is less liekly. Discussed results with the patient. HPI General Mode of arrival: ambulatory . Date/Time Provider Initiated Documentation: 11/06/18 11:16 . Limitations to Documentation: no limitations . Information obtained by: patient and RN notes reviewed . History of Present Illness 37 year old M presents to the emergency department with the chief complaint of left sided back pain, described as moderate and similar to prior episodes, Quality is described as aching, and is localized to the back. Patient reports no radiation. Patient started experiencing this week(s) and it has been intermittent. No relieving factors improve symptom(s), No exacerbating factors reported . Patient notes loss of appetite (diminished appetite since recent surgery) and nausea/vomiting (associates with PO percocet); denies chest pain, cough, diaphoresis, fever/chills, headaches, rash and shortness of breath. Patient did receive the following treatments prior to arrival, other (percocet) Related Data Home Medications Medication Instructions Recorded Confirmed bupropion HCl 150 mg tablet,12 hr 150 mg PO BID 01/16/18 10/11/18 sustained-release propranolol 20 mg tablet 20 mg PO BID 01/16/18 11/06/18 L.acidoph,saliva-B.bif-S.therm 175 1 cap PO DAILY 08/26/18 11/06/18 mg capsule sucralfate [Carafate] 1 gm PO QACHS #120 tab 09/19/18 11/06/18 acetaminophen [Tylenol] 650 mg PO Q6H PRN PRN #0 tab 09/29/18 10/11/18 tramadol 50 mg PO Q6H PRN #20 tab 09/29/18 11/06/18 tramadol 100 mg capsule 100 mg PO DAILY 10/04/18 11/06/18 24h,extended release(25-75) Previous Rx's Medication Instructions Recorded sucralfate [Carafate] 1 gm PO QACHS #120 tab 09/19/18 acetaminophen [Tylenol] 650 mg PO Q6H PRN PRN #0 tab 09/29/18 tramadol 50 mg PO Q6H PRN #20 tab 09/29/18 Allergies Allergy/AdvReac Type Severity Reaction Status Date / Time No Known Allergies Allergy Verified 11/06/18 11:17 General Stated Complaint: Nk/Back Pain ELVA: 3 Review of Systems Constitutional Reports as per HPI, Denies chills, Denies fatigue, Denies fever(s) and Denies headache(s) ENT Denies headache(s) Cardiovascular Reports as per HPI, Denies chest pain and Denies dyspnea Respiratory Reports as per HPI, Denies cough and Denies dyspnea Gastrointestinal Reports as per HPI and Reports vomiting Genitourinary Denies system reviewed and no additional complaints, except as docu (patient denies any change in urinary habits) Musculoskeletal Reports as per HPI and Reports back pain Integumentary/Breasts Reports as per HPI and Denies rash Neurologic Reports as per HPI and Denies headache(s) Endocrine Denies fatigue [facility] Medical History Anxiety (Chronic) Atypical chest pain (Acute) Chronic fatigue (Acute) Colon polyp (Acute) Depression (Chronic) Diverticulitis large intestine (Acute) Diverticulitis of both large and small intestine with perforation without abscess or bleeding (Acute) Diverticulitis of large intestine with perforation (Acute) Dizziness (Acute) Duodenitis without bleeding (Acute) Elevated cholesterol with elevated triglycerides (Acute) MIGUEL (generalized anxiety disorder) (Acute) MIGUEL (generalized anxiety disorder) (Acute) GERD (gastroesophageal reflux disease) (Chronic) History of open sigmoidectomy (Acute 09/25/18) Hyperlipidemia (Acute) Mood disorder (Acute) Right knee pain (Acute) Sigmoid stricture (Acute) Sleep disturbances (Acute) Visual disturbance (Acute) Surgical History History of colonoscopy (Resolved 09/17/18) Tongue abnormality (Acute) Social History Smoking/Tobacco Use Status: Former Tobacco Use Alcohol Intake: current Alcohol Intake frequency: holidays/special occasions only Drug use: Daily Substance use type: marijuana Household members: children Housing: house Number of Children: 1 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 [employer] What type of physical activity do you participate in: none Do you feel safe at home: Yes Do you feel safe in your relationship?: Yes Exam Const General: cooperative, healthy appearing, comfortable, no acute distress and well developed Nutritional Appearance: average body habitus and well nourished Orientation: alert and awake [facility] Head: normal to inspection Mouth: moist mucous membranes Resp Effort & Inspection: normal respiratory effort, able to speak in complete sentences and no respiratory distress Auscultation: clear to auscultation bilaterally, no rales, no rhonchi and no wheezes Cardio Rate: regular rate Rhythm: regular rhythm Heart Sounds: S1 normal and S2 normal GI Inspection: normal to inspection, no abdominal wall ecchymosis, non-distended and scar (incision appears to be healing well) Palpation: soft, no hepatosplenomegaly, not firm, no guarding, no hernias, not rigid and nontender Percussion: normal to percussion Auscultation: normal bowel sounds Back/Spine/Pelvis Back: no CVA tenderness Back/spine/pelvis image: 1. area of back pain, has contact dermatitis appears to be from patch. Palpable muscle tightness to this area. No midline tenderness, step off or deformity. Full ROM Skin General skin exam: erythema (contact dermatitis as above) Neuro General: alert and awake Cognition: normal cognition Speech: speech normal Gait: normal gait Psych Appearance: grossly normal and well kempt Mental Status: mental status grossly normal Speech and Movement: speech and movement normal Course Vital Signs Temperature 36.5 C 11/06/18 11:14 Pulse 68 11/06/18 11:14 Respiratory Rate 16 11/06/18 11:14 Blood Pressure 133/80 11/06/18 11:14 Pulse Oximetry 99 11/06/18 11:14 Temperature 36.5 C 11/06/18 11:14 Temperature Source Skin 11/06/18 11:14 Pulse 68 11/06/18 11:14 Respiratory Rate 16 11/06/18 11:14 Respiratory Effort Non-Labored 11/06/18 11:14 Blood Pressure 133/80 11/06/18 11:14 Pulse Oximetry 99 11/06/18 11:14 Oxygen Delivery Method Room Air 11/06/18 11:14 Oxygen Flow Rate 0 11/06/18 11:14 Pain Level 7 11/06/18 11:14
[2018-11-06 13:14] LABS: Abs Immature Grans 0.02 k/cumm (0.0-0.09); Absolute Basophil Count 0.04 k/cumm (0.0-0.2); Absolute Eosinophil Count 0.26 k/cumm (0.0-0.7); Absolute Lymphocyte Count 1.74 k/cumm (1.2-3.4); Absolute Monocyte Count 0.76 k/cumm (0.11-0.7); Absolute Neutrophil Count 3.93 k/cumm (1.2-6.7); Basophils % 0.6; Eosinophils % 3.9; HCT 41.9 % (40.0-50.0); HGB 13.9 g/dL (13.5-17.5); Immature Grans % 0.3; Lymphocytes % 25.8; Mean Corp. HGB Concentration 33.2 g/dL (32.0-36.0); Mean Corpuscular Hemoglobin 29.2 pg (27.0-33.0); Mean Platelet Volume 11.7 fL (8.0-11.0); Monocytes % 11.3; Neutrophils % 58.1; Platelet Count 220 x1000/uL (130-400); RBC 4.76 m/cumm (4.50-6.00); RBC Distribution Width 14.2 % (11.8-14.1); White Blood Cell Count 6.75 k/cumm (4.4-10.8)
[2018-11-06 13:36] LABS: ALT 112 U/L (12-78); AST 45 U/L (15-37); Albumin 3.9 g/dL (3.4-5.0); Alkaline Phosphatase 103 U/L (46-116); Anion Gap 8.9 mmol/L (3-11); BUN 15 mg/dL (7-18); Bilirubin, Total 0.5 mg/dL (0.2-1.0); CO2 27.1 mmol/L (21.0-32.0); CREATININE 1.72 mg/dL (0.70-1.30); Calcium 9.7 mg/dL (8.5-10.1); Chloride 104 mmol/L (98-107); Estimated GFR 44.72 (mL/min/1.73m2); Glucose 90 mg/dL (70-100); Lipase 207 U/L (73-393); Magnesium 2.1 mg/dL (1.8-2.4); Potassium 3.9 mmol/L (3.5-5.1); Sodium 140 mmol/L (136-145); Total Protein 7.9 g/dL (6.4-8.2)
[2018-11-06] MEDS: Normal Saline 1,000 ML 1000 ML IV (13:37)
[2018-11-06 14:10] LABS: Bilirubin Small (Negative); Blood Negative (Negative); Clarity Clear (Clear); Glucose Negative (Negative); Ketones Trace mg/dL (Negative); Leukocyte Esterase Negative (Negative); Nitrite Negative (Negative); Specific Gravity 1.015 (1.005-1.025); Urobilinogen 0.2 EU/dL (Up TO 0.2)
== END 2018-11-06 14:20 | disposition home or self-care (01) ==
PROVIDERS: Emergency Provider Physician Assistant; PCP Family Medicine
DX: M54.5 Low back pain (principal); E86.0 Dehydration
CPT/HCPCS: 36415; 80053; 83690; 96360; 99283; 81003; 83735; 85025

== ENCOUNTER 2018-11-14 01:31 | Outpatient (CLI) | payer OTHER, SELFPAY ==
--- NOTE | 2018-11-14 15:38 | DI.US_ITS ---
SYMPTOM/DIAGNOSIS: ELEVATED CREATININE, R94.4, LT FLANK PAIN RENAL ULTRASOUND: Right kidney appears normal with no evidence of mass, hydronephrosis or nephrolithiasis. Right kidney measures 9.4 cm. in length. Left kidney measures 11.0 cm. in length and there is moderate hydronephrosis. This is new since previous CT of 09/14/18. No left ureteral jet is identified. Right ureteral jet is seen. Urinary bladder grossly unremarkable with pre and post void urinary bladder volume measurements of 51 cc's and 0 cc's respectively. CONCLUSION: Findings consistent with left ureteral obstruction. Correlation with CT urogram may be obtained if clinically indicated to identify the level and the cause of the obstruction. The findings are new since 09/14/2018 CT.
== END 2018-11-14 01:51 ==
PROVIDERS: PCP Family Medicine; Visit Provider Family Medicine
DX: R10.32 Left lower quadrant pain (principal); R94.4 Abnormal results of kidney function studies; N13.1 Hydronephrosis with ureteral stricture, not elsewhere classified
CPT/HCPCS: 76770

== ENCOUNTER 2018-12-19 09:17 | Outpatient (CLI) | payer OTHER, SELFPAY ==
[2018-12-19 10:40] LABS: ALT 45 U/L (16-63); AST 22 U/L (15-37); Albumin 3.9 g/dL (3.4-5.0); Alkaline Phosphatase 121 U/L (46-116); Anion Gap 9.5 mmol/L (3-11); BUN 21 mg/dL (7-18); Bilirubin, Total 0.4 mg/dL (0.2-1.0); CO2 28.5 mmol/L (21.0-32.0); CREATININE 1.55 mg/dL (0.70-1.30); Chloride 106 mmol/L (98-107); Estimated GFR 50.17 (mL/min/1.73m2); Glucose 89 mg/dL (70-100); Potassium 4.3 mmol/L (3.5-5.1); Sodium 144 mmol/L (136-145); Total Protein 7.6 g/dL (6.4-8.2)
[2018-12-19 10:50] LABS: Calcium 9.8 mg/dL (8.5-10.1)
== END 2018-12-19 09:37 ==
PROVIDERS: PCP Family Medicine; Visit Provider Family Medicine
DX: R74.8 Abnormal levels of other serum enzymes (principal); N13.5 Crossing vessel and stricture of ureter without hydronephrosis
CPT/HCPCS: 36415; 80053

== ENCOUNTER 2019-03-27 15:55 | Outpatient (CLI) | payer OTHER, SELFPAY | END 2019-03-27 16:15 | PROVIDERS: PCP Family Medicine; Visit Provider Urology | DX: R39.9 Unspecified symptoms and signs involving the genitourinary system (principal) | CPT/HCPCS: 87086 ==

== ENCOUNTER 2019-06-11 12:00 | Outpatient (REF) | payer OTHER, SELFPAY ==
[2019-06-11 12:21] LABS: Anion Gap 8.3 mmol/L (3-11); BUN 15 mg/dL (7-18); C-Reactive Protein 0.14 mg/dL (0.0-0.3); CO2 25.7 mmol/L (21.0-32.0); CREATININE 1.25 mg/dL (0.70-1.30); Calcium 9.2 mg/dL (8.5-10.1); Chloride 107 mmol/L (98-107); Glucose 100 mg/dL (74-106); Potassium 4.1 mmol/L (3.5-5.1); Sodium 141 mmol/L (136-145)
[2019-06-11 12:51] LABS: ALT 30 U/L (16-63); AST 26 U/L (15-37); Albumin 4.3 g/dL (3.4-5.0); Alkaline Phosphatase 95 U/L (46-116); Bilirubin, Total 0.5 mg/dL (0.2-1.0); Total Protein 7.1 g/dL (6.4-8.2)
== END 2019-06-11 12:20 ==
LOC: NCHCN 12:00
PROVIDERS: PCP Family Medicine; Visit Provider Family Medicine
DX: R63.4 Abnormal weight loss (principal); N28.9 Disorder of kidney and ureter, unspecified; F39 Unspecified mood [affective] disorder
CPT/HCPCS: 80048; 80053; 86140

== ENCOUNTER 2019-07-02 11:22 | Outpatient (REF) | payer OTHER, SELFPAY ==
[2019-07-02 19:49] LABS: TSH (W/Ref FT4) 2.12 uIU/mL (0.36-3.74)
== END 2019-07-02 11:42 ==
LOC: NCHCN 11:22
PROVIDERS: PCP Family Medicine; Visit Provider Family Medicine
DX: F41.9 Anxiety disorder, unspecified (principal)
CPT/HCPCS: 84443

== ENCOUNTER 2019-08-08 09:19 | Outpatient (REF) | payer OTHER, SELFPAY ==
[2019-08-08 16:18] LABS: Abs Immature Grans 0.02 k/cumm (0.0-0.09); Absolute Basophil Count 0.05 k/cumm (0.0-0.2); Absolute Eosinophil Count 0.19 k/cumm (0.0-0.7); Absolute Lymphocyte Count 1.93 k/cumm (1.2-3.4); Absolute Monocyte Count 0.59 k/cumm (0.11-0.7); Absolute Neutrophil Count 3.63 k/cumm (1.2-6.7); Basophils % 0.8; HCT 43.3 % (40.0-50.0); HGB 14.5 g/dL (13.5-17.5); Immature Grans % 0.3 %; Lymphocytes % 30.1; Mean Corp. HGB Concentration 33.5 g/dL (32.0-36.0); Mean Corpuscular Hemoglobin 30.1 pg (27.0-33.0); Mean Corpuscular Volume 89.8 fL (80-95); Mean Platelet Volume 12.6 fL (8.0-11.0); Monocytes % 9.2; Neutrophils % 56.6; Platelet Count 159 x1000/uL (130-400); RBC 4.82 m/cumm (4.50-6.00); RBC Distribution Width 13.9 % (11.8-14.1); White Blood Cell Count 6.41 k/cumm (4.4-10.8)
[2019-08-08 16:38] LABS: VALPROIC ACID 54.6 ug/mL (50-100)
[2019-08-08 17:01] LABS: Vitamin B12 600 pg/mL (193-986)
[2019-08-11 09:46] LABS: Vitamin D 25 Total 16.5 ng/ml (30-100)
== END 2019-08-08 09:39 ==
LOC: NCHCN 09:19
PROVIDERS: PCP Family Medicine; Visit Provider Nurse Practitioner Psychiatric/Mental Health
DX: Z51.81 Encounter for therapeutic drug level monitoring (principal); F41.9 Anxiety disorder, unspecified
CPT/HCPCS: 82306; 80164; 82607; 85025

== ENCOUNTER 2019-10-01 01:46 | Outpatient (CLI) | payer OTHER, SELFPAY ==
--- NOTE | 2019-10-01 | DI.US_ITS ---
EXAM: US RENAL CLINICAL HISTORY: LT FLANK PAIN,R10.9,URETERAL OBSTRUCTION,N13.5 TECHNIQUE: Ultrasound performed using standard protocol. COMPARISON: No exams were available for comparison FINDINGS: The kidneys are normal in size and shape. There is no evidence of a renal mass, hydronephrosis, or n ephrolithiasis. Urinary bladder is unremarkable in appearance with pre and post void urinary bladder measurements 206 cc and 32 cc respectively. Bladder wall does not appear thickened. Ureteral jets are nonvisualized. Estimated prostate volume 19 cc. IMPRESSION: Negative renal ultrasound. DATA REPOSITORY:
== END 2019-10-01 02:06 ==
PROVIDERS: PCP Family Medicine; Visit Provider Family Medicine
DX: R10.32 Left lower quadrant pain (principal)
CPT/HCPCS: 76770

== ENCOUNTER 2019-10-01 02:35 | Outpatient (CLI) | payer OTHER, SELFPAY ==
[2019-10-01 14:52] LABS: VALPROIC ACID 61.7 ug/mL (50-100)
[2019-10-01 15:58] LABS: ALT 26 U/L (16-63); AST 19 U/L (15-37); Albumin 3.8 g/dL (3.4-5.0); Alkaline Phosphatase 80 U/L (46-116); Anion Gap 8.5 mmol/L (3-11); BUN 19 mg/dL (7-18); Bilirubin, Total 0.4 mg/dL (0.2-1.0); CO2 28.5 mmol/L (21.0-32.0); CREATININE 1.16 mg/dL (0.70-1.30); Calcium 9.1 mg/dL (8.5-10.1); Chloride 106 mmol/L (98-107); Glucose 88 mg/dL (74-106); Potassium 4.6 mmol/L (3.5-5.1); Sodium 143 mmol/L (136-145); TSH (W/Ref FT4) 2.39 uIU/mL (0.36-3.74); Total Protein 6.8 g/dL (6.4-8.2)
[2019-10-01 16:00] LABS: C-Reactive Protein < 0.05 mg/dL (0.0-0.3)
== END 2019-10-01 02:55 ==
PROVIDERS: PCP Family Medicine; Visit Provider Family Medicine
DX: R63.4 Abnormal weight loss (principal); F41.9 Anxiety disorder, unspecified; F39 Unspecified mood [affective] disorder; F31.12 Bipolar disorder, current episode manic without psychotic features, moderate; Z51.81 Encounter for therapeutic drug level monitoring; Z79.899 Other long term (current) drug therapy
CPT/HCPCS: 36415; 80053; 80164; 84443; 86140

== ENCOUNTER 2019-11-18 16:11 | Outpatient (REF) | payer OTHER, SELFPAY ==
[2019-11-18 20:35] LABS: VALPROIC ACID 86.3 ug/mL (50-100)
== END 2019-11-18 16:31 ==
LOC: NCHCN 16:11
PROVIDERS: PCP Family Medicine; Visit Provider Nurse Practitioner Psychiatric/Mental Health
DX: Z51.81 Encounter for therapeutic drug level monitoring (principal)
CPT/HCPCS: 80164

== ENCOUNTER 2020-02-08 13:25 | Emergency (ER) | payer OTHER, SELFPAY ==
[2020-02-08 13:30] VITALS: BP 129/72; PULSE 65; RESP 16; TEMP 36.6; O2SAT 98
--- NOTE | 2020-02-08 13:30 | DI.RAD_ITS ---
EXAM: XR FINGER RT RING CLINICAL HISTORY: laceration. TECHNIQUE: 2D digital imaging was performed. COMPARISON: No exams were available for comparison FINDINGS: BONES: No acute fracture is present. No bony destructive lesion is seen. JOINTS: No dislocation present. SOFT TISSUE: There is a small laceration at the anterior aspect of the tip of the right finger best a ppreciated on the lateral view. No radiopaque foreign body. IMPRESSION: 1. No evidence of acute fracture, dislocation, or subluxation. 2. Small a serration at the tip of the right ring finger. DATA REPOSITORY: RADIATION DOSE DELIVERED:
--- NOTE | 2020-02-08 13:33 | ED.GENADUL_ITS ---
Discharge Plan Disposition Patient Disposition: HOME Condition: Stable Discharge Details Clinical Impression: Laceration of blood vessel of right ring finger Primary Care Provider: Manuel James ED Provider: John Tamez Home Meds and New Rx's Prescriptions: Continued divalproex 500 mg tablet extended release 24 hr 500 mg PO QHS RF: 0 Discharge Instructions Instructions: Finger Laceration (ED) Additional Instructions: Keep wound dressed with sterile dressing. Change dressing daily and monitor for signs of infection including increased redness, warmth, drainage, pain, swel ling. Please return for suture removal in 12 days. Return to the ER for any worsening or new concerning symptoms. Medical Decision Making <John Tamez MD - Last Filed: 02/08/20 14:47> 39-year-old male here with laceration to right fourth digit. Last tetanus 2011. Will provide booster. X-ray of the finger was reviewed and interpreted by me: No foreign body. No bony injury. Digital block was performed after patient provided informed consent. Laceration repaired without complication. Sterile dressing was applied by nursing. Usual customary discharge instructions were reviewed with the patient. <CHARLES Campos - Last Filed: 02/08/20 14:54> My name was entered in error, I did not see this patient. HPI <John Tamez MD - Last Filed: 02/08/20 14:47> General Mode of arrival: ambulatory . Date/Time Provider Initiated Documentation: 02/08/20 13:33 . Limitations to Documentation: no limitations . Information obtained by: patient . HPI Narrative: 39-year-old male here with finger laceration. Patient notes he was cutting up a deer and accidentally grabbed the blade of the knife and lacerated his finger. This occurred just prior to arrival. Wound is been bleeding. Wound is moderate. Bleeding improved with pressure. No associated numbness or tingling. Related Data Home Medications Medication Instructions Recorded Confirmed divalproex 500 mg PO QHS 02/08/20 02/08/20 Allergies Allergy/AdvReac Type Severity Reaction Status Date / Time No Known Allergies Allergy Verified 11/06/18 11:17 <CHARLES Campos - Last Filed: 02/08/20 14:54> General Stated Complaint: Laceration ELVA: 4 Review of Systems <John Tamez MD - Last Filed: 11/01/20 14:47> Integumentary/Breasts Skin/Breast: Reports as per HPI Neurologic Neurologic: Reports as per HPI PFSH <John Tamez MD - Last Filed: 02/08/20 14:47> Medical History Anxiety Atypical chest pain Chronic fatigue Colon polyp Depression Diverticulitis large intestine Diverticulitis of both large and small intestine with perforation without abscess or bleeding Pt is non-toxic and hemodynamically stable Will admit to surgical service bowel rest IV fluids IV antibiotics serial exams Diverticulitis of large intestine with perforation Dizziness Duodenitis without bleeding Elevated cholesterol with elevated triglycerides MIGUEL (generalized anxiety disorder) MIGUEL (generalized anxiety disorder) GERD (gastroesophageal reflux disease) History of open sigmoidectomy (09/25/18) LOULOU Coombs Hyperlipidemia Mood disorder Right knee pain Sigmoid stricture Sleep disturbances Visual disturbance Surgical History History of colonoscopy (09/17/18) LOULOU Coombs Tongue abnormality H/o clipped tongue Social History Smoking/Tobacco Use Status: Former Tobacco Use Smoking risk assessment performed?: Yes Alcohol Intake: current Alcohol Intake frequency: holidays/special occasions only Drug use: Daily Substance use type: marijuana Household members: children Housing: house Number of Children: 1 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 [employer] What type of physical activity do you participate in: none Do you feel safe at home: Yes Do you feel safe in your relationship?: Yes Exam <John Tamez MD - Last Filed: 02/08/20 14:47> Skin Trauma: laceration (1.5 cm linear horizontal across distal right fourth digit, palmar surface) Extrem Right upper extremity: hand Details: neuromotor exam normal, neurosensory exam normal, tendon exam normal and laceration (distal 4th palmar) <CHARLES Campos - Last Filed: 02/08/20 14:54> Vital Signs Vital signs: Vital Signs Temperature 36.6 C 02/08/20 13:30 Pulse 65 02/08/20 13:30 Respiratory Rate 16 02/08/20 13:30 Blood Pressure 129/72 02/08/20 13:30 Pulse Oximetry 98 02/08/20 13:30 Temperature 36.6 C 02/08/20 13:30 Temperature Source Skin 02/08/20 13:30 Pulse 65 02/08/20 13:30 Respiratory Rate 16 02/08/20 13:30 Respiratory Effort Non-Labored 02/08/20 13:31 Blood Pressure 129/72 02/08/20 13:30 Blood Pressure Position Sitting 02/08/20 13:30 Pulse Oximetry 98 02/08/20 13:30 Oxygen Delivery Method Room Air 02/08/20 13:30 Oxygen Flow Rate 0 02/08/20 13:30 Pain Level 3 02/08/20 13:30 Procedures <John Tamez MD - Last Filed: 02/08/20 14:47> Laceration Laceration 1: Site: upper extremity Side (If applicable): right Size (cm): 1.5 Description: linear Depth: simple, single layer Local Anesthetic: other anesthetic (digital block) Pre-repair: wound explored, irrigated extensively and deep structures intact Skin layer closed with: other (prolene) Size (cm): 5-0 Number of sutures: 4 Technique: simple, interrupted Nerve Block Nerve Block 1: Local Anesthetic: Bupivicaine 0.5% Amount of anesthesia used (mL): 5 Side: right (4th digit) Nerve Blocks: digital Procedure Successful: Yes Patient Tolerated Procedure: well Complications: none
[2020-02-08] MEDS: Bupivacaine 0.5% Pres-Free 30 ML VIAL IJ (13:47)
--- NOTE | 2020-02-08 14:15 | DI.VRAD_ITS ---
PROCEDURE INFORMATION: Exam: XR Right Finger(s) Exam date and time: 02/08/2020 1:42 PM Age: 39 years old Clinical indication: Other: Laceration distal ring finger TECHNIQUE: Imaging protocol: XR Right fingers. Views: Minimum 2 views. COMPARISON: No relevant prior studies available. FINDINGS: Bones/joints: There is a small laceration or skin defect in the volar aspect of the tip of the ring finger. There is no acute fracture or dislocation. Soft tissues: Normal. IMPRESSION: 1. No acute fracture or dislocation. 2. Small laceration in tip of ring finger. Dictated and Authenticated by: Mino Javier MD. Ordering:JESSE Lopez MD
[2020-02-08 14:47] VITALS: BP 129/72; PULSE 65; RESP 16; TEMP 36.6; O2SAT 98
== END 2020-02-08 14:50 | disposition home or self-care (01) ==
PROVIDERS: Emergency Provider Student in an Organized Health Care Education/Training Program; PCP Family Medicine
DX: S61.214A Laceration without foreign body of right ring finger without damage to nail, initial encounter (principal); W26.0XXA Contact with knife, initial encounter
CPT/HCPCS: 12001; 90471; 73140

== ENCOUNTER 2020-02-23 15:01 | Emergency (ER) | payer SELFPAY ==
[2020-02-23 15:11] VITALS: BP 131/78; PULSE 78; TEMP 36.8; O2SAT 96
[2020-02-23 15:12] VITALS: BP 131/78; PULSE 78; TEMP 36.8; O2SAT 96
--- NOTE | 2020-02-23 15:13 | W.ED.GENAD ---
Discharge Plan Disposition Patient Disposition: HOME Condition: Good Discharge Details Clinical Impression: Encounter for wound re-check, Encounter for removal of sutures Primary Care Provider: Manuel James ED Provider: Butch Antoine Home Meds and New Rx's Prescriptions: Continued divalproex 500 mg tablet extended release 24 hr 1,000 mg PO QHS RF: 0 Discharge Instructions Additional Instructions: Please keep the area clean and dry. Keep a Band-Aid over it for the next week as added protection. If you notice any worsening of your symptoms, or any new symptoms such as vomiting, diarrhea, fever, chills, shortness of breath, chest pain, numbness, weakness, redness, pain or drainage, or fainting , please return immediately to the emergency department for reevaluation. Please follow up with your primary care provider as soon as possible for reassessment and reevaluation. As always, it was a pleasure participating in your medical care today. Referrals: Manuel James [Primary Care Provider] - Medical Decision Making 39-year-old male presents for suture removal. 4 sutures were placed, and today for was subsequently removed. The patient movement capillary refill is all notably intact, no signs of dehiscence or infection. A small layer of glue was applied to the previous laceration site fracture stability. Discussed red flags which return. I have extensively reviewed the treatment plan and discharge instructions with the patient. I have addressed all patient concerns at this time. The patient was made aware of what symptoms to monitor for that would warrant a return to the emergency department. Discussed the plan with the patient, they demonstrate verbal understanding and agreement with our assessment and plan at this time. HPI General Date/Time Provider Initiated Documentation: 02/23/20 15:05. HPI Narrative: 39-year-old man returns for suture removal. No complaints and sutures were placed. No redness drainage fever or chills. Related Data Home Medications Medication Instructions Recorded Confirmed divalproex 1,000 mg PO QHS 02/08/20 02/23/20 Allergies Allergy/AdvReac Type Severity Reaction Status Date / Time No Known Allergies Allergy Verified 02/23/20 15:15 General Stated Complaint: SutureRem ELVA: 5 Review of Systems All systems reviewed & are unremarkable except as noted in HPI and below [facility] Medical History (Updated 02/23/20 @ 15:16 by Butch Antoine DO) Anxiety Atypical chest pain Chronic fatigue Colon polyp Depression Diverticulitis large intestine Diverticulitis of both large and small intestine with perforation without abscess or bleeding Pt is non-toxic and hemodynamically stable Will admit to surgical service bowel rest IV fluids IV antibiotics serial exams Diverticulitis of large intestine with perforation Dizziness Duodenitis without bleeding Elevated cholesterol with elevated triglycerides MIGUEL (generalized anxiety disorder) MIGUEL (generalized anxiety disorder) GERD (gastroesophageal reflux disease) History of open sigmoidectomy (09/25/18) LOULOU Coombs Hyperlipidemia Mood disorder Right knee pain Sigmoid stricture Sleep disturbances Visual disturbance Surgical History History of colonoscopy (09/17/18) LOULOU Coombs Tongue abnormality H/o clipped tongue Social History Smoking/Tobacco Use Status: Former Tobacco Use Smoking risk assessment performed?: Yes Alcohol Intake: current Alcohol Intake frequency: holidays/special occasions only Drug use: Daily Substance use type: marijuana Household members: children Housing: house Number of Children: 1 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 3.ENT: Atraumatic external nose and ears. Moist MM. Neck: Symmetric, trachea midline, No thyromegaly. 4.CVS: Peripheral pulses 2+ and equal in all extremities. Brisk capillary refill in all extremities. 5.RESP: Unlabored respiratory effort. 6.GI: Soft 7.MSK: Normocephalic/Atraumatic, Extremities w/o deformity or ttp No cyanosis or clubbing, Normal movement of all extremities 8.Skin: Warm, Dry. No rashes or lesions. Laceration to the affected finger demonstrates excellent wound healing, no signs of dehiscence, redness or drainage. Sensation is intact. No deficits, brisk capillary refill 9.Neuro: rn managed care II-XII grossly intact. Sensation grossly intact, no focal neurologic deficits. 10.Psych: (AAO) x3. Appropriate mood and affect Course Vital Signs Vital signs: Vital Signs Temperature 36.8 C 02/23/20 15:11 Pulse 78 02/23/20 15:11 Blood Pressure 131/78 02/23/20 15:11 Pulse Oximetry 96 02/23/20 15:11 Temperature 36.8 C 02/23/20 15:11 Temperature Source Temporal Artery Scan 02/23/20 15:11 Pulse 78 02/23/20 15:11 Blood Pressure 131/78 02/23/20 15:11 Blood Pressure Position Sitting 02/23/20 15:11 Pulse Oximetry 96 02/23/20 15:11 Oxygen Delivery Method Room Air 02/23/20 15:11 Oxygen Flow Rate 0 02/23/20 15:11 Pain Level 0 02/23/20 15:11
== END 2020-02-23 15:20 | disposition home or self-care (01) ==
PROVIDERS: Emergency Provider Student in an Organized Health Care Education/Training Program; PCP Family Medicine
DX: S61.214D Laceration without foreign body of right ring finger without damage to nail, subsequent encounter (principal); W26.0XXD Contact with knife, subsequent encounter; Z48.02 Encounter for removal of sutures

== ENCOUNTER 2020-11-05 11:35 | Emergency (ER) | payer SELFPAY ==
[2020-11-05 11:41] VITALS: BP 122/72; PULSE 109; RESP 20; TEMP 37.2; O2SAT 95
--- NOTE | 2020-11-05 11:53 | ED.GENADUL_ITS ---
Discharge Plan Disposition Patient Disposition: HOME Condition: Improving Discharge Details Clinical Impression: Pneumonia due to 2019 novel coronavirus, Multifocal pneumonia Primary Care Provider: Manuel James ED Provider: Tess Bob Home Meds and New Rx's Prescriptions: New amoxicillin-pot clavulanate [Augmentin] 875-125 mg tablet 1 tab PO BID 6 Days Qty: 12 RF: 0 azithromycin [Zithromax] 500 mg tablet 500 mg PO DAILY 4 Days Qty: 4 RF: 0 Continued divalproex 500 mg tablet extended release 24 hr 1,000 mg PO QHS RF: 0 Discontinued ondansetron 4 mg Tablet,Disintegrating 4 mg PO PRN PRNRF: 0 Discharge Instructions Instructions: Pneumonia (ED), COVID-19 (Coronavirus Disease 2019) (ED) Additional Instructions: Drink plenty of fluids and get plenty of rest. Alternate tylenol and motrin as needed and directed for pain. Use the albuterol inhaler as needed and directed for any persistent coughing or shortness of breath. Your prescriptions has been sent electronically to your pharmacy. Call the pharmacy to make sure your prescriptions is ready before pickup. Take the prescriptions as directed. Follow-up with your primary care doctor in 1 week. Return to the emergency department with any worsening or new concerning symptoms such as persistent vomiting, worsening shortness of breath or any other Discharge Data Discharge Date/Time-TO BE ENTERED AT DEPARTURE: 11/05/20 15:38 Discharge Physician: Tess Bob Medical Decision Making 39-year-old male with a history of GERD and diverticulitis with colon resection and colostomy with reversal diagnosed with COVID-19 two days ago presents with fever, chills, cough, intermittent shortness of breath, abdominal pain and concern for potential recurrence of his diverticulitis. He denies any significant worsening of abdominal pain but states he felt a flush and sweats this morning which was similar to when he had diverticulitis with perforation. He states this was the main concern being him to the emergency department. He denies any shortness of breath at present. His heart rate is 109, remainder vitals within normal limits. Patient appears generally fatigued but nontoxic. Normal O2 saturation. His lungs are clear. His abdomen is soft with tenderness in the left lower quadrant. Discussed with patient that his symptoms could be due solely for COVID-19. Considering his concerns and history, will obtain CT chest abdomen and pelvis in addition to screening labs. Will place an IV, bolus IV fluids, IV Tylenol and Toradol and reassess. Labs reviewed and unremarkable. CT chest notes multifocal pneumonia but negative for PE. CT abdomen and pelvis negative for acute findings. Patient reassessed and he states he feels much better and feels good to go home. As the multifocal pneumonia may have a superimposed atypical bacterial infection, will treat with antibiotics. Patient was given a dose of Augmentin and Zithromax here and prescription sent electronically to her pharmacy. He had normal oxygen saturations and demonstrated no signs of respiratory distress here, but we will send with an albuterol inhaler to use if needed. Advised to follow up with the primary care doctor for re-evaluation. Usual and customary return precautions given prior to discharge. Medical Records Medical records reviewed: Yes I reviewed the patient's medical records. Imaging Data Radiologic Study: Radiologist's impression: CT CHEST PE ABD PELVIS W CLINICAL HISTORY: cough, shortness of breath, LLQ abd pain. TECHNIQUE: Imaging Protocol: Axial CT angiography was performed with multi- slice acquisition and multi-planar and/or 3D reconstructions. CONTRAST MATERIAL: Intravenous: Omnipaque 350 Contrast volume:100 mL COMPARISON: CT CT CHEST/ABD/PEL W from 09/14/2018 FINDINGS: CHEST: Pulmonary Arteries: No evidence of filling defect to suggest pulmonary emboli. Tracheobronchial tree: Patent where visualized. Mediastinum and Lori: There are mildly enlarged lymph nodes in the lori which are likely reactive. No fluid collection is seen. Pulmonary parenchyma: There are multiple ground-glass opacities in the lungs predominantly in the lower lobes and peripherally. No architectural distortion. Pleura: No effusion or pneumothorax. Heart: The heart is not dilated. No coronary artery calcifications are seen. No pericardial effusion. Aorta: Thoracic aorta non-dilated. No dissection. Bones: Normal. ABDOMEN: Liver: Normal density. No measurable mass. Portal, Superior Mesenteric, and Splenic Veins: Unremarkable. Gallbladder and Biliary Tract: No radiodense calculus or dilation. Pancreas: Normal density, no abnormal calcifications or inflammatory process. Spleen: Normal. Adrenals: No masses seen. Kidneys: Normal size, contour and axis. No radiodense stones or obstructive uropathy. There is a solitary tiny hypodensity in each kidney. They are too too small for further characterization, but likely reflect small cysts. Abdominal Aorta: Abdominal portion non-dilated. Bowel: No obstruction or bowel wall thickening. Appendix is unremarkable. Prior sigmoid anastomosis. Peritoneal Cavity: No ascites, collection or mesenteric inflammatory response. No free air. Lymph Nodes: Within normal limits. Bones: Unremarkable. Soft Tissues: Unremarkable. PELVIS: Bladder: Symmetric distention, no gross wall thickening. Reproductive Organs: Unremarkable as visualized. Lymph Nodes: Within normal limits. Bones: Within normal limits. IMPRESSION: 1. No evidence of pulmonary embolism, thoracic aortic dissection or aneurysm. 2. Multifocal ground-glass opacities in the lungs. Findings are most suggestive of pneumonia. Atypical or viral pneumonia should be considered including COVID-19 pneumonia. 3. No acute abdominal or pelvic process. 4. Results of this exam have been verbally communicated with provider. Lab Data Lab results reviewed: Yes I reviewed the patient's lab results. Labs: Laboratory Tests Range/Units 11/05/20 11/05/20 12:53 12:53 WBC (4.4-10.8) 10^3/uL 5.25 RBC (4.36-5.78) 10^6/uL 5.51 Hgb (13.5-17.5) g/dL 16.5 Hct (40.0-50.0) % 48.9 MCV (80-95) fL 88.7 MCH (27.0-33.0) pg 29.9 MCHC (32.0-36.0) % 33.7 RDW (11.8-14.1) % 12.3 Plt Count (130-400) 10^3/uL 105 L MPV (8.0-11.0) fL 12.9 H Immature Gran % 0.8 Neutrophils % 76.1 Lymphocytes % 12.4 Monocytes % 10.3 Eosinophils % 0.0 Basophils % 0.4 Nucleated RBC % % 0 Absolute Neutrophils (1.2-6.7) 10^3/uL 4.00 Absolute Lymphocytes (1.2-3.4) 10^3/uL 0.65 L Absolute Monocytes (0.1-0.8) 10^3/uL 0.54 Absolute Eosinophils (0.0-0.7) 10^3/uL 0.00 Absolute Basophils (0.0-0.2) 10^3/uL 0.02 Sodium (136-145) mmol/L 142 Potassium (3.5-5.1) mmol/L 4.4 Chloride (98-107) mmol/L 105 Carbon Dioxide (21.0-32.0) mmol/L 26.5 Anion Gap (3-11) mmol/L 10.5 BUN (7-18) mg/dL 15 Creatinine (0.70-1.30) mg/dL 1.3 Estimated GFR/1.73 m2 (mL/min/1.73m2) >= 60.00 Glucose (74-106) mg/dL 98 Calcium (8.5-10.1) mg/dL 8.6 Total Bilirubin (0.2-1.0) mg/dL 0.3 AST (15-37) U/L 20 ALT (16-63) U/L 28 Alkaline Phosphatase (46-116) U/L 94 Total Protein (6.4-8.2) g/dL 7.9 Albumin (3.4-5.0) g/dL 3.5 Lipase (73-393) U/L 118 HPI General Mode of arrival: ambulatory . Date/Time Provider Initiated Documentation: 11/05/20 11:39 . Limitations to Documentation: no limitations . Information obtained by: patient . HPI Narrative: Patient is a 39-year-old male with a history of GERD and previous diverticulitis requiring colon resection and colostomy with reversal who was diagnosed with Covid 2 days ago presents with fever, chills, cough, intermittent shortness of breath, diarrhea, and abd ominal pain and concern for recurrence of his diverticulitis. Patient states his T-max has been 102. He states his symptoms started 1 week ago for which he had outpatient Covid testing ordered 4 days ago which resulted as +2 days ago. He states his symptoms are started with fever and upper respiratory symptoms then progressed to diarrhea. He states this morning he felt a flush with sweats which she had previously with his diverticulitis with perforation and was concerned about a recurrence of this. He states he has had some abdominal pain this week with his other symptoms and states it is present today but no worse than usual. He had been having diarrhea this week but has not had a bowel movement for 2 days. He has been spitting up bile at times. He has not taken any medication for his symptoms today. He states his whole family is now Covid positive after a possible exposure at a family gathering recently. He states he is not vaccinated and would never get that vaccine. Related Data Home Medications Medication Instructions Recorded Confirmed divalproex 1,000 mg PO QHS 02/08/20 11/05/20 amoxicillin-pot clavulanate 1 tab PO BID 6 Days #12 tab 11/05/20 [Augmentin] azithromycin [Zithromax] 500 mg PO DAILY 4 Days #4 tab 11/05/20 Previous Rx's Medication Instructions Recorded amoxicillin-pot clavulanate 1 tab PO BID 6 Days #12 tab 11/05/20 [Augmentin] azithromycin [Zithromax] 500 mg PO DAILY 4 Days #4 tab 11/05/20 Allergies Allergy/AdvReac Type Severity Reaction Status Date / Time No Known Allergies Allergy Verified 11/05/20 11:53 General Stated Complaint: GenMedical ELVA: 3 Review of Systems All systems reviewed & are unremarkable except as noted in HPI and below Constitutional Constitutional: Reports as per HPI, Denies chills, Reports fatigue, Reports fever(s) and Reports poor appetite Eyes Eyes: Denies blurry vision ENT Ears, Nose, Mouth, and Throat: Denies dizziness, Denies sore throat and Denies throat swelling Cardiovascular Cardiovascular: Denies chest pain and Reports dyspnea Respiratory Respiratory: Reports cough and Reports dyspnea Gastrointestinal Gastrointestinal: Reports abdominal pain, Reports diarrhea and Denies vomiting Genitourinary Genitourinary: Denies hematuria and Denies dysuria Musculoskeletal Musculoskeletal: Denies back pain and Denies numbness Integumentary/Breasts Skin/Breast: Denies lesions and Denies rash Neurologic Neurologic: Denies dizziness, Denies localized weakness and Denies numbness Endocrine Endocrine: Reports fatigue Allergic/Immunologic Allergic/Immunologic: Denies throat swelling [facility] Medical History (Updated 11/05/20 @ 15:14 by Tess Bob DO) Anxiety Atypical chest pain Chronic fatigue Colon polyp Depression Diverticulitis large intestine Diverticulitis of both large and small intestine with perforation without abscess or bleeding Pt is non-toxic and hemodynamically stable Will admit to surgical service bowel rest IV fluids IV antibiotics serial exams Diverticulitis of large intestine with perforation Dizziness Duodenitis without bleeding Elevated cholesterol with elevated triglycerides MIGUEL (generalized anxiety disorder) MIGUEL (generalized anxiety disorder) GERD (gastroesophageal reflux disease) History of open sigmoidectomy (09/25/18) Dr Mariely Baldwin [facility] Hyperlipidemia Mood disorder Right knee pain Sigmoid stricture Sleep disturbances Visual disturbance Surgical History History of colonoscopy (09/17/18) Dr Mariely Baldwin [facility] Tongue abnormality H/o clipped tongue Social History Smoking/Tobacco Use Status: Former Tobacco Use Smoking risk assessment performed?: Yes Alcohol Intake: current Alcohol Intake frequency: holidays/special occasions only Drug use: Daily Substance use type: marijuana Details: quit smoking 10+ years ago no marijuana since COVID symptoms began Household members: children Housing: house Number of Children: 1 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 [employer] What type of physical activity do you participate in: none Do you feel safe at home: Yes Do you feel safe in your relationship?: Yes Exam Const General: cooperative, healthy appearing and no acute distress HENMT Head: normal to inspection Face and sinus: normal facial exam Eyes General: appearance normal, both eyes and all related structures EOM: EOM intact bilaterally Neck Neck: normal visual inspection and No submandibular swelling Lymphatic: no lymphadenopathy noted Chest Chest: normal inspection of the chest and no tenderness Resp Effort & Inspection: normal respiratory effort and able to speak in complete sentences Auscultation: clear to auscultation bilaterally Cardio Rate: regular rate Rhythm: regular rhythm GI Inspection: normal to inspection and scar (Anterior abdomen, no cellulitis) Palpation: soft, not firm, not rigid and tender in the LLQ Auscultation: hypoactive bowel sounds Skin General skin exam: no rashes or lesions noted Neuro General: patient alert, patient awake and patient oriented x3 Cognition: normal cognition Speech: speech normal Motor: muscle tone normal throughout Sensory Exam: no sensory deficits noted Extrem General: normal to inspection, full ROM, capillary refill normal, no calf tenderness bilaterally and no edema Psych Appearance: grossly normal Mental Status: mental status grossly normal Speech and Movement: speech and movement normal Affect: normal affect Course Vital Signs Vital signs: Vital Signs Temperature 99.0 F 11/05/20 11:41 Pulse 109 H 11/05/20 11:41 Respiratory Rate 20 11/05/20 11:41 Blood Pressure 122/72 11/05/20 11:41 Pulse Oximetry 95 11/05/20 11:41 Temperature 99.0 F 11/05/20 11:41 Temperature Source Skin 11/05/20 11:41 Pulse 109 H 11/05/20 11:41 Respiratory Rate 20 11/05/20 11:41 Blood Pressure 122/72 11/05/20 11:41 Pulse Oximetry 95 11/05/20 11:41 Oxygen Delivery Method Room Air 11/05/20 11:41 Oxygen Flow Rate 0 11/05/20 11:41 Pain Level 7 11/05/20 11:41 Comment 11/05/20 11:41
--- NOTE | 2020-11-05 12:15 | DI.CT_ITS ---
Exam(s) CT CHEST PE ABD PELVIS W EXAM: CT CHEST PE ABD PELVIS W CLINICAL HISTORY: cough, shortness of breath, LLQ abd pain. TECHNIQUE: Imaging Protocol: Axial CT angiography was performed with multi-slice acquisition and mu lti-planar and/or 3D reconstructions. CONTRAST MATERIAL: Intravenous: Omnipaque 350 Contrast volume:100 mL COMPARISON: CT CT CHEST/ABD/PEL W from 09/14/2018 FINDINGS: CHEST: Pulmonary Arteries: No evidence of filling defect to suggest pulmonary emboli. Tracheobronchial tree: Patent where visualized. Mediastinum and Lori: There are mildly enlarged lymph nodes in the lori which are likely reactive. N o fluid collection is seen. Pulmonary parenchyma: There are multiple ground-glass opacities in the lungs predominantly in the low er lobes and peripherally. No architectural distortion. Pleura: No effusion or pneumothorax. Heart: The heart is not dilated. No coronary artery calcifications are seen. No pericardial effusion. Aorta: Thoracic aorta non-dilated. No dissection. Bones: Normal. ABDOMEN: Liver: Normal density. No measurable mass. Portal, Superior Mesenteric, and Splenic Veins: Unremarkable. Gallbladder and Biliary Tract: No radiodense calculus or dilation. Pancreas: Normal density, no abnormal calcifications or inflammatory process. Spleen: Normal. Adrenals: No masses seen. Kidneys: Normal size, contour and axis. No radiodense stones or obstructive uropathy. There is a alissa tary tiny hypodensity in each kidney. They are too too small for further characterization, but likel y reflect small cysts. Abdominal Aorta: Abdominal portion non-dilated. Bowel: No obstruction or bowel wall thickening. Appendix is unremarkable. Prior sigmoid anastomosis. Peritoneal Cavity: No ascites, collection or mesenteric inflammatory response. No free air. Lymph Nodes: Within normal limits. Bones: Unremarkable. Soft Tissues: Unremarkable. PELVIS: Bladder: Symmetric distention, no gross wall thickening. Reproductive Organs: Unremarkable as visualized. Lymph Nodes: Within normal limits. Bones: Within normal limits. IMPRESSION: 1. No evidence of pulmonary embolism, thoracic aortic dissection or aneurysm. 2. Multifocal ground-glass opacities in the lungs. Findings are most suggestive of pneumonia. Atypi bladimir or viral pneumonia should be considered including COVID-19 pneumonia. 3. No acute abdominal or pelvic process. 4. Results of this exam have been verbally communicated with provider. RADIATION DOSE DELIVERED: 1,724.74mGy.cm Total DLP DATA REPOSITORY: All CT scans at this facility are submitted to the National Radiology Data Registry (NRDR) Dose Index Registry (DIR) with the [employer] (A[employer]). RADIATION OPTIMIZATION: All CT scans at this facility use at least one of these dose optimization te chniques: automated exposure control; mA and/or kV adjustment per patient size (includes targeted exa ms where dose is matched to clinical indication); or iterative reconstruction.
[2020-11-05] MEDS: ACETAMINOPHEN 1,000 MG/100 ML BTL 400 MG IVPB (12:57)
[2020-11-05] MEDS: Ketorolac 30 MG/ML VIAL IVP (12:58)
[2020-11-05] MEDS: Normal Saline 1,000 ML 1000 ML IV ×2 (12:58→14:15)
[2020-11-05 13:00] LABS: Abs Immature Grans 0.04 10^3/uL (0.0-0.06); Absolute Basophil Count 0.02 10^3/uL (0.0-0.2); Absolute Lymphocyte Count 0.65 10^3/uL (1.2-3.4); Absolute Monocyte Count 0.54 10^3/uL (0.1-0.8); Basophils % 0.4; HCT 48.9 % (40.0-50.0); HGB 16.5 g/dL (13.5-17.5); Immature Grans % 0.8; Lymphocytes % 12.4; MCH 29.9 pg (27.0-33.0); MCHC 33.7 % (32.0-36.0); MCV 88.7 fL (80-95); MPV 12.9 fL (8.0-11.0); Monocytes % 10.3; Neutrophils % 76.1; Nucleated RBC 0 %; Platelet Count 105 10^3/uL (130-400); RBC 5.51 10^6/uL (4.36-5.78); RDW 12.3 % (11.8-14.1); RDW-SD 40.8 fL; WBC 5.25 10^3/uL (4.4-10.8)
[2020-11-05 13:12] LABS: ALT 28 U/L (16-63); AST 20 U/L (15-37); Albumin 3.5 g/dL (3.4-5.0); Alkaline Phosphatase 94 U/L (46-116); Anion Gap 10.5 mmol/L (3-11); BUN 15 mg/dL (7-18); Bilirubin, Total 0.3 mg/dL (0.2-1.0); CO2 26.5 mmol/L (21.0-32.0); CREATININE 1.3 mg/dL (0.70-1.30); Calcium 8.6 mg/dL (8.5-10.1); Chloride 105 mmol/L (98-107); Glucose 98 mg/dL (74-106); Lipase 118 U/L (73-393); Potassium 4.4 mmol/L (3.5-5.1); Sodium 142 mmol/L (136-145); Total Protein 7.9 g/dL (6.4-8.2)
[2020-11-05] MEDS: Omnipaque 350 MG/ML 100 ML BTL IJ (13:59)
[2020-11-05] MEDS: Albuterol HFA 8 GM 60 PUFF INH IH (15:39)
[2020-11-05] MEDS: Amox. 875/Clav. 125, 2 TABS/BTL 1 TAB PO (15:40)
[2020-11-05] MEDS: Amoxicillin 875/Clav. 125 TAB PO (15:41)
[2020-11-05] MEDS: Azithromycin 250 MG TAB 500 MG PO (15:41)
[2020-11-05 15:43] VITALS: BP 122/72; PULSE 88; RESP 16; RESP 20; TEMP 37.2; O2SAT 95
== END 2020-11-05 15:38 | disposition home or self-care (01) ==
LOC: ER 16:48
PROVIDERS: Emergency Provider Physician Assistant; PCP Family Medicine
DX: U07.1 COVID-19 (principal); J12.82 Pneumonia due to coronavirus disease 2019; R10.32 Left lower quadrant pain
CPT/HCPCS: 36415; 71275; 74177; 80053; 83690; 96361; 96374; 96375; 99285; 85025; J0131; J1885; J3490

== ENCOUNTER 2024-05-16 13:58 | Outpatient (CLI) | payer SELFPAY ==
[2024-05-16 11:57] LABS: Bilirubin Negative (Negative); Blood Trace-intact (Negative); Clarity Clear (Clear); Glucose Negative (Negative); Ketones 40 mg/dL (Negative); Leukocyte Esterase Negative (Negative); Nitrite Negative (Negative); Specific Gravity 1.025 (1.005-1.025); pH 5.5 (5-8)
[2024-05-16 12:10] LABS: Bacteria Few HPF (Negative); C & S Indicated? No; Casts Negative LPF (Negative); Crystals Negative HPF (Negative); Epithelial Cells Negative HPF (Negative); Mucus Trace (Negative); Other Cells Negative (Negative); RBC 0-2 HPF (0-2)
[2024-05-16 12:14] LABS: HCT 47.6 % (40.0-50.0); HGB 16.1 g/dL (13.5-17.5); MCH 29.8 pg (27.0-33.0); MCHC 33.8 % (32.0-36.0); MCV 88 fL (80-95); MPV 12.1 fL (8.0-11.0); Platelet Count 168 10^3/uL (130-400); RBC 5.41 10^6/uL (4.36-5.78); RDW 12.7 % (11.8-14.1); RDW-SD 40.4 fL; WBC 7.57 10^3/uL (4.4-10.8)
[2024-05-16 12:52] LABS: ALT 27 U/L (16-63); AST 16 U/L (15-37); Albumin 3.8 g/dL (3.4-5.0); Alkaline Phosphatase 93 U/L (46-116); Anion Gap 9.8 mmol/L (3-11); BUN 21 mg/dL (7-18); Bilirubin, Total 0.37 mg/dL (0.2-1.0); CO2 25.2 mmol/L (21.0-32.0); CREATININE 1.1 mg/dL (0.70-1.30); Calcium 9.2 mg/dL (8.5-10.1); Chloride 105 mmol/L (98-107); Estimated GFR 84.89 (mL/min/1.73m2); Glucose 88 mg/dL (74-106); Potassium 4.1 mmol/L (3.5-5.1); Sodium 140 mmol/L (136-145); Total Protein 7.6 g/dL (6.4-8.2)
== END 2024-05-16 13:59 | disposition home or self-care (01) ==
LOC: LBO 13:59
PROVIDERS: PCP Family Medicine; Visit Provider Nurse Practitioner Family
DX: F31.32 Bipolar disorder, current episode depressed, moderate (principal)
CPT/HCPCS: 36415; 80053; 85027; 81003; 81015